=== PATIENT | female | born 1970 | race Asian ===

== ENCOUNTER 2024-03-06 12:58 | Outpatient (OUT) | payer OTHER, SELFPAY ==
--- NOTE | 2024-03-06 08:05 | V.VEINS.HP ---
Vital Signs 03/06/24 13:09 Height 5 ft 3 in Weight 68.039 kg BMI 26.6 BP 102/52 BP Location Left Brachial BP Position Sitting BP Cuff Size Adult BP Source Manual Cuff Respiration 16 Pulse 64 Pulse Source Monitor Pulse Oximetry (%) 99 Oxygen Delivery Method Room Air Varicose Veins Patient is a 53 year old female in this day with c/o biilateral leg pain and achiness. Stef Will MD personally performed the services described in this documentation, as scribed by Petr Francis RN in my presence and it is both accurate and complete. Petr Will RN, am scribing for, and in the presence of, Dr. Stef Figueroa and in the presence of the patient. . Stef Will MD personally performed the services described in this documentation, as scribed by Petr Francis RN in my presence and it is both accurate and complete. Petr Will RN, am scribing for, and in the presence of, Dr. Stef Figueroa and in the presence of the patient. knee: bilateral (symptoms same on both legs), calf: bilateral, ankle: bilateral and lujan: bilateral aching, cramping and tender 8 1 year Worsened in recent months: Yes standing and sitting elevating extremities and compression stockings Reports muscle spasms of leg, fatigue, heaviness and leg edema History of lower extremity trauma: No Superficial thrombophlebitis: No Family history of varicose veins: no Has patient had previous lower extremity venous surgery: No Patient has previously received the following treatment(s) for lower extremity varicose veins: Reports sclerotherapy (Dr. Merritt in [place], [place] 3 years ago) Does patient have a history of : yes Does patient intend to have future pregnancies: no Has patient had lower extremity venous scan with relux testing: No Support hose used: Yes Problems walking or doing physical activity: Yes How does it affect you: often has to rest and elevate legs due to pain/edema Do you walk much: Yes Do you stand much: Yes Review of Systems ROS Narrative Stef Will MD personally performed the services described in this documentation, as scribed by Petr Francis RN in my presence and it is both accurate and complete. Petr Will RN, am scribing for, and in the presence of, Dr. Stef Figueroa and in the presence of the patient. 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) Cervical vertebral fusion ?M43.22 - Fusion of spine, cervical region (ICD-10) Disc degeneration Migraine ?G43.909 - Migraine, unspecified, not intractable, without status migrainosus (ICD-10) Borderline diabetes ?R73.03 - Prediabetes (ICD-10) Heart disease ?I51.9 - Heart disease, unspecified (ICD-10) Hypothyroid ?E03.9 - Hypothyroidism, unspecified (ICD-10) Varicose veins of bilateral lower extremities with pain ?I83.813 - Varicose veins of bilateral lower extremities with pain (ICD-10) Surgical History (Updated 03/06/24 @ 13:26 by Petr Francis) H/O: hysterectomy ?Z90.710 - Acquired absence of both cervix and uterus (ICD-10) Family History (Updated 03/06/24 @ 13:26 by Petr Francis) Father Family history of diabetes mellitus Mother Family history of diabetes mellitus Renal disease Social History (Updated 03/06/24 @ 13:27 by Petr Francis) Within the past year, how often did you have a drink containing alcohol: never Score interpretation: A score less than 3 is consistent with normal alcohol consumption. Smoking status: Current every day smoker What tobacco products do you use: cigarettes Cigarettes per day: 4 Non-prescribed substance use: denies use Meds Home Medications and Allergies Home Medications ?Medication ?Instructions ?Recorded ?Confirmed ?Type aspirin 81 mg capsule 81 mg PO BID 03/06/24 03/06/24 History estradiol PO 03/06/24 History metformin 500 mg tablet 500 mg PO BID 03/06/24 03/06/24 History topiramate .ROUTE 03/06/24 History Allergies Allergy/AdvReac Type Severity Reaction Status Date / Time No Known Drug Allergies Allergy Verified 03/06/24 13:28 Exam Narrative Exam Narrative: I, Stef Figueroa MD personally performed the services described in this documentation, as scribed by Petr Tito RN in my presence and it is both accurate and complete. Petr Will RN, am scribing for, and in the presence of, Dr. Stef Figueroa and in the presence of the patient. Results Additional Findings Additional findings: Bilateral leg reflux u/s reveals severe left great saphenous vein disease with insufficiency and dilation, mild venous insufficiency right great and anterior accessory saphenous veins, and bilateral leg branch saphenous truncal varicosities Stef Will MD personally performed the services described in this documentation, as scribed by Petr Francis RN in my presence and it is both accurate and complete. IPetr RN, am scribing for, and in the presence of, Dr. Stfe Figueroa and in the presence of the patient. Assessment and Plan Assessment and Plan (1) Varicose veins of bilateral lower extremities with pain: Plan Patient to return for EVLT of left GSV, followed by microfoam chemical ablation left leg limited u/s, lastly followed by sclerotherapy bilateral leg pre-hemorrhagic, reticular spider veins. Stef Will MD personally performed the services described in this documentation, as scribed by Petr Francis RN in my presence and it is both accurate and complete. Petr Will RN, am scribing for, and in the presence of, Dr. Stef Figueroa and in the presence of the patient.
--- NOTE | 2024-03-06 08:06 | W.VEIN ---
Discharge Plan Discharge Disposition: Home, Self-Care Outpatient Diagnostics: VC Facility NEW Comprehensive (Routine) Timeframe: 2 Weeks Facility: [facility] - Location: [facility] Ordered By: Stef Figueroa VC EXT Venous Reflux ADELFO LMTD (Routine) Timeframe: 2 Weeks Facility: [facility] - Location: Vein Center Ordered By: Stef Figueroa Plan of Treatment: Patient to return for EVLT of left GSV once approved for insurance Print Language: [place] Discharge Date/Time: 03/06/24 14:39
--- NOTE | 2024-03-06 13:00 | VEIN_ITS ---
Patient Name: KERA LAN MR#: [id number] : 1970 Exam Date: 03/06/2024 Ordering Doctor: DR STEF FIGUEROA M.D. RADIOLOGY REPORT PROCEDURE: VC EXT VENOUS REFLUX ADELFO LMTD COMPARISON: None. INDICATIONS: Pain due to varicose veins of bilateral legs I83.813 TECHNIQUE: Duplex imaging of the lower extremity to assess the deep and superficial venous system for the presence of deep or superficial venous incompetence and to document the location and severity of disease. The study includes evaluation of the great saphenous vein (GSV), anterior accessory saphenous vein (AASV) and small saphenous vein (SSV). Patient scanned in reverse Trendelenburg and standing. FINDINGS: RIGHT LOWER EXTREMITY: Saphenofemoral Junction Reflux: Yes 8.3mm 0.8 sec GSV: Diam (mm) Reflux/ Time (sec) Proximal Thigh 2.8 Yes 0.7 Mid Thigh 2.7 No Distal Thigh 2.0 Yes 0.4 Prox Calf 1.6 No Mid Calf 2.4 Yes 0.3 Saphenopopliteal Junction Reflux: 3.4mm No SSV: Proximal Calf 2.7 No Mid Calf 2.7 No AASV: Proximal Thigh 5.9 Yes 0.9 Mid Thigh 3.1 Yes 0.5 Distal Thigh Thrombi: No acute or chronic thrombus. Compressibility: Normal. Flow: Minimal deep venous reflux. Preforator: Mid medial lower leg 3.3 mm with 0.5s reflux. Tech Note: Incompetent varicose vein off of AASV mid medial thigh measures 3.4 mm with 0.4s reflux. LEFT LOWER EXTREMITY: Saphenofemoral Junction Reflux: Yes 7.6 mm 0.7 sec GSV: Diam (mm) Reflux/Time (sec) Proximal Thigh 6.0 Yes 2.5 Mid Thigh 3.4 Yes 3.8 Distal Thigh 4.7 Yes 4.6 Prox Calf 4.3 Yes 4.6 Mid Calf 3.3 Yes 0.9 Saphenopopliteal Junction Relux: 3.2 mm Yes 0.4 SSV: Proximal Calf 1.8 No Mid Calf 2.9 No AASV: Proximal Thigh 3.1 Yes 0.4 Mid Thigh 2.0 No Distal Thigh Thrombi: No acute or chronic thrombus. Compressibility: Normal. Flow: Minimal deep venous reflux. Ritual Circumciser: Mid posterior calf 4.3 mm with 0.6s reflux. Mid medial lower leg 3.4 mm with 3.7s reflux. Tech Note: Incompetent varicose vein mid posterior calf off of telephone recorder measures 5.2 mm with 2.8s reflux. Varicose vein medial knee measures 4.4 mm with 3.0s reflux. CONCLUSION: 1. Severe left great saphenous vein venous insufficiency with dilatation in saphenofemoral junction reflux 2. Mild venous insufficiency right great and anterior accessory saphenous veins 3. Minimal bilateral deep vein reflux 4. Bilateral incompetent varicose veins Dictated by: Stef Figueroa MD on 03/06/2024 at 14:04 Approved by: Stef Figueroa MD on 03/06/2024 at 14:06
--- NOTE | 2024-03-06 13:00 | VEIN_ITS ---
Patient Name: KERA LAN MR#: [id number] : 1970 Exam Date: 03/06/2024 Ordering Doctor: DR STEF FIGUEROA M.D. RADIOLOGY REPORT PROCEDURE: [facility] - OFFICE VISIT INITIAL COMPARISON: None. PROGRESS NOTES: 53-year-old female presents bilateral leg pain. The patient describes the pain as achy cramping and tenderness and rates the pain as an 8 on a scale 1-10. The patient has had this pain for approximately 1 year. The patient's left leg is worse than the right. The patient's pain is exacerbated by prolonged sitting and standing and partially relieved by rest, leg elevation and compression stocking use. The patient denies any signs and symptoms to suggest arterial ischemia. The patient describes a family history significant for renal disease and diabetes. The patient does not drink. The patient does smokes 4 cigarettes per day . The patient was counseled on smoking cessation period no prescription or illicit drug abuse. history of deep venous thrombus or pulmonary embolus. See separate history and physical for medication list. The patient has previously been treated in [place] by Dr. Brian with injection sclerotherapy with good success. The patient has used compression stockings for many years. Nursing notes were reviewed. After history and physical exam I discussed at length the pathophysiology of venous hypertension and possible treatments, therapies and strategies available. We discussed at length the importance of elevating the lower extremities above the level of the heart, increased physical activity and compression stocking use. We discussed conservative therapy with bilateral compression stockings. We discussed surgical interventions with phlebectomy and ligation and stripping. We discussed intravenous laser ablation, micro foam chemical ablation and injection sclerotherapy at length. Risks benefits and alternatives were discussed. Ultrasound venous reflux study performed the same day was discussed at length with the patient. The report demonstrates severe left great saphenous vein venous insufficiency with saphenofemoral junction right reflux and dilatation. Mild right great and anterior accessory saphenous vein venous insufficiency. Minimal bilateral deep vein reflux. Bilateral incompetent varicose veins. PHYSICAL EXAM: The right leg demonstrates scattered reticular and spider veins. No subcutaneous edema, hemosiderin staining or ulceration The left leg demonstrates moderate scattered varicosities most significant along the popliteal fossa and posterior calf. Moderate reticular and spider veins. Mild subcutaneous edema. No hemosiderin staining or ulceration Both thighs, legs and feet were symmetrically warm to the touch. Good posterior tibial and dorsalis pedis pulses were present bilaterally. VEIN/VC Facility NEW Comprehensive IMPRESSION: 1. Severe left great saphenous vein venous insufficiency with dilatation and saphenofemoral junction reflux 2. Left lower extremity in varicose veins 3. Mild left lower extremity subcutaneous edema 4. No definite flow significant arterial disease 5. CEAP: C3, Ep, As, Pr PLAN: 1. Endovenous laser ablation of the left great saphenous vein 2. Micro foam chemical ablation left leg incompetent varicose veins 3. Bilateral leg injection sclerotherapy of reticular and spider veins 4. Long-term use of bilateral thigh-high or knee high 20-30 mm compression stockings 5. Smoking cessation 6. Increased physical activity for symptomatic relief Nurse notes, history and physical were reviewed and confirmed, see attached forms. The nurse was present throughout the physical exam and consultation Dictated by: Stef Figueroa MD on 03/06/2024 at 14:42 Approved by: Stef Fiugeroa MD on 03/06/2024 at 14:48
[2024-03-06 13:09] VITALS: BP 102/52; PULSE 64; O2SAT 99; BMI 26.6
== END 2024-03-06 14:39 | disposition home or self-care (01) ==
PROVIDERS: PCP Radiology Diagnostic Radiology; Visit Provider Radiology Diagnostic Radiology
DX: I83.813 Varicose veins of bilateral lower extremities with pain (principal)
CPT/HCPCS: 93970; G0463

== ENCOUNTER 2024-04-18 08:11 | Outpatient (OUT) | payer OTHER, SELFPAY ==
--- NOTE | 2024-04-18 07:29 | V.VEINS.HP ---
Vital Signs 04/18/24 07:35 04/18/24 08:30 Height 5 ft 3 in Weight 68 kg BP 104/56 BP Location Left Brachial BP Position Sitting BP Cuff Size Adult BP Source Manual Cuff Respiration 16 Pulse 80 Pulse Source Monitor Pulse Oximetry (%) 100 Oxygen Delivery Method Room Air Varicose Veins Patient in this day for EVLT of left GSV. Stef Will MD personally performed the services described in this documentation, as scribed by Holly Garner RN in my presence and it is both accurate and complete. IHolly RN, am scribing for, and in the presence of, Dr. Stef Figueroa and in the presence of the patient. knee: bilateral (symptoms same on both legs), calf: bilateral, ankle: bilateral and lujan: bilateral aching, cramping and tender 8 1 year Worsened in recent months: Yes standing and sitting elevating extremities and compression stockings Reports muscle spasms of leg, fatigue, heaviness and leg edema History of lower extremity trauma: No Superficial thrombophlebitis: No Family history of varicose veins: no Has patient had previous lower extremity venous surgery: No Patient has previously received the following treatment(s) for lower extremity varicose veins: Reports sclerotherapy (Dr. Merritt in [place], [place] 3 years ago) Does patient have a history of : yes Does patient intend to have future pregnancies: no Has patient had lower extremity venous scan with relux testing: No Support hose used: Yes Problems walking or doing physical activity: Yes How does it affect you: often has to rest and elevate legs due to pain/edema Do you walk much: Yes Do you stand much: Yes Review of Systems ROS Narrative Stef Will MD personally performed the services described in this documentation, as scribed by Holly Garner RN in my presence and it is both accurate and complete. Holly Will RN, am scribing for, and in the presence of, Dr. Stef Figueroa and in the presence of the patient. Status of ROS 10 or more systems reviewed and unremarkable except as noted in history and below Cardiovascular Reports: edema Integumentary/Breast Reports: itching and skin swelling [facility] Medical History (Updated 03/06/24 @ 13:26 by Petr Francis) Bariatrc surg stat w p/p ?O99.845 - Bariatric surgery status complicating the puerperium (ICD-10) Cervical vertebral fusion ?M43.22 - Fusion of spine, cervical region (ICD-10) Disc degeneration Migraine ?G43.909 - Migraine, unspecified, not intractable, without status migrainosus (ICD-10) Borderline diabetes ?R73.03 - Prediabetes (ICD-10) Heart disease ?I51.9 - Heart disease, unspecified (ICD-10) Hypothyroid ?E03.9 - Hypothyroidism, unspecified (ICD-10) Varicose veins of bilateral lower extremities with pain ?I83.813 - Varicose veins of bilateral lower extremities with pain (ICD-10) Surgical History (Updated 03/06/24 @ 13:26 by Petr Francis) H/O: hysterectomy ?Z90.710 - Acquired absence of both cervix and uterus (ICD-10) Family History (Updated 03/06/24 @ 13:26 by Petr Francis) Father Family history of diabetes mellitus Mother Family history of diabetes mellitus Renal disease Social History (Updated 03/06/24 @ 13:27 by Petr Francis) Within the past year, how often did you have a drink containing alcohol: never Score interpretation: A score less than 3 is consistent with normal alcohol consumption. Smoking status: Current every day smoker What tobacco products do you use: cigarettes Cigarettes per day: 4 Non-prescribed substance use: denies use Meds Home Medications and Allergies Home Medications ?Medication ?Instructions ?Recorded ?Confirmed ?Type aspirin 81 mg capsule 81 mg PO BID 03/06/24 03/06/24 History estradiol PO 03/06/24 History metformin 500 mg tablet 500 mg PO BID 03/06/24 03/06/24 History topiramate .ROUTE 03/06/24 History Allergies Allergy/AdvReac Type Severity Reaction Status Date / Time No Known Drug Allergies Allergy Verified 03/06/24 13:28 Exam Narrative Exam Narrative: IStef MD personally performed the services described in this documentation, as scribed by Holly Garner RN in my presence and it is both accurate and complete. IHolly RN, am scribing for, and in the presence of, Dr. Stef Figueroa and in the presence of the patient. Constitutional Documenting provider has reviewed patient's vital signs: yes Common normals: oriented x3 Nutritional appearance: overweight Lymph Lymphatic: no lymphedema noted Cardio Peripheral pulses: posterior tibial pulses present and dorsalis pedis pulses present Extremity General: calf tenderness, edema and other findings Right lower extremity: lower leg Right lower leg: inspection and palpation Left lower extremity: lower leg Left lower leg: inspection and palpation Neuro Common normals: oriented x3 Assessment and Plan Assessment and Plan (1) Varicose veins of bilateral lower extremities with pain: Plan Plan of care: Risks and benefits of the procedure were discussed at length and informed written consent was obtained.? Time-out completed for verification of correct patient, procedure and site.? Staff present during time-out: Holly Garner RN,? Stef Figueroa MD, Debi Stock RDMS,RVT.. Time Out Time__829 Patient prepped and procedure performed in usual sterile fashion. Risk of injury related to use of Diode laser and/or laser devices? __AG___ ? Serial number of laser used :? [id number] Control panel self test performed, electrical cords in good condition, floor is dry, basin of water available, fire extinguisher in close proximity_AG__ Polycarbonate goggles available and Laser warning signs outside of doors___AG___ Eye protection provided to patient and staff in room_AG___ Use of laser retardant drapes and dull blackened instruments as directed__AG___ Use of nonflammable prep solutions and use of saline soaked sponges to protect tissues as indicated _AG___ Length cm Laser operated by ____Dr. Figueroa Physician verbal confirmation laser locked in place__AG__ Laser start time (date and time) __04/18/24@ Laser stop time(date and time) _04/18/24@ Andres _8.0___ Average laser use Joules Average laser use seconds Pulse continuous ___AG_? Pulse intermittent ___ Amount of Tumescent used Evaluated patient for signs and symptoms of electrical injury __AG___ ? Skin clear at insertion site __AG___ Patient tolerated procedure well.? Left leg Coban dressing applied to access site.? Applied Left thigh high leg compression stocking. Will return on // for Left leg limited venous ultrasound and exam. IStef MD personally performed the services described in this documentation, as scribed by Holly Garner RN in my presence and it is both accurate and complete. I, Holly Garner RN, am scribing for, and in the presence of, Dr. Stef Figueroa and in the presence of the patient.
--- NOTE | 2024-04-18 07:34 | W.VEIN ---
Discharge Plan Discharge Disposition: Home, Self-Care Outpatient Diagnostics: VC Facility EST LMTD (Routine) Timeframe: 2 Weeks Facility: [facility] - Location: Vein Center Ordered By: Stef Figueroa VC EXT Venous LT Limited (Routine) Timeframe: 2 Weeks Facility: [facility] - Location: Vein Center Ordered By: Stef Figueroa Follow Up Appointments: 04/25/24 Plan of Treatment: follow up u/s of evlt of left GSV. Patient Instructions: Endovenous Ablation (DC) Print Language: Citizen Of [place] Discharge Date/Time: 04/18/24 08:57
--- NOTE | 2024-04-18 08:15 | VEIN_ITS ---
[address] [address] Patient Name: KERA LAN MRN: [facility]:[id number] date: 1970 Sex: F Assigned Patient Location: Current Patient Location: Accession/Order Number: [id number] Exam Date: 04/18/2024 08:15 Report Date: 04/18/2024 09:11 At the request of: COURTNEY HERNANDEZ Procedure: VC Endovenous Ablation 1VeinLT EXAMINATION: VC Endovenous Ablation 1VeinLT HISTORY: I83.813 - Varicose veins of bilateral lower extremities w... COMPARISON: No relevant comparison available. TECHNIQUE: The risks and benefits of the procedure had been previously discussed, and were rediscussed at length. Informed written consent was obtained. Qian Stock and Holly Pang assisted. Time out procedure was performed. The left lower extremity was prepared and draped in the usual sterile fashion to allow knee flexion in the sterile field. Duplex ultrasound probe was draped in a sterile cover, sterile transmission gel was used. Venous mapping was performed with the areas of dilation and large tributaries marked. The total length was 16 cm from the entry at the knee to the proximal thigh, scarring within the vein precluded advancement beyond the proximal thigh. The diameter of the greater saphenous vein ranged from 5-6 mm. A 30 gauge needle and 1% buffered lidocaine was used to anesthetize the entry site. A 4 mm incision was made with a scalpel and the saphenous vein was entered percutaneously under direct ultrasound guidance with a micropuncture set, a single stick was successful in gaining access. A micro-guide wire was inserted and the needle removed. A micro-set including a dilator was inserted over the microwire and the needle and dilator were removed. A 0.018 guide wire was inserted through the micro-set and threaded through the saphenous vein. The dilator was removed and an introducer sheath was inserted over the wire. The dilator and wire were removed and the 600 micron fiber was introduced and placed and positioned so that it extended beyond the sheath. Final position of the fiber was determined by ultrasound guidance and duplex imaging. Tumescent anesthetic was delivered by ultrasound guidance. 100 cc of fluid was delivered along the entire course of the saphenous vein. The solution consisted of 1000 cc of normal saline with 40 mL of 1% lidocaine and 20 mL of sodium bicarbonate. A final positioning check was made. The energy source was turned on by means of the foot pedal and the fiber and sheath were withdrawn. The total number of Joules delivered was 843. The laser was active for 105 seconds under continuous pulse, average laser use of 8 J. Laser start time 8:41 AM 04/18/2024 . Laser stop time at 8:44 AM 04/18/2024 . A duplex ultrasound revealed compressibility and flow at the saphenofemoral junction immediately after the procedure. Hemostasis at the access site was achieved. The skin incision of the saphenous vein was closed with a 4 x 4. A compression stocking was applied. Postop instructions were given. A follow up appointment was recommended and scheduled. The patient tolerated the procedure well and was discharged in good condition . VEIN/VC Endovenous Ablation 1VeinLT IMPRESSION: Technically successful endovenous laser ablation left great saphenous vein Electronically authenticated by: COURTNEY HERNANDEZ Date: 04/18/2024 09:11
[2024-04-18 08:30] VITALS: BP 104/56; PULSE 80; O2SAT 100
--- NOTE | 2024-04-18 08:34 | V.VEINS.HP ---
Vital Signs 04/18/24 07:35 04/18/24 08:30 Height 5 ft 3 in Weight 68 kg BP 104/56 BP Location Left Brachial BP Position Sitting BP Cuff Size Adult BP Source Manual Cuff Respiration 16 Pulse 80 Pulse Source Monitor Pulse Oximetry (%) 100 Oxygen Delivery Method Room Air Varicose Veins Patient in this day for EVLT of left GSV. Stef Will MD personally performed the services described in this documentation, as scribed by Holly Garner RN in my presence and it is both accurate and complete. IHolly RN, am scribing for, and in the presence of, Dr. Stef Figueroa and in the presence of the patient. knee: bilateral (symptoms same on both legs), calf: bilateral, ankle: bilateral and lujan: bilateral aching, cramping and tender 8 1 year Worsened in recent months: Yes standing and sitting elevating extremities and compression stockings Reports muscle spasms of leg, fatigue, heaviness and leg edema History of lower extremity trauma: No Superficial thrombophlebitis: No Family history of varicose veins: no Has patient had previous lower extremity venous surgery: No Patient has previously received the following treatment(s) for lower extremity varicose veins: Reports sclerotherapy (Dr. Merritt in [place], [place] 3 years ago) Does patient have a history of : yes Does patient intend to have future pregnancies: no Has patient had lower extremity venous scan with relux testing: No Support hose used: Yes Problems walking or doing physical activity: Yes How does it affect you: often has to rest and elevate legs due to pain/edema Do you walk much: Yes Do you stand much: Yes Review of Systems ROS Narrative Stef Will MD personally performed the services described in this documentation, as scribed by Holly Garner RN in my presence and it is both accurate and complete. Holly Will RN, am scribing for, and in the presence of, Dr. Stef Figueroa and in the presence of the patient. Status of ROS 10 or more systems reviewed and unremarkable except as noted in history and below Cardiovascular Reports: edema Integumentary/Breast Reports: itching and skin swelling [facility] Medical History (Updated 03/06/24 @ 13:26 by Petr Francis) Bariatrc surg stat w p/p ?O99.845 - Bariatric surgery status complicating the puerperium (ICD-10) Cervical vertebral fusion ?M43.22 - Fusion of spine, cervical region (ICD-10) Disc degeneration Migraine ?G43.909 - Migraine, unspecified, not intractable, without status migrainosus (ICD-10) Borderline diabetes ?R73.03 - Prediabetes (ICD-10) Heart disease ?I51.9 - Heart disease, unspecified (ICD-10) Hypothyroid ?E03.9 - Hypothyroidism, unspecified (ICD-10) Varicose veins of bilateral lower extremities with pain ?I83.813 - Varicose veins of bilateral lower extremities with pain (ICD-10) Surgical History (Updated 03/06/24 @ 13:26 by Petr Francis) H/O: hysterectomy ?Z90.710 - Acquired absence of both cervix and uterus (ICD-10) Family History (Updated 03/06/24 @ 13:26 by Petr Francis) Father Family history of diabetes mellitus Mother Family history of diabetes mellitus Renal disease Social History (Updated 03/06/24 @ 13:27 by Petr Francis) Within the past year, how often did you have a drink containing alcohol: never Score interpretation: A score less than 3 is consistent with normal alcohol consumption. Smoking status: Current every day smoker What tobacco products do you use: cigarettes Cigarettes per day: 4 Non-prescribed substance use: denies use Meds Home Medications and Allergies Home Medications ?Medication ?Instructions ?Recorded ?Confirmed ?Type aspirin 81 mg capsule 81 mg PO BID 03/06/24 03/06/24 History estradiol PO 03/06/24 History metformin 500 mg tablet 500 mg PO BID 03/06/24 03/06/24 History topiramate .ROUTE 03/06/24 History Allergies Allergy/AdvReac Type Severity Reaction Status Date / Time No Known Drug Allergies Allergy Verified 03/06/24 13:28 Exam Narrative Exam Narrative: IStef MD personally performed the services described in this documentation, as scribed by Holly Garner RN in my presence and it is both accurate and complete. IHolly RN, am scribing for, and in the presence of, Dr. Stef Figueroa and in the presence of the patient. Constitutional Vital Signs, click to edit/add: Last Vital Signs Pulse 80 04/18/24 08:30 Resp 16 04/18/24 08:30 BP 104/56 04/18/24 08:30 Pulse Ox 100 04/18/24 08:30 Documenting provider has reviewed patient's vital signs: yes Common normals: oriented x3 Nutritional appearance: overweight Lymph Lymphatic: no lymphedema noted Cardio Peripheral pulses: posterior tibial pulses present and dorsalis pedis pulses present Extremity General: calf tenderness, edema and other findings Right lower extremity: lower leg Right lower leg: inspection and palpation Left lower extremity: lower leg Left lower leg: inspection and palpation Neuro Common normals: oriented x3 Assessment and Plan Assessment and Plan (1) Varicose veins of bilateral lower extremities with pain: Plan Plan of care: Risks and benefits of the procedure were discussed at length and informed written consent was obtained.? Time-out completed for verification of correct patient, procedure and site.? Staff present during time-out: Holly Garner RN,? Stef Figueroa MD, Debi Stock RDMS,RVT.. Time Out Time__829 Patient prepped and procedure performed in usual sterile fashion. Risk of injury related to use of Diode laser and/or laser devices? __AG___ ? Serial number of laser used :? [id number] Control panel self test performed, electrical cords in good condition, floor is dry, basin of water available, fire extinguisher in close proximity_AG__ Polycarbonate goggles available and Laser warning signs outside of doors___AG___ Eye protection provided to patient and staff in room_AG___ Use of laser retardant drapes and dull blackened instruments as directed__AG___ Use of nonflammable prep solutions and use of saline soaked sponges to protect tissues as indicated _AG___ Length ____19____ cm Laser operated by ____Dr. Figueroa Physician verbal confirmation laser locked in place__AG__ Laser start time (date and time) __04/18/24@0841 Laser stop time(date and time) _04/18/24@0844 Andres _8.0___ Average laser use ___843____Joules Average laser use___105 seconds Pulse continuous ___AG_? Pulse intermittent ___ Amount of Tumescent used Evaluated patient for signs and symptoms of electrical injury __AG___ ? Skin clear at insertion site __AG___ Patient tolerated procedure well.? Left leg Coban dressing applied to access site.? Applied Left thigh high leg compression stocking. Will return on 04/25/24 for Left leg limited venous ultrasound and exam. I, Stef Figueroa MD personally performed the services described in this documentation, as scribed by Holly Garner RN in my presence and it is both accurate and complete. I, Holly Garner RN, am scribing for, and in the presence of, Dr. Stef Figueroa and in the presence of the patient.
[2024-04-18] MEDS: LIDOCAINE HCL 1% 100 MG/10 ML MDV INJ (11:10)
[2024-04-18] MEDS: 0.9 % SODIUM CHLORIDE 500 ML, LIDOCAINE HCL 20 ML, SODIUM BICARBONATE 10 MEQ INJ (11:11)
== END 2024-04-18 08:57 | disposition home or self-care (01) ==
LOC: VC 08:11
PROVIDERS: PCP Radiology Diagnostic Radiology; Visit Provider Radiology Diagnostic Radiology
DX: I83.813 Varicose veins of bilateral lower extremities with pain (principal)
CPT/HCPCS: 36478

== ENCOUNTER 2024-04-25 09:03 | Outpatient (OUT) | payer OTHER, SELFPAY ==
[2024-04-25 08:14] VITALS: BMI 26.6
--- NOTE | 2024-04-25 08:14 | VEINCLINIC_ITS ---
Vital Signs 04/25/24 08:14 Height 5 ft 3 in Weight 68 kg BMI 26.6 Varicose Veins Patient in this day for follow up ultrasound post EVLT of left GSV. Stef Will MD personally performed the services described in this documentation, as scribed by Debi Stock RVT, RDMS in my presence and it is both accurate and complete. Debi Will RVT, RDMS, am scribing for, and in the presence of, Dr. Stef Figueroa and in the presence of the patient. knee: bilateral (symptoms same on both legs), calf: bilateral, ankle: bilateral and lujan: bilateral aching, cramping and tender 8 1 year Worsened in recent months: Yes standing and sitting elevating extremities and compression stockings Reports muscle spasms of leg, fatigue, heaviness and leg edema History of lower extremity trauma: No Superficial thrombophlebitis: No Family history of varicose veins: no Has patient had previous lower extremity venous surgery: No Patient has previously received the following treatment(s) for lower extremity varicose veins: Reports sclerotherapy (Dr. Merritt in [place], [place] 3 years ago) Does patient have a history of : yes Does patient intend to have future pregnancies: no Has patient had lower extremity venous scan with relux testing: No Support hose used: Yes Problems walking or doing physical activity: Yes How does it affect you: often has to rest and elevate legs due to pain/edema Do you walk much: Yes Do you stand much: Yes Review of Systems ROS Narrative Stef Will MD personally performed the services described in this documentation, as scribed by Debi Stock RVT, RDMS in my presence and it is both accurate and complete. Debi Will RVT, RDMS, am scribing for, and in the presence of, Dr. Stef Figueroa and in the presence of the patient. Status of ROS 10 or more systems reviewed and unremark able except as noted in history and below Cardiovascular Reports: edema Integumentary/Breast Reports: itching and skin swelling [facility] Medical History (Updated 03/06/24 @ 13:26 by Petr Francis) Bariatrc surg stat w p/p ?O99.845 - Bariatric surgery status complicating the puerperium (ICD-10) Cervical vertebral fusion ?M43.22 - Fusion of spine, cervical region (ICD-10) Disc degeneration Migraine ?G43.909 - Migraine, unspecified, not intractable, without status migrainosus (ICD-10) Borderline diabetes ?R73.03 - Prediabetes (ICD-10) Heart disease ?I51.9 - Heart disease, unspecified (ICD-10) Hypothyroid ?E03.9 - Hypothyroidism, unspecified (ICD-10) Varicose veins of bilateral lower extremities with pain ?I83.813 - Varicose veins of bilateral lower extremities with pain (ICD-10) Surgical History (Updated 03/06/24 @ 13:26 by Petr Francis) H/O: hysterectomy ?Z90.710 - Acquired absence of both cervix and uterus (ICD-10) Family History (Updated 03/06/24 @ 13:26 by Petr Francis) Father Family history of diabetes mellitus Mother Family history of diabetes mellitus Renal disease Social History (Updated 03/06/24 @ 13:27 by Petr Francis) Within the past year, how often did you have a drink containing alcohol: never Score interpretation: A score less than 3 is consistent with normal alcohol consumption. Smoking status: Current every day smoker What tobacco products do you use: cigarettes Cigarettes per day: 4 Non-prescribed substance use: denies use Meds Home Medications and Allergies Home Medications ?Medication ?Instructions ?Recorded ?Confirmed ?Type aspirin 81 mg capsule 81 mg PO BID 03/06/24 03/06/24 History estradiol PO 03/06/24 History metformin 500 mg tablet 500 mg PO BID 03/06/24 03/06/24 History topiramate .ROUTE 03/06/24 History Allergies Allergy/AdvReac Type Severity Reaction Status Date / Time No Known Drug Allergies Allergy Verified 03/06/24 13:28 Exam Narrative Exam Narrative: IStef MD personally performed the services described in this documentation, as scribed by Debi Stock RVT, RDMS in my presence and it is both accurate and complete. IDebi RVT, RDMS, am scribing for, and in the presence of, Dr. Stef Figueroa and in the presence of the patient.c Constitutional Vital Signs, click to edit/add: Last Vital Signs Pulse 80 04/18/24 08:30 Resp 16 04/18/24 08:30 BP 104/56 04/18/24 08:30 Pulse Ox 100 04/18/24 08:30 Documenting provider has reviewed patient's vital signs: yes Common normals: oriented x3 Nutritional appearance: overweight Lymph Lymphatic: no lymphedema noted Cardio Peripheral pulses: posterior tibial pulses present and dorsalis pedis pulses present Extremity General: calf tenderness, edema and other findings Right lower extremity: lower leg Right lower leg: inspection and palpation Left lower extremity: lower leg Left lower leg: inspection and palpation Neuro Common normals: oriented x3 Results Imaging Venous US: Radiologist's impression: The ultrasound demonstrates Heat induced thrombus visualized 1.4cm from the SFJ. The heat induced thrombus extends from groin to mid calf. Assessment and Plan Assessment and Plan (1) Varicose veins of bilateral lower extremities with pain: Plan Patient in today for follow up ultrasound of lower extremity following treatment of EVLT of left leg GSV completed on 04/18/24.
--- NOTE | 2024-04-25 08:16 | P.DS_ITS ---
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 Print Language: [place] Discharge Date/Time: 04/25/24 10:21
--- NOTE | 2024-04-25 09:05 | VEIN_ITS ---
Patient Name: KERA LAN MR#: [id number] : 1970 Exam Date: 04/25/2024 Ordering Doctor: DR STEF FIGUEROA M.D. RADIOLOGY REPORT PROCEDURE: VC EXT VENOUS LT LIMITED COMPARISON: None. INDICATIONS: I80.02 - Phlebitis and thrombophlebitis of superficial ve... TECHNIQUE: Lower extremity bourgeois scale and Duplex Doppler evaluation of the deep venous system from the inguinal ligament through the calf veins. FINDINGS: REGION: Left lower extremity. THROMBI: Negative for DVT. Heat induced thrombus visualized 1.4 cm from the SFJ. The heat induced thrombus extends from groin to mid thigh. COMPRESSIBILITY: Non-compressible segments corresponding to thrombus FLOW: Areas of no flow corresponding to thrombus CONCLUSION: Post ablation occlusion of the left great saphenous vein with heat induced thrombus 1.4 cm from the saphenofemoral junction Dictated by: Stef Figueroa MD on 04/25/2024 at 10:08 Approved by: Stef Figueroa MD on 04/25/2024 at 10:08
--- NOTE | 2024-04-25 09:05 | VEIN_ITS ---
Patient Name: KERA LAN MR#: [id number] : 1970 Exam Date: 04/25/2024 Ordering Doctor: DR STEF FIGUEROA M.D. RADIOLOGY REPORT PROCEDURE: F[facility]ILITY [facility] - OFFICE VISIT FOLLOW UP COMPARISON: None. PROGRESS NOTES: The patient reports no significant problems following intravenous laser ablation of the left great saphenous vein. The patient has worn her compression stocking. The patient has exercise. The patient did not require oral analgesics Physical exam demonstrates incision to be sealed. There is a 1 cm area of bruising in the distal left medial thigh. No erythema or warmth to suggest cellulitis or thrombophlebitis. No active ulceration. The left great saphenous vein is not definitively palpated Review of the ultrasound performed the same day demonstrates occlusive thrombus extending throughout the treated left great saphenous vein with heat induced thrombus 1.4 cm from the saphenofemoral junction. The patient expressed a desire to proceed with treatment of left leg incompetent varicose veins. [facility] IMPRESSION: 1. Successful ablation of the left great saphenous vein 2. Persistent incompetent left leg varicose veins. PLAN: Micro foam chemical ablation left leg incompetent varicose veins Nurse notes, history and physical were reviewed and confirmed, see attached forms. The nurse was present throughout the physical exam and consultation Dictated by: Stef Figueroa MD on 04/25/2024 at 10:20 Approved by: Stef Figueroa MD on 04/25/2024 at 10:23
== END 2024-04-25 10:21 | disposition home or self-care (01) ==
LOC: VC 09:03
PROVIDERS: PCP Radiology Diagnostic Radiology; Visit Provider Radiology Diagnostic Radiology
DX: I80.02 Phlebitis and thrombophlebitis of superficial vessels of left lower extremity (principal)
CPT/HCPCS: 93971; G0463

== ENCOUNTER 2024-05-16 13:06 | Outpatient (OUT) | payer OTHER, SELFPAY ==
--- NOTE | 2024-05-14 12:47 | V.VEINS.HP ---
Vital Signs 05/16/24 14:11 BP 110/64 BP Location Left Brachial BP Position Sitting BP Cuff Size Adult BP Source Manual Cuff Respiration 16 Pulse 78 Pulse Source Monitor Pulse Oximetry (%) 98 Oxygen Delivery Method Room Air Varicose Veins Patient in this day for microfoam chemical ablation left leg Homero Will MD personally performed the services described in this documentation, as scribed by Petr Francis RN in my presence and it is both accurate and complete. IPetr RN, am scribing for, and in the presence of, Dr. Homero Olivia and in the presence of the patient. knee: bilateral (symptoms same on both legs), calf: bilateral, ankle: bilateral and lujan: bilateral aching, cramping and tender 8 1 year Worsened in recent months: Yes standing and sitting elevating extremities and compression stockings Reports muscle spasms of leg, fatigue, heaviness and leg edema History of lower extremity trauma: No Superficial thrombophlebitis: No Family history of varicose veins: no Has patient had previous lower extremity venous surgery: No Patient has previously received the following treatment(s) for lower extremity varicose veins: Reports sclerotherapy (Dr. Merritt in [place], [place] 3 years ago) Does patient have a history of : yes Does patient intend to have future pregnancies: no Has patient had lower extremity venous scan with relux testing: No Support hose used: Yes Problems walking or doing physical activity: Yes How does it affect you: often has to rest and elevate legs due to pain/edema Do you walk much: Yes Do you stand much: Yes Review of Systems ROS Narrative Homero Will MD personally performed the services described in this documentation, as scribed by Petr Francis RN in my presence and it is both accurate and complete. Petr Will RN, am scribing for, and in the presence of, Dr. Homero Olivia and in the presence of the patient. Status of ROS 10 or more systems reviewed and unremarkable except as noted in history and below Cardiovascular Reports: edema Integumentary/Breast Reports: itching and skin swelling [facility] Medical History (Updated 03/06/24 @ 13:26 by Petr Francis) Bariatrc surg stat w p/p ?O99.845 - Bariatric surgery status complicating the puerperium (ICD-10) Cervical vertebral fusion ?M43.22 - Fusion of spine, cervical region (ICD-10) Disc degeneration Migraine ?G43.909 - Migraine, unspecified, not intractable, without status migrainosus (ICD-10) Borderline diabetes ?R73.03 - Prediabetes (ICD-10) Heart disease ?I51.9 - Heart disease, unspecified (ICD-10) Hypothyroid ?E03.9 - Hypothyroidism, unspecified (ICD-10) Varicose veins of bilateral lower extremities with pain ?I83.813 - Varicose veins of bilateral lower extremities with pain (ICD-10) Surgical History (Updated 05/16/24 @ 13:35 by Petr Francis) S/P sclerotherapy of varicose veins ?Z98.890 - Other specified postprocedural states (ICD-10) ?Z86.79 - Personal history of other diseases of the circulatory system (ICD-10) H/O: hysterectomy ?Z90.710 - Acquired absence of both cervix and uterus (ICD-10) Family History (Updated 03/06/24 @ 13:26 by Petr Francis) Father Family history of diabetes mellitus Mother Family history of diabetes mellitus Renal disease Social History (Updated 03/06/24 @ 13:27 by Petr Francis) Within the past year, how often did you have a drink containing alcohol: never Score interpretation: A score less than 3 is consistent with normal alcohol consumption. Smoking status: Current every day smoker What tobacco products do you use: cigarettes Cigarettes per day: 4 Non-prescribed substance use: denies use Meds Home Medications and Allergies Home Medications ?Medication ?Instructions ?Recorded ?Confirmed ?Type aspirin 81 mg capsule 81 mg PO BID 03/06/24 03/06/24 History estradiol PO 03/06/24 History metformin 500 mg tablet 500 mg PO BID 03/06/24 03/06/24 History topiramate .ROUTE 03/06/24 History Allergies Allergy/AdvReac Type Severity Reaction Status Date / Time No Known Drug Allergies Allergy Verified 03/06/24 13:28 Exam Narrative Exam Narrative: Homero Will MD personally performed the services described in this documentation, as scribed by Petr Francis RN in my presence and it is both accurate and complete. IPetr RN, am scribing for, and in the presence of, Dr. Homero Olivia and in the presence of the patient. Constitutional Vital Signs, click to edit/add: Last Vital Signs Pulse 80 04/18/24 08:30 Resp 16 04/18/24 08:30 BP 104/56 04/18/24 08:30 Pulse Ox 100 04/18/24 08:30 Documenting provider has reviewed patient's vital signs: yes Common normals: oriented x3 Nutritional appearance: overweight Lymph Lymphatic: no lymphedema noted Cardio Peripheral pulses: posterior tibial pulses present and dorsalis pedis pulses present Extremity General: calf tenderness, edema and other findings Right lower extremity: lower leg Right lower leg: inspection and palpation Left lower extremity: lower leg Left lower leg: inspection and palpation Neuro Common normals: oriented x3 Assessment and Plan Assessment and Plan (1) Varicose veins of bilateral lower extremities with pain: Plan f/u examination with physician along with left leg limited u/s IHomero MD personally performed the services described in this documentation, as scribed by Petr Francis RN in my presence and it is both accurate and complete. IPetr RN, am scribing for, and in the presence of, Dr. Homero Olivia and in the presence of the patient. Procedures Procedure Instructions Procedures Left leg microfoam chemical ablation/Varithena: Risks and benefits of the procedure were discussed at length and informed written consent was obtained.? Time-out procedure was performed and the correct patient and procedure were confirmed.? Staff present during time-out: Petr Francis RN and Homero Olivia MD.? Patient prepped and procedure performed in usual sterile fashion.? Patient was placed in Trendelenburg prior to Polidocanol/Varithena injections. Sclerosing Agent:?? cc 1% Polidocanol/Varithena Site Injected: left leg: Number of Injections:? 5cc varithena administered in to a 3mm varicose vein proximal medial lower leg The patient tolerated the procedure well without complication.? Hemostasis was obtained and thigh-high compression stocking was applied with foam pads.? Instructed patient to wear stocking for at least 96 hours and sleep with it and only remove for showering.? The patient was instructed to? wear stocking for 2 weeks.? Patient verbalizes understanding and states they will comply.? Patient was given post-procedure instructions. Patient was discharged in good condition.? Scheduled to undergo limited venous ultrasound and? exam on 05/16/2024. IHomero MD personally performed the services described in this documentation, as scribed by Petr Francis RN in my presence and it is both accurate and complete. IPetr RN, am scribing for, and in the presence of, Dr. Homero Olivia and in the presence of the patient.
--- NOTE | 2024-05-14 12:53 | P.DS_ITS ---
Discharge Plan Discharge Disposition: Home, Self-Care Outpatient Diagnostics: VC Facility EST [facility]MTD (Routine) Timeframe: 2 Weeks Facility: [facility] - Location: Vein Center Ordered By: Homero Olivia VC EXT Venous LT Limited (Routine) Timeframe: 2 Weeks Facility: [facility] - Location: Vein Center Ordered By: Homero Olivia Follow Up Appointments: 05/21/2024 Plan of Treatment: f/u evaluation with physician along with left leg limited u/s Patient Instructions: Polidocanol (By injection) (Asclera, Varithena) Print Language: Citizen Of [place] Discharge Date/Time: 05/16/24 14:13
--- NOTE | 2024-05-16 13:08 | VEIN_ITS ---
[address] [address] Patient Name: KERA LAN MRN: [id number] date: 1970 Sex: F Assigned Patient Location: Current Patient Location: Accession/Order Number: [id number] Exam Date: 05/16/2024 13:08 Report Date: 05/16/2024 15:07 At the request of: COURTNEY HERNANDEZ Procedure: VC INJ Foam Sclerosant WUS LANDSCAPER HELPER PROCEDURE: VC INJ Foam Sclerosant WUS LANDSCAPER HELPER HISTORY: I83.813 - Varicose veins of bilateral lower extremities w... Pre-operative Diagnosis: CEAP class C3 venous insufficiency with pain, tenderness, edema and incompetent branch saphenous vein(s), chronic venous insufficiency left leg secondary to venous incompetence Post-operative Diagnosis: CEAP class C3 venous insufficiency with pain, tenderness, edema and incompetent branch saphenous vein(s), chronic venous insufficiency [ leg secondary to venous incompetence Procedure Performed: 1. Ultrasound-guided microfoam chemical ablation with Varithenaregistered 2. Intraoperative ultrasound guidance Physician: Homero Olivia M.D. Anesthesia: None Indications for Procedure: 53 year old female. Symptoms including lower extremity pain, swelling, dilated bulging veins for many years despite conservative medical therapy including medical compression stockings, exercise and analgesics. Prior procedures include endovenous laser ablation. Multiple incompetent varicosities of the left leg. Duplex scan showed reflux and enlarged diameters up to 3 mm. The patient underwent informed consent including management options where the complications of infection, bleeding, pain, and skin injury were discussed. Particular attention was spent discussing thrombus extension and deep vein thrombosis as well as the possibility of pulmonary embolus and treatment with oral or injectable blood thinners. Procedure: The patient walked to the procedure room. All applicable staff donned appropriate apparel. A procedure timeout was performed to confirm correct patient, correct extremity, correct procedure, and correct room set-up including presence of all applicable supplies, devices, and drugs. A duplex ultrasound, performed by myself confirmed the location and incompetence of branch saphenous varicosities and their course was marked on the skin together with the dilated tributaries. The extent of treatment of the vein and the associated varicosities was determined through ultrasound mapping. The skin was prepped and then punctured with a butterfly needle and advanced under ultrasound guidance. The Varithenaregistered canister was activated and the canister was primed and purged as required in the instructions for use. Varithenaregistered was drawn into a sterile syringe. Varithenaregistered was slowly administered at 0.5-1.0 cc/second with close observation by ultrasound of its course in the vessels. Total volume utilized was: 5 mL into a 3 mm incompetent varicosity within the proximal medial lower leg. Following administration of Varithenaregistered the leg was elevated and the patient was asked to repeatedly dorsiflex the ankle to limit flow of Varithenaregistered into perforating veins. Once appropriate spasm had been confirmed in the treated veins, the vascular catheter was removed from the leg and light pressure was applied over the puncture site for hemostasis. The common femoral and deep superficial veins were then evaluated for flow and compressibility prior to dressing placement. The lower extremity was kept elevated at 45 degrees above the horizontal and cording material was applied over the saphenous segments and tributaries to allow for eccentric compression over the target vessels including the targeted saphenous vein(s). A multilayer dressing was applied consisting of foam pads, coban and thigh-high 20-30 mm Hg compression elastic support hose were placed on the patient. The leg was lowered only after compression had been applied and the patient was immediately ambulatory. The patient ambulated 10 minutes under supervision and was without apparent concerns at time of release. Post-care instructions include advising patient to keep post-treatment bandages in place and dry for 48 hours, avoid extended periods of inactivity, avoid heavy exercise for one week, wear compression stockings on the treated leg continuously for two weeks, to walk daily for 10 minutes over the next month. The patient was instructed to take an anti-inflammatory medicine as needed and to follow up for color duplex scan of the Saphenous veins, the treated branch saphenous varicosities, the adjacent deep veins, and additional treatment within 7 days. PERSONNEL: Petr Francis RN Electronically authenticated by: HOMERO OLIVIA Date: 05/16/2024 15:07
--- OUTSIDE RECORDS SUMMARY | 2024-05-16 13:21 | XMS_ITS | CCD ---
Author Organization [facility] Care Team Providers Care Bindery Machine Setter/Set Up Operator Name Role Phone Edward Harjinderquinten Kim Unavailable Unavailable Demar, Khaldoon Wajeeh Unavailable [phone] Demar, Khaldoon Wajeeh Unavailable Unavail able Demar, Khaldoon Wajeeh Unavailable Unavail able Chopko, Reinaldo W Unavailable Unavailable Chopko, Reinaldo W Unavailable Unavailable Chopko, Reinaldo W Unavailable Unavailable Chopko, Reinaldo W Unavailable Unavailable Herr, Florentino Unavailable Nemesio Florentino Primary Care Provider Nemesio Florentino A Primary Care Provider [phone] Nemesio Florentino A Primary Care Provider Nemesio Florentino A Primary Care Provider Herr, Florentino Primary Care Provider [phone] KAMLA, REINALDO JAZZYODYMYR Attending Unavail able CHOPKO, REINALDO WOLODYMYR Referring Unavail able HERR, FLORENTINO Primary Care Unavailable CHOPKO, REINALDO WOLODYMYR Attending Unavail able CHOPNANCY, REINALDO WOLODYMYR Referring Unavail able HERR, FLORENTINO Primary Care Unavailable Herr NELL Florentino Primary Care Provider [phone] Florentino Garcia A Primary Care Provider HAYDE ARRIAGA Admitting Unavail able HAYDE ARRIAGA Attending Unavail able HERR, FLORENTINO Primary Care Unavailable HAYDE ARRIAGA Admitting Unavail able HAYDE ARRIAGA Attending Unavail able HERR, FLORENTINO Primary Care Unavailable Herr NELL Florentino Primary Care Provider [phone] DOMINICK GONGORA Attending Unavailable HERR, FLORENTINO Primary Care Unavailable HERR, FLORENTINO Primary Care Unavailable DOMINICK GONGORA Attending Unavailable HERR, FLORENTINO Primary Care Unavailable ROLAN, DOMINICK Attending Unavailable HAYDE ARRIAGA Attending Unavail able HERR, FLORENTINO Primary Care Unavailable STEFANI MARC Attending Unavailable HERR, FLORENTINO Primary Care Unavailable HAYDE ARRIAGA Attending Unavail able ROLAN, DOMINICK Admitting Unavailable ROLAN, DOMINICK Referring Unavailable HERR, FLORENTINO Primary Care Unavailable ROLAN, DOMINICK Referring Unavailable COREY CHEN Attending Unavailable HERR, FLORENTINO Primary Care Unavailable ROLAN, DOMINICK Attending Unavailable HERR, FLORENTINO Primary Care Unavailable HERR, FLORENTINO Primary Care Unavailable HAYDE ARRIAGA Attending Unavail able HERR, FLORENTINO Primary Care Unavailable HAYDE ARRIAGA Attending Unavail able NEMESIO, Florentino A Primary Care Physician [phone] Florentino Garcia A Primary Care Provider Nellie Garciaian A Primary Care Provider [phone] Yonley DO, Ivis L Primary Care Provider Florentino HERR A Attending Unavailable Yonley DO, Ivis L Primary Care Provider ALTAGRACIA CROW Attending Unavailabl e YONLEY, IVIS Referring Unavailable YONLEY, IVIS L Primary Care Unavailable CLINGMAN, RUSSELL A Referring Unavailable YONLEY, IVIS L Primary Care Unavailable CLINGMAN, RUSSELL A Referring Unavailable YONLEY, IVIS L Referring Unavailable YONLEY, IVIS L Primary Care Unavailable ALTAGRACIA DAVIS Attending Unavailable ALTAGRACIA DAVIS Referring Unavailable YONLEY, IVIS L Primary Care Unavailable YONLEY, IVIS L Referring Unavailable YONLEY, IVIS L Primary Care Unavailable LEANDRO CAZARES Referring Unavailable YONLEY, IVIS L Primary Care Unavailable YONLEY, IVIS L Primary Care Unavailable YONLEY, IVIS L Attending Unavailable YONLEY, IVIS L Referring Unavailable YONLEY, IVIS L Primary Care Unavailable YONLEY, IVIS L Attending Unavailable YONLEY, IVIS L Referring Unavailable YONLEY, IVIS L Attending Unavailable YONLEY, IVIS L Primary Care Unavailable YONLEY, IVIS L Referring Unavailable ALTAGRACIA DAVIS Attending Unavailable YONLEY, IVIS L Primary Care Unavailable IVIS OMER Referring Unavailable IVIS OMER Primary Care Unavailable IVIS OMER Attending Unavailable IVIS OMER Primary Care Unavailable RUSSELL HANNA Referring Unavailable Allergies Allergy Classification Reported Allergen(s) Allergy Type Date of Onset Reaction(s) Facility (1 source) No Known Medication Allergies; Translations: [No Known Medication Allergies] Propensity to adverse reactions (disorder) [facility] Repository Medications Current Medications Medication Drug Class(es) Dates Sig (Normalized) Sig (Original) acetaminophen 325 mg / oxyCODONE hydrochloride 5 mg oral tablet (20 sources) Opioid Agonist Start: 06-15-2018 take 1 tablet by mouth every six hours as needed oxyCODONE-acetamin ophen (PERCOCET) 5-325 mg per tablet Take 1 tablet by mouth every 6 (six) hours as needed FOR PAIN . 0 06/15/2018 Active acetic acid 20 mg/ml otic solution (19 sources) Start: 12-15-2018 acetic acid (VOSOL) 2 % otic solution Place 2 drops in ear(s) daily 0 12/15/2018 Active [id number] 200 actuat albuterol 0.09 mg/actuat metered dose inhaler (10 sources) beta2-Adrenergic Agonist Start: 04-15-2021 albuterol 90 mcg/actuation inhaler 2 puffs . 0 04/15/2021 Active amoxicillin 875 mg / clavulanate 125 mg oral tablet (1 source) Penicillin-class Antibacterial Start: 01-01-2023 End: 01-11-2023 take 1 tablet by mouth twice daily amoxicillin-clavul anate (AUGMENTIN) 875-125 MG per tablet Take 1 tablet by mouth 2 times daily for 10 days 20 tablet 0 01/01/2023 01/11/2023 Active ARIPiprazole 5 mg oral tablet (20 sources) Atypical Antipsychotic Start: 08-01-2018 take 1 tablet by mouth once daily ARIPiprazole (ABILIFY) 5 MG tablet Take 5 mg by mouth daily 0 09/05/2018 Active ascorbic acid 60 mg / beta carotene 5000 unt / copper sulfate 40 mg / dl-alpha tocopheryl acetate 30 unt / sodium selenite 0.04 mg / zinc oxide 40 mg oral tablet (1 source) Vitamin C take 1 tablet by mouth once daily Multiple Vitamins-Minerals (THERAPEUTIC MULTIVITAMIN-ELECTRIC DEICER INSPECTOR ALS) tablet Take 1 tablet by mouth daily 0 Active ASHWAGANDHA PO (20 sources) take 1200 mg by mouth once daily ASHWAGANDHA PO Take 1,200 mg by mouth daily 0 Active aspirin 81 mg chewable tablet (20 sources) Platelet Aggregation Inhibitor, Nonsteroidal Anti-inflammatory Drug Start: 02-22-2022 aspirin chewable tablet 243 mg take 1 tablet by mouth once lilly y aspirin 81 MG tablet Take 1 tablet by mouth daily 0 Active aspirin 81 mg ch ewable tablet Chew and Swallow 81 mg daily . 0 Active benzocaine 15 mg / menthol 3.6 mg oral lozenge (2 sources) Standardized Chemical Allergen Start: 04-15-2021 Cepacol Sore Throat Spears 15 mg-3.6 mg mucous membrane lozenge 1 lozenge(s), Oral, q2hr as needed for sore throat, 18 EA, Refill(s) 0, [facility], 160, cm, 04/15/21 13:03:00 EDT, Height/Length Dosing, 72.2, kg, 04/15/21 13:03:00 EDT, Weight Dosing Start Date: 04/15/21 Status: Ordered biotin 10 mg oral tablet (20 sources) take 1 tablet by mouth once daily Biotin 16630 MCG TABS Take 10,000 mcg by mouth daily 0 Active biotin 10 mg Tab Take 10,000 mcg by mouth daily . 0 Active 24 hr buPROPion hydrochloride 150 mg extended release oral tablet (20 sources) Aminoketone Start: 01-31-2024 take 3 tablets by mouth once daily in the morning buPROPion (WELLBUTRIN XL) 150 MG extended release tablet take 3 tablets by mouth every morning 90 tablet 5 01/31/2024 Active Start: 07-25-2023 take 3 tablets by mo uth once daily in the morning buPROPion (WELLBUTRIN XL) 150 MG extended release tablet Take 3 tablets by mouth every morning 90 tablet 5 07/25/2023 Active Start: 12-01-2022 take 1 tablet by toya th once daily buPROPion (WELLBUTRIN XL) 300 MG extended release tablet Take 1 tablet by mouth daily 0 12/01/2022 Active Start: 09-14-2022 take 1 tablet by toya th once daily buPROPion 450 MG TB24 Take 450 mg by mouth nightly 90 tablet 1 09/14/2022 Active Start: 06-12-2018 take 1 tablet by toya once daily buPROPion 300 mg XL /24 hrs 300 mg = 1 tab(s), Oral, Daily, # 90 tab(s), Refills(s) 1, Pharmacy: [facility] #[id number], 160, cm, 03/01/22 17:46:00 EDT, Height/Length Dosing, 69.5, kg, 03/01/22 17:46:00 EDT, Weight Dosing Start Date: 03/15/22 Status: Ordered calcium carbonate 500 mg oral tablet (20 sources) take 1 tablet by toya once daily calcium carbonate (OYSTER SHELL CALCIUM 500 MG) 1250 (500 Ca) MG tablet Take 1 tablet by mouth daily 0 Active take 1 tablet by mouth once lilly y calcium carbonate (OS-CARMEN) 500 mg calcium (1,250 mg) tablet Take 1 tablet by mouth daily . 0 Active calcium citrate 950 mg / cholecalciferol 250 unt oral tablet (6 sources) Vitamin D Start: 09-07-2022 take 3 tablets by mouth twice daily calcium citrate-vitamin D (CITRACAL + D) 200-6.25 MG-MCG TABS per tablet take 3 tablet by mouth twice a day (DO NOT TAKE WITH IRON) 0 09/07/2022 Active Start: 10-20-2021 take 3 tablets by mo [facility] twice daily calcium citrate-vitamin D (CITRACAL-D) 200 mg-6.25 mcg (250 unit) Tab take 3 tablet by mouth twice a day (DO NOT TAKE WITH IRON) 0 10/20/2021 Active cetirizine hydrochloride 10 mg oral tablet (1 source) Histamine-1 Receptor Antagonist Start: 08-08-2023 take 1 tablet by mouth once daily cetirizine (ZYRTEC) 10 MG tablet take 1 tablet by mouth once daily 30 tablet 5 08/08/2023 Active cyclobenzaprine hydrochloride 10 mg oral tablet (7 sources) Muscle Relaxant Start: 02-01-2022 take 1 tablet by mouth three times daily as needed for muscle spasms cyclobenzaprine 10 mg Tab 10 mg = 1 tab(s), Oral, TID, PRN for spasm, Caution, may cuase drowsiness, # 60 tab(s), Refills(s) 2, Pharmacy: [facility] , 160, cm, 02/01/22 14:05:00 EDT, Height/Length Dosing, 71, kg, 02/01/22 14:05:00 EDT, Weight Dosing Start Date: 02/01/22 Status: Ordered take 1 tablet by toya three times daily as needed for muscle spasms cyclobenzaprine (FLEXERIL) 10 MG tablet Take 10 mg by mouth 3 (three) times a day as needed for muscle spasms . 0 Active D-BIOTIN (19 sources) take 1 tablet by mouth once daily Biotin 04479 MCG TABS Take 10,000 mcg by mouth daily 0 Active dexamethasone 1 mg/ml ophthalmic suspension (17 sources) Corticosteroid Start: 08-09-19 19 MAXIDEX 0.1 % ophthalmic suspension 24 hr dilTIAZem hydrochloride 120 mg extended release oral capsule (2 sources) Calcium Channel Karen Start: 10-20-19 24 take 1 capsule by mouth once daily dilTIAZem (CARDIZEM CD) 120 MG extended release capsule take 1 capsule by mouth once daily 90 capsule 3 10/20/2023 Active Start: 06-28-2023 take 1 capsule by mo [facility] once daily dilTIAZem (CARDIZEM CD) 120 MG extended release capsule Take 1 capsule by mouth daily 30 capsule 3 06/28/2023 Active docusate sodium 100 mg oral capsule (20 sources) Start: 12-21-2023 take 1 capsule by mouth at bedtime docusate (COLACE, DULCOLAX) 100 MG CAPS Take 100 mg by mouth in the morning and at bedtime 60 capsule 5 12/21/2023 Active Start: 02-16-2023 take 1 capsule by mouth at bed time docusate (COLACE, DULCOLAX) 100 MG CAPS Take 100 mg by mouth in the morning and at bedtime 60 capsule 0 02/16/2023 Active Start: 04-01-2020 End: 02-22-2022 take 1 capsule by mouth twice daily as needed for constipation docusate sodium 100 mg Cap 100 mg = 1 cap(s), Oral, BID, PRN for constipation, # 60 cap(s), Refills(s) 0, Pharmacy: [facility], 160, cm, 05/19/21 10:45:00 EDT, Height/Length Dosing, 69.8, kg, 05/19/21 10:45:00 EDT, Weight Dosing Start Date: 01/05/22 Status: Ordered estradiol 0.5 mg oral tablet (20 sources) Estrogen Start: 01-31-2024 take 1 tablet by mouth once daily estradiol (ESTRACE) 0.5 MG tablet Indications: 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 take 1 tablet by mouth once daily 90 tablet 1 01/31/2024 Active Start: 05-24-2022 End: 08-11-2023 take 1 tablet by mouth once daily estradiol (ESTRACE) 1 MG tablet Indications: 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 Take 1 tablet orally daily 90 tablet 4 05/24/2022 08/11/2023 Discontinued (REORDER) Start: 06-15-2018 take 1 tablet by toya th once daily Estrace 1 mg Tab mg tab(s), Oral, Daily, Refills(s) 0 Start Date: 12/21/18 Status: Ordered famotidine 20 mg oral tablet (20 sources) Histamine-2 Receptor Antagonist Start: 08-08-2023 take 1 tablet by mouth twice daily famotidine (PEPCID) 20 MG tablet take 1 tablet by mouth twice a day 60 tablet 5 08/08/2023 Active Start: 05-18-2020 End: 02-22-2022 famotidine (PEPCID) 20 MG ta blet Take 20 mg by mouth 0 05/18/2020 02/22/2022 Discontinued (LIST CLEANUP) Start: 07-26-2015 End: 05-29-2020 famotidine (PEPCID) 40 MG ta blet Take 40 mg by mouth as needed 0 07/26/2015 05/29/2020 Discontinued (LIST CLEANUP) ferrous sulfate 325 mg oral tablet (4 sources) Ferrous Sulfate (IRON) 325 (65 Fe) MG TABS 1 daily 0 Active fluocinolone acetonide 0.1 mg/ml otic solution (20 sources) Corticosteroid Start: 12-09-2020 fluocinolone (DERMOTIC) 0.01 % OIL oil Indications: Ear itching Put 3 drops into affected ear(s) twice daily for 1 week. After one week decrease use to once daily 1-2 times a week for maintenance. 20 mL 2 12/09/2020 Active Start: 11-04-2019 fluocinolone ( DERMOTIC) 0.01 % OIL oil Indications: Ear itching Put 3 drops into affected ear(s) twice daily for 1 week. After one week decrease use to once daily 1-2 times a week for maintenance. 20 mL 2 11/04/2019 Active Start: 12-24-2018 fluocinolone ( DERMOTIC) 0.01 % OIL oil Indications: Ear itching , Chronic non-infective otitis externa of right ear, unspecified type Put 3 drops into affected ear(s) twice daily for 1 week. After one week decrease use to once daily 1-2 times a week for maintenance. 20 mL 2 12/24/2018 Active fluocinonide 0.5 mg/ml topical cream (2 sources) Corticosteroid Start: 06-13-2023 fluocinonide (LIDEX) 0.05 % cream Apply topically 2 times daily Apply topically 2 times daily. 30 g 0 06/13/2023 Active fluticasone propionate 0.05 mg/actuat metered dose nasal spray (20 sources) Corticosteroid Start: 06-28-2023 take 2 spray(s) nasal route once daily fluticasone (FLONASE) 50 MCG/ACT nasal spray 2 sprays by Each Nostril route daily 32 g 2 06/28/2023 Active Start: 12-20-2022 take 2 spray(s) nasa l route once daily fluticasone (FLONASE) 50 MCG/ACT nasal spray 2 sprays by Each Nostril route daily 32 g 2 12/20/2022 Active Start: 07-22-2018 End: 02-22-2022 fluticasone (FLONASE) 50 MCG /ACT nasal spray 1 spray by Nasal route daily 0 12/18/2018 02/22/2022 Discontinued (LIST CLEANUP) Start: 07-22-2018 fluticasone (F LONASE) 50 mcg/actuation nasal spray gabapentin 600 mg oral tablet (20 sources) Anti-epileptic Agent Start: 09-07-2022 take 1 tablet by mouth three times daily gabapentin (NEURONTIN) 600 MG tablet take 1 tablet by mouth three times a day 0 09/07/2022 Active Start: 03-08-2022 take 1 tablet by toya three times daily Neurontin 600 mg Tab 600 mg = 1 tab(s), Oral, TID, 30 day supply, # 90 tab(s), Refills(s) 0, Pharmacy: [facility] #[id number], 160, cm, 03/01/22 17:46:00 EDT, Height/Length Dosing, 69.5, kg, 03/01/22 17:46:00 EDT, Weight Dosing Start Date: 03/08/22 Status: Ordered Start: 11-13-2021 take 1 tablet by toya three times daily Neurontin 600 mg Tab 600 mg = 1 tab(s), Oral, TID, 30 day supply, # 90 tab(s), Refills(s) 0, Pharmacy: [facility], 160, cm, 05/19/21 10:45:00 EDT, Height/Length Dosing, 69.8, kg, 05/19/21 10:45:00 EDT, Weight Dosing Start Date: 01/05/22 Status: Ordered End: 02-22-2022 take 2 capsules by mouth twice daily gabapentin (NEURONTIN) 100 MG capsule Take 200 mg by mouth 2 times daily. 0 02/22/2022 Discontinued (LIST CLEANUP) hydroCHLOROthiazide 25 mg / triamterene 37.5 mg oral tablet (20 sources) Potassium-sparing Diuretic, Thiazide Diuretic Start: 02-22-2024 take 1 tablet by mouth once daily triamterene-hydroCHLOROthiazide (MAXZIDE-25) 37.5-25 MG per tablet take 1 tablet by mouth once daily 90 tablet 1 02/22/2024 Active Start: 02-16-2023 take 1 tablet by mouth once daily triamterene-hydroCHLOROthiazide (MAXZIDE -25) 37.5-25 MG per tablet Take 1 tablet by mouth daily 90 tablet 1 02/16/2023 Active Start: 09-16-2022 take 1 tablet by mouth once daily triamterene-hydroCHLOROthiazide (MAXZIDE -25) 37.5-25 MG per tablet Take 1 tablet by mouth daily 90 tablet 1 09/16/2022 Active Start: 08-02-2018 End: 02-22-2022 take 1 tablet by mouth once daily for edema triamterene-hydroCHLOROthiazide (MAXZIDE -25) 37.5-25 MG per tablet Indications: Fluid retention take 1 tablet by mouth once daily for FLUID RETENTION 90 tablet 3 06/01/2021 02/22/2022 Discontinued (LIST CLEANUP) lamoTRIgine 25 mg oral tablet (20 sources) Mood Stabilizer, Anti-epileptic Agent Start: 12-05-2018 End: 02-22-2022 lamoTRIgine (LAMICTAL) 25 MG tablet loratadine 10 mg oral tablet (6 sources) Start: 01-02-2024 take 1 tablet by mouth once daily loratadine (CLARITIN) 10 MG tablet take 1 tablet by mouth daily 30 tablet 5 01/02/2024 Active Start: 07-14-2023 take 1 tablet by toya th once daily loratadine (CLARITIN) 10 MG tablet take 1 tablet by mouth daily 30 tablet 5 07/14/2023 Active Start: 02-28-2022 take 1 tablet by toya th once daily loratadine 10 mg Tab 10 mg = 1 tab(s), Oral, Daily, # 30 tab(s), Refills(s) 1, [facility]: [facility][id number], 160, cm, 02/01/22 14:05:00 EDT, Height/Length Dosing, 71, kg, 02/01/22 14:05:00 EDT, Weight Dosing Start Date: 02/28/22 Status: Ordered Start: 11-29-2021 take 1 tablet by toya th once daily loratadine 10 mg Tab 10 mg = 1 tab(s), Oral, Daily, # 30 tab(s), Refills(s) 1, [facility]: [facility], 160, cm, 05/19/21 10:45:00 EDT, Height/Length Dosing, 69.8, kg, 05/19/21 10:45:00 EDT, Weight Dosing Start Date: 11/29/21 Status: Ordered take 1 capsule by mo ut once daily loratadine (CLARITIN) 10 MG capsule Take 1 capsule by mouth daily 0 Active meloxicam 15 mg oral tablet (2 sources) Nonsteroidal Anti-inflammatory Drug Start: 02-22-2024 take 1 tablet by mouth once daily meloxicam (MOBIC) 15 MG tablet Take 1 tablet by mouth daily 30 tablet 0 02/22/2024 Active Start: 09-28-2022 take 1 tablet by toya th once daily meloxicam (MOBIC) 7.5 MG tablet Take 1 tablet by mouth daily 15 tablet 0 09/28/2022 Active metFORMIN hydrochloride 1000 mg oral tablet (20 sources) Biguanide Start: 10-30-2023 take 1 tablet by mouth twice daily at mealtime metFORMIN (GLUCOPHAGE) 1000 MG tablet take 1 tablet by mouth twice a day with meals 180 tablet 3 10/30/2023 Active Start: 08-03-2023 take 1 tablet by toya th twice daily at mealtime metFORMIN (GLUCOPHAGE) 1000 MG tablet take 1 tablet by mouth twice a day with meals 180 tablet 0 08/03/2023 Active Start: 06-12-2018 take 1 tablet by toya th twice daily metformin 1000 mg Tab 1,000 mg = 1 tab(s), Oral, BID, # 60 tab(s), Refills(s) 0, [facility]: [id number], 160, cm, 03/01/22 17:46:00 EDT, Height/Length Dosing, 69.5, kg, 03/01/22 17:46:00 EDT, Weight Dosing Start Date: 03/28/22 Status: Ordered Start: 06-12-2018 take 1 tablet by toya th once daily at breakfast metFORMIN (GLUCOPHAGE) 1000 MG tablet Take 1,000 mg by mouth daily with breakfast . 0 06/12/2018 Active minoxidil 20 mg/ml topical solution (2 sources) Arteriolar Vasodilator Start: 02-21-2020 apply 0.02 g topically twice daily minoxidil topical 2% solution 0.02 gram, 1 mL, Topical, BID, 60 mL, Refill(s) 2, [facility], 153, cm, 02/21/20 15:06:00 EDT, Height/Length Measured, 82.5, kg, 02/21/20 15:06:00 EDT, Weight Measured Start Date: 02/21/20 Status: Ordered Multiple Vitamins-Minerals (THERAPEUTIC MULTIVITAMIN-MINERA LS) tablet (20 sources) take 1 tablet by mouth once daily Multiple Vitamins-Minerals (THERAPEUTIC MULTIVITAMIN-ELECTRIC DEICER INSPECTOR ALS) tablet Take 1 tablet by mouth daily 0 Active vspmwqyu-tlm-vjiskz s sulfate 15 mg iron Tab (13 sources) take 1 tablet by mouth once daily lqemcjvo-azg-szwtg us sulfate 15 mg iron Tab Take 1 tablet by mouth daily . 0 Active Multivitamins and Minerals (2 sources) Start: 10-01-2019 Multivitamins and Minerals Refill(s) 0 Start Date: 10/01/19 Status: Ordered omeprazole 40 mg delayed release oral capsule (20 sources) Proton Pump Inhibitor Start: 06-12-2018 take 1 capsule by mouth once daily omeprazole (PRILOSEC) 40 MG delayed release capsule Take 40 mg by mouth daily 0 08/09/2018 Active 2 ml ondansetron 2 mg/ml injection (1 source) Serotonin-3 Receptor Antagonist Start: 02-22-2022 ondansetron (ZOFRAN) injection 4 mg plecanatide 3 mg oral tablet (3 sources) Start: 10-30-2023 take 1 tablet by mouth once daily TRULANCE 3 MG TABS Indications: Irritable bowel syndrome with constipation take 1 tablet by mouth daily 90 tablet 1 10/30/2023 Active Start: 05-05-2023 take 1 tablet by toya th once daily Plecanatide (TRULANCE) 3 MG TABS Indications: Irritable bowel syndrome with constipation Take 3 mg by mouth daily 90 tablet 1 05/05/2023 Active Start: 09-26-2022 take 1 tablet by toya th once daily Plecanatide (TRULANCE) 3 MG TABS Indications: Irritable bowel syndrome with constipation Take 3 mg by mouth daily 30 tablet 5 09/26/2022 Active 24 hr propranolol hydrochloride 60 mg extended release oral capsule (1 source) beta-Adrenergic Karen Start: 10-09-2023 take 1 capsule by mouth once daily propranolol (INDERAL LA) 60 MG extended release capsule Indications: Tremor of both hands Take 1 capsule by mouth daily 90 capsule 1 10/09/2023 Active raNITIdine 150 mg oral capsule (20 sources) Histamine-2 Receptor Antagonist Start: 08-19-2018 take 1 capsule by mouth once daily ranitidine (ZANTAC) 150 MG capsule Take 150 mg by mouth daily 0 08/19/2018 Active Start: 07-23-2018 take 1 capsule by mo uth twice daily ranitidine (ZANTAC) 150 MG capsule Take 150 mg by mouth 2 (two) times a day . 0 07/23/2018 Active 72 hr scopolamine 0.0139 mg/hr transdermal system (20 sources) Anticholinergic Start: 09-29-2020 scopolamine (TRANSDERM-SCOP) transdermal patch Place 1 patch onto the skin every 72 hours 0 09/29/2020 Active sodium fluoride 0.011 mg/mg oral gel (4 sources) Start: 08-24-2022 SODIUM FLUORIDE, DENTAL GEL, 1.1 % GEL BRUSH IN PLACE OF REGULAR TOOTH PASTE at bedtime DO NOT RINSE 0 08/24/2022 Active terbinafine 250 mg oral tablet (2 sources) Allylamine Antifungal Start: 06-13-2022 take 1 tablet by mouth once daily terbinafine (LAMISIL) 250 MG tablet take 1 tablet by mouth once daily 0 06/13/2022 Active levothyroxine sodium 0.075 mg oral tablet (20 sources) l-Thyroxine Start: 02-22-2024 take 1 tablet by mouth once daily levothyroxine (SYNTHROID) 75 MCG tablet take 1 tablet by mouth once daily 90 tablet 1 02/22/2024 Active Start: 03-09-2023 take 1 tablet by toya th once daily levothyroxine (SYNTHROID) 75 MCG tablet take 1 tablet by mouth once daily 90 tablet 1 03/09/2023 Active Start: 09-16-2022 take 1 tablet by toya th once daily levothyroxine (SYNTHROID) 75 MCG tablet Take 1 tablet by mouth Daily 90 tablet 1 09/16/2022 Active Start: 03-28-2022 take 1 tablet by toya th once daily levothyroxine 75 mcg (0.075 mg) Tab 75 microgram = 1 tab(s), Oral, Daily, # 30 tab(s), Refills(s) 0, [facility]: [facility][id number], 160, cm, 03/01/22 17:46:00 EDT, Height/Length Dosing, 69.5, kg, 03/01/22 17:46:00 EDT, Weight Dosing Start Date: 03/28/22 Status: Ordered Start: 01-05-2022 take 1 tablet by toya th once daily levothyroxine 75 mcg (0.075 mg) Tab 75 microgram = 1 tab(s), Oral, Daily, # 30 tab(s), Refills(s) 0, [facility]: [facility], 160, cm, 05/19/21 10:45:00 EDT, Height/Length Dosing, 69.8, kg, 05/19/21 10:45:00 EDT, Weight Dosing Start Date: 01/05/22 Status: Ordered Start: 06-12-2018 take 1 tablet by toya th once daily levothyroxine (SYNTHROID) 112 MCG tablet Take 112 mcg by mouth daily 1 08/09/2018 Active tiZANidine 4 mg oral tablet (1 source) Central alpha-2 Adrenergic Agonist Start: 02-22-2024 take 1 tablet by mouth once daily as needed for pain tiZANidine (ZANAFLEX) 4 MG tablet Take 1 tablet by mouth nightly as needed (muscle pain) 30 tablet 0 02/22/2024 Active topiramate 50 mg oral tablet (18 sources) Start: 11-21-2023 take 1 tablet by mouth twice daily topiramate (TOPAMAX) 50 MG tablet take 1 tablet by mouth twice a day 180 tablet 1 11/21/2023 Active Start: 06-02-2023 take 1 tablet by toya th twice daily topiramate (TOPAMAX) 50 MG tablet take 1 tablet by mouth twice a day 180 tablet 1 06/02/2023 Active Start: 11-28-2022 take 1 tablet by toya th twice daily topiramate (TOPAMAX) 50 MG tablet Take 1 tablet by mouth 2 times daily 180 tablet 1 11/28/2022 Active Start: 09-03-2022 take 1 tablet by toya th twice daily topiramate (TOPAMAX) 50 MG tablet take 1 tablet by mouth twice a day 0 09/03/2022 Active Start: 01-12-2021 End: 11-29-2021 take 1 tablet by mouth twice daily topiramate (TOPAMAX) 50 MG tablet Indications: New daily persistent headache Take 1 (one) tablet (50 mg total) by mouth 2 (two) times a day . 60 tablet 11 11/29/2021 Active Start: 12-17-2020 End: 01-17-2021 take 1 tablet by mouth once daily in the evening, then take 1 tablet by mouth twice daily, then take 2 tablets by mouth twice daily topiramate (TOPAMAX) 25 MG tablet Indications: New daily persistent headache Take 1 (one) tablet (25 mg total) by mouth every evening for 5 days, THEN 1 (one) tablet (25 mg total) 2 (two) times a day for 5 days, THEN 2 (two) tablets (50 mg total) 2 (two) times a day for 21 days. CALL FOR REFILLS. 99 tablet 0 12/17/2020 01/12/2021 Discontinued (Reorder) triamcinolone acetonide 1 mg/ml topical cream (1 source) Corticosteroid Start: 12-22-2023 triamcinolone (KENALOG) 0.1 % cream Indications: Pruritic erythematous rash , Nummular eczema Apply topically 2 times daily. 28.4 g 0 12/22/2023 Active ursodiol 250 mg oral tablet (20 sources) Bile Acid Start: 09-29-2020 take 1 tablet by mouth twice daily ursodiol (ACTIGALL) 250 MG tablet Take 1 tablet by mouth 2 times daily 0 09/29/2020 Active 24 hr venlafaxine 75 mg extended release oral capsule (20 sources) Serotonin and Norepinephrine Reuptake Inhibitor Start: 12-22-2023 take 3 capsules by mouth once daily venlafaxine (EFFEXOR XR) 75 MG extended release capsule take 3 capsules by mouth once daily 270 capsule 1 12/22/2023 Active Start: 06-28-2023 take 3 capsules by m outh once daily venlafaxine (EFFEXOR XR) 75 MG extended release capsule Take 3 capsules by mouth daily 270 capsule 1 06/28/2023 Active Start: 09-16-2022 take 3 capsules by m outh once daily venlafaxine (EFFEXOR XR) 75 MG extended release capsule Take 3 capsules by mouth daily 270 capsule 1 09/16/2022 Active Start: 03-15-2022 take 3 capsules by m outh once daily in the morning venlafaxine 75 mg Cap-ER 225 mg = 3 cap(s), Oral, qAM, # 270 cap(s), Refills(s) 1, [facility]: [id number], 160, cm, 03/01/22 17:46:00 EDT, Height/Length Dosing, 69.5, kg, 03/01/22 17:46:00 EDT, Weight Dosing Start Date: 03/15/22 Status: Ordered Start: 09-21-2021 take 3 capsules by m outh once daily in the morning venlafaxine 75 mg Cap-ER 225 mg = 3 cap(s), Oral, qAM, # 270 cap(s), Refills(s) 1, Pharmacy: [facility], 160, cm, 05/19/21 10:45:00 EDT, Height/Length Dosing, 69.8, kg, 05/19/21 10:45:00 EDT, Weight Dosing Start Date: 09/21/21 Status: Ordered Start: 10-20-2015 venlafaxine (E FFEXOR-XR) 150 MG XR capsule Take by mouth nightly 0 10/20/2015 Active take 1 dose by mouth once daily Ventolin HFA 90 mcg/inh Aerosol (2 sources) Start: 04-15-2021 take 2 puff(s) by inhalation four times daily Ventolin HFA 90 mcg/inh Aerosol 2 puff(s), Inhalation, QID Cough, 1 EA, Refill(s) 0, [facility], 160, cm, 04/15/21 13:03:00 EDT, Height/Length Dosing, 72.2, kg, 04/15/21 13:03:00 EDT, Weight Dosing Start Date: 04/15/21 Status: Ordered Vitamin B 12 (20 sources) Vitamin B12 Start: 10-01-2019 Vitamin B12 Refills(s) 0 Start Date: 10/01/19 Status: Ordered End: 02-22-2022 take 1 tablet by mouth once daily cyanocobalamin 1000 MCG tablet Take 1,000 mcg by mouth daily 0 02/22/2022 Discontinued (LIST CLEANUP) Completed/Discontinued Medications Medication Drug Class(es) Dates Sig (Normalized) Sig (Original) acetaminophen 500 mg oral tablet (20 sources) Start: 01-01-2023 End: 01-01-2023 acetaminophen (TYLENOL) tablet 1,000 mg Start: 11-16-2018 take 1 tablet by toya th three times daily RA ACETAMINOPHEN EX ST 500 MG tablet Take 1 tablet by mouth 3 times daily 0 11/16/2018 Active acetaminophen 325 mg / butalbital 50 mg / caffeine 40 mg oral tablet (3 sources) Barbiturate, Central Nervous System Stimulant, Methylxanthine Start: 10-07-2021 End: 11-23-2021 gporcazmcc-ombgvfhncbplz-nfr feine (ESGIC) 50-325-40 mg Indications: New daily persistent headache As needed for severe headaches. 1 tab 4 times maximum per day (4-6 hours apart). Avoid for > 10 days / month. . 60 tablet 0 10/07/2021 11/23/2021 Discontinued (Prescriber Discontinued) calcium polycarbophil 625 mg oral tablet (20 sources) Start: 03-28-2022 take 2 tablets by mouth every twelve hours FiberCon 625 mg Tab 625 mg, Oral, Daily, 1 or 2 tablets every 12 hours, # 100 tab(s), Refills(s) 2, Pharmacy: [facility] #[id number], 160, cm, 03/01/22 17:46:00 EDT, Height/Length Dosing, 69.5, kg, 03/01/22 17:46:00 EDT, Weight Dosing Start Date: 03/28/22 Status: Ordered Start: 01-11-2022 take 2 tablets by [facility] every twelve hours FiberCon 625 mg Tab 625 mg, Oral, Daily, 1 or 2 tablets every 12 hours, # 100 tab(s), Refills(s) 2, Pharmacy: [facility], 160, cm, 05/19/21 10:45:00 EDT, Height/Length Dosing, 69.8, kg, 05/19/21 10:45:00 EDT, Weight Dosing Start Date: 01/11/22 Status: Ordered Start: 11-07-2021 take 1-2 tablets by mouth every twelve hours Fiber-Lax 625 mg tablet take 1 to 2 tablets by mouth every 12 hours 0 11/07/2021 Active Start: 08-23-2018 take 1 capsule by mo [facility] once daily RA FIBER THERAPY 625 MG tablet Take 1 capsule by mouth daily 0 08/23/2018 Active cholecalciferol 0.05 mg oral tablet (20 sources) Vitamin D Start: 10-19-2020 End: 02-22-2022 take 1 capsule by mouth once daily vitamin D (CHOLECALCIFEROL) 125 MCG (5000 UT) CAPS capsule take 1 capsule by mouth once daily 0 10/19/2020 02/22/2022 Discontinued (LIST CLEANUP) Start: 12-05-2018 End: 02-22-2022 take 1 tablet by mouth once daily cholecalciferol 2000 intl units oral tablet (Vitamin D3) 2,000 International_Unit = 1 tab(s), Oral, Daily, # 30 tab(s), Refills(s) 5, Pharmacy: [id number], 160, cm, 01/18/21 15:57:00 EDT, Height/Length Dosing, 74, kg, 01/18/21 15:57:00 EDT, Weight Dosing Start Date: 02/25/21 Status: Ordered Start: 06-12-2018 take 1 capsule by [facility] once daily VITAMIN D3 2,000 unit cap Take 2,000 mg by mouth daily . 1 06/12/2018 Active diazePAM 5 mg oral tablet (15 sources) Benzodiazepine Start: 06-18-2018 End: 10-12-2020 take 1 tablet by mouth every eight hours as needed for anxiety and pain diazePAM (VALIUM) 5 MG tablet Indications: Cervical spondylosis with myelopathy Take 1 (one) tablet (5 mg total) by mouth every 8 (eight) hours as needed for anxiety (spasm and pain) (Days supply per fill: twenty . 30 tablet 0 06/18/2018 10/12/2020 Discontinued (Therapy completed) gadoterate meglumine (DOTAREM) injection 15 mL (1 source) Start: 10-06-2020 End: 10-06-2020 gadoterate meglumine (DOTAREM) injection 15 mL iopamidol (ISOVUE-370) 76 % injection 75 mL (1 source) Start: 09-23-2022 End: 09-23-2022 iopamidol (ISOVUE-370) 76 % injection 75 mL 1 ml ketorolac tromethamine 30 mg/ml cartridge (1 source) Nonsteroidal Anti-inflammatory Drug, Cyclooxygenase Inhibitor Start: 02-22-2022 End: 02-22-2022 ketorolac (TORADOL) injection 30 mg Problems Active Problems Problem Classification Problem Date Documented Da te Episodic/Chronic Abdominal pain (3 sources) Pain in pelvis; Translations: [Right lower quadrant pain] 01-09-2020 Episodic Complications of surgical procedures or medical care (2 sources) Post-surgical malabsorption 03-19-2021 Chronic Disorders of lipid metabolism (6 sources) Primary hypertriglyceridemia; Translations: [Pure hyperglyceridemia] Onset: 2 01-18-2019 Chronic Esophageal disorders (8 sources) Gastroesophageal reflux disease without esophagitis; Translations: [Gastroesophageal reflux disease] Onset: 9 01-18-2021 Chronic Fracture of lower limb (1 source) Open fracture of phalanx of foot; Translations: [Displaced unspecified fracture of right lesser toe(s), initial encounter for open fracture] Episodic Genitourinary symptoms and ill-defined conditions (2 sources) Poor stream of urine 03-19-2021 Episodic Headache; including migraine (16 sources) New daily persistent headache; Translations: [New daily persistent headache (NDPH)] Onset: 1 Chronic Mood disorders (6 sources) Recurrent major depression in remission; Translations: [Severe recurrent major depression] Onset: 2 01-18-2021 Chronic Open wounds of extremities (1 source) Laceration of toe of right foot; Translations: [Laceration without foreign body of right lesser toe(s) without damage to nail, initial encounter] Episodic Other aftercare (4 sources) Surgical follow-up; Translations: [Encounter for follow-up examination after completed treatment for conditions other than malignant neoplasm] Episodic Other circulatory disease (1 source) Wound hemorrhage; Translations: [Bleeding from wound] Episodic Other connective tissue disease (2 sources) Neuritis 12-21-2018 Episodic Other endocrine disorders (6 sources) Hypoglycemia; Translations: [Hypoglycemia, unspecified] Onset: 3 03-19-2021 Chronic Other endocrine disorders (2 sources) Polycystic ovaries 12-21-2018 Chronic Other eye disorders (1 source) Eye / vision finding 01-18-2019 Episodic Other gastrointestinal disorders (3 sources) Abdominal mass; Translations: [Abdominal mass, unspecified abdominal location] 06-10-2019 Episodic Other gastrointestinal disorders (1 source) Intra-abdominal and pelvic swelling, mass and lump; Translations: [Intra-abdominal and pelvic swelling, mass and lump, unspecified site] Episodic Other gastrointestinal disorders (2 sources) Constipation 01-18-2019 Episodic Other gastrointestinal disorders (2 sources) Pelvic mass 01-09-2020 Episodic Other hereditary and degenerative nervous system conditions (20 sources) Movement disorder; Translations: [Extrapyramidal and movement disorder, unspecified] Onset: 1 08-20-2020 Chronic Other nervous system disorders (20 sources) Carpal tunnel syndrome; Translations: [Carpal tunnel syndrome, unspecified upper limb] Onset: 9 12-11-2018 Chronic Other nervous system disorders (1 source) Cubital tunnel syndrome; Translations: [Cubital tunnel syndrome of both upper extremities] Chronic Other nervous system disorders (3 sources) Bilateral carpal tunnel syndrome; Translations: [Carpal tunnel syndrome, bilateral upper limbs] Chronic Other nervous system disorders (3 sources) Other chronic pain; Translations: [Other chronic pain] Onset: 4 Chronic Other nervous system disorders (6 sources) Carpal tunnel syndrome, bilateral upper limbs; Translations: [Bilateral carpal tunnel syndrome] Other nervous system disorders (1 source) Carpal tunnel syndrome of right wrist; Translations: [Carpal tunnel syndrome of right wrist] Other nutritional; endocrine; and metabolic disorders (2 sources) Body mass index 40+ - severely obese 02-21-2020 Chronic Other nutritional; endocrine; and metabolic disorders (2 sources) Morbid obesity 02-21-2020 Chronic Other nutritional; endocrine; and metabolic disorders (2 sources) Obesity 12-21-2018 Chronic Other nutritional; endocrine; and metabolic disorders (2 sources) Body mass index 25-29 - overweight 03-19-2021 Episodic Other nutritional; endocrine; and metabolic disorders (2 sources) Overweight 12-14-2020 Episodic Other screening for suspected conditions (not mental disorders or infectious disease) (1 source) Patient encounter status; Translations: [Encounter for screening mammogram for malignant neoplasm of breast] Episodic Other skin disorders (1 source) Ingrowing nail; Translations: [Ingrowing nail] Onset: 2 Episodic Other skin disorders (1 source) Ingrowing toenail 04-05-2022 Episodic Otitis media and related conditions (4 sources) Dysfunction of eustachian tube 10-01-2019 Episodic Residual codes; unclassified (2 sources) Obstructive sleep apnea syndrome 12-21-2018 Chronic Residual codes; unclassified (7 sources) Memory impairment; Translations: [Memory loss] Onset: 9 12-11-2018 Episodic Residual codes; unclassified (1 source) History of hernia repair; Translations: [Other specified postprocedural states] Episodic Spondylosis; intervertebral disc disorders; other back problems (20 sources) Cervical spondylosis with myelopathy; Translations: [Cervical radiculopathy] Onset: 8 06-04-2018 Chronic Spondylosis; intervertebral disc disorders; other back problems (20 sources) Neck pain; Translations: [Chronic low back pain] Onset: 9 Resolved: 3 10-22-2018 Episodic Sprains and strains (2 sources) Strain of muscle, fascia and tendon at neck level, initial encounter; Translations: [Strain of muscle, fascia and tendon at neck level, initial encounter] Onset: 4 Episodic Substance-related disorders (2 sources) Cigarette smoker 03-19-2021 Chronic Thyroid disorders (6 sources) Hypothyroidism; Translations: [Hypothyroidism, unspecified] Onset: 9 02-21-2020 Chronic Unclassified (1 source) Nail dystrophy / L60.3(ICD-10) Onset: 8 Past or Other Problems Problem Classification Problem Date Documented Date Episodic/Chronic Benign neoplasm of uterus (20 sources) Intramural leiomyoma of uterus; Translations: [Intramural leiomyoma of uterus] Onset: 12-31-2015 Resolved: 09-14-2022 12-31-2015 Episodic Disorders of teeth and jaw (20 sources) Jaw pain; Translations: [Jaw pain] Onset: 10-22-2018 Resolved: 11-04-2019 10-22-2018 Episodic Endometriosis (20 sources) Endometriosis of ovary; Translations: [Endometriosis of ovary] Onset: 01-02-2016 Resolved: 09-14-2022 01-02-2016 Chronic Menstrual disorders (20 sources) Disorder of menstruation; Translations: [Irregular menstruation, unspecified] Resolved: 09-14-2022 09-24-2015 Chronic Mycoses (20 sources) Otomycosis; Translations: [Superficial mycosis, unspecified] Onset: 10-19-2018 Resolved: 11-04-2019 10-19-2018 Episodic Nonmalignant breast conditions (20 sources) Persistent breast nodularity; Translations: [Unspecified lump in unspecified breast] Onset: 04-07-2015 04-07-2015 Episodic Nonspecific chest pain (3 sources) Chest wall pain; Translations: [Other chest pain] Onset: 05-06-2023 Episodic Other ear and sense organ disorders (20 sources) Sensorineural hearing loss, bilateral; Translations: [Sensorineural hearing loss, bilateral] Onset: 10-19-2018 Resolved: 09-14-2022 10-19-2018 Chronic Other ear and sense organ disorders (20 sources) Asymmetrical sensorineural hearing loss; Translations: [Unspecified sensorineural hearing loss] Onset: 10-19-2018 Resolved: 09-14-2022 10-19-2018 Chronic Other ear and sense organ disorders (20 sources) Asymmetrical sensorineural hearing loss; Translations: [SNHL (sensory-neural hearing loss), asymmetrical] Onset: 10-19-2018 10-19-2018 Episodic Other ear and sense organ disorders (7 sources) Noise-induced hearing loss; Translations: [Noise-induced hearing loss of both ears] Onset: 10-19-2018 10-19-2018 Episodic Other ear and sense organ disorders (20 sources) Noise effects on inner ear, bilateral; Translations: [Bilateral hearing loss of ears caused by noise] Onset: 10-19-2018 10-19-2018 Episodic Other ear and sense organ disorders (20 sources) Otalgia, right ear; Translations: [Otalgia, unspecified] Onset: 10-25-2018 Resolved: 11-04-2019 11-04-2019 Episodic Other ear and sense organ disorders (20 sources) Otalgia of right ear; Translations: [Right ear pain] Onset: 10-25-2018 Resolved: 11-04-2019 10-25-2018 Other nervous system disorders (12 sources) Athetosis; Translations: [Other abnormal involuntary movements] Onset: 05-18-2021 Episodic Other nervous system disorders (1 source) Tremor, unspecified; Translations: [Tremor, unspecified] Onset: 08-25-2023 Episodic Residual codes; unclassified (20 sources) Amnesia; Translations: [Other amnesia] Onset: 12-11-2018 12-11-2018 Episodic Residual codes; unclassified (4 sources) History of sleeve gastrectomy; Translations: [Acquired absence of stomach [part of]] Onset: 07-25-2022 09-14-2022 Episodic Unclassified (2 sources) Uneven venous ectasia (morphologic abnormality) 12-21-2018 Results Test Name Value Interpretation Reference Range Facility XR CERVICAL SPINE (4-5 VIEWS )on 03-25-2024 XR CERVICAL SPINE (4-5 VIEWS) EXAM: XR CERVICAL SPINE (4-5 VIEWS) HISTORY: Chronic neck pain COMPARISON: 10/29/2018 IMPRESSION: FINDINGS/IMPRESSION: 1. Anterior interbody fusion with corpectomy and graft at C5-C6 and C6-C7 remains in anatomic alignment. 2. Hardware intact. 3. Mild diffuse facet degenerative change without foraminal narrowing. 4. No acute change. Interpreted by: Andrei Garza Jr., MD Signed by: Andrei Garza Jr., MD 03/25/24 Final result Normal [facility] B12/Folate Panelon Cobalamin (Vitamin B12) [Mass/Vol] 1624 pg/mL High 232-1245 [facility] Comment on above: Performed By: #### B 12FOL #### [id number] [place] [address] Clinical Geneticist: Ludwin Lo MD #### NIR TALAVERA, CDP #### [facility] [address] [place], [place] [id number] Clinical Geneticist: Stef Chang MD Folic Acid 17.8 ng/mL Normal 4.8-24.2 [facility] Comment on above: Performed By: #### B 12FOL #### [address] [address] Clinical Geneticist: Ludwin Lo MD #### NIR TALAVERA, CDP #### [facility] [address] [place], [place] [id number] Clinical Geneticist: Stef Chang MD CBC with Diffon 08-25-2023 Abs. Basophil 0.04 k/uL Normal 0.00-0.[address] [facility] Comment on above: Performed By: #### B 12FOL #### [id number] [place] [address] Clinical Geneticist: Ludwin Lo MD #### ILAN TSHJose David, CDP #### [facility] [address] [place], [place] [id number] Clinical Geneticist: Stef Chang MD Abs.Imm.Granulocy te 0.01 k/uL Normal 0.00-0.30 [facility] Comment on above: Performed By: #### B 12FOL #### [facility] [address] [place] [address] Clinical Geneticist: Ludwin Lo MD #### CP, TSHX, CDP #### [facility] [address] [place], [place] [id number] Clinical Geneticist: Stef Chang MD Abs.Neutrophil (Seg) 6.61 k/uL Normal 2.5-7.0 [facility] Comment on above: Performed By: #### B 12FOL #### [facility] [address] [place] [address] Clinical Geneticist: Ludwin Lo MD #### ILAN, MARYCHUYX, CDP #### [facility] [address] [place], [place] [id number] Clinical Geneticist: Stef Chang MD Basophils/100 WBC (Bld) 0 % Normal 0-2 [facility] Comment on above: Performed By: #### B 12FOL #### [facility] [address] [place] [address] Clinical Geneticist: Ludwin Lo MD #### ILAN, TSHX, CDP #### [facility] [address] [place], [place] [id number] Clinical Geneticist: Stef Chang MD Eosinophils (Bld) [#/Vol] 0.24 10*3/uL Normal 0.00-0.40 [facility] Comment on above: Performed By: #### B 12FOL #### [facility] [address] [place] [address] Clinical Geneticist: Ludwin Lo MD #### CP, TSHX, CDP #### [facility] [address] [place], [place] [id number] Clinical Geneticist: Stef Chang MD Eosinophils/100 WBC (Bld) 2 % Normal 0-5 [facility] Comment on above: Performed By: #### B 12FOL #### [facility] [address] [place] [address] Clinical Geneticist: Ludwin Lo MD #### CP, TSHX, CDP #### [facility] [address] [place], [place] [id number] Clinical Geneticist: Stef Chang MD Erythrocyte distribution width (RBC) [Ratio] 12.4 % Normal 12.1-15.2 [facility] Comment on above: Performed By: #### B 12FOL #### [address] [address] Clinical Geneticist: Ludwin Lo MD #### ILAN, TSHX, CDP #### [facility] [address] [place], [place] [id number] Clinical Geneticist: Stef Chang MD Hematocrit (Bld) [Volume fraction] 41.4 % Normal 36.0-46.0 [facility] Comment on above: Performed By: #### B 12FOL #### [address] [address] Clinical Geneticist: Ludwin Lo MD #### ILAN, TSHX, CDP #### [facility] [address] [place], [place] [id number] Clinical Geneticist: Stef Chang MD Hemoglobin (Bld) [Mass/Vol] 14.4 g/dL Normal 12.0-16.0 [facility] Comment on above: Performed By: #### B 12FOL #### [facility] [address] [place] [address] Clinical Geneticist: Ludwin Lo MD #### CP, TSHX, CDP #### [facility] [address] [place], [place] [id number] Clinical Geneticist: Stef Chang MD Immature granulocytes/100 WBC (Bld) 0 % Normal 0-5 [facility] Comment on above: Performed By: #### B 12FOL #### [facility] [address] [place] [address] Clinical Geneticist: Ludwin Lo MD #### CP, TSHX, CDP #### [facility] [address] [place], [place] [id number] Clinical Geneticist: Stef Chang MD Lymphocytes (Bld) [#/Vol] 3.09 10*3/uL Normal 1.00-4.80 [facility] Comment on above: Performed By: #### B 12FOL #### [id number] [place], [place] [id number] Clinical Geneticist: Ludwin Lo MD #### ILAN, TSHX, CDP #### [facility] [address] [place], [place] [id number] Clinical Geneticist: Stef Chang MD Lymphocytes/100 WBC (Bld) 29 % Normal 15-40 [facility] Comment on above: Performed By: #### B 12FOL #### [facility] [address] [place], [place] [id number] Clinical Geneticist: Ludwin Lo MD #### ILAN, TSHX, CDP #### [facility] [address] [place], [place] [id number] Clinical Geneticist: Stef Chang MD MCH (RBC) [Entitic mass] 30.1 pg Normal 26.0-34.0 [facility] Comment on above: Performed By: #### B 12FOL #### [facility] [address] [place], [place] [id number] Clinical Geneticist: Ludwin Lo MD #### CP, TSHX, CDP #### [facility] [address] [place], [place] [id number] Clinical Geneticist: Stef Chang MD MCHC (RBC) [Mass/Vol] 34.8 g/dL Normal 31.0-37.0 [facility] Comment on above: Performed By: #### B 12FOL #### [facility] [address] [place] [address] Clinical Geneticist: Ludwin Lo MD #### CP, TSHX, CDP #### [facility] [address] [place] [address] Clinical Geneticist: Stef Chang MD MCV (RBC) [Entitic vol] 86.6 fL Normal 80.0-100.0 [facility] Comment on above: Performed By: #### B 12FOL #### [address] [address] Clinical Geneticist: Ludwin Lo MD #### NIR TALAVERA, CDP #### [facility] [address] [place], [place] [id number] Clinical Geneticist: Stef Chang MD Monocytes (Bld) [#/Vol] 0.78 10*3/uL Normal 0.00-1.00 [facility] Comment on above: Performed By: #### B 12FOL #### [address] [address] Clinical Geneticist: Ludwin Lo MD #### ILAN TSHX, CDP #### [facility] [address] [place], [place] [id number] Clinical Geneticist: Stef Chang MD Monocytes/100 WBC (Bld) 7 % Normal 4-8 [facility] Comment on above: Performed By: #### B 12FOL #### [address] [address] Clinical Geneticist: Ludwin Lo MD #### CP, TSHX, CDP #### [facility] [address] [place] [address] Clinical Geneticist: Stef Chang MD Neutrophil (Seg) 62 % Normal 47-75 [facility] Comment on above: Performed By: #### B 12FOL #### [facility] [address] [place] [address] Clinical Geneticist: Ludwin Lo MD #### CP, TSHX, CDP #### [facility] [address] [place] [address] Clinical Geneticist: Stef Chang MD Platelet mean volume (Bld) [Entitic vol] 9.6 fL Normal 6.0-12.0 [facility] Comment on above: Performed By: #### B 12FOL #### [facility] [address] [place] [address] Clinical Geneticist: Ludwin Lo MD #### CP, TSHX, CDP #### [facility] [address] [place], [place] [id number] Clinical Geneticist: Stef Chang MD Platelets (Bld) [#/Vol] 354 10*3/uL Normal 140-450 [facility] Comment on above: Performed By: #### B 12FOL #### [id number] [place] [address] Clinical Geneticist: Ludwin Lo MD #### CP, TSHX, CDP #### [facility] [address] [place], [place] [id number] Clinical Geneticist: Stef Chang MD RBC (Bld) [#/Vol] 4.78 10*6/uL Normal 4.00-5.20 [facility] Comment on above: Performed By: #### B 12FOL #### [id number] [place] [address] Clinical Geneticist: Ludwin Lo MD #### CP, TSHX, CDP #### [facility] [address] [place], [place] [id number] Clinical Geneticist: Stef Chang MD WBC (Bld) [#/Vol] 10.8 10*3/uL Normal 3.5-11.0 [facility] Comment on above: Performed By: #### B 12FOL #### [facility] [address] [place] [address] Clinical Geneticist: Ludwin Lo MD #### CP, TSHX, CDP #### [facility] [address] [place] [address] Clinical Geneticist: Stef Chang MD Comp Metabolic Profon 2023 Albumin [Mass/Vol] 4.4 g/dL Normal 3.5-5.2 [facility] Comment on above: Performed By: #### B 12FOL #### [address] [address] Clinical Geneticist: Ludwin Lo MD #### CP, TSHX, CDP #### [facility] [address] [place], [place] [id number] Clinical Geneticist: Stef Chang MD Alkaline Phos 69 U/L Normal 35-[address] [facility] Comment on above: Performed By: #### B 12FOL #### [facility] [address] [place] [address] Clinical Geneticist: Ludwin Lo MD #### CP, TSHX, CDP #### [facility] [address] [place], [place] [id number] Clinical Geneticist: Stef Chang MD ALT [Catalytic activity/Vol] 12 U/L Normal 5-33 [facility] Comment on above: Performed By: #### B 12FOL #### [facility] [address] [place] [address] Clinical Geneticist: Ludwin Lo MD #### CP, TSHX, CDP #### [facility] [address] [place] [address] Clinical Geneticist: Stef Chang MD Anion gap [Moles/Vol] 13 mmol/L Normal 9-17 [facility] Comment on above: Performed By: #### B 12FOL #### [facility] [address] [place] [address] Clinical Geneticist: Ludwin Lo MD #### NIR TALAVERA, CDP #### [facility] [address] [place] [address] Clinical Geneticist: Stef Chang MD AST [Catalytic activity/Vol] 17 U/L Normal <32 [facility] Comment on above: Performed By: #### B 12FOL #### [facility] [address] [place] [address] Clinical Geneticist: Ludwin Lo MD #### MARYCHUY TALAVERAX, CDP #### [facility] [address] [place] [address] Clinical Geneticist: Stef Chang MD Bilirubin [Mass/Vol] 0.2 mg/dL Low 0.3-1.2 [facility] Comment on above: Performed By: #### B 12FOL #### [facility] [address] [place] [address] Clinical Geneticist: Ludwin Lo MD #### NIR TALAVERA, CDP #### [facility] [address] [place] [address] Clinical Geneticist: Stef Chang MD BUN/CRE Ratio 20 Normal 9-[address] [facility] Comment on above: Performed By: #### B 12FOL #### [facility] [address] [place] [address] Clinical Geneticist: Ludwin Lo MD #### ILAN TSHX, CDP #### [facility] [address] [place] [address] Clinical Geneticist: Stef Chang MD Calcium [Mass/Vol] 10.4 mg/dL Normal 8.6-10.4 [facility] Comment on above: Performed By: #### B 12FOL #### [address] [address] [place] [address] Clinical Geneticist: Ludwin Lo MD #### NIR TALAVERA, CDP #### [facility] [address] [place], [place] [id number] Clinical Geneticist: Stef Chang MD Chloride [Moles/Vol] 101 mmol/L Normal 98-107 [facility] Comment on above: Performed By: #### B 12FOL #### [facility] [address] [place] [address] Clinical Geneticist: Ludwin Lo MD #### NIR TALAVERA, CDP #### [facility] [address] [place], [place] [id number] Clinical Geneticist: Stef Chang MD CO2 [Moles/Vol] 27 mmol/L Normal 20-31 [facility] Comment on above: Performed By: #### Dante 12FOL #### [facility] [address] [place] [address] Clinical Geneticist: Ludwin Lo MD #### NIR TALAVERA, CDP #### [facility] [address] [place], [place] [id number] Clinical Geneticist: Stef Chang MD Creatinine [Mass/Vol] 1.0 mg/dL High 0.5-0.9 [facility] Comment on above: Performed By: #### Dante 12FOL #### [id number] [place] [address] Clinical Geneticist: Ludwin Lo MD #### NIR TALAVERA, CDP #### [facility] [address] [place] [address] Clinical Geneticist: Stef Chang MD GFR/1.73 sq M.predicted among non-blacks MDRD (S/P/Bld) [Vol rate/Area] mL/min/{1.73_m2} Normal >60 [facility] Comment on above: Result Comment: These results are not intended for use in patients <18 years of age. eGFR results are calculated without a race factor using the 2020 CKD-EPI equation. Careful clinical correlation is recommended, particularly when comparing to results calculated using previous equations. The CKD-EPI equation is less accurate in patients with extremes of muscle mass, extra-renal metabolism of creatine, excessive creatine ingestion, or following therapy that affects renal tubular secretion. Performed By: #### B 12FOL #### [address] [address] Clinical Geneticist: Ludwin Lo MD #### CP, TSHX, CDP #### [facility] [address] [place], [place] [id number] Clinical Geneticist: Stef Chang MD Glucose [Mass/Vol] 98 mg/dL Normal 70-99 [facility] Comment on above: Performed By: #### B 12FOL #### [address] [address] Clinical Geneticist: Ludwin Lo MD #### ILAN TSHX, CDP #### [facility] [address] [place], [place] [id number] Clinical Geneticist: Stef Chang MD Potassium [Moles/Vol] 4.9 mmol/L Normal 3.7-5.3 [facility] Comment on above: Performed By: #### B 12FOL #### [address] [address] Clinical Geneticist: Ludwin Lo MD #### CP, TSHX, CDP #### [facility] [address] [place], [place] [id number] Clinical Geneticist: Stef Chang MD Protein [Mass/Vol] 7.5 g/dL Normal 6.4-8.3 [facility] Comment on above: Performed By: #### B 12FOL #### [address] [address] Clinical Geneticist: Ludwin Lo MD #### CP, TSHX, CDP #### [facility] [address] [place], [place] [id number] Clinical Geneticist: Stef Chang MD Sodium [Moles/Vol] 141 mmol/L Normal 135-144 [facility] Comment on above: Performed By: #### B 12FOL #### [id number] [place], [place] [id number] Clinical Geneticist: Ludwin Lo MD #### CP, TSHX, CDP #### [facility] [address] [place], [place] [id number] Clinical Geneticist: Stef Chang MD Urea nitrogen [Mass/Vol] 20 mg/dL Normal 6- [facility] Comment on above: Performed By: #### B 12FOL #### [address] [id number] Clinical Geneticist: Ludwin Lo MD #### CP, TSHX, CDP #### [facility] [address] [place] [address] Clinical Geneticist: Stef Chang MD TSH w/reflex to FT4on 2023 Thyroid Stim. Horm. 2.65 uIU/mL Normal 0.30-5.00 [facility] Comment on above: Performed By: #### B 12FOL #### [address] [id number] Clinical Geneticist: Ludwin Lo MD #### CP, TSHX, CDP #### [facility] [address] [place] [address] Clinical Geneticist: Stef Chang MD Basic Metabolic Profon 05-06 Anion gap [Moles/Vol] 11 mmol/L Normal 9- [facility] Comment on above: Performed By: #### C DP, TROPI, BMP #### [facility] [address] [place] [address] Clinical Geneticist: Stef Chang MD BUN/CRE Ratio 25 High 9-[address] [facility] Comment on above: Performed By: #### C MELISSA FRIASI, BMP #### [facility] [address] [place], [place] [id number] Clinical Geneticist: Stef Chang MD Calcium [Mass/Vol] 9.2 mg/dL Normal 8.6-10.4 [facility] Comment on above: Performed By: #### C ALTAGRACIA TROPI, BMP #### [facility] [address] [place], [place] [id number] Clinical Geneticist: Stef Chang MD Chloride [Moles/Vol] 102 mmol/L Normal 98-107 [facility] Comment on above: Performed By: #### C MELISSA FRIASI, BMP #### [facility] [address] [place], [place] [id number] Clinical Geneticist: Stef Chang MD CO2 [Moles/Vol] 24 mmol/L Normal 20-31 [facility] Comment on above: Performed By: #### C MELISSA FRIASI, BMP #### [facility] [address] [place], [place] [id number] Clinical Geneticist: Stef Chang MD Creatinine [Mass/Vol] 0.8 mg/dL Normal 0.5-0.9 [facility] Comment on above: Performed By: #### C ALTAGRACIA TROPI, BMP #### [facility] [address] [place], [place] [id number] Clinical Geneticist: Stef Chang MD GFR/1.73 sq M.predicted among non-blacks MDRD (S/P/Bld) [Vol rate/Area] mL/min/{1.73_m2} Normal >60 [facility] Comment on above: Result Comment: These results are not intended for use in patients <18 years of age. eGFR results are calculated without a race factor using the 2020 CKD-EPI equation. Careful clinical correlation is recommended, particularly when comparing to results calculated using previous equations. The CKD-EPI equation is less accurate in patients with extremes of muscle mass, extra-renal metabolism of creatine, excessive creatine ingestion, or following therapy that affects renal tubular secretion. Performed By: #### C MILAGRO FRIAS, BMP #### [facility] [address] [place] [address] Clinical Geneticist: Stef Chang MD Glucose [Mass/Vol] 87 mg/dL Normal 70-99 [facility] Comment on above: Performed By: #### C MELISSA FRIASI, BMP #### [facility] [address] [place] [address] Clinical Geneticist: Stef Chang MD Potassium [Moles/Vol] 3.6 mmol/L Low 3.7-5.3 [facility] Comment on above: Performed By: #### C MELISSA FRIASI, BMP #### [facility] [address] [place] [address] Clinical Geneticist: Stef Chang MD Sodium [Moles/Vol] 137 mmol/L Normal 135-144 [facility] Comment on above: Performed By: #### C MELISSA FRIASI, BMP #### [facility] [address] [place] [address] Clinical Geneticist: Stef Chang MD Urea nitrogen [Mass/Vol] 20 mg/dL Normal 6-20 [facility] Comment on above: Performed By: #### C ALTAGRACIA TROPI, BMP #### [facility] [address] [place] [address] Clinical Geneticist: Stef Chang MD CBC with Diffon 05-06-2023 Abs. Basophil 0.06 k/uL Normal 0.00-0.[address] [facility] Comment on above: Performed By: #### C MELISSA FRIASI, BMP #### [facility] [address] [place] [address] Clinical Geneticist: Stef Chang MD Abs.Imm.Granulocy te 0.02 k/uL Normal 0.00-0.30 [facility] Comment on above: Performed By: #### C MILAGRO FRIAS BMP #### [facility] [address] [place] [id number] Clinical Geneticist: Stef Chang MD Abs.Neutrophil (Seg) 5.44 k/uL Normal 2.5-7.0 [facility] Comment on above: Performed By: #### C MILAGRO FRIAS, BMP #### [facility] [address] [place] [address] Clinical Geneticist: Stef Chang MD Basophils/100 WBC (Bld) 1 % Normal 0-2 [facility] Comment on above: Performed By: #### C MILAGRO FRIAS, BMP #### [facility] [address] [place] [address] Clinical Geneticist: Stef Chang MD Eosinophils (Bld) [#/Vol] 0.18 10*3/uL Normal 0.00-0.40 [facility] Comment on above: Performed By: #### C MILAGRO FRIAS, BMP #### [facility] [address] [place] [id number] Clinical Geneticist: Stef Chang MD Eosinophils/100 WBC (Bld) 2 % Normal 0-5 [facility] Comment on above: Performed By: #### C MILAGRO FRIAS, BMP #### [facility] [address] [place] [id number] Clinical Geneticist: Stef Chang MD Erythrocyte distribution width (RBC) [Ratio] 12.8 % Normal 12.1-15.2 [facility] Comment on above: Performed By: #### C MILAGRO FRIAS, BMP #### [facility] [address] [place] [address] Clinical Geneticist: Stef Chang MD Hematocrit (Bld) [Volume fraction] 37.7 % Normal 36.0-46.0 [facility] Comment on above: Performed By: #### C MILAGRO FRIAS, BMP #### [facility] [address] [place] [address] Clinical Geneticist: Stef Chang MD Hemoglobin (Bld) [Mass/Vol] 13.3 g/dL Normal 12.0-16.0 [facility] Comment on above: Performed By: #### C MELISSA FRIASI, BMP #### [facility] [address] [place] [id number] Clinical Geneticist: Stef Chang MD Immature granulocytes/100 WBC (Bld) 0 % Normal 0-5 [facility] Comment on above: Performed By: #### C MILAGRO FRIAS, BMP #### [facility] [address] [place] [phone] Clinical Geneticist: Stef Chang MD Lymphocytes (Bld) [#/Vol] 2.81 10*3/uL Normal 1.00-4.80 [facility] Comment on above: Performed By: #### C MILAGRO FRIAS, BMP #### [facility] [address] [place] [id number] Clinical Geneticist: Stef Chang MD Lymphocytes/100 WBC (Bld) 31 % Normal 15-40 [facility] Comment on above: Performed By: #### C MILAGRO FRIAS, BMP #### [facility] [address] [place] [phone] Clinical Geneticist: Stef Chang MD MCH (RBC) [Entitic mass] 30.2 pg Normal 26.0-34.0 [facility] Comment on above: Performed By: #### C MELISSA FRIASI, BMP #### [facility] [address] [place] [address] Clinical Geneticist: Stef Chang MD MCHC (RBC) [Mass/Vol] 35.3 g/dL Normal 31.0-37.0 [facility] Comment on above: Performed By: #### C MILAGRO FRIAS, BMP #### [facility] [address] [place] [address] Clinical Geneticist: Stef Chang MD MCV (RBC) [Entitic vol] 85.7 fL Normal 80.0-100.0 [facility] Comment on above: Performed By: #### C ALTAGRACIA [facility] SERVICESNico[facility], BMP #### [facility] [address] [place] [address] Clinical Geneticist: Stef Chang MD Monocytes (Bld) [#/Vol] 0.66 10*3/uL Normal 0.00-1.00 [facility] Comment on above: Performed By: #### C ALTAGRACIA [facility] SERVICES[facility]ico[facility], BMP #### [facility] [address] [place] [address] Clinical Geneticist: Stef Chang MD Monocytes/100 WBC (Bld) 7 % Normal 4-8 [facility] Comment on above: Performed By: #### C ALTAGRACIA [facility], BMP #### [facility] [address] [place] [address] Clinical Geneticist: Stef Chang MD Neutrophil (Seg) 59 % Normal 47-75 [facility] Comment on above: Performed By: #### C ALTAGRACIA [facility] SERVICES[facility]ico[facility], BMP #### [facility] [address] [place] [address] Clinical Geneticist: Stef Chang MD Platelet mean volume (Bld) [Entitic vol] 9.9 fL Normal 6.0-12.0 [facility] Comment on above: Performed By: #### C ALTAGRACIA [facility] SERVICES[facility]ico[facility], BMP #### [facility] [address] [place] [address] Clinical Geneticist: Stef Chang MD Platelets (Bld) [#/Vol] 310 10*3/uL Normal 140-450 [facility] Comment on above: Performed By: #### C DP, TROPI, BMP #### [facility] [address] [place] [address] Clinical Geneticist: Stef Chang MD RBC (Bld) [#/Vol] 4.40 10*6/uL Normal 4.00-5.20 [facility] Comment on above: Performed By: #### C DP, TROPI, BMP #### [facility] [address] [place] [address] Clinical Geneticist: Stef Chang MD WBC (Bld) [#/Vol] 9.2 10*3/uL Normal 3.5-11.0 [facility] Comment on above: Performed By: #### C DP, TROPI, BMP #### [facility] [address] [place], [place] [id number] Clinical Geneticist: Stef Chang MD Troponinon 05-06-2023 Troponin, High Sens 8 ng/L Normal 0-14 [facility] Comment on above: Result Comment: High Sensitivity Troponin values cannot be compared with other Troponin methodologies. Performed By: #### C DP, TROPI, BMP #### [facility] [address] [place], [place] [phone] Clinical Geneticist: Stef Chang MD XR CHEST PORTABLEon 05-06-20 XR CHEST PORTABLE EXAM: XR CHEST DENISSE BLE HISTORY: CP Rapid heart rate. COMPARISON: 02/22/2022. TECHNIQUE: A portable AP upright view of the chest was obtained at 1420 hours. FINDINGS: The heart is slender. The trachea, mediastinal, hilar, pulmonary appearance is normal. There is no mass, infiltrate, edema or pleural effusion. IMPRESSION: Normal-appearing AP portable upright chest. Interpreted by: Betty Murillo DO Signed by: Betty Murillo DO 05/06/23 Final result Normal [facility] XR TOE RIGHT (MIN 2 VIEWS)on 01-01-2023 FINDINGS/IMPRESSION: Acute mildly comminuted fracture of the third distal phalanx without significant displacement. Adjacent soft tissue laceration, this may represent an open fracture. No dislocation. No radiopaque foreign bodies in the soft tissues. [facility] IMAGES REVIEWED: XR TOE RIGHT (MIN 2 VIEWS) COMPARISON: None available. CLINICAL INDICATION: Reason for exam:->Right 3rd toe trauma. [facility] Loy Brothers MD - IMAGES REVIEWED: XR TOE RIGHT (MIN 2 VIEWS) COMPARISON: None available. CLINICAL INDICATION: Reason for exam:->Right 3rd toe trauma. IMPRESSION: FINDINGS/IMPRESSION: Acute mildly comminuted fracture of the third distal phalanx without significant displacement. Adjacent soft tissue laceration, this may represent an open fracture. No dislocation. No radiopaque foreign bodies in the soft tissues. [facility] Work Phone: Radiology Study observation (narrative) [employer] Phone: XR TOE RIGHT (MIN 2 VIEWS)Or dered By: Loy Brothers on 01-01-2023 [facility] Work Phone: Retail - Clinical Noteon Retail - Clinical Note [id number]#1.00CD:127 Normal [facility] BUN & Creatinineon 2 Creatinine [Mass/Vol] 0.9 mg/dL 0.50 - 0.90 mg/dL [facility] GFR/1.73 sq M.predicted MDRD (S/P/Bld) [Vol rate/Area] - PINF [facility] Comment on above: Effective May 09, 2022 These results are not intended for use in patients <18 years of age. eGFR results are calculated without a race factor using the 2020 CKD-EPI equation. Careful clinical correlation is recommended, particularly when comparing to results calculated using previous equations. The CKD-EPI equation is less accurate in patients with extremes of muscle mass, extra-renal metabolism of creatine, excessive creatine ingestion, or following therapy that affects renal tubular secretion. Interpretation and review of laboratory results Abnormal [facility] Urea nitrogen (BldV) [Mass/Vol] 25 mg/dL High 6 - 20 mg/dL [facility] Hepatic Function Panelon Albumin [Mass/Vol] 4.4 g/dL 3.5 - 5.2 g/dL [facility] ALP (Bld) [Catalytic activity/Vol] 73 U/L 35 - 104 U/L [facility] ALT [Catalytic activity/Vol] 19 U/L 5 - 33 U/L [facility] AST [Catalytic activity/Vol] 22 U/L NINF - 32 U/L [facility] Bilirubin [Mass/Vol] 0.3 mg/dL 0.30 - 1.20 mg/dL [facility] Bilirubin, Indirect Can not be calculated 0.00 - 1.00 mg/dL [facility] Bilirubin.indirec t [Mass/Vol] mg/dL NINF - 0.31 mg/dL [facility] Protein [Mass/Vol] 6.9 g/dL 6.4 - 8.3 g/dL [facility] No Panel Informationon 06-15 [facility] WBCon 06-15-2022 WBC (Bld) [#/Vol] 8.5 10*3/uL [facility] Consultation Noteon 05-27-20 Consultation Note [id number]#1.00CD:127 Normal [facility] Consultation Noteon 04-19-20 Consultation Note [id number]#1.00CD:127 Normal [facility] Immunization Recordson 04-08 Immunization Records [id number]#1.00CD:127 Normal [facility] Physician Referralon 022 Physician Referral [id number]#1.00CD:127 Normal [facility] CBC with Auto Differentialon 02-22-2022 Absolute Eos # 0.30 [facility] Absolute Lymph # 4.20 [facility] Absolute Costilla # 0.70 [facility] Basophils (Bld) [#/Vol] 0.10 10*3/uL [facility] Basophils/100 WBC (Bld) 1 % 0 - 2 % [facility] Differential Type YES [facility] Eosinophils/100 WBC (Bld) 3 % 0 - 5 % [facility] Hematocrit (Bld) [Volume fraction] 34.1 % Low 36 - 46 % [facility] Hemoglobin (Bld) [Mass/Vol] 11.5 g/dL Low 12 - 16 g/dL [facility] Interpretation and review of laboratory results Abnormal [facility] Lymphocytes/100 WBC (Bld) 47 % High 15 - 40 % [facility] MCH (RBC) [Entitic mass] 30.4 pg 26 - 34 pg [facility] MCHC (RBC) [Mass/Vol] 33.8 g/dL 31 - 37 g/dL [facility] MCV (RBC) [Entitic vol] 89.9 fL 80 - 100 fL [facility] Monocytes/100 WBC (Bld) 8 % 4 - 8 % [facility] Platelet distribution width (Bld) [Ratio] 12.9 % 12.1 - 15.2 % [facility] Platelets (Bld) [#/Vol] 288 10*3/uL [facility] RBC (Bld) [#/Vol] 3.79 10*6/uL Low 4 - 5.2 m/uL [facility] Segmented neutrophils/100 WBC (Bld) 41 % Low 47 - 75 % [facility] Segs Absolute 3.60 [facility] WBC (Bld) [#/Vol] 8.8 10*3/uL [facility] Comprehensive Metabolic Pane l w/ Reflex to MGon 02-22-2022 Albumin [Mass/Vol] 3.8 g/dL 3.5 - 5.2 g/dL [facility] ALP (Bld) [Catalytic activity/Vol] 75 U/L 35 - 104 U/L [facility] ALT [Catalytic activity/Vol] 51 U/L High 5 - 33 U/L [facility] Anion gap [Moles/Vol] 11 mmol/L 9 - 17 mmol/L [facility] AST [Catalytic activity/Vol] 98 U/L High NINF - 32 U/L [facility] Bilirubin [Mass/Vol] 0.17 mg/dL Low 0.3 - 1.2 mg/dL [facility] Calcium [Mass/Vol] 8.6 mg/dL 8.6 - 10.4 mg/dL [facility] Chloride [Moles/Vol] 108 mmol/L High 98 - 107 mmol/L [facility] CO2 [Moles/Vol] 24 mmol/L 20 - 31 mmol/L [facility] Creatinine [Mass/Vol] 0.68 mg/dL 0.5 - 0.9 mg/dL [facility] Free PSA/Total PSA [Mass fraction] 6.0 g/dL Low 6.4 - 8.3 g/dL [facility] GFR >60 60 - PINF mL/min [facility] GFR Non- >60 60 - PINF mL/min [facility] GFR/1.73 sq M.predicted MDRD (S/P/Bld) [Vol rate/Area] [facility] Comment on above: Average GFR for 40-4 9 years old: 99 mL/min/1.73sq m Chronic Kidney Disease: <60 mL/min/1.73sq m Kidney failure: <15 mL/min/1.73sq m eGFR calculated using average adult body mass. Additional eGFR calculator available at: http://www.Wowboard.LiquidTalk/multiple_crcl_2012.htm Glucose [Mass/Vol] 108 mg/dL High 70 - 99 mg/dL [facility] Potassium [Moles/Vol] 3.6 mmol/L Low 3.7 - 5.3 mmol/L [facility] Sodium [Moles/Vol] 143 mmol/L 135 - 144 mmol/L [facility] Urea nitrogen (BldV) [Mass/Vol] 19 mg/dL 6 - 20 mg/dL [facility] Urea nitrogen/Creatini ne (Bld) [Mass ratio] 28 High 9 - 20 [facility] D-Dimer, Quantitativeon 02-04 D-Dimer, Quant 0.31 [facility] Comment on above: When combined with a low clinical probability, a D dimer value of <0.50 mg/L FEU is considered negative for DVT and PE (negative predictive value of 98%, sensitivity of 97%). If this test is not being used to help rule out DVT and PE, then the following reference range should be utilized: 0.00 - 0.59 mg/L FEU. The D-Dimer assay is intended for use as an aid in the diagnosis of venous thromboembolism (DVT and PE) and the results should be interpreted in conjunction with the patient's medical history, clinical presentation, and other findings. Elevated levels of D-dimer activity can be seen in any state of coagulation activation and is not recommended in patients with therapeutic dose anticoagulant therapy for >24 hours, fibrinolytic therapy within the previous 7 days, trauma or surgery within the previous 4 weeks, disseminated malignancies, aortic aneurysm, sepsis, severe infections, pneumonia, severe skin infections, liver cirrhosis, advanced age, coronary disease, diabetes, and . A very low percentage of patients with DVT may yield D-dimer results below the cutoff of 0.5 mg/L FEU. This is known to be more prevalent in patients with distal DVT. [facility] [facility] Lipase[facility] 02-22-2022 Lipase [Catalytic activity/Vol] 87 U/L High 13 - 60 U/L [facility] No Panel Informationon 02-22 Interpretation and review of laboratory results Abnormal [facility] Troponinon 02-22-2022 Troponin, High Sensitivity ng/L 0 - 14 ng/L [facility] Comment on above: High Sensitivity Troponin values cannot be compared with other Troponin methodologies. Patients with high levels of Biotin oral intake (i.e >5mg/day) may have falsely decreased Troponin levels. Samples collected within 8 hours of biotin intake may require additional information for diagnosis. [facility] Troponin, High Sensitivity ng/L 0 - 14 ng/L [facility] Comment on above: High Sensitivity Troponin values cannot be compared with other Troponin methodologies. Patients with high levels of Biotin oral intake (i.e >5mg/day) may have falsely decreased Troponin levels. Samples collected within 8 hours of biotin intake may require additional information for diagnosis. [facility] XR CHEST PORTABLEon 02-23-20 No acute cardiopulmonary process. FOLLOW-UP: Follow-up as clinically indicated. [facility] EXAM: XR CHEST DENISSE BLE 02/22/2022 3:[address] [facility] CLINICAL STATEMENT: Reason for exam:->chest pain COMPARISON: 10/23/2018 TECHNIQUE: Single AP radiograph of the chest is submitted. FINDINGS: There is no acute airspace disease. The cardiac silhouette is normal. The costophrenic recesses are sharp. No pneumothorax. The bony elements are unremarkable. [facility] CONSOLIDATED Nayan Sanchez MD - 02/22/2022 EXAM: XR CHEST PORTABLE 02/22/2022 3:[address] [facility] CLINICAL STATEMENT: Reason for exam:->chest pain COMPARISON: 10/23/2018 TECHNIQUE: Single AP radiograph of the chest is submitted. FINDINGS: There is no acute airspace disease. The cardiac silhouette is normal. The costophrenic recesses are sharp. No pneumothorax. The bony elements are unremarkable. IMPRESSION: No acute cardiopulmonary process. FOLLOW-UP: Follow-up as clinically indicated. [facility] Work Phone: Radiology Study observation (narrative) [facility] Work Phone: XR CHEST PORTABLEOrdered By: Nayan Sanchez on 02-22-2022 [facility] Work Phone: CBC Auto Differentialon 11-0 Absolute Eos # 0.30 [facility] th Absolute Immature Granulocyte NOT REPORTED [place] Absolute Lymph # 2.40 [facility] [employer] alth Absolute Costilla # 0.40 [facility] lth Basophils (Bld) [#/Vol] 0.00 10*3/uL [place] Basophils/100 WBC (Bld) 0 % 0 - 2 % [facility] Differential Type YES [facility] ealth Eosinophils/100 WBC (Bld) 5 % 0 - 5 % [facility] Hematocrit (Bld) [Volume fraction] 35.3 % Low 36 - 46 % [facility] Hemoglobin.gastro intestinal spec 1 Ql (Stl) 11.8 g/dL Low 12.0 - 16.0 g/dL [facility] Immature Granulocytes NOT REPORTED 0 % [facility] Interpretation and review of laboratory results Abnormal [facility] Lymphocytes/100 WBC (Bld) 37 % 15 - 40 % [facility] MCH (RBC) [Entitic mass] 30.1 pg 26 - 34 pg [facility] MCHC (RBC) [Mass/Vol] 33.5 g/dL 31 - 37 g/dL [facility] MCV (RBC) [Entitic vol] 89.6 fL 80 - 100 fL [facility] Monocytes/100 WBC (Bld) 6 % 4 - 8 % [facility] NRBC Automated NOT REPORTED per 100 WBC [facility] Platelet distribution width (Bld) [Ratio] 14.2 % 12.1 - 15.2 % [facility] Platelet Estimate NOT REPORTED [facility] Platelet mean volume (Bld) [Entitic vol] NOT REPORTED 6.0 - 12.0 fL [facility] Platelets (Bld) [#/Vol] 313 10*3/uL [facility] RBC (Bld) [#/Vol] 3.94 10*6/uL Low 4.0 - 5.2 m/uL [facility] RBC (Bld) [#/Vol] NOT REPORTED [facility] Segmented neutrophils/100 WBC (Bld) 52 % 47 - 75 % [facility] Segs [facility] 3.40 [facility] [#/Vol] 6.4 10*3/uL [facility] WBC (Bld) [#/Vol] NOT REPORTED [facility] Comprehensive Metabolic Pane dilia 06-14-2021 Albumin [Mass/Vol] 4.1 g/dL 3.5 - 5.2 g/dL [facility] Albumin/Globulin Ratio NOT REPORTED [facility] ALP (Bld) [Catalytic activity/Vol] 75 U/L 35 - 104 U/L [facility] ALT [Catalytic activity/Vol] 14 U/L 5 - 33 U/L [facility] Anion gap [Moles/Vol] 9 mmol/L 9 - 17 mmol/L [facility] AST [Catalytic activity/Vol] 15 U/L <32 [facility] Bilirubin [Mass/Vol] 0.27 mg/dL Low 0.30 - 1.20 mg/dL [facility] Calcium [Mass/Vol] 8.9 mg/dL 8.6 - 10.4 mg/dL [facility] Chloride [Moles/Vol] 105 mmol/L 98 - 107 mmol/L [facility] CO2 [Moles/Vol] 25 mmol/L 20 - 31 mmol/L [facility] Creatinine [Mass/Vol] 0.83 mg/dL 0.50 - 0.90 mg/dL [email or web address] Free PSA/Total PSA [Mass fraction] 6.5 g/dL 6.4 - 8.3 g/dL [employer] GFR >60 >60 mL/min [facility] GFR Non- >60 >60 mL/min [facility] GFR/1.73 sq M.predicted MDRD (S/P/Bld) [Vol rate/Area] [facility] Comment on above: Average GFR for 40-4 9 years old: 99 mL/min/1.73sq m Chronic Kidney Disease: <60 mL/min/1.73sq m Kidney failure: <15 mL/min/1.73sq m eGFR calculated using average adult body mass. Additional eGFR calculator available at: http://www.[employer]/multiple_crcl_2012.htm GFR/1.73 sq M.predicted MDRD (S/P/Bld) [Vol rate/Area] NOT REPORTED [facility] Glucose [Mass/Vol] 89 mg/dL 70 - 99 mg/dL [facility] Interpretation and review of laboratory results Abnormal [facility] Potassium [Moles/Vol] 4.1 mmol/L 3.7 - 5.3 mmol/L [facility] Sodium [Moles/Vol] 139 mmol/L 135 - 144 mmol/L [facility] Urea nitrogen (BldV) [Mass/Vol] 19 mg/dL 6 - 20 mg/dL [facility] Urea nitrogen/Creatini ne (Bld) [Mass ratio] 23 High [facility] Hemoglobin A1Con 06-14-2021 Glucose [Mass/Vol] 100 mg/dL [facility] Comment on above: The ADA and AACC rec ommend providing the estimated average glucose result to permit better patient understanding of their HBA1c result. HbA1c (Bld) [Mass fraction] 5.1 % 4.0 - 6.0 % [facility] Iron and TIBCon 06-14-2021 Iron [Mass/Vol] 92 ug/dL 37 - 145 ug/dL [facility] Iron Saturation 30 % 20 - 55 % [facility] lt TIBC 306 ug/dL 250 - 450 ug/dL [facility] UIBC 214 ug/dL 112 - 347 ug/dL [facility] Lipid Panelon 06-14-2021 Cholesterol [Mass/Vol] 173 mg/dL <200 [facility] Comment on above: Cholesterol Guidelines: <200 Desirable 200-240 Borderline >240 Undesirable Cholesterol in HDL [Mass/Vol] 73 mg/dL >40 [facility] Comment on above: HDL Guidelines: <40 Undesirable 40-59 Borderline >59 Desirable Cholesterol in LDL [Mass/Vol] 86 mg/dL 0 - 130 mg/dL [facility] Comment on above: LDL Guidelines: <100 Desirable 100-129 Near to/above Desirable 130-159 Borderline >159 Undesirable Direct (measured) LDL and calculated LDL are not interchangeable tests. Cholesterol in VLDL [Mass/Vol] NOT REPORTED 1 - 30 mg/dL [facility] Cholesterol.total /Cholesterol in HDL [Mass ratio] 2.4 {ratio} <5 [facility] Triglyceride [Mass/Vol] 72 mg/dL <150 [facility] Comment on above: Triglyceride Guidelines: <150 Desirable 150-199 Borderline 200-499 High >499 Very high Based on AHA Guidelines for fasting triglyceride, May 2012. No Panel Informationon 06-[address] [facility] Patient Fasting?on 1 Patient Fasting? YES Celine pappas [facility] TSH without Reflexon 021 TSH Qn 0.66 m[IU]/L [facility] Transferrinon 06-14-2021 Transferrin [Mass/Vol] 279 mg/dL 200 - 360 mg/dL [facility] Vitamin B12 & Folateon 06-14 Cobalamin (Vitamin B12) [Mass/Vol] pg/mL High 232 - 1245 pg/mL [facility] Folate >20.0 >4.8 ng/mL [facility] Interpretation and review of laboratory results Abnormal [facility] Vitamin D 25 Hydroxyon 06-14 Interpretation and review of laboratory results Abnormal [facility] Vit D, 25-Hydroxy 111.6 ng/mL High 30.0 - 100.0 ng/mL [facility] Comment on above: Reference Range: Vitamin D status Range Deficiency <20 ng/mL Mild Deficiency 20-30 ng/mL Sufficiency 30-100 ng/mL Toxicity >100 ng/mL [facility] XR SACRUM COCCYX (MIN 2 VIEW S)Ordered By: Florentino Herr on 05-19-2021 Degenerative changes SI joints. Normal sacrum and coccyx. [facility] Phone: EXAM: XR SACRUM COCC YX (MIN 2 VIEWS) HISTORY: M53.3 50-year-old female protruding tailbone. Significant weight loss. COMPARISON: None. TECHNIQUE: Sacrum and coccyx 2 views, 4 images. FINDINGS: Moderate degenerative change at the SI joints. Sacrum and coccyx normal. Grade 1 degenerative anterolisthesis L4 on L5. [facility] Phone: Red, Mhpn Incoming R adiant Results From [facility] [employer] - 05/19/2021 3:25 PM EDT EXAM: XR SACRUM COCCYX (MIN 2 VIEWS) HISTORY: M53.3 50-year-old female protruding tailbone. Significant weight loss. COMPARISON: None. TECHNIQUE: Sacrum and coccyx 2 views, 4 images. FINDINGS: Moderate degenerative change at the SI joints. Sacrum and coccyx normal. Grade 1 degenerative anterolisthesis L4 on L5. IMPRESSION: Degenerative changes SI joints. Normal sacrum and coccyx. [facility] Phone: [facility] Phone: [employer] DIGITAL SCREEN BILA TERALOrdered By: Jorge A Meier on 05-04-2021 BI-RADS 1 - Negative , no evidence of malignancy. Normal interval followup in 12 months. OVERALL ASSESSMENT- NEGATIVE A letter of notification will be sent to the patient regarding the results. [facility] [employer] Phone: HISTORY: Screening. TECHNIQUE: Bilateral digital screening mammogram with CAD. 2-D and 3-D tomography. FINDINGS: Two views of each breast show scattered areas of fibroglandular density. No change from prior studies, the most recent of 04/11/2018. Suspicious calcifications: None. Suspicious mass: None. (If skin markers were applied, circles represent skin lesions and linear markers represent scars.) [facility] Phone: [facility] Phone: COVID-19, RapidOrdered By: Dunia Walters on 04-15-2021 SARS-CoV-2 (COVID-19) RNA CELESTINE+probe Ql (Unsp spec) Not detected Not Detected [facility] Phone: Comment on above: Rapid NAAT: The specimen is NEGATIVE for SARS-CoV-2, the novel coronavirus associated with COVID-19. The ID NOW COVID-19 assay is designed to detect the virus that causes COVID-19 in patients with signs and symptoms of infection who are suspected of COVID-19. An individual without symptoms of COVID-19 and who is not shedding SARS-CoV-2 virus would expect to have a negative (not detected) result in this assay. Negative results should be treated as presumptive and, if inconsistent with clinical signs and symptoms or necessary for patient management, should be tested with an alternative molecular assay. Negative results do not preclude SARS-CoV-2 infection and should not be used as the sole basis for patient management decisions. Fact sheet for Healthcare Providers: https://www.fda.gov/media/814699/download Fact sheet for Patients: https://www.fda.gov/media/835080/download Methodology: Isothermal Nucleic Acid Amplification Specimen Description .NASOPHARYNGEAL SWAB [place] Work Phone: [facility] Phone: Strep Screen Group A ThroatO rdered By: Teresa Walters on 04-15-2021 S. pyogenes Ag IA Ql (Unsp spec) Rapid Strep A negative. A negative Rapid Group A Strep Screen result does not rule out the possibility of Group A Streptococci in the specimen. A Group A Strep DNA test is available upon request. [facility] Phone: Special Requests NOT REPORTED [facility] Phone: Specimen Description .THROAT SWAB [facility] Phone: [facility] Phone: CT CERVICAL SPINE WITHOUT CO NTRASTon 10-06-2020 1. C6 corpectomy wit h anterior fusion at C5 to C7. Lucency along the bilateral C5 fixation screws suggesting loosening. This is new from 12/27/2018. No hardware fracture. Solid block fusion across C5 through C7 is noted. 2. Progressive disc space narrowing and anterior endplate spur at C4-5. No significant central canal stenosis. 3. Similar pattern of neural foraminal stenosis, as above. [facility]/c Workstation ID: [id number] [facility] EXAMINATION: CT CERV ICAL SPINE WITHOUT CONTRAST HISTORY: C-spine fusion, follow up. ORDERING SYSTEM PROVIDED HISTORY: C-spine fusion, follow up, TECHNOLOGIST PROVIDED HISTORY: Illness/Other Reason for exam: Bilateral carpal tunnel syndrome Encounter Type: Initial Additional signs and symptoms: cspine fusion follow up ORDERING SYSTEM PROVIDED DIAGNOSIS CODES: G56.03 Bilateral carpal tunnel syndrome COMPARISON: CT 12/27/2018. MRI 12/27/2018. TECHNIQUE: Multiple axial unenhanced CT images of the cervical spine were supplemented with 2D coronal and sagittal reformations. Dose reduction techniques were achieved by using automated exposure control and/or adjustment of mA and/or kV according to patient size and/or use of iterative reconstruction technique. FINDINGS: Subtle convex left curvature of the cervical spine. Odontoid process appears intact and the lateral pillars appear preserved. No malalignment is seen. Patient is status post corpectomy at C6 corpectomy with anterior plate and screw fixation hardware at C5 to C7. There is minimal lucency noted along the C5 fixation screws, which is new (series 2, image 51, for example). There is progressive disc space narrowing and endplate spur noted at C3-4 which extends over the anterior plate fixation hardware. Prominent facet disease redemonstrated at C7-T1. C1 ring appears preserved. No prevertebral soft tissue swelling. No paraspinal mass is seen. C2-C3: No focal disc abnormality. No significant central canal or neural foraminal stenosis. C3-C4: Left-sided uncovertebral spur causes mild left neural foraminal stenosis. No significant central canal or right neural foraminal stenosis. No significant interval change. C4-C5: Minimal disc osteophyte complex is seen without significant central canal or neural foraminal stenosis. No significant interval change. C5-C6: Prior corpectomy with anterior fusion. Spondylitic ridging is seen without significant central canal stenosis. Bilateral uncovertebral spur and facet disease causes mild left and neqjejdu-sf-hndzgg right neural foraminal stenosis. No significant interval change. C6-C7: Prior corpectomy with anterior fusion. Spondylitic ridging is seen without significant central canal stenosis. Bilateral uncovertebral spur and facet disease causes severe bilateral neural foraminal stenosis. No significant interval change. C7-T1: Minor spondylitic ridging is seen without significant central canal or neural foraminal stenosis. No significant interval change. [facility], Rad In Fu ji [employer] - 10/06/2020 1:21 PM EST EXAMINATION: CT CERVICAL SPINE WITHOUT CONTRAST HISTORY: C-spine fusion, follow up. ORDERING SYSTEM PROVIDED HISTORY: C-spine fusion, follow up, TECHNOLOGIST PROVIDED HISTORY: Illness/Other Reason for exam: Bilateral carpal tunnel syndrome Encounter Type: Initial Additional signs and symptoms: cspine fusion follow up ORDERING SYSTEM PROVIDED DIAGNOSIS CODES: G56.03 Bilateral carpal tunnel syndrome COMPARISON: CT 12/27/2018. MRI 12/27/2018. TECHNIQUE: Multiple axial unenhanced CT images of the cervical spine were supplemented with 2D coronal and sagittal reformations. Dose reduction techniques were achieved by using automated exposure control and/or adjustment of mA and/or kV according to patient size and/or use of iterative reconstruction technique. FINDINGS: Subtle convex left curvature of the cervical spine. Odontoid process appears intact and the lateral pillars appear preserved. No malalignment is seen. Patient is status post corpectomy at C6 corpectomy with anterior plate and screw fixation hardware at C5 to C7. There is minimal lucency noted along the C5 fixation screws, which is new (series 2, image 51, for example). There is progressive disc space narrowing and endplate spur noted at C3-4 which extends over the anterior plate fixation hardware. Prominent facet disease redemonstrated at C7-T1. C1 ring appears preserved. No prevertebral soft tissue swelling. No paraspinal mass is seen. C2-C3: No focal disc abnormality. No significant central canal or neural foraminal stenosis. C3-C4: Left-sided uncovertebral spur causes mild left neural foraminal stenosis. No significant central canal or right neural foraminal stenosis. No significant interval change. C4-C5: Minimal disc osteophyte complex is seen without significant central canal or neural foraminal stenosis. No significant interval change. C5-C6: Prior corpectomy with anterior fusion. Spondylitic ridging is seen without significant central canal stenosis. Bilateral uncovertebral spur and facet disease causes mild left and nvszgomi-iy-qprrbj right neural foraminal stenosis. No significant interval change. C6-C7: Prior corpectomy with anterior fusion. Spondylitic ridging is seen without significant central canal stenosis. Bilateral uncovertebral spur and facet disease causes severe bilateral neural foraminal stenosis. No significant interval change. C7-T1: Minor spondylitic ridging is seen without significant central canal or neural foraminal stenosis. No significant interval change. IMPRESSION: 1. C6 corpectomy with anterior fusion at C5 to C7. Lucency along the bilateral C5 fixation screws suggesting loosening. This is new from 12/27/2018. No hardware fracture. Solid block fusion across C5 through C7 is noted. 2. Progressive disc space narrowing and anterior endplate spur at C4-5. No significant central canal stenosis. 3. Similar pattern of neural foraminal stenosis, as above. [facility]/c Workstation ID: [id number] [facility] CT CERVICAL SPINE WITHOUT CONTRAST EXAMINATION: CT CERVICAL SPINE WITHOUT CONTRAST HISTORY: C-spine fusion, follow up. ORDERING SYSTEM PROVIDED HISTORY: C-spine fusion, follow up, TECHNOLOGIST PROVIDED HISTORY: Illness/Other Reason for exam: Bilateral carpal tunnel syndrome Encounter Type: Initial Additional signs and symptoms: cspine fusion follow up ORDERING SYSTEM PROVIDED DIAGNOSIS CODES: G56.03 Bilateral carpal tunnel syndrome COMPARISON: CT 12/27/2018. MRI 12/27/2018. TECHNIQUE: Multiple axial unenhanced CT images of the cervical spine were supplemented with 2D coronal and sagittal reformations. Dose reduction techniques were achieved by using automated exposure control and/or adjustment of mA and/or kV according to patient size and/or use of iterative reconstruction technique. FINDINGS: Subtle convex left curvature of the cervical spine. Odontoid process appears intact and the lateral pillars appear preserved. No malalignment is seen. Patient is status post corpectomy at C6 corpectomy with anterior plate and screw fixation hardware at C5 to C7. There is minimal lucency noted along the C5 fixation screws, which is new (series 2, image 51, for example). There is progressive disc space narrowing and endplate spur noted at C3-4 which extends over the anterior plate fixation hardware. Prominent facet disease redemonstrated at C7-T1. C1 ring appears preserved. No prevertebral soft tissue swelling. No paraspinal mass is seen. C2-C3: No focal disc abnormality. No significant central canal or neural foraminal stenosis. C3-C4: Left-sided uncovertebral spur causes mild left neural foraminal stenosis. No significant central canal or right neural foraminal stenosis. No significant interval change. C4-C5: Minimal disc osteophyte complex is seen without significant central canal or neural foraminal stenosis. No significant interval change. C5-C6: Prior corpectomy with anterior fusion. Spondylitic ridging is seen without significant central canal stenosis. Bilateral uncovertebral spur and facet disease causes mild left and hrcfwaiw-ta-yqclxe right neural foraminal stenosis. No significant interval change. C6-C7: Prior corpectomy with anterior fusion. Spondylitic ridging is seen without significant central canal stenosis. Bilateral uncovertebral spur and facet disease causes severe bilateral neural foraminal stenosis. No significant interval change. C7-T1: Minor spondylitic ridging is seen without significant central canal or neural foraminal stenosis. No significant interval change. IMPRESSION: 1. C6 corpectomy with anterior fusion at C5 to C7. Lucency along the bilateral C5 fixation screws suggesting loosening. This is new from 12/27/2018. No hardware fracture. Solid block fusion across C5 through C7 is noted. 2. Progressive disc space narrowing and anterior endplate spur at C4-5. No significant central canal stenosis. 3. Similar pattern of neural foraminal stenosis, as above. [facility]/c Workstation ID: [id number] Dictated by: RUSSELL GILLESPIE on MonOct 06, 2020 12:21:49 PM EST Transcribed by: DARIN MORALES on MonOct 06, 2020 1:12:02 PM EST Finalized by: RUSSELL GILLESPIE on MonOct 06, 2020 1:18:12 PM EST [facility] Comment on above: Order Comment: Injur y/Trauma or Illness?:Illness/Other How long have you had these symptoms (acute/chronic)?:Chronic Reason for exam?:Bilateral carpal tunnel syndrome Type of Exam?:Initial Additional signs and symptoms?:cspine fusion follow up MR BRAIN WITH AND WITHOUT CO NTRASTon 10-06-2020 MR BRAIN WITH AND WITHOUT CONTRAST EXAMINATION: MR BRAIN WITH AND WITHOUT CONTRAST HISTORY: ORDERING SYSTEM PROVIDED HISTORY: Extrapyramidal or movement disorder, TECHNOLOGIST PROVIDED HISTORY: Illness/Other Reason for exam: Bilateral (R>L) hand numbness and difficulty w/ hand movement x1yr Encounter Type: Initial Additional signs and symptoms: s/p cervical surgery ORDERING SYSTEM PROVIDED DIAGNOSIS CODES: G25.9 Movement disorder COMPARISON: 05/23/2018. TECHNIQUE: Multiplanar multisequence imaging of the brain with and without contrast. CONTRAST: GADOTERATE MEGLUMINE 0.5 MMOL/ML (376.9 MG/ML) INTRAVENOUS SOLUTION - 15 mL, FINDINGS: No acute ischemia. Gradient echo shows no acute intracranial hemorrhage. Midline structures and the craniocervical junction is within the limits of normal. Ventricles and sulci are of normal size, shape and position. No significant brain parenchymal abnormality. No evidence of abnormal intraparenchymal enhancement. IMPRESSION: No acute intracranial abnormality. [employer] Workstation ID: [id number] Dictated by: JUDI RODRÍGUEZ on MonOct 06, 2020 1:28:48 PM EST Transcribed by: SUSANNE SANCHEZ on MonOct 06, 2020 1:30:18 PM EST Finalized by: JUDI RODRÍGUEZ on MonOct 06, 2020 5:19:09 PM EST [facility] Comment on above: Order Comment: Injur y/Trauma or Illness?:Illness/Other How long have you had these symptoms (acute/chronic)?:Chronic Reason for exam?:Bilateral (R>L) hand numbness and difficulty w/ hand movement x1yr Type of Exam?:Initial Additional signs and symptoms?:s/p cervical surgery MR Brain With And Without Co ntraston 10-06-2020 No acute intracrania l abnormality. [employer] Workstation ID: [id number] [facility] EXAMINATION: MR BRAIN WITH AND WITHOUT CONTRAST HISTORY: ORDERING SYSTEM PROVIDED HISTORY: Extrapyramidal or movement disorder, TECHNOLOGIST PROVIDED HISTORY: Illness/Other Reason for exam: Bilateral (R>L) hand numbness and difficulty w/ hand movement x1yr Encounter Type: Initial Additional signs and symptoms: s/p cervical surgery ORDERING SYSTEM PROVIDED DIAGNOSIS CODES: G25.9 Movement disorder COMPARISON: 05/23/2018. TECHNIQUE: Multiplanar multisequence imaging of the brain with and without contrast. CONTRAST: GADOTERATE MEGLUMINE 0.5 MMOL/ML (376.9 MG/ML) INTRAVENOUS SOLUTION - 15 mL, FINDINGS: No acute ischemia. Gradient echo shows no acute intracranial hemorrhage. Midline structures and the craniocervical junction is within the limits of normal. Ventricles and sulci are of normal size, shape and position. No significant brain parenchymal abnormality. No evidence of abnormal intraparenchymal enhancement. [facility] Interface, Rad In Fu ji Speechq - 10/06/2020 5:21 PM EST EXAMINATION: MR BRAIN WITH AND WITHOUT CONTRAST HISTORY: ORDERING SYSTEM PROVIDED HISTORY: Extrapyramidal or movement disorder, TECHNOLOGIST PROVIDED HISTORY: Illness/Other Reason for exam: Bilateral (R>L) hand numbness and difficulty w/ hand movement x1yr Encounter Type: Initial Additional signs and symptoms: s/p cervical surgery ORDERING SYSTEM PROVIDED DIAGNOSIS CODES: G25.9 Movement disorder COMPARISON: 05/23/2018. TECHNIQUE: Multiplanar multisequence imaging of the brain with and without contrast. CONTRAST: GADOTERATE MEGLUMINE 0.5 MMOL/ML (376.9 MG/ML) INTRAVENOUS SOLUTION - 15 mL, FINDINGS: No acute ischemia. Gradient echo shows no acute intracranial hemorrhage. Midline structures and the craniocervical junction is within the limits of normal. Ventricles and sulci are of normal size, shape and position. No significant brain parenchymal abnormality. No evidence of abnormal intraparenchymal enhancement. IMPRESSION: No acute intracranial abnormality. [employer] Workstation ID: [id number] [facility] POCT GLUCOSEon 09-03-2020 Glucose [Mass/Vol] 81 mg/dL Normal 70-100 [facility] [employer]SEM[employer]ER TRACTOR [id number] Normal [facility] Glucose [Mass/Vol] 72 mg/dL Normal 70-100 [facility] Glucose [Mass/Vol] 67 mg/dL Low 70-100 [facility] [employer]CTOR [id number] Normal [facility] SARS-COV-2,NAAon 08-29-2020 SARS-CoV-2 (COVID-19) RNA CELESTINE+probe Ql (Unsp spec) Not detected Normal [facility] Comment on above: Result Comment: Refe rence range: Not Detected (NOTE) This nucleic acid amplification test was developed and its performance characteristics determined by [facility]. Nucleic acid amplification tests include RT-PCR and TMA. This test has not been FDA cleared or approved. This test has been authorized by FDA under an Emergency Use Authorization (EUA). This test is only authorized for the duration of time the declaration that circumstances exist justifying the authorization of the emergency use of in vitro diagnostic tests for detection of SARS-CoV-2 virus and/or diagnosis of COVID-19 infection under section 564(b)(1) of the Act, 21 U.S.C. 360bbb-3(b) (1), unless the authorization is terminated or revoked sooner. When diagnostic testing is negative, the possibility of a false negative result should be considered in the context of a patient's recent exposures and the presence of clinical signs and symptoms consistent with COVID-19. An individual without symptoms of COVID- 19 and who is not shedding SARS-CoV-2 virus would expect to have a negative (not detected) result in this assay. PERFORMED AT [facility] NOVEL CORONAVIRUSon 05-29-20 20 NARRATIVE This test was perfor med using isothermal CELESTINE and has been approved as Emergency Use Authorization (EUA) for the qualitative detection [id number] nucleic acid. Normal [facility] Comment on above: Result Comment: Test ing performed at [place] [id number] Performed By: #### C OVID #### [place] [address] SARS-CoV-2 (COVID-19) RNA CELESTINE+probe Ql (Unsp spec) Not detected Normal NOT DETECTED [facility] Comment on above: Result Comment: Nega tive results do not preclude SARS-CoV-2 infection and should not be used as the sole basis for treatment or other patient management decisions. Optimum specimen types and timing for peak viral levels during infections caused by SARS-CoV-2 has not been determined. The possibility of a false negative result should especially be considered if the patient's recent exposures or clinical presentation suggest that SARS-CoV-2 infection is probable, and diagnostic tests for other causes of illness (e.g., other respiratory illness) are negative. Collection of a new specimen and re-testing may be necessary if the patient is critically ill or clinically deteriorating. Performed By: #### C OVID #### [place] [address] US ABDOMEN LIMITEDon 020 Large right lower qu adrant ventral hernia again seen that contains abdominal content. Several bowel loops were seen in the hernia sac on 07/03/2019 CT. [facility] [place], [place] LIMITED ABDOMINAL UL TRASOUND 01/16/2020 COMPARISON: CT abdomen and pelvis with IV contrast from [facility] dated 07/03/2019. ADDITIONAL HISTORY: Right lower quadrant palpable lump. FINDINGS: Again seen is a hernia defect in the anterior right lower quadrant. The abdominal wall defect measures 2.0 cm in width with the patient lying supine and increases to 5.3 cm with the patient standing. Abdominal contents extend through the defect into the hernia sac in the right lower quadrant. A large right lower quadrant ventral hernia was also seen on 07/03/2019 CT study that had contained several bowel loops. The current abdominal wall defect appears to correspond to the same hernia. A thin fluid collection is seen in the tissue planes at the lateral aspect of the hernia, measuring 0.6 x 2.8 cm. [place], [place] Red, [facility] Incoming R adiant Results From [facility] - 01/16/2020 3:10 PM EDT LIMITED ABDOMINAL ULTRASOUND 01/16/2020 COMPARISON: CT abdomen and pelvis with IV contrast from [facility] dated 07/03/2019. ADDITIONAL HISTORY: Right lower quadrant palpable lump. FINDINGS: Again seen is a hernia defect in the anterior right lower quadrant. The abdominal wall defect measures 2.0 cm in width with the patient lying supine and increases to 5.3 cm with the patient standing. Abdominal contents extend through the defect into the hernia sac in the right lower quadrant. A large right lower quadrant ventral hernia was also seen on 07/03/2019 CT study that had contained several bowel loops. The current abdominal wall defect appears to correspond to the same hernia. A thin fluid collection is seen in the tissue planes at the lateral aspect of the hernia, measuring 0.6 x 2.8 cm. IMPRESSION: Large right lower quadrant ventral hernia again seen that contains abdominal content. Several bowel loops were seen in the hernia sac on 07/03/2019 CT. [place], [place] XR ABDOMEN (KUB) (SINGLE AP VIEW)on 06-11-2019 Suggestion of a larg e right lower quadrant abdominal hernia for which a CT scan of the abdomen and pelvis is recommended for further evaluation. [place], [place] EXAM: XR ABDOMEN (KU B), 3 IMAGES HISTORY: R19.00. Abdominal mass. Patient states on the right. Marked with skin markers. COMPARISON: KUB 02/20/[address] abdomen and pelvis 08/08/2016. TECHNIQUE: KUB, a total of three images, to include the entire abdomen. FINDINGS: Skin markers overlie bowel which appears to be in a more lateral position than previously and may represent a large hernia. Moderate stool in the colon. [facility] Red, pn Incoming R adiant Results From [facility] - 06/11/2019 11:17 AM EST EXAM: XR ABDOMEN (KUB), 3 IMAGES HISTORY: R19.00. Abdominal mass. Patient states on the right. Marked with skin markers. COMPARISON: KUB 02/20/[address] abdomen and pelvis 08/08/2016. TECHNIQUE: KUB, a total of three images, to include the entire abdomen. FINDINGS: Skin markers overlie bowel which appears to be in a more lateral position than previously and may represent a large hernia. Moderate stool in the colon. IMPRESSION: Suggestion of a large right lower quadrant abdominal hernia for which a CT scan of the abdomen and pelvis is recommended for further evaluation. [facility] XR LUMBAR SPINE (MIN 4 VIEWS )on 06-11-2019 Some increase in deg enerative changes since 2017, without fracture. [facility] EXAM: XR LUMBAR SPIN E, 5 VIEWS HISTORY: M54.5. Low back pain, chronic, 48-year-old female. COMPARISON: CT abdomen and pelvis 08/08/2016. TECHNIQUE: Lumbar spine, 5 views. FINDINGS: 2 mm Grade 1 anterolisthesis of L4 on L5, degenerative, new. Mild anterior spurring and degenerative narrowing at T12-L1 and L1-L2 have slightly increased. No fracture, lytic or blastic lesion. [facility] Red, pn Incoming R adiant Results From [facility] - 06/11/2019 11:17 AM EST EXAM: XR LUMBAR SPINE, 5 VIEWS HISTORY: M54.5. Low back pain, chronic, 48-year-old female. COMPARISON: CT abdomen and pelvis 08/08/2016. TECHNIQUE: Lumbar spine, 5 views. FINDINGS: 2 mm Grade 1 anterolisthesis of L4 on L5, degenerative, new. Mild anterior spurring and degenerative narrowing at T12-L1 and L1-L2 have slightly increased. No fracture, lytic or blastic lesion. IMPRESSION: Some increase in degenerative changes since 2017, without fracture. [place], [place] CT CERVICAL SPINE WITHOUT CO NTRASTon 12-27-2018 1. Status post ACDF at screws extending into C5 and C7 and with intervening C6 corpectomy and strut placement. 2. No acute osseous abnormality noted 3. There is moderately prominent narrowing of the right neural foramina at C5-6 4. Mild asymmetric central canal stenosis to the right of midline at C5-6 as well due to osteophyte formation. Workstation ID: [id number] [facility] EXAMINATION: CT CERV ICAL SPINE WITHOUT CONTRAST HISTORY: ORDERING SYSTEM PROVIDED HISTORY: Neck pain, TECHNOLOGIST PROVIDED HISTORY: Reason for exam: spondylosis with myelopathy Illness/Other Encounter Type: Initial Additional signs and symptoms: neck pain ORDERING SYSTEM PROVIDED DIAGNOSIS CODES: M47.12 Cervical spondylosis with myelopathy COMPARISON: Conventional radiographs 10/29/2018 TECHNIQUE: CT cervical spine without contrast. Dose reduction techniques were achieved by using automated exposure control and/or adjustment of mA and/or kV according to patient size and/or use of iterative reconstruction technique. FINDINGS: There are postoperative changes of ACDF with screws extending into the C5 and C7 vertebral bodies. C6 corpectomy and strut placement is noted. There is straightening of the normal lordosis. No subluxation. Vertebral body heights are maintained.No acute fracture. Craniocervical junction is normal in appearance. Atlantodental distance is not widened.No prevertebral soft tissue swelling. Moderately prominent narrowing of the right neural foramen at C5-6. This is due to osteophyte formation which also results in some mild asymmetric central canal stenosis on the right at this level. [facility], Rad In Fu ji Speechq - 12/27/2018 10:55 AM EDT EXAMINATION: CT CERVICAL SPINE WITHOUT CONTRAST HISTORY: ORDERING SYSTEM PROVIDED HISTORY: Neck pain, TECHNOLOGIST PROVIDED HISTORY: Reason for exam: spondylosis with myelopathy Illness/Other Encounter Type: Initial Additional signs and symptoms: neck pain ORDERING SYSTEM PROVIDED DIAGNOSIS CODES: M47.12 Cervical spondylosis with myelopathy COMPARISON: Conventional radiographs 10/29/2018 TECHNIQUE: CT cervical spine without contrast. Dose reduction techniques were achieved by using automated exposure control and/or adjustment of mA and/or kV according to patient size and/or use of iterative reconstruction technique. FINDINGS: There are postoperative changes of ACDF with screws extending into the C5 and C7 vertebral bodies. C6 corpectomy and strut placement is noted. There is straightening of the normal lordosis. No subluxation. Vertebral body heights are maintained.No acute fracture. Craniocervical junction is normal in appearance. Atlantodental distance is not widened.No prevertebral soft tissue swelling. Moderately prominent narrowing of the right neural foramen at C5-6. This is due to osteophyte formation which also results in some mild asymmetric central canal stenosis on the right at this level. IMPRESSION: 1. Status post ACDF at screws extending into C5 and C7 and with intervening C6 corpectomy and strut placement. 2. No acute osseous abnormality noted 3. There is moderately prominent narrowing of the right neural foramina at C5-6 4. Mild asymmetric central canal stenosis to the right of midline at C5-6 as well due to osteophyte formation. [id number] WITHOUT CO NTRASTon 12-27-2018 1. Interval corpecto my at C6 with anterior fusion at C5-C7. Resolution of central canal stenosis at C5-6 and C6-7. 2. Similar pattern of bony encroachment of the exit foramina most pronounced on the right at C5-6 (kcqkdolo-dk-nrrvkq stenosis) and bilaterally at C6-7 (severe stenosis). MPH/jcw Workstation ID: [id number] [facility] EXAMINATION: MR CERV ICAL SPINE WITHOUT CONTRAST HISTORY: ORDERING SYSTEM PROVIDED HISTORY: Eval neck pain, TECHNOLOGIST PROVIDED HISTORY: Reason for exam: neck pain bilateral hand numbness/tingling: dizziness and unsteady gait: symtpoms for years: hx of cspine surgery 05/218: no hx of cancer Illness/Other Encounter Type: Unknown Additional signs and symptoms: n ORDERING SYSTEM PROVIDED DIAGNOSIS CODES: M47.12 Cervical spondylosis with myelopathy COMPARISON: CT 12/27/2018. MRI 05/23/2018. TECHNIQUE: Multiplanar, multisequence MRI of the cervical spine was performed without contrast. This included sagittal T2, sagittal T1, sagittal STIR, axial T2 and axial T1 imaging. CONTRAST: None. FINDINGS: Subtle convex left curvature of the cervical spine on the localizer images. The patient is status post corpectomy at C6 with anterior plate and screw fixation hardware extending from C5-C7. There is resultant susceptibility artifact. No malalignment is identified. There is straightening of the normal cervical lordosis. Asymmetric right facet disease noted at C7-T1. No suspicious marrow infiltrative mass identified. No Chiari malformation is identified. As seen, the cervical spinal cord demonstrates normal size, signal and morphology. No prevertebral soft tissue swelling. No paraspinal mass is identified. C2-3 No focal disc herniation is seen. No significant central canal or neural foraminal narrowing identified. C3-4: No focal disc herniation is seen. No significant central canal or neural foraminal narrowing identified. Mild facet disease. No significant interval change. C4-5: Mild disc bulge indents the anterior thecal sac and narrows the AP diameter of the spinal canal to 9 mm compatible with mild central canal stenosis. There is mild bilateral neural foraminal narrowing. C5-6: Anterior fusion is noted. Resolution of central canal stenosis is seen. Bilateral uncovertebral spur causes mild left and vuswwvwf-qu-mdnprp right neural foraminal stenosis. C6-7: Anterior fusion is noted. Resolution of central canal stenosis. Bilateral uncovertebral spur and facet disease causes severe bilateral neural foraminal narrowing. C7-T1: Minor right-sided uncovertebral spur. Moderate facet disease. No significant central canal or neural foraminal stenosis. [facility] Interface, Rad In Fu ji Speechq - 12/27/2018 3:31 PM EDT EXAMINATION: MR CERVICAL SPINE WITHOUT CONTRAST HISTORY: ORDERING SYSTEM PROVIDED HISTORY: Eval neck pain, TECHNOLOGIST PROVIDED HISTORY: Reason for exam: neck pain bilateral hand numbness/tingling: dizziness and unsteady gait: symtpoms for years: hx of cspine surgery 05/218: no hx of cancer Illness/Other Encounter Type: Unknown Additional signs and symptoms: n ORDERING SYSTEM PROVIDED DIAGNOSIS CODES: M47.12 Cervical spondylosis with myelopathy COMPARISON: CT 12/27/2018. MRI 05/23/2018. TECHNIQUE: Multiplanar, multisequence MRI of the cervical spine was performed without contrast. This included sagittal T2, sagittal T1, sagittal STIR, axial T2 and axial T1 imaging. CONTRAST: None. FINDINGS: Subtle convex left curvature of the cervical spine on the localizer images. The patient is status post corpectomy at C6 with anterior plate and screw fixation hardware extending from C5-C7. There is resultant susceptibility artifact. No malalignment is identified. There is straightening of the normal cervical lordosis. Asymmetric right facet disease noted at C7-T1. No suspicious marrow infiltrative mass identified. No Chiari malformation is identified. As seen, the cervical spinal cord demonstrates normal size, signal and morphology. No prevertebral soft tissue swelling. No paraspinal mass is identified. C2-3 No focal disc herniation is seen. No significant central canal or neural foraminal narrowing identified. C3-4: No focal disc herniation is seen. No significant central canal or neural foraminal narrowing identified. Mild facet disease. No significant interval change. C4-5: Mild disc bulge indents the anterior thecal sac and narrows the AP diameter of the spinal canal to 9 mm compatible with mild central canal stenosis. There is mild bilateral neural foraminal narrowing. C5-6: Anterior fusion is noted. Resolution of central canal stenosis is seen. Bilateral uncovertebral spur causes mild left and qmdbapxa-iq-lowpst right neural foraminal stenosis. C6-7: Anterior fusion is noted. Resolution of central canal stenosis. Bilateral uncovertebral spur and facet disease causes severe bilateral neural foraminal narrowing. C7-T1: Minor right-sided uncovertebral spur. Moderate facet disease. No significant central canal or neural foraminal stenosis. IMPRESSION: 1. Interval corpectomy at C6 with anterior fusion at C5-C7. Resolution of central canal stenosis at C5-6 and C6-7. 2. Similar pattern of bony encroachment of the exit foramina most pronounced on the right at C5-6 (hfwgrbhn-bc-gplurc stenosis) and bilaterally at C6-7 (severe stenosis). MPH/jcw Workstation ID: [id number] [facility] SPINE CERVICAL/AP/LAT/FLEX/E XTon 08-14-2018 SPINE CERVICAL/AP/LAT/F JEROME/EXT Final ReportAccession No: [id number] Performed: Aug 14 2018 11:23AMExamination: SPINE CERVICAL/AP/LAT/FLEX/EXTCERVIC AL SPINE 4-VIEWS:COMPARISON: 05/29/2018. CT cervical spine 06/25/2018.HISTORY: Neck pain.FINDINGS: Findings of anterior fusion at C5 through C7 with corpectomy atC5,C6, C7. There is redemonstration of mild superior-posterior angulation ofthecorpectomy graft, similar to the prior CT and new compared to the priorradiograph. There is visualization of a 1 mm distance between the anteriorplate and the anterior aspect of the C4 andC5 vertebral bodies, newcompared tothe prior exam. No fracture of the surgical hardware. Straightening of thecervical spine. No subluxation. No abnormal motion on flexion andextension.Prevertebral soft tissues are normal in thickness. Visualized lung apicesareclear of airspace infiltrates.IMPRESSION:1. Redemonstration of findings from anterior fusion at C5 through C7 withintervening corpectomy. Interval visualization of a 1 mm lucency betweentheanterior plate fixation hardware in the C5 vertebral body, which couldrepresent loosening of the surgical hardware. No fracture of the hardware.2. Straightening of the cervical spine, without subluxation. Noappreciableabnormal motion on flexion and extension.Interpreting Physician: SERG BUSTAMANTE M.D.Trans: tk : cc: Normal [facility] CT SPINE CERVICAL W/O CONTRA STon 06-25-2018 CT SPINE CERVICAL W/O CONTRAST Final ReportAccession No: [id number] Performed: Jun 25 2018 9:14AMExamination: CT SPINE CERVICAL W/O CONTRASTEXAM: CT SPINE CERVICAL W/O CONTRASTCLINICAL STATEMENT: Spondylosis with myelopathy.COMPARISON: Two-view cervical spine from 05/29/2018. CT cervical phbvtarqd07/18/2018.TECHNIQUE: CT Cervical spine without IV contrast. Coronal and sagittalreformations were performed.Dose reduction techniques were achieved by using automated exposurecontroland/or adjustment of mA and/or kV according to patient size and/or use ofiterative reconstruction technique.REPORT: On the reconstructed images bone density is unremarkable. Noscoliosisis noted. C1 and C2 show good positioning. The facets show good alignment.There is mild straightening of the cervical spine.There has been anterior cervical fusion at the level of C5, C6, and C7.Therehas been remodeling of the mid and inferior aspect of the vertebral bodyat C5and the mid and superior aspect of the vertebral body at C7. There hasbeenremoval of the majority of the vertebral body at C6. There is a strut seenprogressing from the mid aspects of the C5 through C6 levels and endingat thesuperior to mid aspect of C7. This may be an osseous bone graft. Theposteriorand superior aspect of the supporting strut appears to be positionedslightlyposteriorly to the vertebral body at C5 of approximately 0.8 mm. Thereappearsto be mild disc space narrowing at C7-T1.On the axial images:The skull base and its contents are unremarkable. C1 and C2 show no grossdefects. No spinal canal stenosis is noted.At the level of C2-C3 the disc is unremarkable. No spinal canal stenosisorneural foraminal narrowing is noted. Slight to mild facet hypertrophicchangesare noted.At the level of C3-C4 the disc appears to be unremarkable. Slight to mildfacethypertrophic changes are noted. No spinal canal stenosis or obvious neuralforaminal narrowing is noted.At the level of C4-C5 mild facet hypertrophic changes are noted. No spinalcanal stenosis or obvious neural foraminal narrowing is noted. Thereappears mone slight broad-based disc bulging posteriorly.At the level of C5-C6 mild facet hypertrophic changes are noted. There ismoderate spinal canal stenosis in the right paracentral aspect. Thereappearsto be moderate to prominent broad-based osteophyte formation noted. Thisappears to be associated with a disc protrusion. There is prominent rightneural foraminal narrowing. No obvious left-sided neural foraminalnarrowing isnoted.At the level of C6-C7 there is prominent spinal canal stenosis due toosteophyte formation and a broad-based disc bulge. There appears to beprominent neural foraminal narrowing bilaterally, right side slightlygreaterthan the left.At the level of C7-T1 the disc appears unremarkable. No spinal canalstenosisor neural foraminal narrowing is noted. Slight to mild facet hypertrophicchanges are noted.Limited views of the upper thoracic levels show no acute process. There ismoderate spinal canal stenosis at the level of T1-T2 on the right sidedue tomoderate calcified thickening of the ligamenta flava.The paraspinal musculature is unremarkable. The prevertebral region isnormal.No intrinsic bony lesions are noted. Limited views of the thoracic inletareunremarkable.IMPRESSIO N:1. Stable postsurgical changes at the level of C5, C6, and C7.2. Degenerative changes are noted at the levels of C5-C6 and C6-C7,please seedetails above.Interpreting Physician: JUAN CARLOS SILK, D.O.Trans: mh : cc: Normal [facility] SPINE CERVICAL (2 or 3 VIEWS )on 05-29-2018 SPINE CERVICAL (2 or 3 VIEWS) Final ReportAccession No: [id number] Performed: May 29 2018 12:47PMExamination: SPINE CERVICAL (2 or 3 VIEWS)Exam: C-spineHISTORY: Neck pain. Fusion was performed one day ago. Evaluate alignment.Comparison studies: 10/10/2014TECHNIQUE: 2 views of the cervical spine were obtained.FINDINGS: There is no evidence of acute fracture or subluxation. Nosuspiciousbone lesions are seen. There are surgical changes of anterior fusion ofC5-C7.There is no evidence of loosening of the fixation device. Stabledegenerativechanges are seen in the upper cervical spine. There is thickening of theprevertebral soft tissues from the level of C2 to the level of C4,althoughthis is not unexpected with recent surgery.IMPRESSION: Alignment is normal, and there is no evidence of loosening ofthefixation plate and screws.The appearance of the prevertebral soft tissues is not unexpected.Interpreting Physician: MELISSA CORCORAN M.D.Trans: n/a : cc: Normal [facility] CBC with Diffon 05-28-2018 Basophils Auto #/vol (Bld) 0.1 K/mcL Normal 0-0.2 [facility] Comment on above: Performed By: #### C BCDIF, CMET, PT, PTT ####Unless otherwise noted, all testing performed by [address] [id number]: [id number] Director: Babak Shelton M.D. Basophils/100 WBC Auto (Bld) 0.6 % Normal [facility] Comment on above: Performed By: #### C BCDIF, CMET, PT, PTT ####Unless otherwise noted, all testing performed by [address] [phone]: [id number] Director: Babak Shelton M.D. Eosinophils Auto #/vol (Bld) 0.0 K/mcL Normal 0-0.5 [facility] Comment on above: Performed By: #### C BCDIF, CMET, PT, PTT ####Unless otherwise noted, all testing performed by [address]CLIA: [id number] Director: Babak Shelton M.D. Eosinophils/100 WBC Auto (Bld) 0.0 % Normal [facility] Comment on above: Performed By: #### C BCDIF, CMET, PT, PTT ####Unless otherwise noted, all testing performed by [address]CLIA: [id number] Director: Babak Shelton M.D. Erythrocyte distribution width Auto Ratio (RBC) 14.4 % Normal 10.0-14.4 [facility] Comment on above: Performed By: #### C BCDIF, CMET, PT, PTT ####Unless otherwise noted, all testing performed by [place] [id number]: [id number] Director: Babak Shelton M.D. Hematocrit Auto Volume Fraction (Bld) 35.7 % Normal 34.4-44.8 [facility] Comment on above: Performed By: #### C BCDIF, CMET, PT, PTT ####Unless otherwise noted, all testing performed by [place] [id number]: [id number] Director: Babak Shelton M.D. Hemoglobin mass conc (Bld) 12.0 g/dL Normal 11.6-15.4 [facility] Comment on above: Performed By: #### C BCDIF, CMET, PT, PTT ####Unless otherwise noted, all testing performed by [address] [phone]: [id number] Director: Babak Shelton M.D. Lymphocytes Auto #/vol (Bld) 3.0 K/mcL Normal 1.0-3.7 [facility] Comment on above: Performed By: #### C BCDIF, CMET, PT, PTT ####Unless otherwise noted, all testing performed by [address] [phone]: [id number] Director: Babak Shelton M.D. Lymphocytes/100 WBC Auto (Bld) 22.4 % Normal [facility] Comment on above: Performed By: #### C BCDIF, CMET, PT, PTT ####Unless otherwise noted, all testing performed by [place] [id number]: [id number] Director: Babak Shelton M.D. MCH Auto Entitic mass (RBC) 29.1 pg Normal 27.9-33.9 [facility] Comment on above: Performed By: #### C BCDIF, CMET, PT, PTT ####Unless otherwise noted, all testing performed by [place] [id number]: [id number] Director: Babak Shelton M.D. MCHC Auto mass conc (RBC) 33.6 g/dL Normal 33.1-35.1 [facility] Comment on above: Performed By: #### C BCDIF, CMET, PT, PTT ####Unless otherwise noted, all testing performed by [address] [phone]: [id number] Director: Babak Shelton M.D. MCV Auto Entitic volume (RBC) 86.7 fL Normal 82.6-98.9 [facility] Comment on above: Performed By: #### C BCDIF, CMET, PT, PTT ####Unless otherwise noted, all testing performed by [address] [phone]: [id number] Director: Babak Shelton M.D. Monocytes Auto #/vol (Bld) 1.2 K/mcL High 0.1-0.6 [facility] Comment on above: Performed By: #### C BCDIF, CMET, PT, PTT ####Unless otherwise noted, all testing performed by [address] [phone]: [id number] Director: Babak Shelton M.D. Monocytes/100 WBC Auto (Bld) 8.8 % Normal [facility] Comment on above: Performed By: #### C BCDIF, CMET, PT, PTT ####Unless otherwise noted, all testing performed by [address] [phone]: [id number] Director: Babak Shelton M.D. Neutrophils Auto #/vol (Bld) 9.3 K/mcL High 1.2-6.9 [facility] Comment on above: Performed By: #### C BCDIF, CMET, PT, PTT ####Unless otherwise noted, all testing performed by [address] [phone]: [id number] Director: Babak Shelton M.D. Platelet mean volume Auto Entitic volume (Bld) 8.5 fL Normal 7.0-10.6 [facility] Comment on above: Performed By: #### C BCDIF, CMET, PT, PTT ####Unless otherwise noted, all testing performed by [address] [phone]: [id number] Director: Babak Shelton M.D. Platelets Auto #/vol (Bld) 336 K/mcL Normal 162-402 [facility] Comment on above: Performed By: #### C BCDIF, CMET, PT, PTT ####Unless otherwise noted, all testing performed by [address] [phone]: [id number] Director: Babak Shelton M.D. RBC Auto #/vol (Bld) 4.11 M/mcL Normal 3.7-5.0 [facility] Comment on above: Performed By: #### C BCDIF, CMET, PT, PTT ####Unless otherwise noted, all testing performed by [address] [phone]: [id number] Director: Babak Shelton M.D. RBC morphology finding Nom (Bld) Normal Normal Normal [facility] Comment on above: Performed By: #### C BCDIF, CMET, PT, PTT ####Unless otherwise noted, all testing performed by [address] [phone]: [id number] Director: Babak Shelton M.D. Segmented Neut % 68.2 % Normal [facility] Comment on above: Result Comment: Smea r reviewed to verify automated differential> Performed By: #### C BCDIF, CMET, PT, PTT ####Unless otherwise noted, all testing performed by [address] [phone]: [id number] Director: Babak Shelton M.D. WBC Auto #/vol (Bld) 13.6 K/mcL High 3.4-10.6 [facility] Comment on above: Performed By: #### C BCDIF, CMET, PT, PTT ####Unless otherwise noted, all testing performed by [address] [phone]: [id number] Director: Babak Shelton M.D. Comprehensive Metabolic Pane [facility] 05-28-2018 Albumin mass conc 3.0 g/dL Low 3.2-5.2 [facility] Comment on above: Performed By: #### C BCDIF, CMET, PT, PTT ####Unless otherwise noted, all testing performed by [address] [phone]: [id number] Director: Babak Shelton M.D. ALP enzyme act/vol 70 U/L Normal 40-150 [facility] Comment on above: Performed By: #### C BCDIF, CMET, PT, PTT ####Unless otherwise noted, all testing performed by [address] [phone]: [id number] Director: Babak Shelton M.D. ALT enzyme act/vol 54 U/L Normal 14-65 [facility] Comment on above: Result Comment: This test result might be falsely depressed or falsely elevated onsamples drawn from patients taking Sulfasalazine and Sulfapyridine.Venipuncture should occur prior to taking either of these drugs. Performed By: #### C BCDIF, CMET, PT, PTT ####Unless otherwise noted, all testing performed by [address] [phone]: [id number] Director: Babak Shelton M.D. AST enzyme act/vol 22 U/L Normal 0-45 [facility] Comment on above: Result Comment: This test result might be falsely depressed or falsely elevated onsamples drawn from patients taking Sulfasalazine and Sulfapyridine.Venipuncture should occur prior to taking either of these drugs. Performed By: #### C BCDIF, CMET, PT, PTT ####Unless otherwise noted, all testing performed by [address] [phone]: [id number] Director: Babak Shelton M.D. Bilirubin mass conc 0.2 mg/dL Low 0.3-1.2 [facility] Comment on above: Performed By: #### C BCDIF, CMET, PT, PTT ####Unless otherwise noted, all testing performed by [address] [phone]: [id number] Director: aBbak Shelton M.D. Calcium mass conc 9.0 mg/dL Normal 8.4-10.2 [facility] Comment on above: Performed By: #### C BCDIF, CMET, PT, PTT ####Unless otherwise noted, all testing performed by [address] [phone]: [id number] Director: Babak Shelton M.D. Chloride molar conc 100 mmol/L Normal 98-108 [facility] Comment on above: Performed By: #### C BCDIF, CMET, PT, PTT ####Unless otherwise noted, all testing performed by [address] [phone]: [id number] Director: Babak Shelton M.D. CO2 molar conc 32 mmol/L Normal 21-32 [facility] Comment on above: Performed By: #### C BCDIF, CMET, PT, PTT ####Unless otherwise noted, all testing performed by [address] [phone]: [id number] Director: Babak Shelton M.D. Creatinine mass conc 0.94 mg/dL Normal 0.40-1.10 [facility] Comment on above: Performed By: #### C BCDIF, CMET, PT, PTT ####Unless otherwise noted, all testing performed by [address] [phone]: [id number] Director: Babak Shelton M.D. GFR/1.73 sq M predicted among blacks MDRD vol rate/area (S/P/Bld) mL/min/{1.73_m2} Normal [facility] Comment on above: Result Comment: Afri can Estonian GFR Calc Performed By: #### C BCDIF, CMET, PT, PTT ####Unless otherwise noted, all testing performed by [address] [phone]: [id number] Director: Babak Shelton M.D. GFR/1.73 sq M predicted among non-blacks MDRD vol rate/area (S/P/Bld) mL/min/{1.73_m2} Normal [facility] Comment on above: Result Comment: Non- GFR CalceGFR is an estimated Glomerular Filtration Rate based on the valueof the patient's serum creatinine. In outpatients, eGFR should be usedas a helpful tool in screening for CKD. In inpatients or patients withacute renal failure, eGFR represents the GFR at the moment of the drawand should be used with caution. Performed By: #### C BCDIF, CMET, PT, PTT ####Unless otherwise noted, all testing performed by [address] [phone]: [id number] Director: Babak Shelton M.D. Glucose mass conc 116 mg/dL High 70-99 [facility] Comment on above: Result Comment: This test result might be falsely depressed or falsely elevated onsamples drawn from patients taking Sulfasalazine and Sulfapyridine.Venipuncture should occur prior to taking either of these drugs. Performed By: #### C BCDIF, CMET, PT, PTT ####Unless otherwise noted, all testing performed by [address] [phone]: [id number] Director: Babak Shelton M.D. Potassium molar conc 5.1 mmol/L Normal 3.5-5.1 [facility] Comment on above: Performed By: #### C BCDIF, CMET, PT, PTT ####Unless otherwise noted, all testing performed by [address] [phone]: [id number] Director: Babak Shelton M.D. Protein mass conc 6.4 g/dL Normal 6.0-8.0 [facility] Comment on above: Performed By: #### C BCDIF, CMET, PT, PTT ####Unless otherwise noted, all testing performed by [address] [phone]: [id number] Director: Babak Shelton M.D. Sodium molar conc 137 mmol/L Normal 135-145 [facility] Comment on above: Performed By: #### C BCDIF, CMET, PT, PTT ####Unless otherwise noted, all testing performed by [address] [phone]: [id number] Director: Babak Shelton M.D. Urea nitrogen mass conc 33 mg/dL High 8-25 [facility] Comment on above: Performed By: #### C BCDIF, CMET, PT, PTT ####Unless otherwise noted, all testing performed by [address] [phone]: [id number] Director: Babak Shelton M.D. Consultationon 05-28-[address] [address]BLEQKERA DE LOS SANTOS Theodore SALCEDO [id number] 1970DATE 05/24/2018CONSULTATIONCONSULTA NT REINALDO GOLDMAN, FRANKY COMPLAINTLeft upper extremity dysesthesias and myoclonic jerking.HISTORYI am asked by Dr. Rodríguez and Dr. Benz to provide neurosurgery evaluation andconsultation on Kera Lan. Kera is a 47-year-old female who has had afew years of issues with numbness and tingling in her left upper extremity andher hand. She was treated conservatively for this including a Medrol Dosepak.She had a severe exacerbation approximately a year ago, where she felt as ifher left upper extremity was cold and numb, including all the fingers of theleft hand. She was given a Medrol Dosepak, which did not really improvematters tremendously. She has had intermittent neck pain as well. She has noright-sided complaints. She is right-handed. She did also have an injectioninto the left carpal tunnel region, but this also did not help more than alena few days with the numbness. She denies any form of injury. Shespecifically denies motor vehicle accident or falling. She also has notedsome issues in the last week with ambulation in terms of controlling her leftleg, where her left leg feels like it is locking up. [facility] myoclonic jerking ofthe left upper extremity. She started to have a jerking type of sensation inher left upper extremity, and [facility]. There was no loss of consciousness associatedwith this. As part of her workup, she was seen by Dr. Sood of theneurology service. An EEG was performed because of a suspicion of possiblefocal seizure activity. EEG on 05/23/2018, demonstrated no electrographic orclinical seizures noted. An MRI of the brain was performed on 05/23/2018,that demonstrated a normal exam. An MRI of the cervical spine was performed.I have independently visualized this study on a computerized workstation. Myinterpretation is that there is a large disk bulge at C5-6 and C6-7 causingsignificant canal intrusion with moderate canal stenosis at C5-6 and C6-7. AtC6-7, there is bilateral foraminal disk protrusions and foraminal stenoses;and at C5-6, there is a right paracentral disk herniation with effacement ofthe anterior aspect of the cord. There is some motion artifact that degradesthe image, but there is a suggestion of possible increased T2 signalabnormality within the spinal cord posterior to the C5-6 disk herniation.There is no evidence of fracture or dislocation. The patient currently deniesany significant neck pain or electric shock, Lhermitte type phenomenon, in herspine. She has been continent of bowel and bladder.PAST MEDICAL HISTORYSignificant for mild obesity, depression, and history of tobaccoism as well.ALLERGIESShe has no known drug allergies.CURRENT MEDICATIONSInclude heparin 5000 units subcu q.12 hours, Flonase 50 mcg spray twice a day,metformin 1000 mg 2 tabs by mouth twice a day, bupropion 10 mg 2tablets once a day, Protonix 40 mg orally once a day, gabapentin 300 mg2 capsules by mouth twice a day, Maxzide 1 tab by mouth daily, fugdwcxkugybu764 mcg orally once a day, venlafaxine 75 mg orally once a day,cholecalciferol 2 tablets by mouth daily, Decadron 4 mg IV q.6 hours, p.r.n.albuterol, Zofran, acetaminophen.FAMILY MEDICAL HISTORYNegative for any known chronic neurologic disease.REVIEW OF SYSTEMSThe patient is right handed. She has no known history of pulmonary disease orcardiac disease. She is a smoker. She denies any fevers, chills, or nightsweats.SOCIAL HISTORYThe patient lives in the [facility]. She works out of her home.PHYSICAL EXAMINATIONThe patient examined in room 2125. Temp 98.3, pulse 96, blood dnfqyvhm060/83, respirations 18, and O2 saturation 97%. She is an awake, alert,oriented, and pleasant female. Spurling's sign is negative. She has no painto palpation of her posterior cervical area, and she has full range of motionincluding flexion and extension, and denies any Lhermitte's phenomenon withany of these movements. She has no pronator drift. There are no abnormalmotor movements of the extremities. She does have some decreased light touchsensation over the first, second, and third digits on the palmar surface ofthe left hand, as well as the radial aspect of the forearm. She has normallight touch sensation of the right upper extremity. She has some mildlydecreased light touch sensation over the left lateral humerus area. She hasnormal light touch sensation in the bilateral lower extremities. Power of theiliopsoas, glutei, quadriceps, hamstrings, hip abductors and adductors, anddorsi and plantar flexors of the feet are 5/5 and equal. Deep tendon reflexesof the patella are 2+/4 and equal, Achilles 1+/4 and equal. Plantar responsesare downgoing. There is no ankle clonus. Power at the deltoid is 4+/5 andsymmetric. Biceps 4+/5 and symmetric. Triceps of 4+/5 and symmetric. Wristextensor flexors and dorsal and volar interossei are 5/5 and symmetric. Deeptendon reflexes at the biceps and triceps are unobtainable bilaterally. Thereis no Rah sign. Lungs are clear to auscultation. Light touch is intactin the face. Extraocular motility is intact. Carotid pulses 2+/3 and equal.There are no carotid bruits. The abdomen is supple and nontender. 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 I havediscussed with the patient the fact that she does have significant herniationsof 2 disks contiguous in the cervical spine causing nerve root compression andsome mild cord compression. She has some early features of myelopathyincluding myoclonic jerking, and some features of radiculopathy as well. Abhi told her that I am not optimistic in her case that the symptoms willregress over the jail without surgical intervention. I believe surgicalintervention is certainly a reasonable course of action. To that end, I wouldrecommend strong consideration of C5-6 and C6-7 anterior cervical diskectomy,allograft fusion, interbody device insertion, and possible anterior cervicalplating versus stand-alone prostheses. The patient understands that there arerisks with the surgery including neurologic injury, worsening numbness andweakness, infection, CSF leak, injury to the trachea or esophagus requiringfurther operations, surgical site infection, adjacent segment degeneration,and nonunion, and she wishes to proceed with surgery. We will be schedulingit over the next few days as to diminish her risk of further injury. I havediscussed with her also the fact that she is at high risk of permanent spinalcord injury, should she have even trivial trauma, because of the degree ofpressure in her spinal cord, and that she needs to refrain from all forms ofsignificant physical activity until surgery can be completed. CT scan of thecervical spine will also be ordered in an adjunct to preoperative planning.REINALDO GOLDMAN, MDD 05/24/2018 08:02 [id number] 05/24/2018 08:31 [facility]/MODLElectronically Signed By Reinaldo Goldman M.D. on 31 May 2018 19:15:31 GMT Normal [facility] Glucose, POCon 05-28-2018 Glucose mass conc 140 mg/dL High 70-105 [facility] Comment on above: Performed By: #### C BCDIF, CMET, PT, PTT ####Unless otherwise noted, all testing performed by [address] [phone]: [id number] Director: Babak Shelton M.D. Glucose mass conc 119 mg/dL High 70-105 [facility] Comment on above: Performed By: #### C BCDIF, CMET, PT, PTT ####Unless otherwise noted, all testing performed by [address] [phone]: [id number] Director: Babak Shelton M.D. Istat CG8 Panelon 05-28-2018 Base Excess 2 mmol/L Normal -2-3 [facility] Comment on above: Performed By: #### C BCDIF, CMET, PT, PTT ####Unless otherwise noted, all testing performed by [address] [phone]: [id number] Director: Babak Shetlon M.D. Glucose mass conc 131 mg/dL High 70-99 [facility] Comment on above: Performed By: #### C BCDIF, CMET, PT, PTT ####Unless otherwise noted, all testing performed by [place] [phone]: [id number] Director: Babak Shelton M.D. HCO3 molar conc (Bld) 27 mmol/L High 22-26 [facility] Comment on above: Performed By: #### C BCDIF, CMET, PT, PTT ####Unless otherwise noted, all testing performed by [place] [phone]: [id number] Director: Babak Shelton M.D. Hematocrit Auto Volume Fraction (Bld) 30 % Low 38.0-51.0 [facility] Comment on above: Performed By: #### C BCDIF, CMET, PT, PTT ####Unless otherwise noted, all testing performed by [place] [phone]: [id number] Director: Babak Shelton M.D. Hemoglobin mass conc (Bld) 10.2 g/dL Low 12.0-17.0 [facility] Comment on above: Performed By: #### C BCDIF, CMET, PT, PTT ####Unless otherwise noted, all testing performed by [address] [phone]: [id number] Director: Babak Shelton M.D. Ionized Calcm 1.14 mmol/L Normal 1.12-1.32 [facility] Comment on above: Performed By: #### C BCDIF, CMET, PT, PTT ####Unless otherwise noted, all testing performed by [address] [phone]: [id number] Director: Babak Shelton M.D. Oxygen ppres (BldA) 155 mm Hg High 80-105 [facility] Comment on above: Performed By: #### C BCDIF, CMET, PT, PTT ####Unless otherwise noted, all testing performed by [address] [phone]: [id number] Director: Babak Shelton M.D. Oxygen saturation in Blood 99 % High 95-98 [facility] Comment on above: Performed By: #### C BCDIF, CMET, PT, PTT ####Unless otherwise noted, all testing performed by [address] [phone]: [id number] Director: Babak Shelton M.D. PCO2 41 mm Hg Normal 35.0-45.0 [facility] Comment on above: Performed By: #### C BCDIF, CMET, PT, PTT ####Unless otherwise noted, all testing performed by [address] [phone]: [id number] Director: Babak Shelton M.D. pH (Bld) 7.43 [pH] Normal 7.350-7.45 0 [facility] Comment on above: Performed By: #### C BCDIF, CMET, PT, PTT ####Unless otherwise noted, all testing performed by [address] [phone]: [id number] Director: Babak Shelton M.D. Potassium molar conc 4.3 mmol/L Normal 3.5-4.9 [facility] Comment on above: Performed By: #### C BCDIF, CMET, PT, PTT ####Unless otherwise noted, all testing performed by [address] [phone]: [id number] Director: Babak Shelton M.D. Sodium molar conc 134 mmol/L Low 136-141 [facility] Comment on above: Performed By: #### C BCDIF, CMET, PT, PTT ####Unless otherwise noted, all testing performed by [address] [phone]: [id number] Director: Babak Shelton M.D. Source, Blood Gas Arterial Blood Normal [facility] Comment on above: Performed By: #### C BCDIF, CMET, PT, PTT ####Unless otherwise noted, all testing performed by [address] [phone]: [id number] Director: Babak Shelton M.D. TCO2 28 mmol/L High 23-27 [facility] Comment on above: Performed By: #### C BCDIF, CMET, PT, PTT ####Unless otherwise noted, all testing performed by [address] [phone]: [id number] Director: Babak Shelton M.D. SPINE CERVICAL (2 or 3 VIEWS )on 05-28-2018 SPINE CERVICAL (2 or 3 VIEWS) Final ReportAccession No: [id number] Performed: May 28 2018 12:04PMExamination: SPINE CERVICAL (2 or 3 VIEWS)C-arm fluoroscopy of the cervical spine:HISTORY: C6 corpectomy with C5-C7 anterior cervical plate fixation.COMPARISON STUDY: CT dated 05/24/2018.TECHNIQUE: Intraoperative C-arm support was provided for this procedure.23.10seconds of fluoroscopy time was used for a dose of 9.33 mGy.FINDINGS: 4 static images are presented. These show various steps in theprocedure. Alignment is normal on the final image.IMPRESSION: C-arm support was provided for cervical spine surgery.Interpreting Physician: MELISSA CORCORAN M.D.Trans: n/a : cc: Normal [facility] SURGon 05-28-2018 SURG Name: KERA LAN RSourwest Disc, Cervical Disc 5-6, 6-7 Clinical History Spinal Cord Compression Diagnosis Fibrocartilaginous tissue, consistent with disc material. Gross Description Received in formalin are multiple white cores measuring in aggregate 2.5 x 2.3 x 0.7 cm. ET 1 block and also submitted for decalcification. LM/arj (ICT/arj) Electronically Signed By Jerome Smiley DO , Pathologist (Case signed 05/30/2018) [facility] Type and Kalee 05-27-2018 Packed RBCs, Leukoreduced-Hold Packed RBCs, Leukoreduced-Hold: Packed RBCs Leukoreduced - Hold [id number] RBCs, Leukoreduced-Hold: Crossmatch data- XM 05/27/2018 18:21 TBEYELER RE 05/30/2018 06:28 CROHRSPacked RBCs, Leukoreduced-Hold: Packed RBCs Leukoreduced - Hold [id number] RBCs, Leukoreduced-Hold: Crossmatch data- XM 05/27/2018 18:21 TBEYELER RE 05/30/2018 06:28 CROHRS Normal [facility] Comment on above: Performed By: #### C BCDIF, CMET, PT, PTT ####Unless otherwise noted, all testing performed by [place] [address], [place] [phone]: [id number] Director: Babak Shelton M.D. Type and Cross Negative Normal [facility] Comment on above: Performed By: #### C BCDIF, CMET, PT, PTT ####Unless otherwise noted, all testing performed by [address], [place] [phone]: [id number] Director: Babak Shelton M.D. CT SPINE CERVICAL W/O CONTRA Wesly 05-24-2018 CT SPINE CERVICAL W/O CONTRAST Final ReportAccession No: [id number] Performed: May 24 2018 9:22AMExamination: CT SPINE CERVICAL W/O CONTRASTEXAM: CT SPINE CERVICAL W/O CONTRASTCLINICAL STATEMENT: Evaluate alignment, neck pain, left arm tingling,acuteleft arm spasm.COMPARISON: None.TECHNIQUE: CT Cervical spine without IV contrast. Coronal and sagittalreformations were performed.Dose reduction techniques were achieved by using automated exposurecontroland/or adjustment of mA and/or kV according to patient size and/or use ofiterative reconstruction technique.FINDINGS: Straightening of the cervical spine. No subluxation. No acutefracture. Moderate disc space narrowing at C5-C6 and C6-C7 with anteriorosteophytes. Prevertebral soft tissues are normal in thickness.The central spinal canal is not optimally evaluated secondary to intrinsicconstraints of CT imaging.C2-C3: Mild bilateral facet joint arthropathy. There is no spinal canalstenosis. No significant foraminal encroachment.C3-C4: Mild bilateral facet arthropathy. No spinal canal or foraminalstenosis.C4-C5: Mild bilateral facet arthropathy. No spinal canal or foraminalstenosis.C5-C6: Calcified right paracentral to foraminal disc protrusion/osteophytecomplex. This results in severe spinal canal stenosis, with severe rightlateral recess stenosis and severe right foraminal stenosis.C6-C7: Broad-based disc protrusion and moderate facet joint arthropathy.Thereis resulting moderate to severe spinal canal stenosis. Severe bilateralforaminal stenosis.C7-T1: No high-grade spinal canal stenosis.No airspace consolidation in the included lung apices.IMPRESSION:1. Negative for acute fracture in the cervical spine. The vertebralbodies areanatomically aligned. No subluxation.2. At C5-C6, there is a large calcified right paracentral to rightforaminaldisc protrusion/osteophyte complex. There is severe spinal canal stenosis,severe right lateral recess stenosis, and severe right foraminal stenosis.3. At C6-C7, there is a broad-based disc protrusion with moderate toseverespinal canal stenosis. Severe bilateral foraminal stenosis.Interpreting Physician: SERG BUSTAMANTE M.D.Trans: aguilar : cc: Normal [facility] CBC with Diffon 05-23-2018 Basophils Auto #/vol (Bld) 0.1 K/mcL Normal 0-0.2 [facility] Comment on above: Performed By: #### C HEMG, CBCDIF ####Unless otherwise noted, all testing performed by [address] [phone]: [id number] Director: Babak Shelton M.D. Basophils/100 WBC Auto (Bld) 1.0 % Normal [facility] Comment on above: Performed By: #### C HEMG, CBCDIF ####Unless otherwise noted, all testing performed by [address] [phone]: [id number] Director: Babak Shelton M.D. Eosinophils Auto #/vol (Bld) 0.2 K/mcL Normal 0-0.5 [facility] Comment on above: Performed By: #### C HEMG, CBCDIF ####Unless otherwise noted, all testing performed by [address] [phone]: [id number] Director: Babak Shelton M.D. Eosinophils/100 WBC Auto (Bld) 3.0 % Normal [facility] Comment on above: Performed By: #### C HEMG, CBCDIF ####Unless otherwise noted, all testing performed by [address] [phone]: [id number] Director: Babak Shelton M.D. Erythrocyte distribution width Auto Ratio (RBC) 14.2 % Normal 10.0-14.4 [facility] Comment on above: Performed By: #### C HEMG, CBCDIF ####Unless otherwise noted, all testing performed by [address] [phone]: [id number] Director: Babak Shelton M.D. Hematocrit Auto Volume Fraction (Bld) 34.5 % Normal 34.4-44.8 [facility] Comment on above: Performed By: #### C HEMG, CBCDIF ####Unless otherwise noted, all testing performed by [address] [phone]: [id number] Director: Babak Shelton M.D. Hemoglobin mass conc (Bld) 11.5 g/dL Low 11.6-15.4 [facility] Comment on above: Performed By: #### C HEMG, CBCDIF ####Unless otherwise noted, all testing performed by [address], [place] [phone]: [id number] Director: Babak Shelton M.D. Lymphocytes Auto #/vol (Bld) 2.6 K/mcL Normal 1.0-3.7 [facility] Comment on above: Performed By: #### C HEMG, CBCDIF ####Unless otherwise noted, all testing performed by [address] [phone]: [id number] Director: Babak Shelton M.D. Lymphocytes/100 WBC Auto (Bld) 33.7 % Normal [facility] Comment on above: Performed By: #### C HEMG, CBCDIF ####Unless otherwise noted, all testing performed by [address] [phone]: [id number] Director: Babak Shelton M.D. MCH Auto Entitic mass (RBC) 29.0 pg Normal 27.9-33.9 [facility] Comment on above: Performed By: #### C HEMG, CBCDIF ####Unless otherwise noted, all testing performed by [address] [phone]: [id number] Director: Babak Shelton M.D. MCHC Auto mass conc (RBC) 33.4 g/dL Normal 33.1-35.1 [facility] Comment on above: Performed By: #### C HEMG, CBCDIF ####Unless otherwise noted, all testing performed by [address] [phone]: [id number] Director: Babak Shelton M.D. MCV Auto Entitic volume (RBC) 86.8 fL Normal 82.6-98.9 [facility] Comment on above: Performed By: #### C HEMG, CBCDIF ####Unless otherwise noted, all testing performed by [address] [phone]: [id number] Director: Babak Shelton M.D. Monocytes Auto #/vol (Bld) 0.6 K/mcL Normal 0.1-0.6 [facility] Comment on above: Performed By: #### C HEMG, CBCDIF ####Unless otherwise noted, all testing performed by [address]CLIA: [id number] Director: Babak Shelton M.D. Monocytes/100 WBC Auto (Bld) 8.0 % Normal [facility] Comment on above: Performed By: #### C HEMG, CBCDIF ####Unless otherwise noted, all testing performed by [place] [phone]: [id number] Director: Babak Shelton M.D. Neutrophils Auto #/vol (Bld) 4.2 K/mcL Normal 1.2-6.9 [facility] Comment on above: Performed By: #### C HEMG, CBCDIF ####Unless otherwise noted, all testing performed by [address]CLIA: [id number] Director: Babak Shelton M.D. Platelet mean volume Auto Entitic volume (Bld) 8.2 fL Normal 7.0-10.6 [facility] Comment on above: Performed By: #### C HEMG, CBCDIF ####Unless otherwise noted, all testing performed by [address] [phone]: [id number] Director: Babak Shelton M.D. Platelets Auto #/vol (Bld) 292 K/mcL Normal 162-402 [facility] Comment on above: Performed By: #### C HEMG, CBCDIF ####Unless otherwise noted, all testing performed by [address] [phone]: [id number] Director: Babak Shelton M.D. RBC Auto #/vol (Bld) 3.98 M/mcL Normal 3.7-5.0 [facility] Comment on above: Performed By: #### C HEMG, CBCDIF ####Unless otherwise noted, all testing performed by [address] [phone]: [id number] Director: Babak Shelton M.D. Segmented Neut % 54.3 % Normal [facility] Comment on above: Performed By: #### C HEMG, CBCDIF ####Unless otherwise noted, all testing performed by [address] [phone]: [id number] Director: Babak Shelton M.D. WBC Auto #/vol (Bld) 7.8 K/mcL Normal 3.4-10.6 [facility] Comment on above: Performed By: #### C HEMG, CBCDIF ####Unless otherwise noted, all testing performed by [address] [phone]: [id number] Director: Babak Shelton M.D. Basophils Auto #/vol (Bld) 0.1 K/mcL Normal 0-0.2 [facility] Comment on above: Performed By: #### C BCDIF, CMET, PT, PTT ####Unless otherwise noted, all testing performed by [address]CLIA: [id number] Director: Babak Shelton M.D. Basophils/100 WBC Auto (Bld) 0.6 % Normal [facility] Comment on above: Performed By: #### C BCDIF, CMET, PT, PTT ####Unless otherwise noted, all testing performed by [address]CLIA: [id number] Director: Babak Shelton M.D. Eosinophils Auto #/vol (Bld) 0.2 K/mcL Normal 0-0.5 [facility] Comment on above: Performed By: #### C BCDIF, CMET, PT, PTT ####Unless otherwise noted, all testing performed by [address]CLIA: [id number] Director: Babak Shelton M.D. Eosinophils/100 WBC Auto (Bld) 2.4 % Normal [facility] Comment on above: Performed By: #### C BCDIF, CMET, PT, PTT ####Unless otherwise noted, all testing performed by [place] [phone]: [id number] Director: Babak Shelton M.D. Erythrocyte distribution width Auto Ratio (RBC) 14.1 % Normal 10.0-14.4 [facility] Comment on above: Performed By: #### C BCDIF, CMET, PT, PTT ####Unless otherwise noted, all testing performed by [address] [phone]: [id number] Director: Babak Shelton M.D. Hematocrit Auto Volume Fraction (Bld) 32.1 % Low 34.4-44.8 [facility] Comment on above: Performed By: #### C BCDIF, CMET, PT, PTT ####Unless otherwise noted, all testing performed by [address] [phone]: [id number] Director: Babak Shelton M.D. Hemoglobin mass conc (Bld) 10.7 g/dL Low 11.6-15.4 [facility] Comment on above: Performed By: #### C BCDIF, CMET, PT, PTT ####Unless otherwise noted, all testing performed by [address] [phone]: [id number] Director: Babak Shelton M.D. Lymphocytes Auto #/vol (Bld) 3.3 K/mcL Normal 1.0-3.7 [facility] Comment on above: Performed By: #### C BCDIF, CMET, PT, PTT ####Unless otherwise noted, all testing performed by [address] [phone]: [id number] Director: Babak Shelton M.D. Lymphocytes/100 WBC Auto (Bld) 39.1 % Normal [facility] Comment on above: Performed By: #### C BCDIF, CMET, PT, PTT ####Unless otherwise noted, all testing performed by [address] [phone]: [id number] Director: Babak Shelton M.D. MCH Auto Entitic mass (RBC) 28.6 pg Normal 27.9-33.9 [facility] Comment on above: Performed By: #### C BCDIF, CMET, PT, PTT ####Unless otherwise noted, all testing performed by [address] [phone]: [id number] Director: Babak Shelton M.D. MCHC Auto mass conc (RBC) 33.2 g/dL Normal 33.1-35.1 [facility] Comment on above: Performed By: #### C BCDIF, CMET, PT, PTT ####Unless otherwise noted, all testing performed by [address] [phone]: [id number] Director: Babak Shelton M.D. MCV Auto Entitic volume (RBC) 86.1 fL Normal 82.6-98.9 [facility] Comment on above: Performed By: #### C BCDIF, CMET, PT, PTT ####Unless otherwise noted, all testing performed by [address] [phone]: [id number] Director: Babak Shelton M.D. Monocytes Auto #/vol (Bld) 0.6 K/mcL Normal 0.1-0.6 [facility] Comment on above: Performed By: #### C BCDIF, CMET, PT, PTT ####Unless otherwise noted, all testing performed by [address] [phone]: [id number] Director: Babak Shelton M.D. Monocytes/100 WBC Auto (Bld) 6.9 % Normal [facility] Comment on above: Performed By: #### C BCDIF, CMET, PT, PTT ####Unless otherwise noted, all testing performed by [address] [phone]: [id number] Director: Babak Shelton M.D. Neutrophils Auto #/vol (Bld) 4.3 K/mcL Normal 1.2-6.9 [facility] Comment on above: Performed By: #### C BCDIF, CMET, PT, PTT ####Unless otherwise noted, all testing performed by [address] [phone]: [id number] Director: Babak Shelton M.D. Platelet mean volume Auto Entitic volume (Bld) 8.4 fL Normal 7.0-10.6 [facility] Comment on above: Performed By: #### C BCDIF, CMET, PT, PTT ####Unless otherwise noted, all testing performed by [address] [phone]: [id number] Director: Babak Shelton M.D. Platelets Auto #/vol (Bld) 275 K/mcL Normal 162-402 [facility] Comment on above: Performed By: #### C BCDIF, CMET, PT, PTT ####Unless otherwise noted, all testing performed by [address], [place] [phone]: [id number] Director: Babak Shelton M.D. RBC Auto #/vol (Bld) 3.72 M/mcL Normal 3.7-5.0 [facility] Comment on above: Performed By: #### C BCDIF, CMET, PT, PTT ####Unless otherwise noted, all testing performed by [address] [phone]: [id number] Director: Babak Shelton M.D. Segmented Neut % 51.0 % Normal [facility] Comment on above: Performed By: #### C BCDIF, CMET, PT, PTT ####Unless otherwise noted, all testing performed by [address] [phone]: [id number] Director: Babak Shelton M.D. WBC Auto #/vol (Bld) 8.4 K/mcL Normal 3.4-10.6 [facility] Comment on above: Performed By: #### C BCDIF, CMET, PT, PTT ####Unless otherwise noted, all testing performed by [address] [phone]: [id number] Director: Babak Shelton M.D. CHEMG (Basic Metabolic and M g)on 05-23-2018 Calcium mass conc 8.7 mg/dL Normal 8.4-10.2 [facility] Comment on above: Performed By: #### C HEMG, CBCDIF ####Unless otherwise noted, all testing performed by [address] [phone]: [id number] Director: Babak Shelton M.D. Chloride molar conc 107 mmol/L Normal 98-108 [facility] Comment on above: Performed By: #### C HEMG, CBCDIF ####Unless otherwise noted, all testing performed by [address] [phone]: [id number] Director: Babak Shelton M.D. CO2 molar conc 28 mmol/L Normal 21-32 [facility] Comment on above: Performed By: #### C HEMG, CBCDIF ####Unless otherwise noted, all testing performed by [place] [phone]: [id number] Director: Babak Shelton M.D. Creatinine mass conc 0.88 mg/dL Normal 0.40-1.10 [facility] Comment on above: Performed By: #### C HEMG, CBCDIF ####Unless otherwise noted, all testing performed by [place] [phone]: [id number] Director: Babak Shelton M.D. GFR/1.73 sq M predicted among blacks MDRD vol rate/area (S/P/Bld) mL/min/{1.73_m2} Normal [facility] Comment on above: Result Comment: Afri can Estonian GFR Calc Performed By: #### C HEMG, CBCDIF ####Unless otherwise noted, all testing performed by [address] [phone]: [id number] Director: Babak Shelton M.D. GFR/1.73 sq M predicted among non-blacks MDRD vol rate/area (S/P/Bld) mL/min/{1.73_m2} Normal [facility] Comment on above: Result Comment: Non- GFR CalceGFR is an estimated Glomerular Filtration Rate based on the valueof the patient's serum creatinine. In outpatients, eGFR should be usedas a helpful tool in screening for CKD. In inpatients or patients withacute renal failure, eGFR represents the GFR at the moment of the drawand should be used with caution. Performed By: #### C HEMG, CBCDIF ####Unless otherwise noted, all testing performed by [address] [phone]: [id number] Director: Babak Shelton M.D. Glucose mass conc 102 mg/dL High 70-99 [facility] Comment on above: Result Comment: This test result might be falsely depressed or falsely elevated onsamples drawn from patients taking Sulfasalazine and Sulfapyridine.Venipuncture should occur prior to taking either of these drugs. Performed By: #### C HEMG, CBCDIF ####Unless otherwise noted, all testing performed by [address] [phone]: [id number] Director: Babak Shelton M.D. Magnesium mass conc 2.2 mg/dL Normal 1.6-2.4 [facility] Comment on above: Performed By: #### C HEMG, CBCDIF ####Unless otherwise noted, all testing performed by [address] [phone]: [id number] Director: Babak Shelton M.D. Potassium molar conc 4.4 mmol/L Normal 3.5-5.1 [facility] Comment on above: Performed By: #### C HEMG, CBCDIF ####Unless otherwise noted, all testing performed by [address] [phone]: [id number] Director: Babak Shelton M.D. Sodium molar conc 142 mmol/L Normal 135-145 [facility] Comment on above: Performed By: #### C HEMG, CBCDIF ####Unless otherwise noted, all testing performed by [address] [phone]: [id number] Director: Babak Shelton M.D. Urea nitrogen mass conc 13 mg/dL Normal 8-25 [facility] Comment on above: Performed By: #### C HEMG, CBCDIF ####Unless otherwise noted, all testing performed by [address] [phone]: [id number] Director: Babak Shelton M.D. [facility] Metabolic [facility] 05-23-2018 Albumin mass conc 3.3 g/dL Normal 3.2-5.2 [facility] Comment on above: Performed By: #### C BCDIF, CMET, PT, PTT ####Unless otherwise noted, all testing performed by [address] [phone]: [id number] Director: Babak Shelton M.D. ALP enzyme act/vol 85 U/L Normal 40-150 [facility] Comment on above: Performed By: #### C BCDIF, CMET, PT, PTT ####Unless otherwise noted, all testing performed by [address] [phone]: [id number] Director: Babak Shelton M.D. ALT enzyme act/vol 26 U/L Normal 14-65 [facility] Comment on above: Result Comment: This test result might be falsely depressed or falsely elevated onsamples drawn from patients taking Sulfasalazine and Sulfapyridine.Venipuncture should occur prior to taking either of these drugs. Performed By: #### C BCDIF, CMET, PT, PTT ####Unless otherwise noted, all testing performed by [address] [phone]: [id number] Director: Babak Shelton M.D. AST enzyme act/vol 18 U/L Normal 0-45 [facility] Comment on above: Result Comment: This test result might be falsely depressed or falsely elevated onsamples drawn from patients taking Sulfasalazine and Sulfapyridine.Venipuncture should occur prior to taking either of these drugs. Performed By: #### C BCDIF, CMET, PT, PTT ####Unless otherwise noted, all testing performed by [address] [phone]: [id number] Director: Babak Shelton M.D. Bilirubin mass conc 0.3 mg/dL Normal 0.3-1.2 [facility] Comment on above: Performed By: #### C BCDIF, CMET, PT, PTT ####Unless otherwise noted, all testing performed by [address] [phone]: [id number] Director: Babak Shelton M.D. Calcium mass conc 8.2 mg/dL Low 8.4-10.2 [facility] Comment on above: Performed By: #### C BCDIF, CMET, PT, PTT ####Unless otherwise noted, all testing performed by [address] [phone]: [id number] Director: Babak Shelton M.D. Chloride molar conc 104 mmol/L Normal 98-108 [facility] Comment on above: Performed By: #### C BCDIF, CMET, PT, PTT ####Unless otherwise noted, all testing performed by [address] [phone]: [id number] Director: Babak Shelton M.D. CO2 molar conc 29 mmol/L Normal 21-32 [facility] Comment on above: Performed By: #### C BCDIF, CMET, PT, PTT ####Unless otherwise noted, all testing performed by [address] [phone]: [id number] Director: Babak Shelton M.D. Creatinine mass conc 0.98 mg/dL Normal 0.40-1.10 [facility] Comment on above: Performed By: #### C BCDIF, CMET, PT, PTT ####Unless otherwise noted, all testing performed by [address] [phone]: [id number] Director: Babak Shelton M.D. GFR/1.73 sq M predicted among blacks MDRD vol rate/area (S/P/Bld) mL/min/{1.73_m2} Normal [facility] Comment on above: Result Comment: Afri can Estonian GFR Calc Performed By: #### C BCDIF, CMET, PT, PTT ####Unless otherwise noted, all testing performed by [address], [place] [phone]: [id number] Director: Babak Shelton M.D. GFR/1.73 sq M predicted among non-blacks MDRD vol rate/area (S/P/Bld) mL/min/{1.73_m2} Normal [facility] Comment on above: Result Comment: Non- GFR CalceGFR is an estimated Glomerular Filtration Rate based on the valueof the patient's serum creatinine. In outpatients, eGFR should be usedas a helpful tool in screening for CKD. In inpatients or patients withacute renal failure, eGFR represents the GFR at the moment of the drawand should be used with caution. Performed By: #### C BCDIF, CMET, PT, PTT ####Unless otherwise noted, all testing performed by [address], [place] [phone]: [id number] Director: Babak Shelton M.D. Glucose mass conc 123 mg/dL High 70-99 [facility] Comment on above: Result Comment: This test result might be falsely depressed or falsely elevated onsamples drawn from patients taking Sulfasalazine and Sulfapyridine.Venipuncture should occur prior to taking either of these drugs. Performed By: #### C BCDIF, CMET, PT, PTT ####Unless otherwise noted, all testing performed by [address], [place] [phone]: [id number] Director: Babak Shelton M.D. Potassium molar conc 3.6 mmol/L Normal 3.5-5.1 [facility] Comment on above: Performed By: #### C BCDIF, CMET, PT, PTT ####Unless otherwise noted, all testing performed by [address] [phone]: [id number] Director: Babak Shelton M.D. Protein mass conc 6.3 g/dL Normal 6.0-8.0 [facility] Comment on above: Performed By: #### C BCDIF, CMET, PT, PTT ####Unless otherwise noted, all testing performed by [address] [phone]: [id number] Director: Babak Shelton M.D. Sodium molar conc 140 mmol/L Normal 135-145 [facility] Comment on above: Performed By: #### C BCDIF, CMET, PT, PTT ####Unless otherwise noted, all testing performed by [address] [phone]: [id number] Director: Babak Shelton M.D. Urea nitrogen mass conc 13 mg/dL Normal 8-25 [facility] Comment on above: Performed By: #### C BCDIF, CMET, PT, PTT ####Unless otherwise noted, all testing performed by [address] [phone]: [id number] Director: Babak Shelton M.D. EEG Evoked Response Reporton 05-23-2018 EEG Evoked Response Report [address] [id number] PICK[place] [id number] [id number] 1972DATE 05/23/2018EEGREASON FOR EEGTo evaluate for epileptogenic activity in a patient with few months' durationof left arm numbness and tingling who presented yesterday to the emergencydepartment with acute onset left tonic arm posturing with concern for focalmotor seizures.LEVEL OF CONSCIOUSNESSAwake and drowsy.GENERAL IMPRESSIONThis is a technically difficult EEG due to patient movement.Within movement-related limitations, it is an unremarkable studyNo electrographic nor any clinical seizures were recorded.SUMMARY OF FINDINGS1. Symmetric and reactive posterior dominant rhythm of 8 Hz in frequency.2. Intermittent head movements and bitemporal EMG artifact was notedDONTE ALCANTAR 05/23/2018 15:09 [id number] 05/23/2018 15:44 AJ/MODLElectronically Signed By Esther Sood M.D. on 23 May 2018 20:17:18 GMT Normal [facility] MRI BRAIN W/OANDW/ CONTon MRI BRAIN W/OANDW/ CONT Final ReportAccession No: [id number] Performed: May 23 2018 3:56PMExamination: MRI BRAIN W/OANDW/ CONTTECHNIQUE: Sagittal T1, coronal FLAIR and T2, axial FLAIR, JONNATHAN T2,diffusionimaging without contrast and postcontrast axial and sagittal T1-weightedimages performed.Contrast: 19 mL DotaremCOMPARISON: CT scan performed 05/22/2018.HISTORY: Left hand paresthesiaFINDINGS: No evidence of acute infarct or mass.Ventricles, sulci, and basilar cisterns are normal in appearance. Noevidenceof mass, signal, or enhancement abnormality. No evidence of diffusionabnormality. The cerebral hemispheres, brain stem and cerebellarhemispheresare normal. Good flow void is seen in the vertebral basilar and carotidcirculation as well as the sagittal and transverse sinus. The orbitalapicesand the infratemporal fossa are normal.IMPRESSION:Normal examination.Interpreting Physician: SHANNON EUGENE M.D.Trans: n/a : cc: Normal [facility] MRI CERVICAL SPINE W/OANDW/ CONTon 05-23-2018 MRI CERVICAL SPINE W/OANDW/ CONT Final ReportAccession No: [id number] Performed: May 23 2018 3:56PMExamination: MRI CERVICAL SPINE W/OANDW/ CONTTECHNIQUE: Sagittal T1, JONNATHAN T2, STIR, axial gradient echo, and T2-weightedimages through the cervical spine without contrast, and post contrastsagittaland axial T1 images performed.COMPARISON: None.Contrast: 19.8 mL DotaremHISTORY: Left arm spasm. Left hand paresthesia.FINDINGS: Overall quality of the examination is diminished by patientmotion.Disc space narrowing C6-C7. Anterior disc bulge and spur C5-C6 and C6-C7.Thevertebral bodies are otherwise normal in height and alignment. Thecraniocervical junction, cervicothoracic junction are normal.C1-C2: Normal.C2-C3: Normal.C3-C4: Normal.C4-C5: Disc bulge without stenosis.C5-C6: Right paracentral disc herniation with effacement of the anterioraspectof the cord, AP diameter of the central spinal canal of 6 mm. Severe rightforaminal stenosis.C6-C7: Right paracentral disc protrusion with an AP diameter of thecentralspinal canal of 7 mm. Right foraminal and left foraminal disc protrusionwithforaminal stenosis.C7-T1: Normal.There are no paraspinal masses identified.IMPRESSION:1. Right paracentral disc herniation C5-C6 with effacement of the CSFcolumnand cord with an AP diameter canal of 6 mm and severe right foraminalstenosis.2. Right paracentral disc protrusion C6-C7 with an AP diameter canal 7 mmaswell as bilateral foraminal disc protrusion resulting in bilateralforaminalstenosis.Int erpreting Physician: SHANNON EUGENE M.D.Trans: istumb : cc: Normal [facility] Partial Thromboplastin Timeo n 05-23-2018 aPTT Coag time (Bld) 25 s Normal 23.0-34.0 [facility] Comment on above: Result Comment: Leyla webber therapeutic range for PTT is 68-104 sec. Performed By: #### C BCDIF, CMET, PT, PTT ####Unless otherwise noted, all testing performed by [place] [address] [place], [place] [id number]: [id number] Director: Babak Shelton M.D. Protimeredd 05-23-2018 INR Coag RelTime (PPP) 1.01 {INR} Normal [facility] Comment on above: Result Comment: The [employer] recommended therapeutic rangefor Warfarin (Coumadin) therapy goals:PROPHYLAXIS/TREATMENT of:INRVenous Thrombosis, Pulmonary Embolism2.0-3.0Prevention of VTE (Orthopedic Surgery)2.0-3.0Atrial Fibrillation2.0-3.0Myocardial Infarction2.0-3.0Mechanical Prosthetic Heart Valves (Aortic position)2.0-3.0Mechanical Prosthetic Heart Valves (Mitral Position)2.5-3.5American College of Chest Physicians evidence-based clinical practiceguidelines. CHEST. 2012 (9th ed) Performed By: #### C BCDIF, CMET, PT, PTT ####Unless otherwise noted, all testing performed by [address] [id number]: [id number] Director: Babak Shelton M.D. Prothrombin time (PT) Coag time (PPP) 12.9 s Normal 11.8-14.3 [facility] Comment on above: Performed By: #### C BCDIF, CMET, PT, PTT ####Unless otherwise noted, all testing performed by [address] [id number]: [id number] Director: Babak Shelton M.D. THU. CULTURE/SM, DERMon THU. CULTURE/SM, DERM FORMERLY [facility]#: [id number] PERFORMED AT [facility] MYCOLOGYHARJINDER ABBASI [facility] DIRECTORPHONE [phone] [phone] CLIA NUMBER [id number]: KERA LAN LOCATION: [facility] BILL#: [id number] : 74 AGE: SEX: F ORDERED BY: ABHIJIT VICTOR: DERM-NAIL COLLECTED: 01/22/18 01:00ANTIBIOTICS AT [facility].: RECEIVED : 01/26/18 12:03SITE: TOE R E S U L T S THU. CULTURE/SM, DERM FINAL 02/26/18 15:39 NO FUNGI ISOLATED AFTER 2 WEEKS TEST PERFORMED AT THE [facility] HARJINDER ABBASI PROJECT ACCOUNTANT PHONE [phone] FAX [phone] CLIA NUMBER [id number] ISOLATE1 : Fusarium sp. FUSARIUM IS A HYALINE MOULD THAT RARELY CAUSES NAIL INFECTIONS (WHITE SUPERFICIAL ONYCHOMYCOSIS)AND MAY CAUSE CELLULITIS IF UNTREATED. ISOLATION FROM SEQUENTIAL CULTURES IS NEEDED TO PROVE ETIOLOGY. ORAL THERAPY INCLUDES FLUCONAZOLE. Normal [facility] Comment on above: Performed By: #### Y DERM ####[id number] [place] [address] Vital Signs Date Time Vital Sign Value Performing Clinician Faci litjocy 01-01-2023 15:34-0400 Body height 160 cm Raad Lundberg MD Work Phone: [facility] 01-01-2023 15:34-0400 Body mass index (BMI) [Ratio] 27.28 kg/m2 Raad Lundberg MD Work Phone: [facility] 01-01-2023 15:34-0400 Body temperature 98.2 [degF] Raad Lundberg MD Work Phone: [facility] 01-01-2023 15:34-0400 Body weight 69.85 kg Raad Lundberg MD Work Phone: [facility] 01-01-2023 15:34-0400 Diastolic blood pressure 91 mm[Hg] Raad Lundberg MD Work Phone: [facility] 01-01-2023 15:34-0400 Heart rate 86 /min Raad Lundberg MD Work Phone: [facility] 01-01-2023 15:34-0400 Respiratory rate 18 /min Raad Lundberg MD Work Phone: [facility] 01-01-2023 15:34-0400 SaO2% (BldA) [Mass fraction] 100 % Raad Lundberg MD Work Phone: [facility] 01-01-2023 15:34-0400 Systolic blood pressure 121 mm[Hg] Raad Lundberg MD Work Phone: [facility] 04-05-2022 12:06-0400 Blood Pressure Location [facility] 04-05-2022 12:06-0400 Diastolic blood pressure 60 mm[Hg] [facility] 04-05-2022 12:06-0400 Heart rate 80 /min [facility] 04-05-2022 12:06-0400 Respiratory rate 16 /min [facility] 04-05-2022 12:06-0400 SaO2% (BldA) [Mass fraction] 100 % [facility] 04-05-2022 12:06-0400 Systolic blood pressure 122 mm[Hg] [facility] 02-22-2022 05:45-0400 Diastolic blood pressure 78 mm[Hg] Alfredo Bill DO [facility] 02-22-2022 05:45-0400 Heart rate 68 /min Alfredo Bill DO Work [facility] 02-22-2022 05:45-0400 Respiratory rate 21 /min Alfredo Bill DO [facility] 02-22-2022 05:45-0400 Systolic blood pressure 130 mm[Hg] Alfredo Bill DO Work Phone[facility] 02-22-2022 05:44-0400 SaO2% (BldA) [Mass fraction] 100 % Alfredo Bill DO Work Phone: [facility] 02-22-2022 03:41-0400 Body height 160 cm Alfredo Bill DO Work Phone: [facility] 02-22-2022 03:41-0400 Body mass index (BMI) [Ratio] 27.63 kg/m2 Alfredo Bill DO Work Phone: [facility] 02-22-2022 03:41-0400 Body temperature 97.59 [degF] Alfredo Bill DO Work Phone: [facility] 02-22-2022 03:41-0400 Body weight 70.76 kg Alfredo Bill DO Work Phone: [facility] 02-01-2022 13:56-0400 Blood Pressure Location Florentino HERR [facility] [place] 02-01-2022 13:56-0400 Body temperature 98.42 [degF] Florentino HERR [facility] [place] 02-01-2022 13:56-0400 Diastolic blood pressure 68 mm[Hg] Florentino HERR [facility] [place] 02-01-2022 13:56-0400 Heart rate 87 /min Florentino HERR [facility] [place] 02-01-2022 13:56-0400 SaO2% (BldA) [Mass fraction] 98 % Florentino HERR [facility] [place] 02-01-2022 13:56-0400 Systolic blood pressure 110 mm[Hg] Florentinojerome HERR [facility] [place] 01-10-2022 13:120400 Body height 160 cm Hayde Arriaga MD Work Phone: [facility] 01-10-2022 13:12-0400 Body mass index (BMI) [Ratio] 29.05 kg/m2 Hayde Arriaga MD Work Phone: [facility] 01-10-2022 13:120400 Body weight 74.39 kg Hayde Arriaga MD Work Phone: [facility] 11-23-2021 13:28-0400 Body height 160 cm Dominick Gongora MD Work Phone: [facility] 11-23-2021 13:28-0400 Body mass index (BMI) [Ratio] 29.05 kg/m2 Dominick Gongora MD Work Phone: [facility] 11-23-2021 13:28-0400 Body weight 74.39 kg Dominick Gongora MD Work Phone: [facility] 11-23-2021 13:28-0400 Diastolic blood pressure 72 mm[Hg] Dominick Gongora MD Work Phone: [facility] 11-23-2021 13:28-0400 Heart rate 77 /min Dominick Gongora MD Work Phone: [facility] 11-23-2021 13:28-0400 Respiratory rate 16 /min Dominick Gongora MD Work Phone: [facility] 11-23-2021 13:28-0400 SaO2% (BldA) [Mass fraction] 99 % Dominick Gongora MD Work Phone: [facility] 11-23-2021 13:28-0400 Systolic blood pressure 105 mm[Hg] Dominick Gongora MD Work Phone: [facility] 12-17-2020 11:09-0400 Diastolic blood pressure 75 mm[Hg] Dominick Gongora MD Work Phone: [facility] 12-17-2020 11:09-0400 Heart rate 90 /min Dominick Gongora MD Work Phone: [facility] 12-17-2020 11:09-0400 Respiratory rate 16 /min Dominick Gongora MD Work Phone: [facility] 12-17-2020 11:09-0400 SaO2% (BldA) [Mass fraction] 99 % Dominick Gongora MD Work Phone: [facility] 12-17-2020 11:09-0400 Systolic blood pressure 107 mm[Hg] Dominick Gongora MD Work Phone: [facility] 10-12-2020 15:05-0500 BP Diastolic 76 mm[Hg] [facility] 10-12-2020 15:05-0500 BP Systolic 112 mm[Hg] [facility] 10-12-2020 15:05-0500 Pulse (Heart Rate) 90 /min [facility] 10-12-2020 15:05-0500 Pulse Oximetry 98 % [facility] 10-12-2020 15:05-0500 Respiratory Rate 16 /min [facility] 08-20-2020 15:25-0500 Body Temperature 98.4 [degF] [facility] 08-20-2020 15:25-0500 BP Diastolic 71 mm[Hg] [facility] 08-20-2020 15:25-0500 BP Systolic 102 mm[Hg] [facility] 08-20-2020 15:25-0500 Height 160 cm [facility] 08-20-2020 15:25-0500 Pulse (Heart Rate) 70 /min [facility] 08-20-2020 15:25-0500 Pulse Oximetry 97 % [facility] 08-20-2020 15:25-0500 Respiratory Rate 14 /min [facility] 05-29-2020 23:31-0400 BMI (Body Mass Index) 32.01 kg/m2 [place] 05-29-2020 23:31-0400 Body Temperature 99.3 [degF] Christreno Davis [facility] [place] 05-29-2020 23:31-0400 Body [facility].97 [facility] [place] 05-29-2020 23:31-0400 BP Diastolic 72 mm[Hg] [facility] [place] 05-29-2020 23:31-0400 BP Systolic 119 mm[Hg] [facility] 05-29-2020 23:31-0400 Pulse (Heart Rate) 88 /min [facility] [place] 05-29-2020 23:31-0400 Pulse Oximetry 100 % [facility] 05-29-2020 23:31-0400 Respiratory Rate 20 /min [facility] 01-07-2019 15:13-0400 BMI (Body Mass Index) 38.62 kg/m2 [facility] 01-07-2019 15:13-0400 BP Diastolic 82 mm[Hg] [facility] 01-07-2019 15:13-0400 BP Systolic 133 mm[Hg] [facility] 01-07-2019 15:13-0400 Height 160 cm [facility] 01-07-2019 15:13-0400 Pulse (Heart Rate) 97 /min [facility] 01-07-2019 15:13-0400 Weight 98.88 kg [facility] 12-11-2018 11:31-0400 BMI (Body Mass Index) 38.62 kg/m2 [facility] 12-11-2018 11:31-0400 BP Diastolic 89 mm[Hg] [facility] 12-11-2018 11:31-0400 BP Systolic 142 mm[Hg] [facility] 12-11-2018 11:31-0400 Height 160 cm [facility] 12-11-2018 11:31-0400 Pulse (Heart Rate) 88 /min [facility] 12-11-2018 11:31-0400 Weight 98.88 kg [facility] 06-04-2018 10:00-0400 BMI (Body Mass Index) 38.62 kg/m2 [facility] 06-04-2018 10:00-0400 Body Temperature 98.2 [degF] [facility] 06-04-2018 10:00-0400 BP Diastolic 85 mm[Hg] [facility] 06-04-2018 10:00-0400 BP Systolic 130 mm[Hg] [facility] 06-04-2018 10:00-0400 Height 160 cm [facility] 06-04-2018 10:00-0400 Pulse (Heart Rate) 102 /min [facility] 06-04-2018 10:00-0400 Respiratory Rate 16 /min [facility] 06-04-2018 10:00-0400 Weight 98.88 kg [facility] Encounters Encounter Date Encounter Type Care Provider Facility Start: 03-25-2024 End: 03-27-2024 [facility] Start: 03-12-2024 End: 03-12-2024 Subsequent hospital visit by physician Emeterio Landin [employer] [facility] Start: 03-08-2024 End: 03-08-2024 [facility] Start: 03-05-2024 End: 03-05-2024 ambulatory [facility]IS OMER [facility] Start: 03-01-2024 End: 03-01-2024 [facility] Start: 01-16-2024 End: 01-16-2024 ambulatory ALTAGRACIA CROW Not Available Start: 08-25-2023 End: 08-25-2023 ambulatory [facility] Start: 08-10-2023 End: 08-12-2023 Subsequent hospital visit by physician Ivis Omer DO Work Phone: [facility] Non-Invasive Cardiology Comment on above: Arrived Start: 08-10-2023 End: 08-12-2023 ambulatory [facility] Start: 05-06-2023 End: 05-08-2023 ambulatory ALTAGRACIA DAVIS [facility] Start: 05-06-2023 End: 05-06-2023 Emergency department patient visit ALTAGRACIA DAVIS [facility] Start: 01-01-2023 End: 01-01-2023 Emergency department patient visit Raad Lundberg MD Work Phone: [facility] ED Comment on above: Laceration of third toe of right foot, initial encounter (Primary Dx); Open fracture of phalanx of right third toe, initial encounter Start: 09-23-2022 End: 09-25-2022 Subsequent hospital visit by physician Jayme Cat Scan Room [facility] CT Scan Comment on above: RLQ abdominal pain; History of hernia surgery Start: 06-15-2022 End: 06-15-2022 Subsequent hospital visit by physician Florentino XIAO Work Phone: [facility] Start: 04-12-2022 [facility] Start: 04-05-2022 End: 04-05-2022 Patient encounter procedure Richelle Padilla [facility] Start: 02-22-2022 End: 02-22-2022 Emergency department patient visit Alfredo Khan DO Work Phone: [facility] ED Comment on above: Chest wall pain (Kayla arnol Dx); Acute midline thoracic back pain Start: 02-15-2022 End: 02-15-2022 Subsequent hospital visit by physician Florentino XIAO Work Phone: [facility] Start: 02-01-2022 End: 02-01-2022 [facility] Start: 01-10-2022 End: 01-10-2022 ambulatory FLORENTINO HERR [facility] Start: 01-10-2022 End: 01-10-2022 Follow-up encounter Hayde Arriaga MD Work Phone: [facility] Comment on above: Surgery follow-up (P rimary Dx) Start: 12-22-2021 End: 12-22-2021 Subsequent hospital visit by physician Pilar Erickson OT [facility] Comment on above: Arrived Start: 12-21-2021 End: 12-21-2021 Subsequent hospital visit by physician Pilar Erickson OT [facility] Comment on above: Arrived Start: 12-14-2021 End: 12-14-2021 Subsequent hospital visit by physician Pilar Erickson OT [facility] Comment on above: Arrived Start: 12-13-2021 End: 12-13-2021 Subsequent hospital visit by physician Pilar Erickson OT [facility] Comment on above: Arrived Start: 12-10-2021 End: 12-10-2021 Subsequent hospital visit by physician Pilar Erickson OT [facility] Comment on above: Arrived Start: 12-08-2021 End: 12-08-2021 Subsequent hospital visit by physician Pilar Erickson OT [facility] Comment on above: Arrived Start: 12-03-2021 End: 12-03-2021 Subsequent hospital visit by physician Pilar Erickson OT [facility] Comment on above: Arrived Start: 12-01-2021 End: 12-01-2021 Subsequent hospital visit by physician Pilar Erickson OT [facility] Comment on above: Arrived Start: 11-30-2021 End: 11-30-2021 Subsequent hospital visit by physician Pilar Erickson OT [facility] Comment on above: Arrived Start: 11-29-2021 Valentin Humphrey LPN [facility] Comment on above: New daily persistent headache Start: 11-26-2021 End: 11-26-2021 Subsequent hospital visit by physician Pilar Erickson OT [facility] Comment on above: Arrived Start: 11-24-2021 End: 11-24-2021 ambulatory FLORENTINO HERR [facility] Start: 11-24-2021 End: 11-24-2021 Follow-up encounter Hayde Arriaga MD Work Phone: [facility] Comment on above: Surgery follow-up (P rimary Dx) Start: 11-23-2021 End: 11-23-2021 ambulatory FLORENTINO HERR [facility] Start: 11-23-2021 End: 11-23-2021 Office outpatient visit 25 minutes Dominick Gongora MD Work Phone: [facility] Comment on above: New daily persistent headache (Primary Dx); Bilateral carpal tunnel syndrome; Episodic athetosis of right upper limb Start: 11-17-2021 End: 11-17-2021 ambulatory HAYDE FRIAS ALTONADDIE [facility] Start: 11-17-2021 End: 11-17-2021 Follow-up encounter Hayde Arriaga MD Work Phone: [facility] Comment on above: Surgery follow-up (P rimary Dx) Start: 11-09-2021 End: 11-09-2021 ambulatory [facility] Start: 10-14-2021 End: 10-14-2021 ambulatory STEFANI MARC [facility] Start: 10-14-2021 End: 10-14-2021 Postop follow up visit related to original px Stefani Marc PEDIATRIC AUDIOLOGIST Work Phone: [facility] Comment on above: Surgery follow-up (P rimary Dx) Start: 10-01-2021 Documentation procedure Ted Mckeon LPN [facility] Start: 09-23-2021 End: 09-23-2021 ambulatory [facility] Start: 09-13-2021 Documentation procedure Ted Mckeon LPN [facility] Start: 08-16-2021 End: 08-16-2021 ambulatory [facility] Start: 08-16-2021 End: 08-16-2021 Office outpatient new 20 minutes Dominick Gongora MD Work Phone: [facility] Comment on above: Bilateral carpal michaela janet syndrome Start: 07-15-2021 End: 07-15-2021 ambulatory DOMINICK GONGORA [facility] Start: 07-15-2021 End: 07-15-2021 Patient encounter procedure Corey Chen MD Work Phone: [facility] Comment on above: Bilateral carpal michaela janet syndrome Start: 06-14-2021 End: 06-14-2021 Subsequent hospital visit by physician Florentino XIAO Work Phone: [facility] Start: 05-19-2021 End: 05-21-2021 Subsequent hospital visit by physician Jayme Additional [facility] Comment on above: Coccyx disorder Start: 05-18-2021 End: 05-18-2021 ambulatory DOMINICK ROLAN [facility] Start: 05-03-2021 End: 05-05-2021 Subsequent hospital visit by physician Dilip Mammography Room [facility] Mammography Comment on above: Encounter for screen ing mammogram for breast cancer Start: 04-27-2021 End: 04-27-2021 Patient encounter procedure Florentino XIAO Work Phone: [facility] Start: 04-27-2021 End: 04-27-2021 Subsequent hospital visit by physician Florentino XIAO Work Phone: [facility] Comment on above: Women's annual routi ne gynecological examination Start: 04-15-2021 End: 04-15-2021 Subsequent hospital visit by physician Dilip Covid19 Pat Screening Schedule [facility] Comment on above: Arrived Start: 04-01-2021 ambulatory DOMINICK GONGORA [facility] Start: 01-18-2021 ambulatory FLORENTINO HRER [facility] Start: 01-12-2021 End: 01-12-2021 Refill Mimi Calabrese LPN [facility] Comment on above: New daily persistent headache Start: 12-17-2020 End: 12-17-2020 Office outpatient new 60 minutes Reinaldo Goldman MD Work Phone: [facility] Comment on above: Episodic athetosis o f right upper limb (Primary Dx); New daily persistent headache Start: 10-12-2020 End: 10-12-2020 Office outpatient visit 15 minutes Reinaldo Goldman Work Phone: [facility] Comment on above: Movement disorder (P rimary Dx) Start: 10-07-2020 End: 10-07-2020 Orders Only Reinaldokrystyna Artnancy Work Phone: [facility] Comment on above: Cervical spondylosis with myelopathy (Primary Dx) Start: 10-06-2020 End: 10-07-2020 Patient encounter procedure REINALDOKrystyna GOLDMAN [facility] Start: 10-06-2020 End: 10-06-2020 Subsequent hospital visit by physician Reinaldo Goldman Work Phone: [facility] CT Scan Comment on above: Bilateral carpal michaela janet syndrome Movement disorder Start: 08-20-2020 End: 08-20-2020 Office outpatient visit 15 minutes Reinaldo Goldman Work Phone: [facility] Comment on above: Bilateral carpal michaela janet syndrome (Primary Dx); Movement disorder Start: 07-06-2020 End: 07-06-2020 Patient encounter procedure Hayde Arriaga Work Phone: [facility] Comment on above: Carpal tunnel syndro me of right wrist (Primary Dx) Start: 06-22-2020 End: 06-22-2020 Office outpatient visit 15 minutes Hayde Arriaga Work Phone: [facility] Comment on above: Bilateral carpal michaela janet syndrome (Primary Dx) Start: 06-17-2020 End: 06-17-2020 Office outpatient new 20 minutes Stefani Marc Work Phone: [facility] Comment on above: Bilateral carpal michaela janet syndrome (Primary Dx); Cubital tunnel syndrome of both upper extremities Start: 05-29-2020 End: 05-30-2020 Emergency department patient visit Altagracia Davis Work Phone: [facility] ED Comment on above: Bleeding from wound (Primary Dx) Start: 01-16-2020 End: 01-18-2020 Subsequent hospital visit by physician [facility] Ultrasound Room [facility] Ultrasound Comment on above: Intra-abdominal and pelvic swelling, mass and lump, unspecified site Start: 07-11-2019 End: 07-11-2019 Subsequent hospital visit by physician Agueda Rodas [facility] Physical Therapy Comment on above: Arrived Start: 07-08-2019 End: 07-08-2019 Subsequent hospital visit by physician Meek Jang Work Phone: [facility] Comment on above: Arrived Start: 07-02-2019 End: 07-02-2019 Subsequent hospital visit by physician Agueda Rodas [facility] Physical Therapy Comment on above: Arrived Start: 07-01-2019 End: 07-01-2019 Subsequent hospital visit by physician Agueda Rodas [facility] Physical Therapy Comment on above: Arrived Start: 06-27-2019 End: 06-27-2019 Subsequent hospital visit by physician Agueda Rodas [facility] Physical Therapy Comment on above: Arrived Start: 06-24-2019 End: 06-24-2019 Subsequent hospital visit by physician Agueda Rodas [facility] Physical Therapy Comment on above: Arrived Start: 06-14-2019 End: 06-14-2019 Subsequent hospital visit by physician Agueda Rodas [facility] Physical Therapy Comment on above: Arrived Start: 06-11-2019 End: 06-13-2019 Subsequent hospital visit by physician Jayme Additional Xray At [facility] Radiology Comment on above: Abdominal mass, unsp ecified abdominal location Chronic low back eduardo n, unspecified back pain laterality, unspecified whether sciatica present Start: 05-06-2019 End: 05-06-2019 Subsequent hospital visit by physician Agueda Rodas [facility] Physical Therapy Comment on above: Arrived Start: 04-25-2019 End: 04-25-2019 Subsequent hospital visit by physician Agueda Rodas [facility] Physical Therapy Comment on above: Arrived Start: 04-22-2019 End: 04-22-2019 Subsequent hospital visit by physician Agueda Rodas [facility] Physical Therapy Comment on above: Arrived Start: 04-18-2019 End: 04-18-2019 Subsequent hospital visit by physician Agueda Rodas [facility] Physical Therapy Comment on above: Arrived Start: 04-15-2019 End: 04-15-2019 Subsequent hospital visit by physician Agueda Rodas [facility] Physical Therapy Comment on above: Arrived Start: 04-11-2019 End: 04-11-2019 Subsequent hospital visit by physician Agueda Rodas [facility] Physical Therapy Comment on above: Arrived Start: 04-02-2019 End: 04-02-2019 Subsequent hospital visit by physician Agueda Rodas [facility] Physical Therapy Comment on above: Arrived Start: 03-28-2019 End: 03-28-2019 Subsequent hospital visit by physician Agueda Rodas [facility] Physical Therapy Comment on above: Arrived Start: 01-07-2019 End: 01-07-2019 Office outpatient visit 15 minutes Reinaldo Goldman Work Phone: [facility] Comment on above: Bilateral carpal michaela janet syndrome (Primary Dx); Cervical spondylosis with myelopathy Start: 12-27-2018 End: 12-27-2018 Subsequent hospital visit by physician Reinaldo Goldman Work Phone: [facility] Comment on above: Cervical spondylosis with myelopathy Start: 12-27-2018 End: 12-27-2018 Patient encounter procedure Reinaldo Goldman Work Phone: [facility] Comment on above: Memory loss Cervical spondylosis with myelopathy Start: 12-11-2018 End: 12-11-2018 Office outpatient visit 15 minutes Reinaldo Goldman Work Phone: [facility] Comment on above: Cervical spondylosis with myelopathy (Primary Dx); Memory loss; Bilateral carpal tunnel syndrome Start: 11-27-2018 End: 11-27-2018 Documentation procedure Mariella De Santiago [facility] Start: 08-14-2018 Patient encounter procedure Reinaldo Goldman Facility:[facility] Start: 08-14-2018 End: 08-14-2018 Patient encounter procedure Reinaldo Goldman Work Phone: [facility] Start: 06-25-2018 Patient encounter procedure Reinaldo Goldman Facility:[facility] Start: 06-25-2018 End: 06-25-2018 Patient encounter Reinaldo Goldman Work Phone: [facility] Start: 06-04-2018 End: 06-04-2018 Postop follow up visit related to original px Reinaldo Goldman Work Phone: [facility] Comment on above: Cervical spondylosis with myelopathy Start: 05-22-2018 End: 05-29-2018 Evaluation and management of inpatient Moe Benz Facility:[facility] Start: 01-22-2018 Patient encounter Harjinder archuleta Facility:[facility] Procedures Date Procedure Procedure Detail Performing Clinician Start: 08-10-2023 Myocardial spect mul tiple studies Ivis Omer DO Work Phone: Start: 01-01-2023 Radex toe minimum 2 views Raad Lundberg MD Work Phone: Start: 07-25-2022 H/O: hysterectomy S/P hysterectomy M wh Room Start: 06-15-2022 Blood count leukocyt e wbc automated Altagracia Crow DPM Work Phone: Start: 06-15-2022 Hepatic function panel Altagracia Crow DPM Work Phone: Start: 02-22-2022 Assay of troponin quantitative Alfredo Sathya Bill DO Work Phone: Start: 02-22-2022 Radiologic exam ches t single view Alfredo Mcdonnell Bill DO Work Phone: Start: 02-22-2022 Assay of lipase Alfredo Sathya Bill DO Work Phone: Start: 02-22-2022 Ecg routine ecg w/le ast 12 lds w/i&r Alfredo Mcdonnell Bill DO Work Phone: Start: 11-09-2021 Decompression of med jerome nerve Richelle Padilla Start: 06-14-2021 Comprehensive metabo lic panel Unknown Provider Result Start: 06-14-2021 Lipid panel Unknown Pr ovider Result Start: 06-14-2021 PATIENT FASTING? Unknow n Provider Result Start: 06-14-2021 VITAMIN B12 & FOLATE Un known Provider Result Start: 05-19-2021 Radex sacrum & coccy x minimum 2 views Florentino XIAO Work Phone: Start: 05-03-2021 End: 05-03-2021 Screening mammography bi 2-view breast inc cad Jorge A Meier MD Work Phone: Start: 04-27-2021 Microscopic observat ion [Identifier] in Cervix by Cyto stain Corey Chen MD Work Phone: Start: 04-15-2021 COVID-19, [employer] INVOICE CONTROL CLERK - PEDIATRIC AUDIOLOGIST Work Phone: Start: 04-15-2021 Iaadiadoo streptococ cus group a [employer] INVOICE CONTROL CLERK - PEDIATRIC AUDIOLOGIST Work Phone: Start: 10-06-2020 Mri brain brain stem w/o w/contrast material [employer] Work Phone: Start: 10-06-2020 CT cervical spine wi thout contrast [employer] Work Phone: Start: 07-20-2020 Endovenous laser abl ation of varicose vein Florentino HERR Start: 05-27-2020 Inguinal hernia (disorder) Florentino HERR Comment on above: done in [place] Start: 01-16-2020 Us abdominal real ti me w/image limited Arnol Ellison Work Phone: Start: 08-14-2019 Laparoscopic sleeve gastrectomy Florentino HERR Comment on above: Keren Helton. Also repai r hernia with mesh Start: 06-11-2019 Radiologic exam abdo men 1 view Florentino Herr Work Phone: Start: 06-11-2019 Radex spine lumbosac ral minimum 4 views Florentino Herr Work Phone: Start: 12-27-2018 MRI of cervical spin e without contrast Reinaldo Goldman Work Phone: Start: 12-27-2018 CT cervical spine wi thout contrast Reinaldo Goldman Work Phone: Start: 04-11-2018 Mammography Reinaldo Stewart pko Cervical spine struc ture (body structure) Florentino HERR Comment on above: [employer]ATE Excision of cyst of ovary Br jerome HERR Plan of Treatment Date Care Activity Detail Author Start: 2037 Pneumococcal 0-64 ye ars Vaccine (2 of 2 - PPSV23) Pneumococcal 0-64 years Vaccine (2 of 2 - PPSV23) [facility] Start: 2037 Pneumococcal 0-64 ye ars Vaccine (3 - PPSV23 if available, else PCV20) Pneumococcal 0-64 years Vaccine (3 - PPSV23 if available, else PCV20) [facility] Start: 2037 Pneumococcal 0-64 ye ars Vaccine (3 - PPSV23 or PCV20) Pneumococcal 0-64 years Vaccine (3 - PPSV23 or PCV20) [facility] Start: 2037 Pneumococcal Vaccine : Ped or At-Risk (2 of 2 - PPSV23) Pneumococcal Vaccine: Ped or At-Risk (2 of 2 - PPSV23) [facility] Start: 11-01-2031 DTaP/Tdap/Td vaccine (4 - Td or Tdap) DTaP/Tdap/Td vaccine (4 - Td or Tdap) [facility] Start: 11-01-2031 DTaP/Tdap/Td vaccine (5 - Td or Tdap) DTaP/Tdap/Td vaccine (5 - Td or Tdap) [facility] Start: 11-01-2031 Tetanus vaccination Tetanus: Every 1 0yrs [facility] Start: 06-12-2030 DTaP/Tdap/Td vaccine (3 - Td or Tdap) DTaP/Tdap/Td vaccine (3 - Td or Tdap) [facility] Start: 06-12-2030 Tetanus vaccination Tetanus: Every 1 0yrs [facility] Start: 09-14-2027 Lipid panel Lipids [facility] Start: 06-14-2026 Lipid panel Lipids [facility] Start: 09-21-2024 Depression Monitoring Depression Mon [facility] Start: 06-14-2024 Diabetes screen Diabetes screen [facility] Start: 05-06-2024 Depression Monitoring Depression Mon [facility] Start: 04-27-2024 Screening for malign ant neoplasm of cervix Pap Smear [facility] Start: 03-25-2024 End: 03-25-2024 Patient encounter procedure 03/25/2024 2:40 PM EDT Office Visit [facility] [address] [place] [address] Ivis Omer DO [address] [place] [address] Return in about 4 weeks (around 03/21/2024). [facility] Comment on above: Return in about 4 we eks (around 03/21/2024). Start: 03-07-2024 Influenza vaccination Flu vaccine (# 1) [facility] Start: 02-20-2024 DTaP/Tdap/Td vaccine (2 - Td) DTaP/Tdap/Td vaccine (2 - Td) [place] Start: 02-20-2024 Tetanus vaccination Tetanus: Every 1 0yrs [facility] Start: 12-05-2023 End: 12-05-2023 Admission to same day surgery center 12/05/2023 9:50 AM EDT - 12/05/2023 10:22 AM EDT Surgery [facility] [address] [place] [address] Adriana Hilton MD [address] [place] [address] [facility] Comment on above: COLONOSCOPY Start: 12-05-2023 End: 12-05-2023 Colonoscopy flx dx w/collj spec when pfrmd COLORECTAL CANCER SCREENING, NOT HIGH RISK Screening for colon cancer Constipation, unspecified constipation type 12/05/2023 9:50 AM EDT [facility] Start: 12-05-2023 Subsequent hospital visit by physician 12/05/2023 9:50 AM EDT Hospital Encounter [facility] Endoscopy [address] [place] [address] Adriana Hilton MD [address] [place] [address] [facility] Start: 09-14-2023 Depression Monitoring Depression Mon itoring [facility] Start: 05-03-2023 Screening for malign ant neoplasm of breast Breast cancer screen [facility] Start: 04-07-2023 COVID-19 Vaccine ( season) COVID-19 Vaccine ( season) [facility] Start: 02-19-2023 Shingles vaccine (2 of 2) Shingles vaccine (2 of 2) [facility] Start: 12-12-2022 End: 12-12-2022 Patient encounter procedure 12/12/2022 Office Visit Family Medicine Ivis Omer DO [address] [place] [address] [facility] Start: 2022 Shingles vaccine (1 of 2) Shingles vaccine (1 of 2) [facility] Start: 06-14-2022 Creatinine measurement Creatinine [facility] Start: 06-14-2022 Potassium [Moles/volume] in Serum or Plasma Potassium [facility] Start: 05-09-2022 End: 05-09-2022 Patient encounter procedure 05/09/2022 Office Visit Neurology Bill Martinez, PEDIATRIC AUDIOLOGIST [address] [place] [id number] [facility] Start: 05-05-2022 Hepatitis B vaccine (2 of 2 - CpG 2-dose series) Hepatitis B vaccine (2 of 2 - CpG 2-dose series) [facility] Start: 05-03-2022 Screening for malign ant neoplasm of breast Mammogram [facility] Start: 04-07-2022 Influenza vaccination Flu vaccine (# 1) [facility] Start: 01-10-2022 End: 01-10-2022 Follow-up encounter 01/10/2022 Follow-Up Sports Medicine Hayde Arriaga MD [address] [facility] [address] [place] [address] [facility] Start: 12-29-2021 End: 12-29-2021 Patient encounter procedure 12/29/2021 Appointment Occupational Therapy Pilar Erickson OT [facility] Start: 12-28-2021 End: 12-28-2021 Patient encounter procedure 12/28/2021 Appointment Occupational Pilar Welch OT [facility] Start: 12-22-2021 Lipid panel Lipid screen [facility] Start: 12-22-2021 Lipid screen Lipid screen [facility] [place] [place] Start: 12-22-2021 End: 12-22-2021 Patient encounter procedure 12/22/2021 Appointment Occupational Therapy Pilar Erickson OT [facility] Start: 12-21-2021 End: 12-21-2021 Patient encounter procedure 12/21/2021 Appointment Occupational Pilar Welch OT [facility] Start: 12-14-2021 End: 12-14-2021 Patient encounter procedure 12/14/2021 Appointment Occupational Therapy Pilar Erickson OT [facility] Start: 12-13-2021 End: 12-13-2021 Patient encounter procedure 12/13/2021 Appointment Occupational Therapy Pilar Erickson OT [facility] Start: 12-10-2021 Subsequent hospital visit by physician 12/10/2021 Hospital Encounter Occupational Therapy Pilar Erickson OT [facility] Start: 12-08-2021 End: 12-08-2021 Patient encounter procedure 12/08/2021 Appointment Occupational Therapy Pilar Erickson OT [facility] Start: 12-03-2021 End: 12-03-2021 Patient encounter procedure 12/03/2021 Appointment Occupational Therapy Pilar Erickson OT [facility] Start: 12-01-2021 End: 12-01-2021 Patient encounter procedure 12/01/2021 Appointment Occupational Therapy Pilar Erickson OT [facility] Start: 11-30-2021 End: 11-30-2021 Patient encounter procedure 11/30/2021 Appointment Occupational Therapy Pilar Erickson, OT [facility] Start: 11-24-2021 End: 11-24-2021 Follow-up encounter 11/24/2021 Follow-Up Sports Medicine Hayde Arriaga MD [address] [facility] [address] [place] [address] [facility] Start: 11-23-2021 End: 11-23-2021 Patient encounter procedure 11/23/2021 Office Visit Neurology Dominick Gongora MD [address] [place] [address] [facility] Start: 11-17-2021 End: 11-17-2021 Follow-up encounter 11/17/2021 Follow-Up Sports Medicine Hayde Arriaga MD [address] [facility] [address] [place] [address] [facility] Start: 10-11-2021 End: 10-11-2021 Follow-up encounter 10/11/2021 Follow-Up Sports Medicine Stefani Marc, SAMMI [address] [facility] [address] [place] [address] [facility] Start: 10-05-2021 End: 10-05-2021 Admission to same day surgery center 10/05/2021 Surgery Hayde Arriaga MD [address] [facility] [address] [place] [address] RELEASE CARPAL TUNNEL - RIGHT [facility] Comment on above: RELEASE CARPAL TUNNE L - RIGHT Start: 10-05-2021 End: 10-05-2021 Anesthesia consultation 10/05/2021 Anesthesia Event Ayala Shaver MD [address] [place], [place] [id number] [facility] Start: 10-05-2021 End: 10-05-2021 RELEASE CARPAL TUNNEL RELEASE CARPAL TUNNEL Bilateral carpal tunnel syndrome 10/05/2021 7:35 AM [facility] Start: 10-05-2021 Subsequent hospital visit by physician 10/05/2021 Hospital Encounter Hayde Arriaga MD [address] [address] [facility] Start: 09-29-2021 End: 09-29-2021 Follow-up encounter 09/29/2021 Follow-Up Sports Medicine Hayde Arriaga MD [address] [address] [facility] Start: 09-23-2021 End: 09-23-2021 Admission to same day surgery center 09/23/2021 Surgery Hayde Arriaga MD 24 [facility] [address] [place] [address] RELEASE CARPAL TUNNEL - LEFT [facility] Comment on above: RELEASE CARPAL TUNNE L - LEFT Start: 09-23-2021 End: 09-23-2021 RELEASE CARPAL TUNNEL RELEASE CARPAL TUNNEL Bilateral carpal tunnel syndrome 09/23/2021 9:55 AM [facility] Start: 09-23-2021 Subsequent hospital visit by physician 09/23/2021 Hospital Encounter Hayde Arriaga MD 24 [facility] [address] [place] [address] [facility] Start: 04-28-2021 COVID-19 Vaccine (3 - Booster for Moderna series) COVID-19 Vaccine (3 - Booster for Moderna series) [facility] Start: 04-27-2021 End: 04-27-2021 Patient encounter procedure [facility] Start: 04-07-2021 Influenza vaccination Flu vaccine (# 1) [employer] Work Phone: Start: 10-15-2020 End: 10-15-2020 Office Visit 10/15/2020 Office Visit Reinaldo Wallace MD [address] [place] [address] [phone] [facility] Start: 10-12-2020 End: 10-12-2020 Office Visit 10/12/2020 Office Visit Reinaldo Wallace MD [address] [place] [address] [phone] [facility] Start: 10-08-2020 End: 10-07-2021 MRI of cervical spine without contrast MR Cervical Spine Without Contrast Imaging Routine Cervical spondylosis with myelopathy Expected: 10/08/2020, Expires: 10/07/2021 [facility] Comment on above: Expected: 10/08/2020 , Expires: 10/07/2021 Start: 09-22-2020 End: 09-22-2020 Office Visit 09/22/2020 Office Visit Reinaldo Wallace MD [address] [facility] [address] [place] [address] [phone] [facility] Start: 08-24-2020 Diabetes screen Diabetes screen [facility] [employer] Start: 08-21-2020 End: 08-20-2021 CT cervical spine without contrast CT Cervical Spine Without Contrast Imaging Routine Bilateral carpal tunnel syndrome Expected: 08/21/2020, Expires: 08/20/2021 [facility] Comment on above: Expected: 08/21/2020 , Expires: 08/20/2021 Start: 08-21-2020 End: 08-20-2021 MR Brain With And Without Contrast MR Brain With And Without Contrast Imaging Routine Movement disorder Expected: 08/21/2020, Expires: 08/20/2021 [facility] Comment on above: Expected: 08/21/2020 , Expires: 08/20/2021 Start: 06-22-2020 End: 06-22-2020 Office Visit 06/22/2020 Office Visit Sports Medicine Hayde Arriaga MD [address] [address] [phone] [facility] Start: 04-07-2020 Influenza vaccination M [facility] [place] Start: 04-07-2020 Influenza vaccinatio n given Sequential Influenza Vaccine (#1) [facility] Start: 01-20-2020 End: 01-20-2020 Office Visit 01/20/2020 Office Visit General Surgery Serg Arce MD [address] [facility] [address] [place] [address] [facility] Start: 10-24-2019 Creatinine measurement Creatinine mo [facility] Start: 10-24-2019 Creatinine monitoring Creatinine mon [facility], [place] Start: 10-24-2019 Potassium monitoring Potassium monit [facility] Start: 07-11-2019 End: 07-11-2019 Appointment 07/11/2019 Appointment Physical Therapy Agueda Rodas, PT [facility] Start: 07-09-2019 End: 07-09-2019 Appointment 07/09/2019 Appointment Radiology [facility] CT Scan Start: 07-08-2019 End: 07-08-2019 Appointment 07/08/2019 Appointment Physical Therapy Agueda Rodas, PT [facility] Start: 07-02-2019 End: 07-02-2019 Appointment 07/02/2019 Appointment Physical Therapy Agueda Rodas, PT [facility] Start: 07-01-2019 End: 07-01-2019 Appointment 07/01/2019 Appointment Physical Therapy Agueda Rodas, PT [facility] Start: 06-27-2019 End: 06-27-2019 Appointment 06/27/2019 Appointment Physical Therapy Agueda Rodas, PT [facility] Start: 06-24-2019 End: 06-24-2019 Appointment 06/24/2019 Appointment Physical Therapy Agueda Rodas, PT [facility] Start: 06-17-2019 End: 06-17-2019 Office Visit 06/17/2019 Office Visit General Surgery Serg Arce MD [address] [place], [place] [address] [phone] [facility] Start: 06-14-2019 Hospital Encounter 06/14/2019 Hospital Encounter Physical Therapy Alejandra Wagner, PT [facility] Start: 05-06-2019 End: 05-06-2019 Appointment 05/06/2019 Appointment Physical Therapy Agueda Rodas, PT [facility] Start: 05-02-2019 End: 05-02-2019 Appointment 05/02/2019 Appointment Physical Therapy Agueda Rodas, PT [facility] Start: 04-30-2019 End: 04-30-2019 Appointment 04/30/2019 Appointment Physical Therapy Agueda Rodas, PT [facility] Start: 04-25-2019 End: 04-25-2019 Appointment 04/25/2019 Appointment Physical Therapy Agueda Rodas, PT [facility] Start: 04-22-2019 End: 04-22-2019 Appointment 04/22/2019 Appointment Physical Therapy Agueda Rodas, PT [facility] Start: 04-18-2019 End: 04-18-2019 Appointment 04/18/2019 Appointment Physical Therapy Agueda Rodas PT [facility] Start: 04-15-2019 End: 04-15-2019 Appointment 04/15/2019 Appointment Physical Therapy Agueda Rodas, PT [facility] Start: 04-11-2019 Screening mammography Mammogram [facility] Start: 04-11-2019 End: 04-11-2019 Appointment 04/11/2019 Appointment Physical Therapy Agueda Rodas, PT [facility] Start: 04-09-2019 End: 04-09-2019 Appointment 04/09/2019 Appointment Physical Therapy Agueda Rodas, PT [facility] Start: 04-07-2019 Influenza vaccination Flu vaccine (# 1) [facility] [place], [place] Start: 04-07-2019 Influenza vaccinatio n given SEQUENTIAL INFLUENZA VACCINE (Season Ended) [facility] Start: 04-05-2019 End: 04-05-2019 Appointment 04/05/2019 Appointment Physical Therapy Agueda Rodas, PT [facility] Start: 04-04-2019 End: 04-04-2019 Appointment 04/04/2019 Appointment Physical Therapy Agueda Rodas, PT [facility] Start: 04-02-2019 End: 04-02-2019 Appointment 04/02/2019 Appointment Physical Therapy Agueda Rodas, PT [facility] Start: 01-07-2019 End: 01-07-2019 Office Visit 01/07/2019 Office Visit Neurosurgery Reinaldo Goldman MD [address] [facility] [place] [address] [phone] [facility] Start: 12-12-2018 End: 12-12-2019 CT cervical spine without contrast CT Cervical Spine Without Contrast Routine Cervical spondylosis with myelopathy Expected: 12/12/2018, Expires: 12/12/2019 [facility] Comment on above: Expected: 12/12/2018 , Expires: 12/12/2019 Start: 12-12-2018 End: 12-12-2019 MRI of brain and brain stem MR Brain Without Contrast Routine Memory loss Expected: 12/12/2018, Expires: 12/12/2019 [facility] Comment on above: Expected: 12/12/2018 , Expires: 12/12/2019 Start: 12-12-2018 End: 12-12-2019 MRI of cervical spine without contrast MR Cervical Spine Without Contrast Routine Cervical spondylosis with myelopathy Expected: 12/12/2018, Expires: 12/12/2019 [facility] Comment on above: Expected: 12/12/2018 , Expires: 12/12/2019 Start: 12-11-2018 End: 12-11-2018 Office Visit 12/11/2018 Office Visit Neurosurgery Reinaldo Glodman MD [address] [place] [address] [phone] [facility] Start: 11-28-2018 End: 11-28-2019 CT cervical spine without contrast CT Cervical Spine Without Contrast Routine Radiculopathy of cervical spine Expected: 11/28/2018, Expires: 11/28/2019 [facility] Comment on above: Expected: 11/28/2018 , Expires: 11/28/2019 Start: 08-09-2018 End: 08-09-2018 Ambulatory 08/09/2018 Follow-Up Neurosurgery Reinaldo Goldman MD [address] [place] [address] [phone] [facility] Start: 06-25-2018 End: 06-25-2018 Ambulatory 06/25/2018 Follow-Up Neurosurgery Reinaldo Goldman MD [address] [place] [address] [phone] [facility] Start: 04-07-2018 Influenza vaccination SEQUENTI AL INFLUENZA VACCINE (#1) [facility] Start: 04-07-2018 Influenza vaccinatio n given SEQUENTIAL INFLUENZA VACCINE (#1) [facility] Start: 2017 Screening for malign ant neoplasm of colon [facility] Start: 1991 DTaP/Tdap/Td vaccine (1 - Tdap) DTaP/Tdap/Td vaccine (1 - Tdap) [place], [place] Start: 1990 Hepatitis C antibody , confirmatory test Hepatitis C Screening [facility] Start: 1990 Hepatitis C screening [facility] Start: 1988 COVID-19 Vaccine (1 of 2) COVID-19 Vaccine (1 of 2) [facility] Start: 1987 HIV screen HIV screen [place], [place] Start: 1987 HIV screening [facility] Start: 1984 Adolescent depressio n screening assessment Depression Screening (PHQ9) [facility] Start: 1984 Depression Screen Depression Screen [facility] Start: 1984 Depression screening using PHQ-9 (Patient Health Questionnaire 9) score [facility] Start: 1978 Pneumococcal 0-64 ye ars Vaccine (1 of 1 - PPSV23) Pneumococcal 0-64 years Vaccine (1 of 1 - PPSV23) [facility] [place] Start: 1978 Pneumococcal Vaccine : Ped or At-Risk (1 of 2 - PPSV23) Pneumococcal Vaccine: Ped or At-Risk (1 of 2 - PPSV23) [facility] Start: 1975 History and physical examination, annual for health maintenance Wellness Visit [facility] Start: 1972 Hepatitis C screening Hepatitis C sc reen [facility] Start: 1972 Protein mass conc [facility] Start: 1972 Screening for malign ant neoplasm of cervix PAP SMEAR [facility] Start: 1972 Screening for malign ant neoplasm of colon [facility] Start: 1972 Screening mammography Mammogram [facility] Start: 1972 Tetanus vaccination TETANUS EVERY 10 YR [facility] End: 09-23-2022 CT ABDOMEN PELVIS W IV CONTRAST Additional Contrast? None [employer] Phone: Comment on above: 1 Occurrences starti ng 09/23/2022 until 09/23/2022 End: 04-27-2021 Cytopathology procedure, preparation of smear, genital source PAP SMEAR Lab Routine Women's annual routine gynecological examination 1 Occurrences starting 04/27/2021 until 04/27/2021 [facility] Phone: Comment on above: 1 Occurrences starti ng 04/27/2021 until 04/27/2021 EKG 12 Lead EKG 12 Lead ECG STAT 02/22/2022 3:45 AM EDT [employer] Phone: End: 12-27-2018 MRI of brain and brain stem MR Brain Without Contrast Imaging Routine Memory loss Once for 1 Occurrences starting 12/27/2018 until 12/27/2018 [facility] Comment on above: Once for 1 Occurrenc es starting 12/27/2018 until 12/27/2018 RELEASE CARPAL TUNNEL RELEASE CA RPAL TUNNEL Bilateral carpal tunnel syndrome [facility] Removal of suture Suture removal Procedures Routine Surgery follow-up [facility]: [facility]: Comment on above: Ordered: 11/24/2021 STRESS TEST REPORT STRESS TEST R EPORT Cardiac Services Ordered: 08/11/2023 [facility] Comment on above: Ordered: 08/11/2023 End: 02-22-2022 Urinalysis Urinalysis Lab STAT One Time for 1 Occurrences starting 02/22/2022 until 02/22/2022 [facility] Work Phone: Comment on above: One Time for 1 Occur rences starting 02/22/2022 until 02/22/2022 End: 06-14-2021 Vitamin B1 [facility] Comment on above: Once for 1 Occurrenc es starting 06/14/2021 until 06/14/2021 End: 02-15-2022 Vitamin D 25 Hydroxy [facility] Work Phone: Comment on above: Once for 1 Occurrenc es starting 02/15/2022 until 02/15/2022 End: 06-14-2021 Zinc [facility] Work Phone: Comment on above: Once for 1 Occurrenc es starting 06/14/2021 until 06/14/2021 Immunizations Immunization Date Immunization Notes Care Provider [place] [facility] 09-13-2023 hepatitis A vaccine, adult dosage Emeterio Landin [employer] [facility] 09-13-2023 zoster vaccine recombinant [place] Land[facility] 04-05-2023 influenza, injectabl e, quadrivalent, preservative free Ivis Omer DO Work Phone: [facility] 12-25-2022 zoster vaccine recombinant Ivis Yohermelindaey DO Work Phone: [facility] 04-07-2022 hepatitis A vaccine, adult dosage [employer] Work Phone: 04-07-2022 Hepatitis B vaccine (recombinant), CpG adjuvanted [facility] [employer] Work Phone: 04-07-2022 influenza virus vacc ine, unspecified formulation Ivislatasha Omer DO Work Phone: [facility] [employer] 04-07-2022 influenza, injectabl e, quadrivalent, preservative free [facility] Work Phone: 10-31-2021 diphtheria, tetanus toxoids and acellular pertussis vaccine Florentino HERR [facility] 10-31-2021 Pneumococcal conjuga te PCV20, PF (Prevnar 20) [facility] Work Phone: 10-31-2021 pneumococcal conjuga te vaccine, 13 valent Florentino HERR [facility] 10-31-2021 tetanus toxoid, redu noe diphtheria toxoid, and acellular pertussis vaccine, adsorbed Richelle Padilla [facility] 07-05-2021 SARS-CoV-2 (COVID-19 ) mRNA-1273 vaccine Richelle [facility] 04-21-2021 influenza virus vacc ine, unspecified formulation Richelle [facility] 04-21-2021 influenza, injectabl e, quadrivalent, preservative free [facility] Work Phone: 11-26-2020 SARS-CoV-2 (COVID-19 ) mRNA-1273 [facility] 10-29-2020 SARS-CoV-2 (COVID-19 ) mRNA-1273 vaccine [facility] 06-12-2020 tetanus toxoid, redu noe diphtheria toxoid, and acellular pertussis vaccine, adsorbed Richelle Padilla [facility] 03-23-2020 influenza virus vacc ine, unspecified formulation Florentino HERR [facility] 03-23-2020 influenza, injectabl e, quadrivalent, preservative free [facility] Work Phone: 04-17-2019 influenza virus vacc ine, unspecified formulation Ivis Omer DO Work Phone: [facility] 04-17-2019 influenza, injectabl e, quadrivalent, preservative free [facility] Work Phone: 03-29-2018 influenza virus vacc ine, unspecified formulation Florentino HERR [facility] [place] 03-29-2018 influenza, injectabl e, quadrivalent, preservative free [facility] Work Phone: 06-12-2017 pneumococcal conjuga te vaccine, 13 valent Florentino HERR [facility] 03-07-2017 influenza virus vacc ine, unspecified formulation Ivis Omer DO Work Phone: [facility] 03-07-2017 influenza, injectabl e, quadrivalent, preservative free [facility] Work Phone: 04-25-2016 influenza virus vacc ine, unspecified formulation [facility] Work Phone: 04-25-2016 pneumococcal polysaccharide vaccine, 23 valent Richelle Padilla [facility] 03-19-2015 influenza virus vacc ine, unspecified formulation [facility] Work Phone: 02-19-2014 tetanus toxoid, redu noe diphtheria toxoid, and acellular pertussis vaccine, adsorbed Florentino HERR [facility] Payers Date Payer Category Payer Medicaid GEMINI [employer] Silva [place] [id number] 2018-Present [id number] 2018 Medicaid [place] [employer] [place] [id number] 2018-Present [phone] [address] [address] [place] [address] [id number] 2014 Medicaid [id number] 2014 Unknown [id number] 1972 Unknown [id number] 2.16.840.1.831528.3.579.2. 1972 Unknown [id number] 2.16.840.1.988539.3.579.2. 1972 Unknown [id number] 2.16.840.1.442056.3.579.2.903 1972 Unknown [id number] 2.16.840.1.961979.3.579.2. 1972 Unknown [id number] 2.16.840.1.340290.3.579.2. 1972 Unknown [id number] 2.16.840.1.203340.3.579.2. 1972 Unknown [id number] 2.16.840.1.408902.3.579.2. 1972 Unknown [id number] 2.16.840.1.102567.3.579.2. 1972 Unknown [id number] 2.16.840.1.843628.3.579.2.903 1972 Unknown [id number] 2.16.840.1.605929.3.579.2.903 1972 Unknown [id number] 2.16.840.1.906693.3.579.2.903 1972 Unknown [id number] 2.16.840.1.261466.3.579.2.903 1972 Unknown [id number] 2.16.840.1.515990.3.579.2.903 1972 Unknown [id number] 2.16.840.1.377007.3.579.2.903 1972 Unknown [id number] 2.16.840.1.506023.3.579.2.727 1972 Unknown [id number] 2.16.840.1.163830.3.579.2.1259 1972 Unknown [id number] 2.16.840.1.309553.3.579.2.174 1972 Unknown [id number] 2.16.840.1.312857.3.579.2.174 1972 Unknown [id number] 2.16.840.1.602946.3.579.2.174 1972 Unknown [id number] 2.16.840.1.311328.3.579.2.174 1972 Unknown [id number] 2.16.840.1.928682.3.579.2.174 1972 Unknown [id number] 2.16.840.1.762099.3.579.2.174 1972 Unknown [id number] 2.16.840.1.587510.3.579.2.174 1972 Unknown [id number] 2.16.840.1.924432.3.579.2.174 1972 Unknown [id number] 2.16.840.1.359836.3.579.2.174 1972 Unknown [id number] 2.16.840.1.164020.3.579.2.174 1972 Unknown [id number] 2.16.840.1.223346.3.579.2.174 1972 Unknown [id number] 2.16.840.1.841539.3.579.2.174 Social History Date Type Detail Facility Start: 04-07-1994 End: 07-25-2023 Tobacco smoking status AZIS Current every day smoker [facility] Start: 06-04-2018 End: 05-06-2023 Cigarettes smoked current (pack per day) - Reported DARIUS WILL [facility] Start: 1970 Sex Assigned At Not on file [facility] Start: 06-04-2018 Tobacco Comment four or five cig a d ay [facility] Start: 04-07-1994 End: 04-07-2019 History of tobacco use Cigarette Smoker [place], [place] Start: 01-23-2019 End: 05-06-2023 Alcohol intake No [place] Start: 01-23-2019 End: 02-22-2024 Alcohol intake Current non-drinker of alcohol (finding) [place] Start: 06-17-2019 End: 11-04-2019 Tobacco smoking status AZIS Former smoker [place] End: 04-07-2019 History of tobacco use Current smoker [place] Start: 05-29-2020 End: 04-27-2021 Tobacco smoking status NHIS Current some day smoker [place] Start: 05-29-2020 End: 07-25-2023 Tobacco use and exposure Never used [place] Start: 08-24-2021 End: 02-22-2022 Exposure to SARS-CoV-2 (event) Not sure [place] Start: 12-17-2020 Tobacco Comment three cig a day [facility] Start: 02-01-2022 End: 04-05-2022 Tobacco smoking status Light tobacco smoker (finding) [facility] Start: 09-28-2022 End: 01-01-2023 History SDOH Alcohol Frequency 1 [facility] Work Phone: Start: 01-01-2023 History SDOH Alcohol Std Drinks 0 [facility] Work Phone: Start: 09-28-2022 History SDOH Financial 4 [facility] Work Phone: Start: 09-28-2022 History SDOH Transpo rt Non-Med 2 [facility] Work Phone: How often to you hav e a drink containing alcohol? Never [facility] How hard is it for y ou to pay for the very basics like food, housing, medical care, and heating Not very hard [facility] (I/We) worried gladis er (my/our) food would run out before (I/we) got money to buy more. Never true [facility] At any time in the p ast 12 months, were you homeless or living in residential [including now]? No [facility] Functional Status Date Assessment Result Facility 04-05-2022 Functional Status N/A [facility] 02-01-2022 Functional Status N/A [facility] [place] Clinical Notes 12-17-2020 to 03-12-2024 Shock, Julianna S - 03/12/2024 1:30 PM Alejandra Slaughter PT - 03/12/2024 1:30 PM Silvana Arriaga MD - 01/10/2022 1:22 PM Carlos Erickson OT - 12/22/2021 8:30 AM EDT Note Date & Type Note Facility 03-12-2024 History of Present illness Narrative Physical Therapy [facility] Date: 03/12/2024 Patient Name: Kera Joynerdhi : 1970 Patient called and stated that she would like to cancel the rest of her appointments. No Reason given. Julianna Aranda Shock Date: 03/12/2024 documented in this encounter [facility] 03-12-2024 Hospital course Narrative Images from the original note were not included. [facility] Discharge Summary Patient: Kera Lan : 1970 Referring Provider (secondary): Russell Hanna DNP Diagnosis: Strain of cervical portion of left trapezius muscle Treatment Diagnosis: Neck Pain Onset Date: 02/22/24 PT Insurance Information: [place]/ Medicaid Total # of Visits Approved: 8 Per Physician Order Total # of Visits to Date: 3 Date Treatment Initiated: 03/01/24 Date of Last Treatment: 03/08/24 Frequency/Duration 2 times per week 4 weeks Treatment Received Patient Education/HEP, Therapeutic Exercise, Manual Therapy: Myofacial Release/Cupping, and Manual Therapy: Mobilization/Manipulation Assessment Pain 4/10 in neck. ROM B cervical rotation WFL, B cervical sidebend WFL . Patient educated on and demonstrates independence with HEP. Goals Short Term Goals Time Frame for Short Term Goals: 6 Short Term Goal 1: Patient to be educated on and independent with HEP-Met Short Term Goal 2: Increase ROM cervical rotation R 60 degrees-Met Short Term Goal 3: Increase ROM cervical sidebend to R 35 degrees.-Met Snf Goals Time Frame for Press Manager Goals : 8 Snf Goal 1: Decrease neck pain 0/10 with turning head x3 days Snf Goal 2: Improve functional activities with Neck Disability Index <2/50 (from ) Reason for Discharge Patient Self Discharge Comments: Thank you for this referral Alejandra Wagner, PT Date: 03/12/2024 documented in this encounter [facility] 02-01-2022 Hospital Discharge instructions Follow Up Care 02/01/2022 10:46:36 With:Florentino GARCIA Address: [address] [place] [phone]- When: only if needed [facility] 01-10-2022 History of Present illness Narrative Patient is a 51-year-old female postop from her right carpal tunnel. She has had both done now and is very happy with the results. She got excellent relief of her preoperative numbness and tingling, minimal discomfort in the region of the scar tissue. Released to all activities as discussed. Will see her on a p.r.n. basis. She is very satisfied with her results. documented in this encounter [facility] 12-22-2021 History of Present illness Narrative Images from the original note were not included. [facility] Daily Note Date: 12/22/2021 Patient: Kera Lan : 1970 Referring Provider (secondary): Hayde Arriaga MD Diagnosis: ADELFO carpal Tunnel surgery Onset Date: 11/26/21 OT Insurance Information: Pt has hopscout- Pt has 30visist per year that are shared between PT/OT/[employer] services Total # of Visits Approved: 18 Per Physician Order Total # of Visits to Date: 10 No Show: 0 Canceled Appointment: 0 Pre-Treament Pain: 0 Subjective: Pt states she feels good this date. Assessment Assessment: Pt's last OT session this date. Continued w/ paraffin and ADELFO vice president quality improvement strengthening tasks w/ good tolerance. Pt has met all OT goals at this time. Pt & therapist agreeable to d/c OT today. Prognosis: Fair Post Treatment Pain: 0 Goals Short Term Goals Time Frame for Short term goals: STG=LTG LTG 2 Current Status:: 0-65 flexion LTG Goal 2 Status:: Met LTG 3 Current Status:: 0-35 UD LTG Goal 3 Status:: Met Snf Goals Time Frame for terminologist goals : 18 visits Snf Goal 1: Pt to be indepenent in HEP-MET LTG 1 Current Status:: MET LTG Goal 1 Status:: Met Press Manager Goal 2: Pt to demonstrate R wrist flexion to 60 degrees or more in order to engage in daily tasks LTG 2 Current Status:: 0-65 flexion LTG Goal 2 Status:: Met Snf Goal 3: Pt to demonstrate R UD to 30 degrees or more in order to engage in daily tasks LTG 3 Current Status:: 0-35 UD LTG Goal 3 Status:: Met Snf Goal 4: Pt to increase R vice president quality improvement strength to 14# or more in order to picker operator and hold heavy items LTG 4 Current Status:: 36.67 pounds LTG Goal 4 Status:: Met Snf Goal 5: Pt to increase L 3 pt pinch strength to 10# or more to picker operator small items LTG 5 Current Status:: 11.5 LTG Goal 5 Status:: Met Snf Goal 6: Pt to be educated on carpal tunnel do's & dont's in order to prevent further repetitive injury to wrist-MET Time In: 830 Time Out: 915 Timed Coded Minutes: 45 Total Treatment Time: 45 JEWEL Zarco, OTR/L Date: 12/22/2021 [facility]: 12-22-2021 Hospital course Narrative Images from the original note were not included. [facility] Discharge Summary Patient: Kera Lan : 1970 Referring Provider (secondary): Hayde Arriaga MD Diagnosis: ADELFO carpal Tunnel surgery Date Treatment Initiated: 11/26/2021 Date of Last Treatment: 12/22/2021 Frequency: 2-3 times/wk Duration: 10 visits Onset Date: 11/26/21 Total # of Visits Approved: 18 Per Physician Order Total # of Visits to Date: 10 No Show: 0 Canceled Appointment: 0 Current Treatment: [x] HP/CP [] Electrical Stimulation [x] Strengthening [x] Active/Passive ROM [] Muscle Re-education [x] Fine Motor Coordination [] Ultrasound [x] Splinting [] Developmental Therapy [] Sensory Integration [x] Patient Education/HEP [] Visual Perception Retraining [] ADL Training [] Cognitive Retraining [] Fluidotherapy [x] Paraffin [x] Therapeutic Exercise [x] Therapeutic Activity [x] Other:STM Assessment Assessment: Pt referred s/p ADELFO carpal tunnel surgery for outpatient OT for STM, paraffin, ROM & strengthening. Pt tolerated sessions well. Currently pt has met all OT goals and agreeable to D/C OT at this time as pt is functional within the home and community. Prognosis: Fair Reason for Discharge [] Poor Follow Through [] Completion of Prescribed Sessions [x] Optimal Function Achieved [] Patient Discharged Self [x] Goals Achieved Comments: Thank you for this referral JEWEL Zarco, OTR/L Date: 12/22/2021 documented in this encounter [facility] Phone: 12-21-2021 History of Present illness Narrative Images from the original note were not included. [facility] Daily Note Date: 12/21/2021 Patient: Kera Lan : 1970 Referring Provider (secondary): Hayde Arriaga MD Diagnosis: ADELFO carpal Tunnel surgery Onset Date: 11/26/21 OT Insurance Information: Pt has hopscout- Pt has 30visist per year that are shared between PT/OT/[employer] RE[employer] services Total # of Visits Approved: 18 Per Physician Order Total # of Visits to Date: 9 No Show: 0 Canceled Appointment: 0 Pre-Treament Pain: 0 Subjective: Pt states slight pain in R hand this date. Pt states she did a little bit of gardening. Assessment Assessment: Continued w/ modalities for tissue mobility, joint mobiltiy & pain. Continues to tolerate pinch/vice president quality improvement strengthening tasks well. Pt states she has follow up with physician sometime in January (she thinks its the ). Continue to anticipate d/c next session (12/22/2021) as pt is doing well. Will d/c OT next session. Prognosis: Fair Post Treatment Pain: 0 Goals Short Term Goals Time Frame for Short term goals: STG=LTG LTG 2 Current Status:: 0-65 flexion LTG Goal 2 Status:: Met LTG 3 Current Status:: 0-35 UD LTG Goal 3 Status:: Met Press Manager Goals Time Frame for residential goals : 18 visits Press Manager Goal 1: Pt to be indepenent in HEP-MET LTG Goal 1 Status:: Met Press Manager Goal 2: Pt to demonstrate R wrist flexion to 60 degrees or more in order to engage in daily tasks LTG 2 Current Status:: 0-65 flexion LTG Goal 2 Status:: Met Snf Goal 3: Pt to demonstrate R UD to 30 degrees or more in order to engage in daily tasks LTG 3 Current Status:: 0-35 UD LTG Goal 3 Status:: Met Press Manager Goal 4: Pt to increase R vice president quality improvement strength to 14# or more in order to picker operator and hold heavy items LTG 4 Current Status:: 36.67 pounds LTG Goal 4 Status:: Met Snf Goal 5: Pt to increase L 3 pt pinch strength to 10# or more to picker operator small items LTG 5 Current Status:: 11.5 LTG Goal 5 Status:: Met Press Manager Goal 6: Pt to be educated on carpal tunnel do's & dont's in order to prevent further repetitive injury to wrist-MET Time In: 830 Time Out: 915 Timed Coded Minutes: Total Treatment Time: 45 JEWEL Zarco, OTR/L Date: 12/21/2021 documented [facility] Phone: 12-14-2021 History of Present illness Narrative Images from the original note were not included. [facility] Daily Note Date: 12/14/2021 Patient: Kera Lan : 1970 Referring Provider (secondary): Hayde Arriaga MD Diagnosis: ADELFO carpal Tunnel surgery Onset Date: 11/26/21 OT Insurance Information: Pt has [employer]scout- Pt has 30visist per year that are shared between PT/OT/[employer] REBU[employer] services Total # of Visits Approved: 18 Per Physician Order Total # of Visits to Date: 8 No Show: 0 Canceled Appointment: 0 Pre-Treament Pain: 0 Objective LUE AROM (degrees) L Wrist Flexion 0-80: 0-65 L Wrist Ulnar Deviation 0-45: 0-35 RUE AROM (degrees) R Wrist Flexion 0-80: 0-65 R Wrist Ulnar Deviation 0-45: 0-35 Left Hand Strength - Rubber Production Machine Operator (lbs) Handle Setting 2: 25, 35, 35 Right Hand Strength - Rubber Production Machine Operator (lbs) Handle Setting 2: 36, 39, 35 LUE AROM (degrees) L Wrist Flexion 0-80: 0-65 L Wrist Ulnar Deviation 0-45: 0-35 RUE AROM (degrees) R Wrist Flexion 0-80: 0-65 R Wrist Ulnar Deviation 0-45: 0-35 Assessment Assessment: Continued w/ modalities for tissue mobility, joint mobiltiy & pain. Continues to tolerate pinch/vice president quality improvement strengthening tasks well. Reassessed all goals this date. Pt has currently met all OT goals at this time. Pt & therapist agreeable to 2 more additional visits & then D/C OT intervention as pt is pleased with her overall progress with strength & ROM. Prognosis: Fair Post Treatment Pain: 0 Goals Short Term Goals Time Frame for Short term goals: STG=LTG LTG 2 Current Status:: 0-65 flexion LTG Goal 2 Status:: Met LTG 3 Current Status:: 0-35 UD LTG Goal 3 Status:: Met Press Manager Goals Time Frame for terminologist goals : 18 visits Snf Goal 1: Pt to be indepenent in HEP-MET LTG Goal 1 Status:: Met Snf Goal 2: Pt to demonstrate R wrist flexion to 60 degrees or more in order to engage in daily tasks LTG 2 Current Status:: 0-65 flexion LTG Goal 2 Status:: Met Snf Goal 3: Pt to demonstrate R UD to 30 degrees or more in order to engage in daily tasks LTG 3 Current Status:: 0-35 UD LTG Goal 3 Status:: Met Snf Goal 4: Pt to increase R vice president quality improvement strength to 14# or more in order to picker operator and hold heavy items LTG 4 Current Status:: 36.67 pounds LTG Goal 4 Status:: Met Snf Goal 5: Pt to increase L 3 pt pinch strength to 10# or more to picker operator small items LTG 5 Current Status:: 11.5 LTG Goal 5 Status:: Met Snf Goal 6: Pt to be educated on carpal tunnel do's & dont's in order to prevent further repetitive injury to wrist-MET Time In: 830 Time Out: 920 Timed Coded Minutes: 45 Total Treatment Time: 45 JEWEL Zarco, OTR/L Date: 12/14/2021 documented in this encounter [facility] Phone: 12-13-2021 History of Present illness Narrative Images from the original note were not included. [facility] Outpatient Occupational Therapy Daily Note Date: 12/13/2021 Patient: Kera Lan : 1970 Referring Provider (secondary): Hayde Arriaga MD Diagnosis: ADELFO carpal Tunnel surgery Onset Date: 11/26/21 OT Insurance Information: Pt has [employer]- Pt has 30visist per year that are shared between PT/OT/[employer]BU[employer] REBU[employer] services Total # of Visits Approved: 18 Per Physician Order Total # of Visits to Date: 7 No Show: 0 Canceled Appointment: 0 Pre-Treament Pain: 0 Assessment Assessment: Continued w/ paraffin & STM/scar massage w/ good tolerance. Engages in pinch/vice president quality improvement strengthening tasks w/ fair tolerance. Some tenderness noted at incision site in ADELFO hands during tasks but goes away once exercises is discontinued. Will reassess goals next session. Prognosis: Fair Post Treatment Pain:0 Goals Short Term Goals Time Frame for Short term goals: STG=LTG LTG Goal 2 Status:: In progress Press Manager Goals Time Frame for residential goals : 18 visits Snf Goal 1: Pt to be indepenent in HEP-MET LTG 1 Current Status:: MET LTG Goal 1 Status:: Met Snf Goal 2: Pt to demonstrate R wrist flexion to 60 degrees or more in order to engage in daily tasks LTG Goal 2 Status:: In progress Snf Goal 3: Pt to demonstrate R UD to 30 degrees or more in order to engage in daily tasks Snf Goal 4: Pt to increase R vice president quality improvement strength to 14# or more in order to picker operator and hold heavy items LTG Goal 4 Status:: In progress Press Manager Goal 5: Pt to increase L 3 pt pinch strength to 10# or more to picker operator small items LTG Goal 5 Status:: In progress Snf Goal 6: Pt to be educated on carpal tunnel do's & dont's in order to prevent further repetitive injury to wrist-MET Time In: 815 Time Out: 900 Timed Coded Minutes: 40 Total Treatment Time: 45 JEWEL Zarco, OTR/L Date: 12/13/2021 documented in this encounter [facility] Phone: 12-10-2021 History of Present illness Narrative Images from the original note were not included. [facility] Outpatient Occupational Therapy Daily Note Date: 12/10/2021 Patient: Kera Lan : 1970 Diagnosis: ADELFO carpal Tunnel surgery Onset Date: 11/26/21 OT Insurance Information: Pt has [facility]- Pt has 30visist per year that are shared between PT/OT/[employer]BURET[employer] REBU[employer] services Total # of Visits Approved: 18 Per Physician Order Total # of Visits to Date: 6 No Show: 0 Canceled Appointment: 0 Pre-Treament Pain: 0 Assessment Assessment: Continues to tolerate session well. Initiated paraffin for additional pain relief & tissue/joint mobility, toelrates well. Continued w/ pinch/vice president quality improvement strengthenign tasks. Will continue per POC as pt tolerates. Prognosis: Fair Post Treatment Pain: 0 Goals Short Term Goals Time Frame for Short term goals: STG=LTG Snf Goals Time Frame for residential goals : 18 visits Snf Goal 1: Pt to be indepenent in HEP-MET Press Manager Goal 2: Pt to demonstrate R wrist flexion to 60 degrees or more in order to engage in daily tasks Press Manager Goal 3: Pt to demonstrate R UD to 30 degrees or more in order to engage in daily tasks Press Manager Goal 4: Pt to increase R vice president quality improvement strength to 14# or more in order to picker operator and hold heavy items Snf Goal 5: Pt to increase L 3 pt pinch strength to 10# or more to picker operator small items Time In: 915 Time Out: 1000 Timed Coded Minutes: 45 Total Treatment Time: 45 JEWEL Zarco, OTR/L Date: 12/10/2021 [facility] 12-[facility]21 History of Present illness Narrative Images from the original note were not included. [facility] Outpatient Occupational Therapy Daily Note Date: 12/08/2021 Patient: Kera Lan : 1970 Diagnosis: ADELFO carpal Tunnel surgery Onset Date: 11/26/21 OT Insurance Information: Pt has [employer]- Pt has 30visist per year that are shared between PT/OT/[employer] REBU[employer] services Total # of Visits Approved: 18 Per Physician Order Total # of Visits to Date: 5 No Show: 0 Canceled Appointment: 0 Pre-Treament Pain: 5 Assessment Assessment: Tolerates session well. Continued w/ heat/STM to ADELFO hands/forearms w/ scar massage. Tolerates pinch/vice president quality improvement strengthening well w/o complaints. States HEP putty program going well at home. Plan to continue per POC as pt tolerates. Prognosis: Fair Post Treatment Pain: 0 Goals Short Term Goals Time Frame for Short term goals: STG=LTG Snf Goals Time Frame for terminologist goals : 18 visits Press Manager Goal 1: Pt to be indepenent in HEP-MET Press Manager Goal 2: Pt to demonstrate R wrist flexion to 60 degrees or more in order to engage in daily tasks Snf Goal 3: Pt to demonstrate R UD to 30 degrees or more in order to engage in daily tasks Snf Goal 4: Pt to increase R vice president quality improvement strength to 14# or more in order to picker operator and hold heavy items Press Manager Goal 5: Pt to increase L 3 pt pinch strength to 10# or more to picker operator small items Time In: 830 Time Out: 915 Timed Coded Minutes: 40 Total Treatment Time: 45 JEWEL Zarco, OTR/L Date: 12/08/2021 documented in this encounter [facility] Phone: 12-03-2021 History of Present illness Narrative Images from the original note were not included. [facility] Outpatient Occupational Therapy Daily Note Date: 12/03/2021 Patient: Kera Lan : 1970 Onset Date: 11/26/21 Total # of Visits Approved: 18 Per Physician Order Total # of Visits to Date: 4 No Show: 0 Canceled Appointment: 0 Pre-Treament Pain: 0 Assessment Assessment: Continued w/ heat & STM to ADELFO hands/forearm this date with scar tissue massage to L hand. Initiated pinch strength w/ R hand this date. Provided pt w/ HEP for putty program & carpal tunnel do's & dont's handout. Plan to proceed per POC as pt tolerates. Post Treatment Pain: 0 Goals Short Term Goals Time Frame for Short term goals: STG=LTG Snf Goals Time Frame for terminologist goals : 18 visits Snf Goal 1: Pt to be indepenent in HEP Press Manager Goal 2: Pt to demonstrate R wrist flexion to 60 degrees or more in order to engage in daily tasks Snf Goal 3: Pt to demonstrate R UD to 30 degrees or more in order to engage in daily tasks Press Manager Goal 4: Pt to increase R vice president quality improvement strength to 14# or more in order to picker operator and hold heavy items Press Manager Goal 5: Pt to increase L 3 pt pinch strength to 10# or more to picker operator small items Time In: 1005 Time Out: 1045 Timed Coded Minutes: 35 Total Treatment Time: 40 JEWEL Zarco, OTR/L Date: 12/03/2021 [facility]: 12-01-2021 History of Present illness Narrative Images from the original note were not included. [facility] Outpatient Occupational Therapy Daily Note Date: 12/01/2021 Patient: Kera Lan : 1970 Onset Date: 11/26/21 Total # of Visits Approved: 18 Per Physician Order Total # of Visits to Date: 3 No Show: 0 Canceled Appointment: 0 Pre-Treament Pain: 0 Assessment Assessment: Pt continues to states no pain. Continued w/ heat & STM to ADELFO hands/forearm this date with scar tissue massage to L hand. Tolerates pinch/vice president quality improvement strengthening tasks via L hand well this date. Plan to proceed per POC as pt tolerates. Prognosis: Fair Post Treatment Pain: 0 Goals Short Term Goals Time Frame for Short term goals: STG=LTG Press Manager Goals Time Frame for terminologist goals : 18 visits Snf Goal 1: Pt to be indepenent in HEP Press Manager Goal 2: Pt to demonstrate R wrist flexion to 60 degrees or more in order to engage in daily tasks Snf Goal 3: Pt to demonstrate R UD to 30 degrees or more in order to engage in daily tasks Snf Goal 4: Pt to increase R vice president quality improvement strength to 14# or more in order to picker operator and hold heavy items Snf Goal 5: Pt to increase L 3 pt pinch strength to 10# or more to picker operator small items Time In: 1035 Time Out: 1115 Timed Coded Minutes: 35 Total Treatment Time: 40 JEWEL Zarco, OTR/Eufemia Date: 12/01/2021 documented in this encounter [facility] Phone: 11-30-2021 History of Present illness Narrative Images from the original note were not included. [facility] Outpatient Occupational Therapy Daily Note Date: 11/30/2021 Patient: Kera Lan : 1970 Onset Date: 11/26/21 Total # of Visits Approved: 18 Per Physician Order Total # of Visits to Date: 2 No Show: 0 Canceled Appointment: 0 Pre-Treament Pain: 0 Assessment Assessment: Pt states no pain this date. Initiated heat & STM to ADELFO hands/forearm this date. STM to scar tissue on L hand only this date as R incision site still healing. Educated pt on ADELFO forearm stretches, tendon glides & median nerve glides- pt provided w/ HEP for these exercises for home use. Plan to give pt carpal tunnel do's & dont's hand out next session. Initiated light pinch/vice president quality improvement strengthening tasks w/ L hand only. Overall good session, plan to continue per POC as pt tolerates. Prognosis: Fair Post Treatment Pain: 0 Goals Short Term Goals Time Frame for Short term goals: STG=LTG Snf Goals Time Frame for residential goals : 18 visits Press Manager Goal 1: Pt to be indepenent in HEP Press Manager Goal 2: Pt to demonstrate R wrist flexion to 60 degrees or more in order to engage in daily tasks Press Manager Goal 3: Pt to demonstrate R UD to 30 degrees or more in order to engage in daily tasks Snf Goal 4: Pt to increase R vice president quality improvement strength to 14# or more in order to picker operator and hold heavy items Press Manager Goal 5: Pt to increase L 3 pt pinch strength to 10# or more to picker operator small items Time In: 915 Time Out: 1000 Timed Coded Minutes: 40 Total Treatment Time: 45 JEWEL Zarco, OTR/L Date: 11/30/2021 documented in this encounter [facility] Phone: 11-26-2021 History of Present illness Narrative Images from the original note were not included. [facility] Outpatient Occupational Therapy Evaluation Date: 11/26/2021 Patient: Kera Lan : 1970 Treatment Diagnosis: ADELFO carpal Tunnel surgery Onset Date: 11/26/21 Total # of Visits Approved: 18 Per Physician Order Total # of Visits to Date: 1 No Show: 0 Canceled Appointment: 0 Subjective Pain Assessment Pain Level: 7 Objective Fine Motor Skills Left 9 Hole Peg Test Time (secs): 34.3 Right 9 Hole Peg Test Time (secs): 26.1 Fine Motor Comment: Pt is R handed LUE AROM (degrees) LUE General AROM: Pt can make full fist touching all digits to DPC; can complete thumb opposition to all digits w/o difficulty L Forearm Pron 0-90: WFL L Forearm Supination 0-90: WFL L Wrist Flexion 0-80: 0-60 L Wrist Extension 0-70: 0-70 L Wrist Radial Deviation 0-20: 0-30 L Wrist Ulnar Deviation 0-45: 0-35 RUE AROM (degrees) RUE General AROM: Pt can make full fist touching all digits to DPC; can complete thumb opposition to all digits w/o difficulty R Forearm Pron 0-90: 0-90 R Forearm Supination 0-90: 0-90 R Wrist Flexion 0-80: 0-50 R Wrist Extension 0-70: 0-70 R Wrist Radial Deviation 0-20: 0-25 R Wrist Ulnar Deviation 0-45: 0-35 Left Hand Strength - Rubber Production Machine Operator (lbs) Handle Setting 2: 21, 15, 15 (pt states pain at incision site during vice president quality improvement testing) Right Hand Strength - Rubber Production Machine Operator (lbs) Handle Setting 2: 5, 8, 16 (pt states pain along incision site) Assessment Performance deficits / Impairments: Decreased ROM,Decreased strength,Decreased high-level IADLs Assessment: Per referral, pt being referred s/p ADELFO carpal tunnel surgery for outpatient OT for the following modalities: ice massage, stretching, PROM, HEP, AROM, vice president quality improvement strengthening, & dexterity. Pt had surgery on L hand on 09/23/21 & R hand 11/09/2021. Pt demonstrates the minimal deficits regarding ADELFO ROM & strength as indicated above s/p carpal tunnel release surgery. Pt states her biggest concern is that she is unabel to engage in daily tasks w/o pain and has noticed an inability to complete certain tasks d/t hand weakness. Pt would benefit from outpatient OT intervention to address the above deficits. Prognosis: Fair Short Term Goals Time Frame for Short term goals: STG=LTG Press Manager Goals Time Frame for terminologist goals : 18 visits Snf Goal 1: Pt to be indepenent in HEP Press Manager Goal 2: Pt to demonstrate R wrist flexion to 60 degrees or more in order to engage in daily tasks Press Manager Goal 3: Pt to demonstrate R UD to 30 degrees or more in order to engage in daily tasks Snf Goal 4: Pt to increase R vice president quality improvement strength to 14# or more in order to picker operator and hold heavy items Press Manager Goal 5: Pt to increase L 3 pt pinch strength to 10# or more to picker operator small items Additional Goals?: Yes Press Manager Goal 6: Pt to be educated on carpal tunnel do's & dont's in order to prevent further repetitive injury to wrist Patient's Goal: Pt wishes to regain ADELFO vice president quality improvement strength needed to engage in I/ADL tasks Time In: 1415 Time Out: 1506 Timed Coded Minutes: 0 Total Treatment Time: 51 JEWEL Zarco, OTR/L 11/26/2021 documented in this encounter [facility] Phone: 11-23-2021 Instructions Dominick Gongora MD - 11/23/2021 1:19 PM EDT Headaches: Continue Topamax 50 mg 2x/daily as it is helping with your headaches. Jerky hand movements: seems to have subsided after the spine issues healed. No need for any additional therapies. Hand numbness: Your Carpal Tunnel Surgery should start showing results in 2- 6 months time. Follow Physical/Occupational therapy instructions soon. Please call our office and tell us about the medications you are on and not on. We need to clarify your meds in our system. Follow up: April with PEDIATRIC AUDIOLOGIST Bill Martinez. 6 monthly follow up after that. documented in this encounter [facility] 11-23-2021 History of Present illness Narrative NEUROLOGY NOTE [facility], [place] [address] [address], [facility] [place] [facility] [address] Fax: [phone] Service date: 11/23/2021 Admit date: (Not on file) This note was created in part using a speech-recognition software. Kera Lan is a 51 y.o. female here for follow-up of headaches and palmar neuropathy. To recap, she was referred to me by Dr. Goldman (neurosurgery), and was seen in my clinic in December 2020 for spastic movements of the upper extremity. She is now 2 years + status post a C6 corpectomy C5-7 anterior strut graft fusion for severe cervical myelopathy done by Dr. Goldman and had seen him in follow up in Aug 2020 when these movements were noted. 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 There was about 50% reduction in sensory appreciation immediately distal to the wrist and both hypothenar and thenar eminences with a distal to proximal predominance. EMG nerve conduction in July 2021 had shown bilateral median nerve dysfunction. I had referred her to a hand surgeon for further evaluation. She also had new onset persistent headaches for which topiramate was prescribed previously. She had been responding to it very well so I will continue the same. Update: 11/23/2021 Had bilateral carpal tunnel syndrome surgery: Still healing. Sensations are gradually reappearing. Occupational therapy to begin soon. Topamax is helping her with headaches. She had breakthrough headaches when she was in [place] taking care of her mother recently and had forgotten to take her Topamax with her. This led to a weeklong breakthrough as her mother . Back on Topamax 50 mg twice daily when she returns from [place] and headache has been well controlled ever since. No akathisia of the hand, no jerky movements noted either. Assessment and plan: 51-year-old woman with migraines responding very well to topiramate 50 mg twice daily; and a recent diagnosis of carpal tunnel syndrome (EMG done here after evaluation), and carpal tunnel release surgery; recovering from the surgery at the moment. She had been originally seen for acathisia of the upper extremity after having a C6 corpectomy and C5 C7 strut graft fusion for cervical myelopathy through neurosurgery. Headache is excellently controlled with topiramate. Akathisia of the upper extremities from the spinal myelopathy has settled down without any treatment. We will just watching it at the moment. Carpal tunnel release surgery: Healing; about to start occupational therapy. No new changes in medications. She is reassured at the moment, and she will be followed up by SAMMI Martinez in 6 months. I have informed her of my impending departure from [facility]. My office will make the best efforts to transfer her care to SAMMI Martinez at [facility]. Encounter diagnoses: 1. New daily persistent headache 2. Bilateral carpal tunnel syndrome 3. Episodic athetosis of right upper limb Patient Instructions 1. Headaches: Continue Topamax 50 mg 2x/daily as it is helping with your headaches. 2. Jerky hand movements: seems to have subsided after the spine issues healed. No need for any additional therapies. 3. Hand numbness: Your Carpal Tunnel Surgery should start showing results in 2- 6 months time. Follow Physical/Occupational therapy instructions soon. 4. Please call our office and tell us about the medications you are on and not on. We need to clarify your meds in our system. 5. Follow up: April with SAMMI Martinez. 6 monthly follow up after that. Assessment & plan notes cannot be loaded without a specified hospital service. DOMINICK GONGORA MSc, MD. Staff Neurologist & Movement Disorder Specialist [facility] (Adj Asst: Professor, [employer] Dept of Neurology) HANSEL Smith [id number], [facility] [address] [facility] Fax: [phone] ____ Attestation: Time Statement (OP Visits): A total of 30 minutes were spent at this encounter, and this includes the time for preparing for the visit, review notes, obtaining history, performing exam, review of previous tests and results, independently interpreting results of tests, ordering medications/tests/procedures, counseling the patient and/family on plan of care, as well as documenting the clinical information in the EHR (which includes this note) documented in this encounter [facility] 10-14-2021 History of Present illness Narrative Patient is a 51 year old female here today for a post op visit for her left carpal tunnel release. Her surgery was 3 weeks ago but she had to cancel follow ups due to a family emergency. She is here today for suture removal. Incision looks great, no erythema or edema seen. She is still having some numbness and tingling but it is better than prior to surgery. She has not been wearing a wrist brace, so I will manager environmental health and safety her one today and I advised her to wear it at night and with activities that require repetitive wrist movement. Advised her that this should help get rid of the rest of the numbness and tingling she still has. Sutures removed without difficulty, glue and steri strips applied By STEPHANIE Addison. She is wanting to schedule her right carpal tunnel release. This will be done. She understands and agrees to proceed. documented in this encounter [facility] 10-01-2021 History of Present illness Narrative No auth needed for 10-05-21 right carpal tunnel release procedure at [facility]. Call ref# [id number] documented in this encounter [facility] 09-13-2021 History of Present illness Narrative No auth needed for 09-23-21 left hand carpal tunnel release procedure at [facility]. Call ref# [id number] documented in this encounter [facility] 07-15-2021 History of Present illness Narrative Images from the original note were not included. [facility] [address] [place] [address] Nerve Conduction & EMG Report Patient: Kera Lan Sex: Female Date of : 1970 Visit Date: 07/15/2021 10:52 AM Age: 50 Years Examining MD: Corey Chen MD Referred by: Dr. Gongora Temperature: 32.5 Current Height: 5 feet 3 inch Referred for: Years of parethesias BUE. No neck pain. No DM. Plan: The study is design to evaluate for radiculopathy, plexopathy, entrapment neuropathy, median or ulnar neuropathy. Indication, risk, side effects, and alternatives were explained. Patient agreed to proceed. Patient was instructed to clean the puncture site with soap and water and put some ice pack for bruising. EMG Summary: The bilateral median motor nerve conduction study was normal. The right median sensory nerve conduction study recording antidromically showed prolonged distal latency and normal amplitude. The right median palmar orthodromic sensory nerve conduction study showed prolonged distal latency and normal amplitude. The left median sensory nerve conduction study recording antidromically showed prolonged distal latency and normal amplitude. The left median palmar orthodromic sensory nerve conduction study showed prolonged distal latency and normal amplitude. The bilateral ulnar motor and sensory nerve conduction studies was normal. The bilateral radial sensory nerve conduction study were normal. Needle EMG of the muscles tested showed no abnormal spontaneous activity. Normal motor unit action potentials and recruitment patterns were seen. Impression: This is an abnormal EMG. 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 There is NO electrodiagnostic evidence of bilateral cervical radiculopathy, brachial plexopathy or ulnar neuropathy at this time. Corey Chen MD Diplomate, ABPN, NBPAS Clinical Neurophysiology, Neurology, Vascular Neurology and Sleep Medicine [place] [phone] Motor NCS Nerve / Sites Muscle Latency Amplitude Distance Velocity ms mV cm m/s R Median - APB Wrist APB 4.35 13.9 7 Elbow APB 8.33 13.6 20.5 51.5 L Median - APB Wrist APB 4.46 14.2 7 Elbow APB 8.50 12.1 23 56.9 R Ulnar - ADM Wrist ADM 3.83 10.8 6.5 B.Elbow ADM 7.96 11.0 23 55.8 A.Elbow ADM 9.77 10.8 10 55.2 L Ulnar - ADM Wrist ADM 3.17 11.2 6.5 B.Elbow ADM 6.98 10.9 22.5 59.0 A.Elbow ADM 8.63 11.1 10 60.8 Sensory NCS Nerve / Sites Peak Amp Amp.2-3 Distance Velocity d Lat.2 ms V V cm m/s ms R Median - Digit II Wrist 4.23 9.9 39.5 13 36 L Median - Digit II Wrist 4.60 41.3 66.7 13 36 R Radial - Snuff Forearm 2.10 41.6 43.6 10 64 L Radial - Snuff Forearm 2.50 25.0 23.0 10 56 R Median, Ulnar - Transcarpal comparison Median Palm 2.38 56.4 77.8 8 42 Ulnar Palm 2.25 7.0 16.5 8 48 0.12 L Median, Ulnar - Transcarpal comparison Median Palm 2.77 42.6 50.3 8 36 Ulnar Palm 2.27 27.0 14.4 8 61 0.50 EMG Summary Table Spontaneous Activity Amplitude Duration Recruitment Polyphasia Comment Muscle Ins Act Fib PSW Fasc - - - - - L. Cervical paraspinals Normal 0 0 0 Normal Normal Normal Normal Normal L. Deltoid Normal 0 0 0 Normal Normal Normal Normal Normal L. Triceps brachii Normal 0 0 0 Normal Normal Normal Normal Normal L. Biceps brachii Normal 0 0 0 Normal Normal Normal Normal Normal L. Pronator teres Normal 0 0 0 Normal Normal Normal Normal Normal L. Extensor digitorum communis Normal 0 0 0 Normal Normal Normal Normal Normal L. First dorsal interosseous Normal 0 0 0 Normal Normal Normal Normal Normal L. Abductor pollicis brevis Normal 0 0 0 Normal Normal Normal Normal Normal R. Cervical paraspinals Normal 0 0 0 Normal Normal Normal Normal Normal R. Deltoid Normal 0 0 0 Normal Normal Normal Normal Normal R. Triceps brachii Normal 0 0 0 Normal Normal Normal Normal Normal R. Biceps brachii Normal 0 0 0 Normal Normal Normal Normal Normal R. Pronator teres Normal 0 0 0 Normal Normal Normal Normal Normal R. Extensor digitorum communis Normal 0 0 0 Normal Normal Normal Normal Normal R. First dorsal interosseous Normal 0 0 0 Normal Normal Normal Normal Normal R. Abductor pollicis brevis Normal 0 0 0 Normal Normal Normal Normal Normal documented in this encounter [facility] 12-17-2020 Instructions Dominick Gongora MD - 12/17/2020 11:55 AM EDT 1. Medication for headache: Topiramate 25 mg, start with 1 tablet in the evening for 5 days, then increase to 1 tablet in the morning and evening each for 5 days, then increase to 2 tablets in the morning and 2 tablets in the evening after that. Call for refills. 2. Side effect topiramate: Tingling of the hands and feet, kidney stones, change in taste and slowness of speech. Higher doses can also cause dizziness. Please call with questions if this is a problem. 3. In addition to being a good migraine/headache medication, topiramate also can stabilize mood, and help you lose weight. Therefore I believe topiramate might be a good choice for you at this time. 4. Spasms of the right upper limb: These are sometimes seen in people who have had myelopathy (spinal cord compression) in the neck. Your MRI of the brain from October does not show any abnormalities to suggest that these are coming from the brain. It is possible that the nerves coming out of the neck spine might be compressed, and the spasms are from that. I do not see any muscular abnormality or permanent spasticity or rigidity of the muscles to suggest a regular treatment for this now. Since these are happening about 1 to 2/month, I do not think you need to take the medicine regularly to prevent it. Please get a video of the spasms next time you have one. 5. Headache ophthalmology evaluation: I have placed an order for ophthalmology evaluation through [facility], who will schedule this with you. I am requesting a dilated eye exam, looking into the back of the eye to see if there is any swelling of the optic nerve that would suggest increased pressure of the head (fluid buildup in the brain). 6. Follow-up in March/April. Call with questions in the interim. documented in this encounter [facility] 12-17-2020 History of Present illness Narrative NEUROLOGY NOTE [facility], [place] [address] [address], [facility] [place] [facility] [address] Fax: [phone] Service date: 12/17/2020 Admit date: (Not on file) Kera Lan is a 50 y.o. female referred for Episodic right upper extremity left lower extremity spastic movements and headaches by Dr. Goldman. She is now 2 years + status post a C6 corpectomy C5-7 anterior strut graft fusion for severe cervical myelopathy done by Dr. Goldman and had seen him in follow up in Aug 2020 when these movements were noted. Spastic right upper limb movements: These happen to the right hand, about 1-2 episodes every few weeks. They began a few months ago. She pantomimed what happens with the right hand but she has these movements to me. The phenomenology of these movements involve a 1-2-minute long episode of sudden onset of tightness of her right hand, pronation of the forearm, internal rotation at the shoulder, that make her want to scream in pain. She will hold her right hand with her left hand so that it stops moving. Her spouse would rub the right hand, and massage it to help with ease. The episode never lasts longer than a couple of minutes, and always are self-limiting. She is fully aware of the spells, and has no changes in her sensorium or awareness associated with it or prior to this. She sometimes has a sensory prodrome of tingling and numbness of the hand before the spastic movements happen. There is no jerkiness, tremor or ballistic movements of the hand associated with it. Between these episodes the right upper limb is fully functional, and has no ongoing spasms, flickers or jerks of muscles that she has noted. She has no convulsive spells, or seizure-like activity of the rest of the body associated with it. Hand numbness: She also feels that the fingers of hands especially the left go numb when she is driving. They began in the right fourth and fifth digits, but now they are pretty much in all fingers on both hands. She might shake her hands sometimes while driving to relieve the numbness. She is unsure if any activity other than driving with her hands on the wheels, brings it on. No nighttime symptoms reported. Headaches: Although she thinks that they started 2 weeks ago, Dr. Goldman's note from August already mentions these headaches. These are described as a pressure sensation that seems to pulsate with a heartbeat, felt over the forehead, tenriism and circumferentially around the head like a band. It is somewhat constant but with episodic worsening. She takes Flexeril 3 times daily that was started by her PCP a few days ago. She feels that the headaches eased up with the Flexeril but did not go away completely. She may, at the peak of the headaches, feels sensitive to sound and light but does not feel nauseated. There are no autonomic features of facial flushing, droopiness of the eyes, or facial numbness. Stress and loud noises bring them on. She has no family history of headaches. No ER visits for the headaches either. She reports that she has had migrainous headaches with scotomatous patches in the past, but this history is rather vague and she does not recall all the details. She was evaluated by a physician in [place]. I do not have any access to these documents. She vaguely remembers an completions engineer who was involved in the care as well. Not sure what medications were used at the time or whether this was even clearly confirmed as a migraine or an idiopathic intracranial hypertension. CT cervical spine of 10/06/2020 :C5-7 strut graft; Moderate foraminal stenosis in the right C6/C7; bilateral narrow foramina in C5/6 levels MRI Brain: Normal study. MRI cervical spine (Last available is December 2018): Postoperative changes with interval corpectomy at C6, anterior fusion at C5 C7. Central canal stenosis from C5-C6 and C6-C7 is resolved in this scan compared to previous ones. C5-C6 level stenosis on the right side (bony encroachment of the exit of the foramina), and bilateral severe stenosis at C6-C7 are also noted. Neurological examination: Pleasant well-groomed 50 y.o. female. Higher mental functions: Good fund of knowledge. Appropriate mood. History and timeline of the history are internally consistent and well-organized. Speech and language are normal. No aphasia, apraxia, agnosia, sensory extinction or spatial neglect. Cranial nerves: Visual: Full to confrontation; Ophthalmoscopic: Retina is normal Oculomotor: Pupils are equal and reactive to light, EOM: Full range of movements, gaze is conjugate, convergence is normal saccades pursuits and VOR are normal. No nystagmus noted no ocular flutter noted. Facial motor: Normal Hearing: Normal to room conversation Lower cranial nerves: Normal. Motor exam/ Neuromuscular: No focal weaknesses noted anywhere. Deep tendon reflexes: 2+ in upper and lower extremities. Sensory: Normal. Movement disorder: No tremors myoclonus dyskinesias chorea or athetosis noted. Coordination: Limb movements did not show any action or intention tremor, or decomposition of movements. Midline balance and posture: Narrow-based, normal posture, no sway or midline ataxia. Assessment and plan: The pattern of her headaches do not clearly fit migraines. In fact the bandlike headache, the constant pressure sensation and pounding associated with it are reminiscent of intracranial hypertension headaches. Most recent MRI brain from October 2020 does not show any classical radiological features of IIH (optic nerve changes, scleral buckling, empty sella turcica etc.). Nevertheless she will need an ophthalmological evaluation with dilated eye exam. I will make the referral for the same today. I recommended an empirical trial of topiramate for these headaches. We will start with 25 mg gradually titrating up to 50 mg twice daily. Side effects were discussed in detail. The weight loss/appetite suppression side effects would be beneficial for her as well. As for the spasms of the right upper extremity, the phenomenology she describes is highly suggestive of a cervical spinal or radicular origin. I have asked her to get a video of this next time it happens. Dr. Goldman had ordered an MRI cervical spine in October which has not been completed yet. I have asked her to get this done as soon as possible. From a treatment standpoint, they are self resolving and only last about 2 minutes. Any medication that help with spasms (for example benzodiazepines, baclofen etc.) will need at least 15 to 20 minutes to get into her system and begin its effect. Moreover there are no spasm-preventive medications so I do not think this can be actively treated at this time. I explained this in detail to her, and she expressed understanding. If they become more frequent and start involving other parts of her body, a cortical or subcortical focus should be explored. The affected limb is fully functional and normal on my exam today (sensations, muscle strength, and reflexes). I do not think an EMG/nerve conduction study on this limb would reveal anything more than what I already have outlined above. However a second comorbidity of carpal tunnel syndrome needs to be evaluated for in the future (I will send her for nerve conduction study down the road if she is ready for surgical correction of CTS). Patient Instructions 1. Medication for headache: Topiramate 25 mg, start with 1 tablet in the evening for 5 days, then increase to 1 tablet in the morning and evening each for 5 days, then increase to 2 tablets in the morning and 2 tablets in the evening after that. Call for refills. 2. Side effect topiramate: Tingling of the hands and feet, kidney stones, change in taste and slowness of speech. Higher doses can also cause dizziness. Please call with questions if this is a problem. 3. In addition to being a good migraine/headache medication, topiramate also can stabilize mood, and help you lose weight. Therefore I believe topiramate might be a good choice for you at this time. 4. Spasms of the right upper limb: These are sometimes seen in people who have had myelopathy (spinal cord compression) in the neck. Your MRI of the brain from October does not show any abnormalities to suggest that these are coming from the brain. It is possible that the nerves coming out of the neck spine might be compressed, and the spasms are from that. I do not see any muscular abnormality or permanent spasticity or rigidity of the muscles to suggest a regular treatment for this now. Since these are happening about 1 to 2/month, I do not think you need to take the medicine regularly to prevent it. Please get a video of the spasms next time you have one. 5. Headache ophthalmology evaluation: I have placed an order for ophthalmology evaluation through [facility], who will schedule this with you. I am requesting a dilated eye exam, looking into the back of the eye to see if there is any swelling of the optic nerve that would suggest increased pressure of the head (fluid buildup in the brain). 6. Follow-up in March/April. Call with questions in the interim. Assessment & plan notes cannot be loaded without a specified hospital service. DOMINICK GONGORA, MSc, MD. Staff Neurologist & Movement Disorder Specialist [facility] (Adj Asst: Professor, [employer] Dept of Neurology) [address] [facility], [facility] [address] [facility] Fax: [phone] ____ Attestation: Time Statement (OP Visits): A total of 60 minutes were spent at this encounter, and this includes obtaining history, performing exam, review of previous tests and results, independently interpreting results of tests, ordering medications/tests/procedures, counseling the patient and/family on plan of care, as well as documenting the clinical information in the EHR (which includes this note) This note was created in part using a speech-recognition software. documented in this encounter [facility] Evaluation + Plan note No data available for this section [facility] [place] Evaluation + Plan note [facility] [place] Evaluation note Diagnosis Episodic athetosis of right upper limb- Primary Abnormal involuntary movements New daily persistent headache [facility] New daily persistent [facility] Diagnosis Women's annual routine gynecological examination documented in this encounter [employer] Phone: evaluation note* Diagnosis Encounter for screening mammogram for breast cancer documented in this encounter [employer] Phone: evaluation note* Diagnosis Coccyx disorder Unspecified disorder of coccyx documented in this encounter [employer] Phone: evalawodop note* Diagnosis Bilateral carpal tunnel syndrome Carpal tunnel syndrome [facility] Diagnosis Bilateral carpal tunnel syndrome Carpal tunnel syndrome Carpal tunnel syndrome- Primary [facility] Diagnosis Surgery follow-up- Primary [facility] Diagnosis Surgery follow-up- Primary [facility] Diagnosis New daily persistent headache- Primary Bilateral carpal tunnel syndrome Carpal tunnel syndrome Episodic athetosis of right upper limb Abnormal involuntary movements [facility] Diagnosis New daily persistent headache [facility] Diagnosis [facility] follow-up- Primary [facility] Diagnosis Chest wall pain- Primary Painful respiration Acute midline thoracic back pain documented in this encounter [employer] Phone: evaluation note* Diagnosis RLQ abdominal pain Abdominal pain, right lower quadrant History of hernia surgery Other postprocedural status documented in this encounter [employer] Phone: evaluation note* Diagnosis Laceration of third toe of right foot, initial encounter- Primary Open fracture of phalanx of right third toe, initial encounter documented in this encounter [employer] Phone: Hospital Discharge instructions* Attachments The following attachments cannot be sent through Care Everywhere. * Chest Pain: Musculoskeletal (Afghan) [facility] Phone: Hospital Discharge instructions No data available for this section [facility] [email or web address] Hospital Discharge instructions* Attachments The following attachments cannot be sent through Care Everywhere. * Toe Fracture (Afghan) * Lacerations: Open (Afghan) [facility] Phone: progress note No data available for this section [facility] [email or web address] Reason for referral (narrative) Referred by: Valerie GAVIRIA, Richelle Ascencio [facility] [email or web address] Summary Purpose Family History No Family History Records FoundNo Family History Records FoundNo Family History Records FoundNo Family History Records FoundNo Family History Records FoundNo Family History Records FoundNo Family History Records FoundNo Family History Records FoundNo Family History Records FoundNo Family History Records Found Advance Directives No Advanced Directives Records FoundDocuments on File Type Date Recorded 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 Power Electronics Engineer Expl 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 Advance Directives and Living Will Documents on File Type Date Recorded Patient Power Electronics Engineer Expl anation Advance Directives and Living Will Power of New Accounts Clerk Latest Code Status on File Code Status Date Activated Date Inactivated Comments Full Code 12/31/2015 11:26 AM 01/02/2016 9:09 PM Full Code 12/31/2015 7:47 AM 12/31/2015 11:20 AM Documents on File Type Date Recorded 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 Power Electronics Engineer Expl 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 Advance Directives and Living Will Power of New Accounts Clerk Latest Code Status on File Code Status Date Activated Date Inactivated Comments Full Code 12/31/2015 11:26 AM 01/02/2016 9:09 PM Full Code 12/31/2015 7:47 AM 12/31/2015 11:20 AM Documents on File Type Date Recorded Patient Power Electronics Engineer Expl anation ACP-Advance Directive ACP-Power of New Accounts Clerk Documents on File Type Date Recorded Patient Power Electronics Engineer Expl anation Advance Directives and Living Will Documents on File Type Date Recorded Patient Power Electronics Engineer Expl anation Advance Directives and Livin g Will 10/06/2020 9:38 AM Documents on File Type Date Recorded Patient Power Electronics Engineer Expl anation Advance Directives and Livin g Will 10/06/2020 9:38 AM Documents on File Type Date Recorded Patient Power Electronics Engineer Expl anation ACP-Advance Directive ACP-Power of New Accounts Clerk Documents on File Type Date Recorded Patient Power Electronics Engineer Expl anation Advance Directives and Livin g Will 09/23/2021 7:01 AM Documents on File Type Date Recorded Patient Power Electronics Engineer Expl anation Advance Directives and Livin g Will 11/09/2021 8:49 AM Documents on File Type Date Recorded Patient Power Electronics Engineer Expl anation Advance Directives and Livin g Will 11/09/2021 8:49 AM Latest Code Status on File Code Status Date Activated Date Inactivated Comments Full Code 12/31/2015 11:26 AM 01/02/2016 9:09 PM Code Status History Code Status Date Activated Date Inactivated Comments Full Code 12/31/2015 7:47 AM 12/31/2015 11:20 AM Latest Code Status on File Code Status Date Activated Date Inactivated Comments Full Code 12/31/2015 11:26 AM 01/02/2016 9:09 PM Code Status History Code Status Date Activated Date Inactivated Comments Full Code 12/31/2015 7:47 AM 12/31/2015 11:20 AM Assessments Diagnosis Cervical spondylosis with my elopathy Diagnosis Cervical spondylosis with myelopathy- Primary Memory loss Bilateral carpal tunnel syndrome Carpal tunnel syndrome Diagnosis Memory loss Diagnosis Cervical spondylosis with myelopathy Diagnosis Bilateral carpal tunnel syndrome- Primary Carpal tunnel syndrome Cervical spondylosis with myelopathy Diagnosis Abdominal mass, unspecified abdominal location Diagnosis Intra-abdominal and pelvic swelling, mass and lump, unspecified site Diagnosis Bleeding from wound Secondary and recurrent hemorrhage as an early complication of trauma Diagnosis Bilateral carpal tunnel syndrome- Primary Carpal tunnel syndrome Cubital tunnel syndrome of both upper extremities Diagnosis Bilateral carpal tunnel syndrome- Primary Carpal tunnel syndrome Diagnosis Carpal tunnel syndrome of right wrist- Primary Diagnosis Bilateral carpal tunnel syndrome Carpal tunnel syndrome Diagnosis 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 Diagnosis Cervical spondylosis with myelopathy- Primary Diagnosis Chronic low back pain, unspecified back pain laterality, unspecified whether sciatica present Diagnosis Movement disorder- 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 Diagnosis Radiculopathy of cervical spine- Primary Brachial neuritis or radiculitis nos Diagnosis Bilateral carpal tunnel syndrome- Primary Carpal tunnel syndrome 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 Procedure Findings Note [facility] [address] [facility], [place] [address]YPVKKERA DE LOS [facility] [id number] 1970DATE 05/28/2016OPERATIVE REPORT / PROCEDURE NOTESURGEON REINALDO GOLDMAN, DENNISREOPERATIVE DIAGNOSISCervical myelopathy secondary to C5-6 and C6-7 disk osteophyte spondyliticimpactions.POSTOPERATIVE DIAGNOSISCervical myelopathy secondary to C5-6 and C6-7 disk osteophyte spondyliticimpactions.PROCEDURESC6 corpectomy with greater than 80% resection of the C6 vertebral body; C5-6,C6-7 diskectomies; foraminotomies; C5-C7 fibular structural allograft; C5-[id number] cervical plating.ANESTHESIAGeneral.INDICATIONKera Lan is a 47-year-old female who presents with progressive axialcervical pain as well as numbness of the left upper extremity and myoclonicjerking of the left upper extremity and intermittent left lower extremityweakness. Imaging demonstrated a large disk osteophyte at C5-6 and C6-7causing severe spinal canal stenosis and a question of increased T2 sign (more content not included)... Reason for Referral Status Reason Specialty Diagnoses / Procedures Referred By Contact Referred To Contact Pending Review Radiology Diagnoses Cervical spondylosis with myelopathy Procedures CT Cervical Spine Without Contrast Reinaldo Goldman MD [address] [place] [address] [address] Status Reason Specialty Diagnoses / Procedures Referred By Contact Referred To Contact Pending Review Radiology Diagnoses Cervical spondylosis with myelopathy Procedures MR Cervical Spine Without Contrast Reinaldo Goldman MD [address] [place] [address] [address] Status Reason Specialty Diagnoses / Procedures Referred By Contact Referred To Contact Pending Review Radiology Diagnoses Memory loss Procedures MR Brain Without Contrast Reinaldo Goldman MD [address] [place] [id number] [address] Status Reason Specialty Diagnoses / Procedures Referre d By Contact Referred To Contact Denied Radiology Diagnoses Memory loss Procedures MR Brain Without Contrast Reinaldo Goldman MD [address] [place] [address] [address] Status Reason Specialty Diagnoses / Procedures Referre d By Contact Referred To Contact Closed Radiology Diagnoses Cervical spondylosis with myelopathy Procedures CT Cervical Spine Without Contrast Reinaldo Goldman MD [address] [place] [address] [address] Status Reason Specialty Diagnoses / Procedures Referred By Contact Referred To Contact Authorized Specialty Services Required/Patie nt's Best Interest Physical Therapy / Rehabilitation Diagnoses Bilateral carpal tunnel syndrome Reinaldo Goldman MD [address] [place] [address] Status Reason Specialty Diagnoses / Procedures Referred By Contact Referred To Contact Pending Review Radiology Diagnoses Intra-abdominal and pelvic swelling, mass and lump, unspecified site Procedures US ABDOMEN [place] [address] Status Reason Specialty Diagnoses / Procedures Referre d By Contact Referred To Contact Closed Radiology Diagnoses Cervical spondylosis with myelopathy Procedures MR Cervical Spine Without Contrast Reinaldo Goldman MD [address] [place] [address] [address] Status Reason Specialty Diagnoses / Procedures Referre d By Contact Referred To Contact Closed Radiology Diagnoses Bilateral carpal tunnel syndrome Procedures CT Cervical Spine Without Contrast Reinaldo Goldman MD [address] [place] [address] [address] Status Reason Specialty Diagnoses / Procedures Referre d By Contact Referred To Contact Closed Radiology Diagnoses Movement disorder Procedures MR Brain With And Without Contrast Reinaldo Goldman MD [address] [facility] [place] [address] [address] Status Reason Specialty Diagnoses / Procedures Referred By Contact Referred To Contact New Request Radiology Diagnoses Cervical spondylosis with myelopathy Procedures MR Cervical Spine Without Contrast Reinaldo Goldman MD [address] [place] [address] Status Reason Specialty Diagnoses / Procedures Referred By Contact Referred To Contact Authorized Specialty Services Required/Patient 's Best Interest Neurology Diagnoses Movement disorder Reinaldo Goldman MD [address] [facility] [place] [address] Dominick Gongora MD [address] [facility] [place] [address] Status Reason Specialty Diagnoses / Procedures Referred By Contact Referred To Contact Pending Review Radiology Diagnoses Radiculopathy of cervical spine Procedures CT Cervical Spine Without Contrast Reinaldo Goldman MD [address] [facility] [place] [id number] Status Reason Specialty Diagnoses / Procedures Referred By Contact Referred To Contact New Request Radiology Diagnoses Bilateral carpal tunnel syndrome Procedures CT Cervical Spine Without Contrast Reinaldo Goldman MD [address] [facility] [address] [place] [id number] Status Reason Specialty Diagnoses / Procedures Referred By Contact Referred To Contact New Request Radiology Diagnoses Movement disorder Procedures MR Brain With And Without Contrast Reinaldo Goldman MD [address] [facility] [address] [facility] [address] [place], [place] [id number] Status Reason Specialty Diagnoses / Procedures Referred By Contact Referred To Contact Authorized Specialty Services Required/Patien t's Best Interest Ophthalmology Diagnoses New daily persistent headache Dominick Gongora MD [address] [facility] [address] [facility] [address] [place], [place] [id number] [facility] [address] [place] [address] Phone: [phone] Status Reason Specialty Diagnoses / Procedures Referre d By Contact Referred To Contact Closed Radiology Diagnoses Encounter for screening mammogram for breast cancer Procedures MOIRA KAMILAH DIGITAL SCREEN BILATERAL Jorge A Meier MD [address] [place] [address] Specialty Diagnoses / Procedures Referred By Margie t Referred To Contact Rehabilitation Diagnoses Surgery follow-up Hayde Arriaga MD [address] [facility] [address] [place] [address] Referral ID Status Reason Start Date Expiration Date V isits Requested Visits Authorized [id number] Authorized 11/17/2021 11/17/2022 1 1 Specialty Diagnoses / Procedures Referred By Contac t Referred To Contact Radiology Diagnoses RLQ abdominal pain History of hernia surgery Procedures CT ABDOMEN PELVIS W IV CONTRAST Additional Contrast? None Ivis Omer DO [address] [place] [address] Referral ID Status Reason Start Date Expiration Date V isits Requested Visits Authorized [id number] Pending Review 09/15/2022 09/14/2023 1 1 History of Present Illness * Reinaldo Goldman MD - 12/11/2018 12:22 PM EDT Chief Complaint Patient presents with Neck Pain follow up had x-ray cervical. having left and right arm pain. She rates her pain 6/10. Status post cervical corpectomy. HPI She has been and now returns 6-1/2 months status post a C6 corpectomy C5-7 strut graft, performed on 2017 for myelopathy. When last evaluated in clinic in August 2018 she was pain-free. However she states that she is now developed pain in the fourth and fifth digits of the left hand. She describes this as a tingling stinging sensation. She also complains of a lightening like electric shock sensation in her posterior cervical area that radiates to the vertex of her head. She also believes that her hands are intermittently weak. She complains of numbness of all the fingers of both hands. Dr. Moore did an EMG nerve conduction study on 11/08/2018. This study demonstrated bilateral median neuropathies at or distal to the wrist with bilateral C5 motor radiculopathies which were minimalin degree electronically with no evidence of brachial plexopathy. She denies having fallen. She also complains of some urinary incontinence. On October 29, 2018 she underwent plain spine x-rays. Evidently reviewed the study and a computerized workstation. My interpretation is that these films are stable compared to postoperative films and interval films in the fall and winter 2018. There is a slight angulation of the graft posteriorly which is stable. There is evidence of early integration at thegraft edges into the C5 and C7 vertebral bodies. The plate is in stable position. However the interpreting radiologist commented on lucencies around the plate that was suspicious for hardware malfunction. . I disagree with this interpretation, as this plate is unchanged in its position and features and characteristics compared to postoperative studies including a postoperative CT scan. The patient the radiologist interpreting the films of October 2018 did not compare the October films to any prior films. She denies any myoclonic jerking of her extremities.Review of Systems An unrelated problemis significant memory issues. She says she has significant She denies intercurrent illnesses such as pneumonia or coronary artery disease. An unrelated problem is significant memory issues. She states that she has very poor short-term memory. She states thatshe has difficulty concentrating as well. She denies any headache or head injury. Physical Exam Awake alert oriented pleasant female in obvious acute distress. She does have a keloid formation inher right anterior cervical spine incision. She has full range of motion of the head and neck. She denies any inducible Lhermitte phenomenon. There is no Tinel sign of the carpal tunnel or cubital tunnels bilaterally. She has decreased light touch sensation subjectively of all the fingers of both hands but does have touch sensation present, but just reduced. Power at the deltoid biceps triceps wrist extensor flexor and interossei is 4+ out of 5 and equal bilaterally. Deep tendon reflex the bicep tricep patella 1+ and equal, Achilles unobtainable and equal, with no ankle clonus. There is no Rah sign. There are no myoclonic jerking activity seen. She has normal muscle bulk and tone of the bilateral upper extremities. Speech is full and fluent. Impression Status post C6 corpectomy C5-7 strut graft fusion for myelopathy May 2018. Plan We will proceed with CT cervical spine MRI cervical spine. Also will perform MRI of the brain because of the patient's memory issues. We will see her back once studies have been complete. I did discuss with her the possibility of adjacent segment degeneration. Reinaldo Goldman MD documented in this encounter* Reinaldo Goldman MD - 01/07/2019 3:53 PM EDT Chief Complaint Patient presents with Follow-up Patient is here to review her testing. Follow- up imaging studies HPI Kera now returns 7 months status post her C6 corpectomy and C5-7 plating for myelopathy and myoclonic jerking. She also was discovered to have bilateral carpal tunnel syndrome on EMG this past spring. She states that her neck pain is markedly improved since last visit. She continues to have somemild tingling in the fourth and fifth digits of the left hand. She also complains of her right wrist locking up on her in the dorsiflexed position. She states this will happen every 2 to 3 days and is associated with tightness in the distal forearm. As part of her work-up CT scan and MRI of the cervical spine were performed on 12/27/2018. I have independently reviewed the studies on a computerized workstation. The CT scan demonstrates good integration of the strut graft in the C5-C7 levels and no evidence of instrumentation loosening or hardware failure with the screws in C5 and the screws in C7. There is some residual stenosis of the right C5-6 foramen that was inaccessible based on the surgical approach fused anteriorly. Mild residual disease of foraminal stenosis at C4-5 is present. MRIcervical spine demonstrates no abnormal signal within the cord, with ample CSF both anterior and posterior to the spinal cord. No evidence of Chiari malformation. The patient also describe memory disturbances but MRI was denied per insurance. However the patient did have an MRI of the brain with contrast while hospitalized last fall on May 23, 2018. This was a normal study. Review of Systems Positive for obesity. Bilateral carpal tunnel syndrome. Physical Exam Awake alert oriented pleasant female no acute distress. Anterior cervical incision is flat dry and well-healed. She has full range of motion to head neck including flexion and extension. Spurling sign is negative. No winging of the scapula. No significant tenderness to palpation of posterior cervical region. Part of the deltoid biceps triceps wrist extensor and flexor are 5 out of 5 and vice president quality improvement strength volar interossei are 4+ out of 5. Deep tendon reflexes the patella and Achilles 1+ and equal, biceps and triceps 1+ and equal. Gait and station normal. Tinel sign is negative at the cubital tunnels bilaterally. Light touch intact in the fingers both hands. Rah sign is negative. No ankle clonus. Speech is fluent. Voice is full. Impression Cervical spondylosis, accelerated in a 48-year-old female, status post C6 corpectomy. Bilateral carpal tunnel syndrome. Plan At this point time I believe the patient would benefit from physical therapy focused at the wrist and distal forearm, and I will arrange this. I reassured the patient and her today that she has fused well from a cervical spine perspective. MRI also shows resolution of the increased T2 subtle signal abnormality posterior to C6 vertebral body within the spinal cord. While there is some residual stenosis of the right C5-C6 foramen, I believe that this is asymptomatic at this point time. She does have some spondylosis at other levels especially C4-5 and they understand that she may develop issues in the future. However I will keep follow-up with me open-ended at this point time to return to clinic as needed. Reinaldo Goldman MD documented in this encounter* Agueda Rodas, PT - 04/02/2019 3:26 PM EDT [facility] Therapy Daily Note Date: 04/02/2019 Patient Name: Kera Lan : 1970 (48 y.o.) Referring Practitioner: Dr. Goldman Referral Date : 03/12/19 Diagnosis: Carpal Tunnel Syndrome Treatment Diagnosis: B/L hand numbness/weakness Onset Date: 03/12/19 PT Insurance Information: 19v remaining Total # of Visits Approved: 12 Per Physician Order Total # of Visits to Date: 2 No Show: 0 Canceled Appointment: 0 Pre-Treatment Pain: 0/10 Assessment Assessment: Pt with good rupali to dry needling this date. Pt without pain following. Pt did note L UEtingling with initial incertion of L carpal tunnel needle which resolved. Pt reports no tingling post session. Will cont to monitor rupali, if well rupali will add needle manip next visit. Chart Reviewed: Yes Plan Plan: Plan of care initiated Exercises/Modalities/Manual: See DocFlow Sheet Education: Dry needling procedure and progression Barriers to Learning: None Goals (Total # of Visits to Date: 2) Short Term Goals - Time Frame for Short term goals: 6 visits Short term goal 1: Pt to report 50% improvement with numbness/tingling of L hand. Press Manager Goals - Time Frame for terminologist goals : 12 visits terminologist goal 1: Pt to report 24hours without numbness/tingling to improve ADL rupali. residential goal 2: Pt to score 44/80 on UEFS to improve pt rupali to ADLs. residential goal 3: Pt to have 50deg of cervical extension to improve pt ablity to complete ADLs suchas managing her hair. terminologist goal 4: Pt to have Rubber Production Machine Operator Strength of L UE equal to 50# to improve abilty to vice president quality improvement objects. Post Treatment Pain: 0/10 Time In: 1450 Time Out : 1520 Timed Code Treatment Minutes: 30 Minutes Total Treatment Time: 30 Minutes Agueda Rodas, PT Date: 04/02/2019 documented in this encounter* Clark Agueda Fall, PT - 04/25/2019 9:51 AM EDT [facility] Therapy Daily Note Date: 04/25/2019 Patient Name: Kera Lan : 1970 (48 y.o.) Referring Practitioner: Dr. Goldman Referral Date : 03/12/19 Diagnosis: Carpal Tunnel Syndrome Treatment Diagnosis: B/L hand numbness/weakness Onset Date: 03/12/19 PT Insurance Information: 19v remaining Total # of Visits Approved: 12 Per Physician Order Total # of Visits to Date: 9 No Show: 0 Canceled Appointment: 0 Pre-Treatment Pain: 0/10 Assessment Assessment: Pt very pleased with her progress. Pt reports no L hand tingling in 1-2 days(has not drove long distance). UEFS=65/80 Chart Reviewed: Yes Plan Plan: Continue with current plan Exercises/Modalities/Manual: See DocFlow Sheet Education: Cont x3 visits then will D/C to HEP for strengthening. Barriers to Learning: None Goals (Total # of Visits to Date: 9) Short Term Goals - Time Frame for Short term goals: 6 visits Short term goal 1: Pt to report 50% improvement with numbness/tingling of L hand.-NOT MET Press Manager Goals - Time Frame for residential goals : 12 visits terminologist goal 1: Pt to report 24hours without numbness/tingling to improve ADL rupali.-MET residential goal 2: Pt to score 44/80 on UEFS to improve pt rupali to ADLs.-MET residential goal 3: Pt to have 50deg of cervical extension to improve pt ablity to complete ADLs suchas managing her hair.-NOT MET residential goal 4: Pt to have Rubber Production Machine Operator Strength of L UE equal to 50# to improve abilty to vice president quality improvement objects.-MET Post Treatment Pain: 0/10 Time In: 919 Time Out: 947 Timed Code Treatment Minutes: 28 Minutes Total Treatment Time: 28 Minutes Agueda Rodas, PT Date: 04/25/2019 documented in this encounter* Agueda Rodas, PT - 06/14/2019 1:56 PM EST [facility] Therapy Evaluation Date: 06/14/2019 Patient: Kera Lan : 1970 Referring Practitioner: Alise Kc CNP Referral Date : 06/07/19 Diagnosis: Low back pain Treatment Diagnosis: Low Back pain Onset Date: 06/07/19 PT Insurance Information: 7 visits remaining Total # of Visits Approved: 7 Per Physician Order Total # of Visits to Date: 1 No Show: 0 Canceled Appointment: 0 Subjective Additional Pertinent Hx: Pt reports chronic back pain for years, just recently just tired of dealing with it. Pt using heat patches. Pt reports pain fluctutes 0-9/10. Pt reports lifting and carrying increases pain. Pt reports difficulty with doing dishes or fwd flexed. Xray: Anteriolistheisis L4 onL5 Grade I Objective Spine Lumbar: Flexion=25%, All other motions WNL. Strength RLE Strength RLE: Exception R Hip Flexion: 4/5 R Hip Extension: 3+/5 R Hip ABduction: 3+/5 R Knee Extension: 5/5 R Ankle Dorsiflexion: 5/5 Strength LLE Strength LLE: Exception L Hip Flexion: 4/5 L Hip Extension: 3+/5 L Hip ABduction: 3+/5 L Knee Extension: 5/5 L Ankle Dorsiflexion: 5/5 Assessment Body structures, Functions, Activity limitations: Decreased functional mobility , Decreased ADL status, Decreased ROM, Decreased strength, Decreased endurance, Decreased sensation, Decreased high-level IADLs Assessment: Pt to benefit from ther ex for hip/core strengthening. Pt to also benefit from dry needling Decision Making: Low Complexity Clinical Presentation: Stable/Uncomplicated The Following Comorbities will impact the patient s progression and Plan of Care: Previous Orthopedic Injury/Surgery Activity Tolerance: Patient Tolerated treatment well Education: POC; HEP: Jacob DIAZ Barriers to Learning: none Goals residential goals Time Frame for residential goals : 7 visits terminologist goal 1: Pt to report 50% improvement with regard to pain level. residential goal 2: Pt to score <15/45 on Oswestry to improve pt ADL rupali. residential goal 3: Pt to have >50% lumbar flexion to improve tasks such as doing dishes. terminologist goal 4: Pt to have 4/5 Hip ABD strength to improve pt standing rupali. Patient's Goal: Be able to do dishes and give her children a bath without pain Timed Code Treatment Minutes: 15 Minutes Total Treatment Time: 45 Time In: 1305 Time Out: 1350 Agueda Rodas PT Date: 06/14/2019 documented in this encounter* Agueda Rodas, PT - 06/27/2019 8:45 AM EST [facility] Daily Note Date: 06/27/2019 Patient Name: Kera Lan : 1970 (48 y.o.) Referring Practitioner: Alise Kc CNP Referral Date : 06/07/19 Diagnosis: Low back pain Treatment Diagnosis: Low Back pain Onset Date: 06/07/19 PT Insurance Information: 7 visits remaining Total # of Visits Approved: 7 Per Physician Order Total # of Visits to Date: 3 No Show: 0 Canceled Appointment: 0 Pre-Treatment Pain: 9/10 Assessment Assessment: Pt reports pain has been 9/10 with little change with needling. Held Inferior gluteal needles this date. Added soft tissue and sacral mobs. Pt left painfree. Pt educated and Issued 3directional stretch in sitting using table and post pelvic tilt with hold. Will monitor rupali to todays session. Pt also educated on posture for working at sink and with sweeping/mopping to prevent back pain. Chart Reviewed: Yes Plan Plan: Continue with current plan Exercises/Modalities/Manual: See DocFlow Sheet Education: See assessment Barriers to Learning: none Goals (Total # of Visits to Date: 3) Short Term Goals - Snf Goals - Time Frame for terminologist goals : 7 visits residential goal 1: Pt to report 50% improvement with regard to pain level. terminologist goal 2: Pt to score <15/45 on Oswestry to improve pt ADL rupali. terminologist goal 3: Pt to have >50% lumbar flexion to improve tasks such as doing dishes. residential goal 4: Pt to have 4/5 Hip ABD strength to improve pt standing rupali. Post Treatment Pain: 0/10 Time In: 0850 Time Out: 0930 Timed Code Treatment Minutes: 40 Minutes Total Treatment Time: 40 Minutes Agueda Rodas PT Date: 06/27/2019 documented in this encounter* Agueda Rodas, PT - 07/02/2019 9:00 AM EST [facility] Daily Note Date: 07/02/2019 Patient Name: Kera Lan : 1970 (48 y.o.) Referring Practitioner: Alise Kc CNP Referral Date : 06/07/19 Diagnosis: Low back pain Treatment Diagnosis: Low Back pain Onset Date: 06/07/19 PT Insurance Information: 7 visits remaining Total # of Visits Approved: 7 Per Physician Order Total # of Visits to Date: 5 No Show: 0 Canceled Appointment: 0 Pre-Treatment Pain: 6/10 Assessment Assessment: Pt reports painfree almost the remainder of the day yesterday after PT. Pt reports compliance with HEP. Pt reports 50% improvement with regard to pain. Will Assess ROM next visit Chart Reviewed: Yes Plan Plan: Continue with current plan Exercises/Modalities/Manual: See DocFlow Sheet Education: Cont x2 visits toward LTGs, reviewed importance of HEP for preventing muscle tension relieved by manual therapy. Barriers to Learning: none Goals (Total # of Visits to Date: 5) Press Manager Goals - Time Frame for residential goals : 7 visits terminologist goal 1: Pt to report 50% improvement with regard to pain level.-MET terminologist goal 2: Pt to score <15/45 on Oswestry to improve pt ADL rupali. residential goal 3: Pt to have >50% lumbar flexion to improve tasks such as doing dishes. residential goal 4: Pt to have 4/5 Hip ABD strength to improve pt standing rupali. Post Treatment Pain: 0/10 Time In: 0904 Time Out: 0940 Timed Code Treatment Minutes: 36 Minutes Total Treatment Time: 36 Minutes Agueda Rodas, PT Date: 07/02/2019 documented in this encounter* Meek Jang, PT - 07/08/2019 8:45 AM EST [facility] Daily Note Date: 07/08/2019 Patient Name: Kera Lan : 1970 (48 y.o.) Referring Practitioner: Alise Kc CNP Referral Date : 06/07/19 Diagnosis: Low back pain Treatment Diagnosis: Low Back pain Onset Date: 06/07/19 PT Insurance Information: 7 visits remaining Total # of Visits Approved: 7 Per Physician Order Total # of Visits to Date: 6 No Show: 0 Canceled Appointment: 0 Pre-Treatment Pain: 5/10 Assessment Assessment: Continues with 50% improvement overall. Patient has 1 reaming visit and plan to discharge from physical therapy. Chart Reviewed: Yes Plan Plan: Continue with current plan Exercises/Modalities/Manual: See DocFlow Sheet Education: Barriers to Learning: none Goals (Total # of Visits to Date: 6) Short Term Goals - Snf Goals - Time Frame for residential goals : 7 visits terminologist goal 1: Pt to report 50% improvement with regard to pain level.-MET residential goal 2: Pt to score <15/45 on Oswestry to improve pt ADL rupali. terminologist goal 3: Pt to have >50% lumbar flexion to improve tasks such as doing dishes. residential goal 4: Pt to have 4/5 Hip ABD strength to improve pt standing rupali. Post Treatment Pain: 5/10 Time In: 845 Time Out : 930 Timed Code Treatment Minutes: 45 Minutes Total Treatment Time: 45 Minutes Meek Jang, PT Date: 07/08/2019 documented in this encounter* Agueda Rodas, PT - 07/11/2019 8:45 AM EST [facility] Daily Note Date: 07/11/2019 Patient Name: Kera Lan : 1970 (48 y.o.) Referring Practitioner: Alise Kc CNP Referral Date : 06/07/19 Diagnosis: Low back pain Treatment Diagnosis: Low Back pain Onset Date: 06/07/19 PT Insurance Information: 7 visits remaining Total # of Visits Approved: 7 Per Physician Order Total # of Visits to Date: 7 No Show: 0 Canceled Appointment: 0 Pre-Treatment Pain: 4/10 Assessment Assessment: Completed last visit. Pt with good noted improvement since starting needling. 4/10 painat worst vs 9/10 prior to PT. Pt to cont with stretches and strengthening for HEP. Flexion=75% Chart Reviewed: Yes Plan Plan: Continue with current plan Exercises/Modalities/Manual: See DocFlow Sheet Education: Reviewed HEP for maintenance Barriers to Learning: none Goals (Total # of Visits to Date: 7) Press Manager Goals - Time Frame for residential goals : 7 visits terminologist goal 1: Pt to report 50% improvement with regard to pain level.-MET terminologist goal 2: Pt to score <15/45 on Oswestry to improve pt ADL rupali.-MET residential goal 3: Pt to have >50% lumbar flexion to improve tasks such as doing dishes.-MET terminologist goal 4: Pt to have 4/5 Hip ABD strength to improve pt standing rupali.-MET Post Treatment Pain: 0/10 Time In: 0851 Time Out : 0931 Timed Code Treatment Minutes: 40Minutes Total Treatment Time: 40 Minutes Agueda Rodas PT Date: 07/11/2019 documented in this encounter* Stefani Marc Anu, PEDIATRIC AUDIOLOGIST - 06/17/2020 1:30 PM EST Kera Lan 1970 CC: 49 y.o. is a she with No chief complaint on file. . Wrist Pain Patient complaints of bilateral wrist pain and numbness. This is evaluated as a personal injury. The pain began several years ago. The pain is located primarily in the palmar area. She describes the symptoms as aching, numbing and tingling. Symptoms improve with rest. The symptoms are worse with movement, use of injured area and pressure on injured area. The patient does not have neck pain. The patient is active in none. Treatment to date has been cortisone injections without significant relief. Positive EMG in 2019 for bilateral carpal tunnel. States that her 3rd, 4th, and 5th fingers are numb on both hands. Right hand is worse then the left. She is right hand dominant. PMH: No Known Allergies Current Outpatient Medications: ARIPiprazole (ABILIFY) 5 MG tablet, Take 5 mg by mouth daily ., Disp: , Rfl: 0 buPROPion (WELLBUTRIN XL) 300 MG 24 hr tablet, Take 300 mg by mouth daily ., Disp: , Rfl: 0 diazePAM (VALIUM) 5 MG tablet, Take 1 (one) tablet (5 mg total) by mouth every 8 (eight) hours as needed for anxiety (spasm and pain) (Days supply per fill: twenty ., Disp: 30 tablet, Rfl: 0 estradiol (ESTRACE) 1 MG tablet, Take 1 mg by mouth daily ., Disp: , Rfl: 0 fluticasone (FLONASE) 50 mcg/actuation nasal spray, , Disp: , Rfl: 0 levothyroxine (SYNTHROID, LEVOTHROID) 112 MCG tablet, Take 112 mcg by mouth daily ., Disp: , Rfl: 1 MAXIDEX 0.1 % ophthalmic suspension, , Disp: , Rfl: 0 metFORMIN (GLUCOPHAGE) 1000 MG tablet, Take 1,000 mg by mouth 2 (two) times a day ., Disp: , Rfl: 0 omeprazole (PRILOSEC) 40 MG capsule, Take 40 mg by mouth daily ., Disp: , Rfl: 0 oxyCODONE-acetaminophen (PERCOCET) 5-325 mg per tablet, Take 1 tablet by mouth every 6 (six) hours as needed FOR PAIN ., Disp: , Rfl: 0 ranitidine (ZANTAC) 150 MG capsule, Take 150 mg by mouth 2 (two) times a day ., Disp: , Rfl: 0 triamterene-hydrochlorothiazide (MAXZIDE-25) 37.5-25 mg per tablet, Take 1 tablet by mouth daily asneeded ., Disp: , Rfl: 0 VITAMIN D3 2,000 unit cap, Take 2,000 mg by mouth daily ., Disp: , Rfl: 1 Past Medical History: Diagnosis Date Disease of thyroid gland Memory loss Past Surgical History: Procedure Laterality Date C6 corpectomy, C5-C7 allograft strut graft, C5-C7 anterior cervical plating SECTION X2 HYSTERECTOMY Social History Socioeconomic History Marital status: Spouse name: Not on file Number of children: Not on file Years of education: Not on file Highest education level: Not on file Occupational History Not on file Social Needs Financial resource strain: Not on file Food insecurity Worry: Not on file Inability: Not on file Transportation needs Medical: Not on file Non-medical: Not on file Tobacco Use Smoking status: Current Every Day Smoker Packs/day: 0.25 Smokeless tobacco: Never Used Tobacco comment: four or five cig a day Substance and Sexual Activity Alcohol use: No Drug use: No Sexual activity: Not on file Lifestyle Physical activity Days per week: Not on file Minutes per session: Not on file Stress: Not on file Relationships Social connections Talks on phone: Not on file Gets together: Not on file Attends christian service: Not on file Active member of club or organization: Not on file Attends meetings of clubs or organizations: Not on file Relationship status: Not on file Other Topics Concern Not on file Social History Narrative Not on file ROS: Review of Systems Constitutional: Negative for activity change and fatigue. HENT: Negative. Eyes: Negative. Respiratory: Negative for chest tightness and shortness of breath. Cardiovascular: Negative for chest pain. Gastrointestinal: Negative. Endocrine: Negative. Genitourinary: Negative. Musculoskeletal: Positive for arthralgias. Skin: Negative for color change. Allergic/Immunologic: Negative. Neurological: Negative for dizziness, light-headedness and numbness. Hematological: Negative. Psychiatric/Behavioral: Negative for agitation. PE: Physical Exam Constitutional: She is oriented to person, place, and time. She appears well- developed and well-nourished. HENT: Head: Normocephalic and atraumatic. Eyes: Pupils are equal, round, and reactive to light. Neck: Normal range of motion. Neck supple. Cardiovascular: Normal rate and regular rhythm. Pulmonary/Chest: Effort normal and breath sounds normal. Abdominal: Soft. Musculoskeletal: General: Tenderness present. Neurological: She is alert and oriented to person, place, and time. Skin: Skin is warm and dry. Psychiatric: She has a normal mood and affect. Her behavior is normal. Right Hand Exam Tenderness The patient is experiencing tenderness in the palmar area. Range of Motion The patient has normal right wrist ROM. Muscle Strength Wrist extension: 5/5 Wrist flexion: 5/5 Rubber Production Machine Operator: 4/5 Tests Phalen s sign: positive Tinel's sign (median nerve): positive Negra's test: negative Other Erythema: absent Scars: absent Sensation: normal Pulse: present Left Hand Exam Tenderness The patient is experiencing tenderness in the palmar area. Range of Motion The patient has normal left wrist ROM. Muscle Strength Wrist extension: 5/5 Wrist flexion: 5/5 Rubber Production Machine Operator: 4/5 Tests Phalen s sign: positive Tinel's sign (median nerve): positive Negra's test: negative Other Erythema: absent Scars: absent Sensation: normal Pulse: present Right Elbow Exam Tests Tinel's sign (cubital tunnel): positive Left Elbow Exam Tests Tinel's sign (cubital tunnel): positive Imaging: EMG from 2019 shows bilateral carpal tunnel syndrome, bilateral C5 motor radiculopathies, no brachial plexopathy Diagnosis: Problem List Items Addressed This Visit Nervous and Auditory Carpal tunnel syndrome - Primary Other Visit Diagnoses Cubital tunnel syndrome of both upper extremities Plan: Discussed EMG results and symptoms with the patient. Discussed treatment options with the patient. I do think that since her EMG in 2019 she has developed cubital tunnel as well due to my examinationand positive tinel's at the elbow. She is wanting surgery on her right hand first then her left hand to follow. She is willing to do both carpal and cubital surgeries if the cubital is needed. She will discuss that with Dr. Arriaga. She is wanting to try cock up braces bilaterally when sleeping, driving, and lifting. She wants to schedule an appointment with Dr. Arriaga to set up surgery. She understands and agrees to proceed. Follow Up: Return if symptoms worsen or fail to improve. Stefani Marc CNP documented in this encounter* Hayde Arriaga MD - 06/22/2020 9:48 AM EST Dictation on: 06/22/2020 9:51 AM by: HAYDE ARRIAGA [[id number]] documented in this encounter* Hayde Arriaga MD - 06/22/2020 9:48 AM EST Dictation on: 06/22/2020 9:51 AM by: HAYDE ARRIAGA [[id number]] documented in this encounter* Agueda Rodas, PT - 04/22/2019 12:28 PM EDT [facility] Daily Note Date: 04/22/2019 Patient Name: Kera Lan : 1970 (48 y.o.) Referring Practitioner: Dr. Goldman Referral Date : 03/12/19 Diagnosis: Carpal Tunnel Syndrome Treatment Diagnosis: B/L hand numbness/weakness Onset Date: 03/12/19 PT Insurance Information: 19v remaining Total # of Visits Approved: 12 Per Physician Order Total # of Visits to Date: 8 No Show: 0 Canceled Appointment: 0 Pre-Treatment Pain: 0/10 Assessment Assessment: Pt reports 40% improvement overall. Pt reports on the days that she does not have to doa lot of driving she will not notice tingling. Issued UEFS for pt to return next visits. Chart Reviewed: Yes Plan Plan: Continue with current plan Exercises/Modalities/Manual: See DocFlow Sheet Education: Additional needles added and stim to L forearm/carpal tunnel Barriers to Learning: None Goals (Total # of Visits to Date: 8) Short Term Goals - Time Frame for Short term goals: 6 visits Short term goal 1: Pt to report 50% improvement with numbness/tingling of L hand.-NOT MET Snf Goals - Time Frame for terminologist goals : 12 visits terminologist goal 1: Pt to report 24hours without numbness/tingling to improve ADL rupali.-MET terminologist goal 2: Pt to score 44/80 on UEFS to improve pt rupali to ADLs. terminologist goal 3: Pt to have 50deg of cervical extension to improve pt ablity to complete ADLs suchas managing her hair.-NOT MET terminologist goal 4: Pt to have Rubber Production Machine Operator Strength of L UE equal to 50# to improve abilty to vice president quality improvement objects.-MET Post Treatment Pain: 0/10 Time In: 0920 Time Out: 1000 Timed Code Treatment Minutes: 40 Minutes Total Time: 40 Minutes Agueda Rodas PT Date: 04/22/2019 documented in this encounter* Agueda Rodas PT - 05/06/2019 12:08 PM EDT [facility] Daily Note Date: 05/06/2019 Patient Name: Kera Lan : 1970 (48 y.o.) Referring Practitioner: Dr. Goldman Referral Date : 03/12/19 Diagnosis: Carpal Tunnel Syndrome Treatment Diagnosis: B/L hand numbness/weakness Onset Date: 03/12/19 PT Insurance Information: 19v remaining Total # of Visits Approved: 12 Per Physician Order Total # of Visits to Date: 12 No Show: 0 Canceled Appointment: 0 Pre-Treatment Pain: 0/10 Assessment Assessment: Pt reports no episodes of tingling the entire weekend. Pt very pleased with progress. Pt requests Stim to R forearm this date due to fatigue sensation she gets occationally. AROM CervicalExt=45deg Chart Reviewed: Yes Plan Plan: Discharge Exercises/Modalities/Manual: See DocFlow Sheet Education: D/C at this time Barriers to Learning: None Goals (Total # of Visits to Date: 12) Short Term Goals - Time Frame for Short term goals: 6 visits Short term goal 1: Pt to report 50% improvement with numbness/tingling of L hand.-NOT MET Snf Goals - Time Frame for terminologist goals : 12 visits residential goal 1: Pt to report 24hours without numbness/tingling to improve ADL rupali.-MET terminologist goal 2: Pt to score 44/80 on UEFS to improve pt rupali to ADLs.-MET residential goal 3: Pt to have 50deg of cervical extension to improve pt ablity to complete ADLs suchas managing her hair.-NOT MET residential goal 4: Pt to have Rubber Production Machine Operator Strength of L UE equal to 50# to improve abilty to vice president quality improvement objects.-MET Post Treatment Pain: 0/10 Time In: 0950 Time Out: 1030 Timed Code Treatment Minutes: 40 Minutes Total Treatment Time: 40 Minutes Agueda Rodas, PT Date: 05/06/2019 documented in this encounter* Hayde Arriaga MD - 07/06/2020 10:02 AM EST Mrs. Lan is here today in followup, not having been able to secure an appointment with Dr. Goldman's office. She states she was told that they would not see her. Dr. Goldman did do neck surgery on her. I am concerned that her numbness and tingling may be related to her previous cervical spine problems including her surgery. I have discussed with her that I am not comfortable proceeding with carpal tunnel surgery until her neurosurgeon has signed off on her symptoms and findings, that they do not relate to her neck issues. Until I receive a written recommendation from Dr. Goldman's office in that regard, we are not going to proceed with any further intervention for this patient. The patient understands that. We will make an attempt to get this information from Dr. Goldman's office. documented in this encounter* Reinaldo Goldman MD - 10/12/2020 3:17 PM EST Chief Complaint Patient presents with Follow-up To review MR Cervical and Brain and CT Cervical Status post cervical corpectomy. HPI She has been in our returns 2 years 5 months status post a C6 corpectomy C5-7 anterior cervical plating for myelopathy. CT cervical spine of 10/06/2020 was independently viewed by me and a computerizedworkstation, my interpretation follows. There is minimal lucency around the C5 screws that do not appear to be associated with any screw backed out. There is excellent integration of the fibular strut graft from C5-C7. There is some moderate foraminal stenosis at the right C6-7 foramen and left C6-7 foramen, and bilateral C5-6 foramen. There is no significant spinal canal stenosis. MRI of the cervical spine was also ordered but this was not performed. MRI of the brain was also performed on 10/06/2020 and this demonstrated no significant abnormalities. This was performed because the patient was having spastic type of movement disorder of the upper extremities, right side greater than the left.She states the spastic disorders which are flexion contractures of the arm forearm and fingers of both hands occur perhaps 1-2 times a week. She also complains now of numbness of all the fingers of both hands especially bothersome while driving. At previous visit she stated it was only the fourth and fifth digits of the right hand. She denies any neck pain. She does complain of a tension type bandlike pain encircling her entire forehead occiput and parietal areas. Review of Systems Right-handed. Positive for cervical spondylosis with myelopathy treated with cervical corpectomy. Carpal tunnel syndrome. Movement disorder. Memory loss, subjective. Physical Exam Awake alert oriented pleasant female no obvious acute distress. Speech and language function noted.Right anterior cervical incision well-healed. She has full range of motion the head and neck. No Lhermitte phenomenon. No palpable masses in the forehead or parieto-occipital scalp. No pronator drift. Power the deltoid biceps triceps wrist extensor wrist flexor and dorsal and volar interossei are 5out of 5 and equal. She has a trace of wasting of the left thenar eminence compared to the right. She has decreased light touch sensation in the palmar aspect of all the fingers of both hands. Gait and station normal. Deep tendon reflexes the biceps triceps 1+ and equal, patella and Achilles 1+ andequal. No clonus. No Rah sign. Impression Cervical spondylosis with myelopathy status post cervical decompression with with residual foraminal stenoses C5-6 C6-7. Asymptomatic minimal lucency around C5 screws in the context of a completely fused fibular strut graft. Bilateral carpal tunnel syndrome. Movement disorder of uncertain etiology.Headaches. Plan Referral to neurology for movement disorder and headaches. From a neurosurgical perspective I explained to her that she is healed her fusion well. She does have some continued foraminal stenoses C5-6and C6-7 but I would not recommend any surgical intervention on the cervical spine for treatment of numbness in the hands. She should be reevaluated by Dr. Arriaga as to whether or not carpal tunnels surgery and decompression the median nerve is indicated at this point time. Follow-up with me on an as-needed basis. Reinaldo Goldman MD documented in this encounter* Agueda Rodas, PT - 07/01/2019 9:15 AM EST [facility] Daily Note Date: 07/01/2019 Patient Name: Kera Lan : 1970 (48 y.o.) Referring Practitioner: Alise Kc CNP Referral Date : 06/07/19 Diagnosis: Low back pain Treatment Diagnosis: Low Back pain Onset Date: 06/07/19 PT Insurance Information: 7 visits remaining Total # of Visits Approved: 7 Per Physician Order Total # of Visits to Date: 4 No Show: 0 Canceled Appointment: 0 Pre-Treatment Pain: 6/10 Assessment Assessment: Pt reports painfree for 1 day and then pain gradually returned. Pt reports that she hasbeen feeling better since last session. Pt reports her pain 6/10 this date prior to session and 0/10 post session. Plan to assess ROM next visit. Chart Reviewed: Yes Plan Plan: Continue with current plan Exercises/Modalities/Manual: See DocFlow Sheet Education: Addition of cluneals and stim this date Barriers to Learning: none Goals (Total # of Visits to Date: 4) Snf Goals - Time Frame for terminologist goals : 7 visits residential goal 1: Pt to report 50% improvement with regard to pain level. residential goal 2: Pt to score <15/45 on Oswestry to improve pt ADL rupali. residential goal 3: Pt to have >50% lumbar flexion to improve tasks such as doing dishes. residential goal 4: Pt to have 4/5 Hip ABD strength to improve pt standing rupali. Post Treatment Pain: 0/10 Time In: 09 Time Out: 49 Timed Code Treatment Minutes: 29 Minutes Total Treatment Time: 29 Minutes Agueda Rodas, PT Date: 07/01/2019 documented in this encounter* Agueda Rodas, PT - 04/15/2019 12:21 PM EDT [facility] Daily Note Date: 04/15/2019 Patient Name: Kera Lan : 1970 (48 y.o.) Referring Practitioner: Dr. Goldman Referral Date : 03/12/19 Diagnosis: Carpal Tunnel Syndrome Treatment Diagnosis: B/L hand numbness/weakness Onset Date: 03/12/19 PT Insurance Information: 19v remaining Total # of Visits Approved: 12 Per Physician Order Total # of Visits to Date: 6 No Show: 0 Canceled Appointment: 0 Pre-Treatment Pain: 0/10 Assessment Assessment: Pt reports continued tingling with use of the left hand. Since last session pt reports no difficulty with vaccuming with her right hand. Pt reports that she is pleased with R hand abilitysince last session. Added additional needles this date with good rupali. Will cont to monitor for improvement. Chart Reviewed: Yes Plan Plan: Continue with current plan Exercises/Modalities/Manual: See DocFlow Sheet Education: Additional needles-placement and purpose Barriers to Learning: None Goals (Total # of Visits to Date: 6) Short Term Goals - Time Frame for Short term goals: 6 visits Short term goal 1: Pt to report 50% improvement with numbness/tingling of L hand. Press Manager Goals - Time Frame for terminologist goals : 12 visits residential goal 1: Pt to report 24hours without numbness/tingling to improve ADL rupali. residential goal 2: Pt to score 44/80 on UEFS to improve pt rupali to ADLs. residential goal 3: Pt to have 50deg of cervical extension to improve pt ablity to complete ADLs suchas managing her hair. terminologist goal 4: Pt to have Rubber Production Machine Operator Strength of L UE equal to 50# to improve abilty to vice president quality improvement objects. Post Treatment Pain: 0/10 Time In: 1020 Time Out: 1100 Timed Code Treatment Minutes: 40 Minutes Total Time: 40 Minutes Agueda Rodas PT Date: 04/15/2019 documented in this encounter* Mariella De Santiago RN - 11/27/2018 11:54 AM EDT Patient called nurse states:i am getting like electrical shock waves in my hands and arms. My family doctor says my x-rays are abnormal. Dr. Goldman told and orders received for ct scan and Mri of neck. Patient called and told. documented in this encounter* Agueda Rodas PT - 04/11/2019 10:21 AM EDT [facility] Daily Note Date: 04/11/2019 Patient Name: Kera Lan : 1970 (48 y.o.) Referring Practitioner: Dr. Goldman Referral Date : 03/12/19 Diagnosis: Carpal Tunnel Syndrome Treatment Diagnosis: B/L hand numbness/weakness Onset Date: 03/12/19 PT Insurance Information: 19v remaining Total # of Visits Approved: 12 Per Physician Order Total # of Visits to Date: 5 No Show: 0 Canceled Appointment: 0 Pre-Treatment Pain: 0/10 Assessment Assessment: Pt continues to report improvement with regard to her numbness. Occurs less frequently and duration is less. Slight soreness after last session. Pt reports difficulty with turning her R wrist and with things like vaccuming. Pt reports very rarely does her R hand go numb more just pain with activity and sup/pronation. Pt did have 1 location on each carpal tunnel(lateral needle) that did bleed but resolve with immediate pressure. Chart Reviewed: Yes Plan Plan: Continue with current plan Exercises/Modalities/Manual: See DocFlow Sheet Education: Locations of slight bleed, dorsum needle placements Barriers to Learning: None Goals (Total # of Visits to Date: 5) Short Term Goals - Time Frame for Short term goals: 6 visits Short term goal 1: Pt to report 50% improvement with numbness/tingling of L hand. Press Manager Goals - Time Frame for residential goals : 12 visits terminologist goal 1: Pt to report 24hours without numbness/tingling to improve ADL rupali. terminologist goal 2: Pt to score 44/80 on UEFS to improve pt rupali to ADLs. terminologist goal 3: Pt to have 50deg of cervical extension to improve pt ablity to complete ADLs suchas managing her hair. terminologist goal 4: Pt to have Rubber Production Machine Operator Strength of L UE equal to 50# to improve abilty to vice president quality improvement objects. Post Treatment Pain: 0/10 Time In: 0935 Time Out: 1015 Timed Code Treatment Minutes: 40 Minutes Total Treatment Time: 40 Minutes Agueda Rodas PT Date: 04/11/2019 documented in this encounter* Agueda Rodas PT - 06/24/2019 8:45 AM EST [facility] Daily Note Date: 06/24/2019 Patient Name: Kera Lan : 1970 (48 y.o.) Referring Practitioner: Alise Kc CNP Referral Date : 06/07/19 Diagnosis: Low back pain Treatment Diagnosis: Low Back pain Onset Date: 06/07/19 PT Insurance Information: 7 visits remaining Total # of Visits Approved: 7 Per Physician Order Total # of Visits to Date: 2 No Show: 0 Canceled Appointment: 0 Pre-Treatment Pain: 04/16 Assessment Assessment: Pt reports after last session pain subsided for 30min to 1hour then gradually returned.Added Stim this date and also additional needle locations. HP also applied after session for pain relief due to aching sensation. Pain remains 04/16 post session. Pt educated to apply heat at home also and monitor response to treatment. Chart Reviewed: Yes Plan Plan: Continue with current plan Exercises/Modalities/Manual: See DocFlow Sheet Education: Additional needle placement as well as stim Barriers to Learning: none Goals (Total # of Visits to Date: 2) Press Manager Goals - Time Frame for terminologist goals : 7 visits residential goal 1: Pt to report 50% improvement with regard to pain level. residential goal 2: Pt to score <15/45 on Oswestry to improve pt ADL rupali. terminologist goal 3: Pt to have >50% lumbar flexion to improve tasks such as doing dishes. residential goal 4: Pt to have 4/5 Hip ABD strength to improve pt standing rupali. Post Treatment Pain: 04/16 Time In: 0855 Time Out: 09 Timed Code Treatment Minutes: 25 Minutes Total Treatment Time: 33 Minutes Agueda Rodas, PT Date: 06/24/2019 documented in this encounter* Agueda Rodas, PT - 04/18/2019 10:22 AM EDT [facility] Daily Note Date: 04/18/2019 Patient Name: Kera Lan : 1970 (48 y.o.) Referring Practitioner: Dr. Goldman Referral Date : 03/12/19 Diagnosis: Carpal Tunnel Syndrome Treatment Diagnosis: B/L hand numbness/weakness Onset Date: 03/12/19 PT Insurance Information: 19v remaining Total # of Visits Approved: 12 Per Physician Order Total # of Visits to Date: 7 No Show: 0 Canceled Appointment: 0 Pre-Treatment Pain: 0/10 Assessment Assessment: Cervical Extension=30deg(note L fingers tingle). Rubber Production Machine Operator Strength L= 65#, 48#, 43#= 52# average Pt reports noting tingling with driving, L hand on steering wheel. Pt reports still soreness/fatigue in R UE at times. C/o difficulty opening jars with R Hand. Chart Reviewed: Yes Plan Plan: Continue with current plan Exercises/Modalities/Manual: See DocFlow Sheet Education: Improvement with re: vice president quality improvement strength of L UE Barriers to Learning: None Goals (Total # of Visits to Date: 7) Short Term Goals - Time Frame for Short term goals: 6 visits Short term goal 1: Pt to report 50% improvement with numbness/tingling of L hand.-NOT MET Press Manager Goals - Time Frame for residential goals : 12 visits terminologist goal 1: Pt to report 24hours without numbness/tingling to improve ADL rupali. residential goal 2: Pt to score 44/80 on UEFS to improve pt rupali to ADLs. residential goal 3: Pt to have 50deg of cervical extension to improve pt ablity to complete ADLs suchas managing her hair.-NOT MET terminologist goal 4: Pt to have Rubber Production Machine Operator Strength of L UE equal to 50# to improve abilty to vice president quality improvement objects.-MET Post Treatment Pain: 0/10 Time In: 0852 Time Out: 0932 Timed Code Treatment Minutes: 40 Minutes Total Treatment Time: 40 Minutes Agueda Rodas, PT Date: 04/18/2019 documented in this encounter* Reinaldo Goldman MD - 08/20/2020 3:16 PM EST No chief complaint on file. Tingling in the hands right greater than left. HPI She has been in our returns 2 years 3 months status post a C6 corpectomy C5-7 anterior strut graft fusion for severe cervical myelopathy. She has had numbness and tingling with third fourth and fifthdigits of the right hand. She had mild carpal tunnel in entrapment type of EMG nerve conduction pattern on a [place], EMG which is not available to me. Repeat MRI of the cervical spine performedon 12/27/2018 was independently viewed by me and a computerized workstation, and my interpretation follows. There is disc osteophyte at right C5-6 of a moderate severity to cause moderate foraminal stenosis and at C6-C7 bilaterally there is moderately severe foraminal stenoses. Strut graft integration appears to be appropriate. However there is some degree of artifact from the titanium that may beobscuring or overreading this. There is no evidence of Chiari malformation. There is no evidence ofT2 signal abnormality within the spinal cord. The patient was being considered with Dr. Arriaga on carpal tunnel release on the right side but because of the atypical distribution of the numbness, neurosurgical opinion was sought. She states that she develops a extension movement of the distal forearm and external rotation of the distal forearm and hand as well as a splaying of the fingers that occurs episodically. She is also had a rotational flexion contracture type movement occur in the lowerextremity especially left foot and leg. She also complains of persistent numbness and tingling sensations of all the fingers of both hands right worse than left especially when she is driving. She denies any traumatic injury. There has been no change in bowel or bladder function. Review of Systems Cervical spondylosis with cord compression status post cervical spine decompressive surgery May2018. Physical Exam Awake alert oriented pleasant female in no obvious acute distress. No tremor noted of the extremities. She has normal light touch of all the fingers of the upper extremities except patchy loss of light touch over the volar aspect of the fourth and fifth digits of the right hand. Gait and station normal. She has forage motion of the head neck. Lhermitte sign is negative. Right anterior cervical incision is flat dry and well-healed. Dorsal and volar interossei strength is 4 out of 5 wrist extensor flexor 4+ out of 5 right bicep 4 left bicep 4+, right tricep 4 left 4+, deltoid 5 out of 5 and symmetric. Deep tendon reflexes are unobtainable the biceps and triceps. No Rah sign. No ankle clonus. Power at the iliopsoas gluteal quadricep hamstrings hip abductor's adductor's and dorsi and plantarflex the feet are 5-5 and equal. Impression Episodic right upper extremity left lower extremity spastic movements of uncertain etiology. Numbness of all the fingers of both hands. Plan MRI of the brain to evaluate for movement disorder. CT cervical spine to better assess bony foraminal stenosis especially in light of the titanium plate which could lead to MRI artifact. Follow-up once studies have been completed. I do not recommend that she undergo carpal tunnel surgery as I do not believe this will change any of her movement disorder issues and would only give potential partial relief of some of the numbness that she has been experiencing. Reinaldo Goldman MD documented in this encounter* Agueda Rodas, PT - 03/28/2019 2:15 PM EDT [facility] Outpatient Physical Therapy Evaluation Date: 03/28/2019 Patient: Kera Lan : 1970 Referring Practitioner: Dr. Goldman Referral Date : 03/12/19 Diagnosis: Carpal Tunnel Syndrome Treatment Diagnosis: B/L hand numbness/weakness Onset Date: 03/12/19 PT Insurance Information: 19v remaining Total # of Visits Approved: 12 Per Physician Order Total # of Visits to Date: 1 No Show: 0 Canceled Appointment: 0 Subjective Additional Pertinent Hx: Patient reports she has had B/L numbness in hands for several months. History of EMG which yielded positive Carpal Tunnel Sydrome. Per Xray imaging pt has fusion of C5 through C7 which was performed May 2018. Pt reports numbnessof hands was present prior to neck sx, things have improved since sx. Pt states she no longer has pain in the hands. Pt report that there is no pain, just numbness, tingling and weakness. Can involve the entire arm, mostly the L arm. Pt does c/o pain at base of neck C7-T1 area. Pain Screening Patient Currently in Pain: Denies Pain Assessment Pain Assessment: 0-10 Objective Spine Cervical: Flexion=45deg, Ext=35deg Sidebending: R=20deg, L=20deg Strength RUE Comment: 60#, 55# R Shoulder Flexion: 4/5 R Shoulder Extension: 4+/5 R Shoulder ABduction: 3/5 R Shoulder Horizontal ABduction: 3-/5 Strength LUE Comment: 50#, 45# L Shoulder Flexion: 4/5 L Shoulder Extension: 4+/5 L Shoulder ABduction: 3/5 L Shoulder Horizontal ABduction: 3-/5 Assessment Body structures, Functions, Activity limitations: Decreased functional mobility , Decreased ADL status, Decreased ROM, Decreased strength, Decreased endurance, Decreased sensation, Decreased high-level IADLs Assessment: Pt to benefit from dry needling to promote improve sensation and strength of B/L UEs. Pt educated on dry needling procedure, risks and benefits. Pt did not recieve needling this date, will begin next visit. Plan to also issue HEP for postural strengthenging and ROM. Prognosis: Fair Decision Making: Low Complexity Exam: UEFS=35/80 Clinical Presentation: Stable/Uncomplicated The Following Comorbities will impact the patient s progression and Plan of Care: Thyroid Activity Tolerance: Patient Tolerated treatment well Education: See assessment, POC, Dry needling consent Barriers to Learning: None Goals Short term goals Time Frame for Short term goals: 6 visits Short term goal 1: Pt to report 50% improvement with numbness/tingling of L hand. residential goals Time Frame for residential goals : 12 visits terminologist goal 1: Pt to report 24hours without numbness/tingling to improve ADL rupali. residential goal 2: Pt to score 44/80 on UEFS to improve pt rupali to ADLs. terminologist goal 3: Pt to have 50deg of cervical extension to improve pt ablity to complete ADLs suchas managing her hair. terminologist goal 4: Pt to have Rubber Production Machine Operator Strength of L UE equal to 50# to improve abilty to vice president quality improvement objects. Patient's Goal: Be rid of tingling in her hands Timed Code Treatment Minutes: 0 Minutes Total Treatment Time: 23 Time In: 1140 Time Out: 1203 Agueda Rodas, PT Date: 03/28/2019 documented in this encounter Hospital Course * Agueda Rodas, PT - 07/11/2019 8:45 AM EST [facility] Outpatient Physical Therapy Discharge Summary Patient: Kera Lan : 1970 Referring Practitioner: Alise Kc CNP Diagnosis: Low back pain Date Treatment Initiated: 06/14/19 Date of Last Treatment: 07/11/19 PT Visit Information Onset Date: 06/07/19 PT Insurance Information: 7 visits remaining Total # of Visits Approved: 7 Total # of Visits to Date: 7 No Show: 0 Canceled Appointment: 0 Frequency/Duration Days: 2 times per week Weeks: 4 weeks Treatment Received Therapeutic Exercise, Patient Education/HEP, Manual Therapy: Myofacial Release/Cupping and Manual Therapy: Dry Needling Pain Level: 4 Assessment Assessment: Completed last visit. Pt with good noted improvement since starting needling. 4/10 painat worst vs 9/10 prior to PT. Pt to cont with stretches and strengthening for HEP. Flexion=75% Reason for Discharge Goals Met Comments: Thank you for this referral Agueda Rodas Date: 07/11/2019 documented in this encounter* Agueda Rodas, PT - 05/06/2019 12:08 PM EDT [facility] Outpatient Physical Therapy Discharge Summary Patient: Kera Lan : 1970 Referring Practitioner: Dr. Goldman Diagnosis: Carpal Tunnel Syndrome Date Treatment Initiated: 03/28/19 Date of Last Treatment: 05/06/19 PT Visit Information Onset Date: 03/12/19 PT Insurance Information: 19v remaining Total # of Visits Approved: 12 Total # of Visits to Date: 12 No Show: 0 Canceled Appointment: 0 Frequency/Duration Days: 2 times per week Weeks: 6 weeks Treatment Received Therapeutic Exercise, Patient Education/HEP and Manual Therapy: Dry Needling Assessment Pt reports no episodes of tingling the entire weekend. UEFS=65/80. Pt very pleased with progress. AROM Cervical Ext=45deg Reason for Discharge Completion of Prescribed visits and Optimal Function Achieved Comments: Thank you for this referral Agueda Rodas Date: 05/06/2019 documented in this encounter Discharge Instructions * Attachments The following attachments cannot be sent through Care Everywhere. * Wound Check (Afghan) documented in this encounter Additional Source Comments INFORMATION SOURCE (unrecogn ized section and content) DATE CREATED AUTHOR 02/27/2018 [facility] DATE CREATED AUTHOR AUTHOR'S ORGANIZ ATION 08/15/2018 [facility] DATE CREATED AUTHOR AUTHOR'S ORGANIZ ATION 10/07/2020 [facility] DATE CREATED AUTHOR AUTHOR'S ORGANIZ ATION 03/07/2021 [facility] DATE CREATED AUTHOR AUTHOR'S ORGANIZ ATION 06/02/2021 [facility] DATE CREATED AUTHOR AUTHOR'S ORGANIZ ATION 11/10/2021 [facility] DATE CREATED AUTHOR AUTHOR'S ORGANIZ ATION 01/10/2022 [facility] DATE CREATED AUTHOR AUTHOR'S ORGANIZ ATION 04/06/2023 [facility] DATE CREATED AUTHOR AUTHOR'S ORGANIZ ATION 01/17/2024 [facility] DATE CREATED AUTHOR AUTHOR'S ORGANIZ ATION 03/29/2024 [facility] Reason for Visit (unrecogniz ed section and content) Reason Comments Neck Pain follow up had x-ray cervical. having left and right arm pain. She rates her pain 6/10. Status Reason Specialty Diagnoses / Procedures Referre d By Contact Referred To Contact Reason Comments Follow-up Patient is here to theodore lai her testing. Status Reason Specialty Diagnoses / Procedures Referred By Contact Referred To Contact Open Physical Therapy Diagnoses Carpal tunnel syndrome, bilateral upper limbs Procedures physical therapy Reinaldo Goldman [address] [facility] [place] [address] Agueda Rodas PT Status Reason Specialty Diagnoses / Procedures Referred By Contact Referred To Contact Open Physical Therapy Diagnoses Carpal tunnel syndrome, bilateral upper limbs Low back pain Procedures physical therapy Alise Kc, INVOICE CONTROL CLERK - PEDIATRIC AUDIOLOGIST [address] [place] [address] Alejandra Wagner L, PT Status Reason Specialty Diagnoses / Procedures Referred By Contact Referred To Contact Manual Review Required - [facility] Diagnoses Intra-abdominal and pelvic swelling, mass and lump, unspecified site Procedures HC US EXAM PELVIC COMPLETE Arnol Ellison [address] [place] [address] [facility] [address] [place] [address] Reason Comments Post-op Problem Reason Comments Follow-up To review MR Cervica l and Brain and CT Cervical Reason Comments Follow-up Patient is here to b e cleared for right carpal tunnel surgery by Dr. Arriaga. Patient states she does not have any neck pain or arm pain. The only issue she has is in the right wrist and hand. She will be sitting and all of a sudden her hand will be uncontrolable and bend backwards and twist and she is not able to get it to stop. Her will have to hold it and push it back to neutral position for a couple minutes and it will be alright. She has also had the same issue in her right ankle and foot. Status Reason Specialty Diagnoses / Procedures Referred By Contact Referred To Contact Closed Specialty Services Required/Patien t's Best Interest Neurological Surgery / Neurology Diagnoses Bilateral carpal tunnel syndrome Hayde Arriaga MD [address] [address] Reinaldo Goldman MD [address] [place] [id number] Reason Comments movement disorder Patient states she h ad a Scan and was referred to us by Dr. Goldman. She states She has pain in her intire head. She states it felt as if someone was pounding on her head with a hammer. She also states she gets very mad easily due to the pain. Status Reason Specialty Diagnoses / Procedures Referred By Contact Referred To Contact Closed Specialty Services Required/Patient' s Best Interest Neurology Diagnoses Movement disorder Reinaldo Goldman MD [address] [place] [address] Dominick Gongora MD [address] [place], [place] [id number] Reason Onset Date Comments Medication Refill 01/12/2021 Status Reason Specialty Diagnoses / Procedures Referre d By Contact Referred To Contact Closed Radiology Diagnoses Encounter for screening mammogram for breast cancer Procedures [facility] K[facility] DIGITAL SCREEN BILATERAL Jorge A Meier MD [address] [place] [address] Specialty Diagnoses / Procedures Referred By Contac t Referred To Contact Neurology Diagnoses Bilateral carpal tunnel syndrome Procedures EMG: EMG: Dominick Gongora MD [address] [place], [place] [id number] Referral ID Status Reason Start Date Expiration Date Visits Re quested Visits Authorized [id number] Closed 05/18/2021 05/18/2022 1 1 Specialty Diagnoses / Procedures Referred By Contac t Referred To Contact Sports Medicine Diagnoses Bilateral carpal tunnel syndrome Dominick Gongora MD [address] [address] Hayde Arriaga MD 24 [facility] [address] [place] [address] Referral ID Status Reason Start Date Expiration Date V isits Requested Visits Authorized [id number] Closed Specialty Services Required/Elza ent's Best Interest 08/03/2021 08/03/2022 1 1 Reason Comments Follow-up Reason Onset Date Comments Medication Refill 11/29/2021 Reason Comments Pain Reason Comments Chest Pain Chest pain started a round 0245 this AM Specialty Diagnoses / Procedures Referred By Contac t Referred To Contact Radiology Diagnoses RLQ abdominal pain History of hernia surgery Procedures CT ABDOMEN PELVIS W IV CONTRAST Additional Contrast? None Ivis Omer, DO [address] [place] [address] Referral ID Status Reason Start Date Expiration Date V isits Requested Visits Authorized [id number] Pending Review 09/15/2022 09/14/2023 1 1 Reason Comments Foot Laceration Laceration on right third digit on foot. States she was moving a chair and chair leg cut her toe. Specialty Diagnoses / Procedures Referred By Contac t Referred To Contact Diagnoses Chest pain, unspecified type Procedures Nuclear stress test with myocardial perfusion Ivis Omer, DO [address] [place] [address] Referral ID Status Reason Start Date Expiration Date V isits Requested Visits Authorized [id number] Pending Review 07/25/2023 07/24/2024 3 3 Care Teams (unrecognized sec tion and content) Bindery Machine Setter/Set Up Operator Relationship Specialty Start Date End Date Florentino Herr PA [address] [place] [address] PCP - General Physician Treating Engineer Helper 12/22/16 Bindery Machine Setter/Set Up Operator Relationship Specialty Start Date End Date Florentino Herr PA-C [address] [place] [address] PCP - General Physician Treating Engineer Helper 08/14/18 Bindery Machine Setter/Set Up Operator Relationship Specialty Start Date End Date Florentino Herr PA-C [address] [place] [address] PCP - General Physician Treating Engineer Helper 08/14/18 Bindery Machine Setter/Set Up Operator Relationship Specialty Start Date End Date Florentino Herr PA-C [address] [place] [address] PCP - General Physician Treating Engineer Helper 08/14/18 Bindery Machine Setter/Set Up Operator Relationship Specialty Start Date End Date Florentino Herr PA-C [address] [place] [address] PCP - General Physician Treating Engineer Helper 08/14/18 Bindery Machine Setter/Set Up Operator Relationship Specialty Start Date End Date Florentino Herr PA-C [address] [place] [address] PCP - General Physician Treating Engineer Helper 08/14/18 Bindery Machine Setter/Set Up Operator Relationship Specialty Start Date End Date Florentino Herr PA-C [address] [place] [address] PCP - General Physician Treating Engineer Helper 08/14/18 Bindery Machine Setter/Set Up Operator Relationship Specialty Start Date End Date Florentino Herr PA-C [address] [place] [address] PCP - General Physician Treating Engineer Helper 08/14/18 Bindery Machine Setter/Set Up Operator Relationship Specialty Start Date End Date Florentino Herr PA [address] [place] [address] PCP - General Physician Treating Engineer Helper 12/22/16 Bindery Machine Setter/Set Up Operator Relationship Specialty Start Date End Date Florentino Herr PA-C [address] [place] [address] PCP - General Physician Treating Engineer Helper 08/14/18 Bindery Machine Setter/Set Up Operator Relationship Specialty Start Date End Date Florentino Herr PA [address] [place] [address] PCP - General Physician Treating Engineer Helper 12/22/16 Bindery Machine Setter/Set Up Operator Relationship Specialty Start Date End Date Florentino Herr PA [address] [place] [address] PCP - General Physician Treating Engineer Helper 12/22/16 Bindery Machine Setter/Set Up Operator Relationship Specialty Start Date End Date Florentino Herr PA [address] [place] [address] PCP - General Physician Treating Engineer Helper 12/22/16 Bindery Machine Setter/Set Up Operator Relationship Specialty Start Date End Date Florentino Herr PA [address] [place] [address] PCP - General Physician Treating Engineer Helper 12/22/16 Bindery Machine Setter/Set Up Operator Relationship Specialty Start Date End Date Florentino Herr PA-C [address] [place] [address] PCP - General Physician Treating Engineer Helper 08/14/18 Bindery Machine Setter/Set Up Operator Relationship Specialty Start Date End Date Florentino Herr PA [address] [place] [address] PCP - General Physician Treating Engineer Helper 12/22/16 Bindery Machine Setter/Set Up Operator Relationship Specialty Start Date End Date Florentino Herr PA [address] [place] [address] PCP - General Physician Treating Engineer Helper 12/22/16 Bindery Machine Setter/Set Up Operator Relationship Specialty Start Date End Date Ivis Omer DO [address] [place] [address] PCP - General Family Medicine 09/14/22 Bindery Machine Setter/Set Up Operator Relationship Specialty Start Date End Date Ivis Omer DO [address] [place] [address] PCP - General Family Medicine 09/14/22 Bindery Machine Setter/Set Up Operator Relationship Specialty Start Date End Date Ivis Omer DO [address] [place] [address] PCP - General Family Medicine 09/14/22 Bindery Machine Setter/Set Up Operator Relationship Specialty Start Date End Date Ivis Omer DO [address] [place] [address] PCP - General Family Medicine 09/14/22 Scheduled Active and Recently Administ ered Medications (unrecognized section and content) Medication Order 02/20/2022 02/21/2022 02/22/2022 aspirin chewable tablet 243 mg (COMPLETED) 243 mg, Oral, ONCE, 1 dose, On Mon02/22/22 at 0400 0357 (Given - Provid er: Daily Davis RN) ketorolac (TORADOL) injection 30 mg (COMPLETED) Ketorolac is contraindicated in patients with advanced renal impairment and in patients at risk of renal failure due to volume depletion. For 65 years of age and older OR weight less than 50 kg, use 15 mg IV every 6 hours; MAX dose: 60 mg/day. Dose greater than 30 mg must be administered via intramuscular route. Do not administer for more than 5 days., 30 mg, IntraVENous, ONCE, 1 dose, On Mon02/22/22 at 0500, Do not administer for more than 5 days. 0510 (Given - Provid er: Ivis Marc RN) PRN Medication Order 02/20/2022 02/21/2022 02/22/2022 ondansetron (ZOFRAN) injection 4 mg 4 mg, IntraVENous, EVERY 30 MIN PRN, 2 doses, Starting on Mon02/22/22 at 0347, Until Discontinued, Nausea Scheduled Medication Order 12/30/2022 12/31/2022 01/01/2023 acetaminophen (TYLENOL) tablet 1,000 mg (COMPLETED) 1,000 mg, Oral, ONCE, 1 dose, On Mon01/01/23 at 1600, Maximum dose of acetaminophen is 4000 mg from all sources in 24 hours. 1556 (Given - Provid er: Yudelka Barton RN) Ordered Prescriptions (unrec ognized section and content) Prescription Sig Dispensed Refills Start Date End Da te amoxicillin-clavulanate (AUGMENTIN) 875-125 MG per tablet Take 1 tablet by mouth 2 times daily for 10 days 20 tablet 0 01/01/2023 01/11/2023 FOR RECORDS PERTAINING TO PATIENTS WHO ARE OR HAVE BEEN ENROLLED IN A CHEMICAL DEPENDENCY/SUBSTANCEABUSE PROGRAM, SOME INFORMATION MAY BE OMITTED. This clinical summary was aggregated from multiple sources. Caution should be exercised in using it in the provision of clinical care. This summary normalizes information from multiple sources, and as a consequence, information in this document may materially change the coding, format and clinical context of patient data. In addition, data may be omitted in some cases. CLINICAL DECISIONS SHOULD BE BASED ON THE PRIMARY CLINICAL RECORDS. [email or web address] [facility]. provides no warranty or guarantee of the accuracy or completeness of information in this document.
[2024-05-16 14:11] VITALS: BP 110/64; PULSE 78; O2SAT 98
== END 2024-05-16 14:13 | disposition home or self-care (01) ==
LOC: VC 13:06
PROVIDERS: PCP Radiology Diagnostic Radiology; Visit Provider Radiology Diagnostic Radiology
DX: I83.813 Varicose veins of bilateral lower extremities with pain (principal)
CPT/HCPCS: 36466

== ENCOUNTER 2024-05-28 13:02 | Outpatient (OUT) | payer OTHER, SELFPAY ==
--- NOTE | 2024-05-28 13:03 | VEIN_ITS ---
Patient Name: KERA LAN MR#: [id number] : 1970 Exam Date: 05/28/2024 Ordering Doctor: DR FRANKY QUESADA M.D. RADIOLOGY REPORT PROCEDURE: VC EXT VENOUS LT LIMITED COMPARISON: VC EXT VENOUS LT LIMITED, 04/25/2024. INDICATIONS: I80.02 - Phlebitis and thrombophlebitis of superficial ve... TECHNIQUE: Lower extremity bourgeois scale and Duplex Doppler evaluation of the deep venous system from the inguinal ligament through the calf veins. FINDINGS: REGION: Left lower extremity. THROMBI: Negative for DVT. 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 COMPRESSIBILITY: Non-compressible segments corresponding to thrombus FLOW: Normal waveform and antegrade flow between 5 and 20 cm/s. Areas of absent flow corresponding to thrombus OTHER: No patent varicose veins remain. CONCLUSION: Post ablation occlusion of treated varicose veins. No residual incompetent veins are observed Dictated by: Stef Figueroa MD on 05/28/2024 at 13:13 Approved by: Stef Figueroa MD on 05/28/2024 at 13:14
--- NOTE | 2024-05-28 13:03 | VEIN_ITS ---
Patient Name: KERA LAN MR#: [id number] : 1970 Exam Date: 05/28/2024 Ordering Doctor: DR FRANKY QUESADA M.D. RADIOLOGY REPORT PROCEDURE: [facility] - OFFICE VISIT FOLLOW UP [facility] PROGRESS NOTES: The patient reports no significant problems following micro foam chemical ablation of left leg incompetent varicose veins. The patient has worn her compression stockings. The patient did not require oral analgesics. Physical exam demonstrates multiple thrombosed varicose veins. No erythema warmth to suggest cellulitis or. No active ulceration. No residual varicose veins observed. Review of the ultrasound performed the same day demonstrates occlusive thrombus extending throughout the treated left leg incompetent varicose veins. No deep vein thrombus. No residual varicose veins. The patient's treatments are now complete. Patient was asked to return for any new venous disease or symptoms in the future. VEIN/[facility] EST TD IMPRESSION: 1. Successful ablation of treated left leg incompetent varicose veins 2. Treatment plan is complete. PLAN: Return as needed Nurse notes, history and physical were reviewed and confirmed, see attached forms. The nurse was present throughout the physical exam and consultation Dictated by: Stef Figueroa MD on 05/28/2024 at 14:03 Approved by: Stef Figueroa MD on 05/28/2024 at 14:06
[2024-05-28 13:23] VITALS: BMI 26.6
--- NOTE | 2024-05-28 13:23 | VEINCLINIC_ITS ---
Vital Signs 05/28/24 13:23 Height 5 ft 3 in Weight 68 kg BMI 26.6 Varicose Veins Patient in this day for follow up ultrasound post microfoam chemical ablation left leg Stef Will MD personally performed the services described in this documentation, as scribed by Debi Stock RVT, RDMS in my presence and it is both accurate and complete. Debi Will RVT, RDMS, am scribing for, and in the presence of, Dr. Stef Figueroa and in the presence of the patient. knee: bilateral (symptoms same on both legs), calf: bilateral, ankle: bilateral and lujan: bilateral aching, cramping and tender 8 1 year Worsened in recent months: Yes standing and sitting elevating extremities and compression stockings Reports muscle spasms of leg, fatigue, heaviness and leg edema History of lower extremity trauma: No Superficial thrombophlebitis: No Family history of varicose veins: no Has patient had previous lower extremity venous surgery: No Patient has previously received the following treatment(s) for lower extremity varicose veins: Reports sclerotherapy (Dr. Merritt in [place], [place] 3 years ago) Does patient have a history of : yes Does patient intend to have future pregnancies: no Has patient had lower extremity venous scan with relux testing: No Support hose used: Yes Problems walking or doing physical activity: Yes How does it affect you: often has to rest and elevate legs due to pain/edema Do you walk much: Yes Do you stand much: Yes Review of Systems ROS Narrative Stef Will MD personally performed the services described in this documentation, as scribed by Debi Stock RVT, RDMS in my presence and it is both accurate and complete. IDebi RVT, RDMS, am scribing for, and in the presence of, Dr. Stef Figueroa and in the presence of the patient. Status of ROS 10 or more systems reviewed and unremark able except as noted in history and below Cardiovascular Reports: edema Integumentary/Breast Reports: itching and skin swelling [facility] Medical History (Updated 05/28/24 @ 13:25 by Debi Stock) Phlebitis and thrombophlebitis of superficial vessels of left lower extremity ?I80.02 - Phlebitis and thrombophlebitis of superficial vessels of left lower extremity (ICD-10) Bariatrc surg stat w p/p ?O99.845 - Bariatric surgery status complicating the puerperium (ICD-10) Cervical vertebral fusion ?M43.22 - Fusion of spine, cervical region (ICD-10) Disc degeneration Migraine ?G43.909 - Migraine, unspecified, not intractable, without status migrainosus (ICD-10) Borderline diabetes ?R73.03 - Prediabetes (ICD-10) Heart disease ?I51.9 - Heart disease, unspecified (ICD-10) Hypothyroid ?E03.9 - Hypothyroidism, unspecified (ICD-10) Varicose veins of bilateral lower extremities with pain ?I83.813 - Varicose veins of bilateral lower extremities with pain (ICD-10) Surgical History (Updated 05/16/24 @ 13:35 by Petr Francis) S/P sclerotherapy of varicose veins ?Z98.890 - Other specified postprocedural states (ICD-10) ?Z86.79 - Personal history of other diseases of the circulatory system (ICD- 10) H/O: hysterectomy ?Z90.710 - Acquired absence of both cervix and uterus (ICD-10) Family History (Updated 03/06/24 @ 13:26 by Petr Francis) Father Family history of diabetes mellitus Mother Family history of diabetes mellitus Renal disease Social History (Updated 03/06/24 @ 13:27 by Petr Francis) Within the past year, how often did you have a drink containing alcohol: never Score interpretation: A score less than 3 is consistent with normal alcohol consumption. Smoking status: Current every day smoker What tobacco products do you use: cigarettes Cigarettes per day: 4 Non-prescribed substance use: denies use Meds Home Medications and Allergies Home Medications ?Medication ?Instructions ?Recorded ?Confirmed ?Type aspirin 81 mg capsule 81 mg PO BID 03/06/24 03/06/24 History estradiol PO 03/06/24 History metformin 500 mg tablet 500 mg PO BID 03/06/24 03/06/24 History topiramate .ROUTE 03/06/24 History Allergies Allergy/AdvReac Type Severity Reaction Status Date / Time No Known Drug Allergies Allergy Verified 03/06/24 13:28 Exam Narrative Exam Narrative: Stef Will MD personally performed the services described in this documentation, as scribed by Debi Stock RVT, RDMS in my presence and it is both accurate and complete. I, Debi Stock RVT, RDMS, am scribing for, and in the presence of, Dr. Stef Figueroa and in the presence of the patient. Constitutional Vital Signs, click to edit/add: Last Vital Signs Pulse 80 04/18/24 08:30 Resp 16 04/18/24 08:30 BP 104/56 04/18/24 08:30 Pulse Ox 100 04/18/24 08:30 Documenting provider has reviewed patient's vital signs: yes Common normals: oriented x3 Nutritional appearance: overweight Lymph Lymphatic: no lymphedema noted Cardio Peripheral pulses: posterior tibial pulses present and dorsalis pedis pulses present Extremity General: calf tenderness, edema and other findings Right lower extremity: lower leg Right lower leg: inspection and palpation Left lower extremity: lower leg Left lower leg: inspection and palpation Neuro Common normals: oriented x3 Results Imaging Venous US: Radiologist's impression: The ultrasound demonstrates 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 Assessment and Plan Assessment and Plan (1) Phlebitis and thrombophlebitis of superficial vessels of left lower extremity: Plan Patient in today for follow up ultrasound of lower extremity following treatment of Varithena/microfoam completed on 05/16/24.
--- NOTE | 2024-05-28 13:25 | P.DS_ITS ---
Discharge Plan Discharge Disposition: Home, Self-Care Discharge Medications: No Action estradiol PO topiramate [Topamax] .ROUTE aspirin 81 mg capsule 81 mg PO BID metformin 500 mg tablet 500 mg PO BID Plan of Treatment: The patient is currently done with treatment and will call and return if any new problems or symptoms occur. Print Language: Romansh Discharge Date/Time: 05/28/24 13:26
== END 2024-05-28 13:26 | disposition home or self-care (01) ==
LOC: VC 13:02
PROVIDERS: PCP Radiology Diagnostic Radiology; Visit Provider Radiology Diagnostic Radiology
DX: I80.02 Phlebitis and thrombophlebitis of superficial vessels of left lower extremity (principal)
CPT/HCPCS: 93971; G0463